=== PATIENT | male | born 1955 | race Caucasian/White ===

== ENCOUNTER 2016-09-10 22:13 | Emergency (ER) | payer SELFPAY ==
[2016-09-10] MEDS ORDERED: CATAPRES PO ONE (23:48)
[2016-09-11 06:08] VITALS: BP 153/113
[2016-09-11 06:38] LABS: Hematocrit 42.3 % (35.5-45.6); Hemoglobin 14.1 gm/dl (11.8-15.2); Mean Corpuscular HGB Conc 33 % (32-34); Mean Corpuscular Hemoglobin 28 pg (28-32); Mean Corpuscular Volume 85 fl (84-94); Platelet Count 154 K/mm3 (140-440); Red Blood Count 4.99 M/mm3 (3.65-5.03); Red Cell Distribution Width 14.4 % (13.2-15.2); White Blood Count 7.2 K/mm3 (4.5-11.0)
[2016-09-11 06:52] LABS: INR 0.93 (0.87-1.13); Partial Thromboplastin Time 28.8 Sec. (24.2-36.6)
[2016-09-11 06:55] LABS: Anion Gap 18 mmol/L; Blood Urea Nitrogen 18 mg/dL (9-20); Calcium 8.5 mg/dL (8.4-10.2); Carbon Dioxide 28 mmol/L (22-30); Chloride 98.1 mmol/L (98-107); Glucose 204 mg/dL (75-100); Potassium 3.6 mmol/L (3.6-5.0); Sodium 140 mmol/L (137-145)
--- NOTE | 2016-09-13 15:40 | ED Elopement Review ---
ED Pt Elopement review - Results review Lab results: Laboratory Tests 09/11/16 09/11/16 09/11/16 06:23 06:23 06:23 WBC 7.2 RBC 4.99 Hgb 14.1 Hct 42.3 MCV 85 MCH 28 MCHC 33 RDW 14.4 Plt Count 154 PT 12.4 INR 0.93 APTT 28.8 Sodium 140 Potassium 3.6 Chloride 98.1 Carbon Dioxide 28 Anion Gap 18 BUN 18 Creatinine 0.9 Estimated GFR > 60 BUN/Creatinine Ratio 20.00 Glucose 204 H Calcium 8.5 - Call Back decision Pt Call Back Decision: No action required
== END 2016-09-11 19:52 | disposition left against medical advice (07) ==
LOC: ED 22:13
DX: R04.0 Epistaxis (principal); Z53.21 Procedure and treatment not carried out due to patient leaving prior to being seen by health care provider
CPT/HCPCS: 36415; 80048; 85027; 85610; 85730

== ENCOUNTER 2018-01-11 21:31 | Emergency (ER) | payer SELFPAY ==
[2018-01-11 21:57] LABS: Basophils # (Auto) 0.1 K/mm3 (0.0-0.1); Basophils % (Auto) 0.7 % (0.0-1.8); Eosinophils # (Auto) 0.2 K/mm3 (0.0-0.4); Eosinophils % (Auto) 1.7 % (0.0-4.3); Hematocrit 45.7 % (35.5-45.6); Lymphocytes # (Auto) 3.5 K/mm3 (1.2-5.4); Lymphocytes % (Auto) 32.9 % (13.4-35.0); Mean Corpuscular HGB Conc 33 % (32-34); Mean Corpuscular Hemoglobin 27 pg (28-32); Mean Corpuscular Volume 82 fl (84-94); Monocytes # (Auto) 0.8 K/mm3 (0.0-0.8); Monocytes % (Auto) 7.9 % (0.0-7.3); Platelet Count 213 K/mm3 (140-440); Red Blood Count 5.55 M/mm3 (3.65-5.03); Red Cell Distribution Width 15.9 % (13.2-15.2)
[2018-01-11 22:10] LABS: BUN/Creatinine Ratio 21; Blood Urea Nitrogen 19 mg/dL (9-20); Calcium 9.4 mg/dL (8.4-10.2); Hemolysis Index 6
[2018-01-11 22:11] LABS: INR 0.94 (0.87-1.13)
[2018-01-11 22:12] LABS: Partial Thromboplastin Time 30.3 Sec. (24.2-36.6); Thrombin Time 16.4 Sec. (15.1-19.6)
--- NOTE | 2018-01-11 22:15 | Emergency Department Report ---
HPI - General Chief Complaint: Neuro Symptoms/Deficit Time Seen by Provider: 01/11/18 22:03 - HPI HPI: 62-year-old male presents to the emergency department with a complaint of some left-sided weakness, numbness and left-sided facial droop with some difficulty speaking that he says started about 8 PM last night. It is unknown why the patient was unable to get to the emergency department until this evening. He has a history of hypertension and does present with very elevated blood pressure. He also has a history of borderline diabetes. He has not taken anything for his symptoms prior to presentation. He denies any tobacco or illicit drug use or abuse. ED Past Medical Hx - Past Medical History Hx Hypertension: Yes - Social History Smoking Status: Former Smoker Substance Use Type: Alcohol - Medications Home Medications: Home Medications Medication Instructions Recorded Confirmed Last Taken Type Acetaminophen/Codeine [Tylenol #3] 1 - 2 tab PO Q4HR PRN #24 tablet 06/05/13 Unknown Rx Dextran 70/Hypromellose 1 each OD TID #15 ml 11/10/16 Unknown Rx [Artificial Tears] Valacyclovir HCl [Valtrex] 1,000 mg PO TID #21 tablet 11/10/16 Unknown Rx predniSONE [Deltasone] 80 mg PO QDAY #28 tab 11/10/16 Unknown Rx ED Review of Systems ROS: Stated complaint: POSSIBLE STROKE Other details as noted in HPI Comment: All other systems reviewed and negative Constitutional: weakness. denies: fever Eyes: denies: eye pain, eye discharge, vision change ENT: denies: ear pain, throat pain Respiratory: denies: cough, shortness of breath, wheezing Cardiovascular: denies: chest pain, palpitations Gastrointestinal: denies: abdominal pain, nausea, diarrhea Genitourinary: denies: urgency, dysuria Musculoskeletal: denies: back pain, joint swelling, arthralgia Skin: denies: rash, lesions Neurological: weakness, numbness. denies: headache Physical Exam - Physical Exam Vital Signs: Vital Signs 01/11/18 21:37 Temperature 98.8 F Pulse Rate 104 H Respiratory 20 Rate Blood Pressure 175/157 O2 Sat by Pulse 97 Oximetry Physical Exam: GENERAL: The patient is well-developed well-nourished. HENT: Normocephalic. Atraumatic. Patient has moist mucous membranes. Oropharynx is clear. There is left-sided nasolabial fold paresis. EYES: Extraocular motions are intact. Pupils equal reactive to light bilaterally. NECK: Supple. Trachea is midline. CHEST/LUNGS: Clear to auscultation. There is no respiratory distress noted. HEART/CARDIOVASCULAR: Regular. There is no tachycardia. There is no murmur. ABDOMEN: Abdomen is soft, nontender. Patient has normal bowel sounds. There is no abdominal distention. SKIN: Skin is warm and dry. NEURO: The patient is awake, alert, and oriented. The patient is cooperative. There is a left upper extremity drift but his arm does not hit the bed. Subjective decreased sensation to the left side of the face and arm. There is some slurred speech but what he says appears to make sense and he appeared oriented. MUSCULOSKELETAL: There is no tenderness or deformity. There is no limitation range of motion. There is no evidence of acute injury. ED Course Vital Signs 01/11/18 21:37 Temperature 98.8 F Pulse Rate 104 H Respiratory 20 Rate Blood Pressure 175/157 O2 Sat by Pulse 97 Oximetry - Reevaluation(s) Reevaluation #1: 01/11/18 22:11 NIH Stroke Scale/Score (NIHSS) from [employer] [facility] on 01/11/2018 All calculations should be rechecked by clinician prior to use RESULT SUMMARY: 5 points NIH Stroke Scale INPUTS: 1A: Level of consciousness > 0 = Alert; keenly responsive 1B: Ask month and age > 0 = Both questions right 1C: 'Blink eyes' & 'squeeze hands' > 0 = Performs both tasks 2: Horizontal extraocular movements > 0 = Normal 3: Visual wong > 0 = No visual loss 4: Facial palsy > 2 = Partial paralysis (lower face) 5A: Left arm motor drift > 1 = Drift, but doesn't hit bed 5B: Right arm motor drift > 0 = No drift for 10 seconds 6A: Left leg motor drift > 0 = No drift for 5 seconds 6B: Right leg motor drift > 0 = No drift for 5 seconds 7: Limb Ataxia > 0 = No ataxia 8: Sensation > 1 = Mild-moderate loss: less sharp/more dull 9: Language/aphasia > 0 = Normal; no aphasia 10: Dysarthria > 1 = Mild-moderate dysarthria: slurring but can be understood 11: Extinction/inattention > 0 = No abnormality - Consultations Consultation #1: Patient has been accepted for transfer to [facility] on [address] by Dr. Moran after speaking with the stroke attending and neuro critical care. 01/11/18 23:29 ED Medical Decision Making - Lab Data Result diagrams: 01/11/18 21:54 01/11/18 21:54 - EKG Data -: EKG Interpreted by Me EKG shows normal: sinus rhythm, axis (left axis deviation), intervals ( prolonged QTc), QRS complexes (incomplete RBBB, LAFB, LVH), ST-T waves Rate: normal - EKG Data When compared to previous EKG there are: no significant change Interpretation: unchanged when compared t (11/10/16) - Radiology Data Radiology results: report reviewed PROCEDURE: CT HEAD/BRAIN WO CON TECHNIQUE: Computerized tomography of the head was performed without contrast material. HISTORY: left side weakness, slurred speech since yesterday COMPARISON: No prior studies are available for comparison. FINDINGS: Skull and scalp: Normal. Paranasal sinuses: Normal. Ventricles and subarachnoid spaces: Normal. Cerebrum: There is a 15 millimeter hematoma in the right thalamus. There is no mass effect or midline shift. There is no evidence of recent ischemic injury. There is mild periventricular deep white matter ischemic gliosis. Cerebellum and brainstem: No evidence of hemorrhage, acute infarction or mass. Vasculature: Normal. Comments: None. IMPRESSION: 15 millimeter acute hematoma in the right thalamus. There is no significant mass effect. Dr. Skinner was notified by telephone at 9:07 p.m. central Transcribed By: CO Dictated By: SARA VERONICA MD Electronically Authenticated By: SARA VERONICA MD Signed Date/Time: 01/11/182 - Medical Decision Making Patient presents with some left-sided weakness, numbness, left-sided facial droop and some slurred speech. CT scan shows a 1.5 cm left thalamic bleed. He has some hypertension and has been placed on a Cardene drip. Labs have been mostly unremarkable except for some hyperglycemia without signs of DKA. He has been accepted for transfer to [facility]. He is currently waiting for transport to arrive. - Differential Diagnosis hemorrhagic CVA, TIA, DKA, hypertensive crisis Critical Care Time: No Critical care attestation.: If time is entered above; I have spent that time in minutes in the direct care of this critically ill patient, excluding procedure time. ED Disposition Clinical Impression: Hemorrhagic cerebrovascular accident (CVA), Hypertensive urgency, Hyperglycemia Disposition: DC/TX-70 ANOTHER TYPE HLTHCARE Is pt being admited?: No Condition: Fair Referrals: PRIMARY CARE, [Primary Care Provider] - 3-5 Days Time of Disposition: 00:04
[2018-01-11] MEDS ORDERED: CARDENE 50 MG in NACL 0.9% 250ML 230 ML IV SCH (23:00)
[2018-01-12 00:08] VITALS: BP 151/109
== END 2018-01-12 00:15 | disposition other institution (70) ==
LOC: ED 21:31
DX: I63.9 Cerebral infarction, unspecified (principal); I10 Essential (primary) hypertension; R73.9 Hyperglycemia, unspecified; Z87.891 Personal history of nicotine dependence
CPT/HCPCS: 36415; 70450; 80048; 82962; 84484; 85025; 85610; 85670; 85730; 93005; 93010; 96365; 99284; J7050

== ENCOUNTER 2020-05-02 02:01 | Inpatient (IN) | payer SELFPAY ==
[2020-05-02] MEDS ORDERED: ALBUTEROL 2.5 MG/3 ML NEBU IH ONE (02:14)
[2020-05-02] MEDS ORDERED: IPRATROPIUM 0.02% NEBU 2.5 ML IH ONE (02:14)
--- NOTE | 2020-05-02 02:19 | Emergency Department Report ---
ED Shortness of Breath HPI - General Stated Complaint: ANA Time Seen by Provider: 05/02/20 02:13 Source: patient, EMS Mode of arrival: Stretcher Limitations: Language Barrier - History of Present Illness Initial Comments: 64-year-old male with no known past medical history presents to the hospital with respiratory distress. Patient is a smoker but denies previous cardiac or lung disease. EMS reports that patient was in respiratory distress, tachypneic, and had bilateral wheezing. Patient was treated with albuterol, magnesium, and Solu-Medrol in route with some improvement. After arrival to the ED patient redeveloped respiratory distress. Satting 100% on nonrebreather. Patient denies any pain cough (however cough noted during interview) or chest pain. + Possible fever. - Related Data Previous Rx's Medication Instructions Recorded Last Taken Type Acetaminophen/Codeine [Tylenol #3] 1 - 2 tab PO Q4HR PRN #24 tablet 06/05/13 Unknown Rx Dextran 70/Hypromellose 1 each OD TID #15 ml 11/10/16 Unknown Rx [Artificial Tears] Valacyclovir HCl [Valtrex] 1,000 mg PO TID #21 tablet 11/10/16 Unknown Rx predniSONE [Deltasone] 80 mg PO QDAY #28 tab 11/10/16 Unknown Rx Allergies Allergy/AdvReac Type Severity Reaction Status Date / Time No Known Allergies Allergy Unverified 06/04/13 22:44 ED Review of Systems ROS: Stated complaint: ANA Other details as noted in HPI Comment: All other systems reviewed and negative ED Past Medical Hx - Past Medical History Hx Hypertension: Yes - Social History Smoking Status: Former Smoker Substance Use Type: Alcohol - Medications Home Medications: Home Medications Medication Instructions Recorded Confirmed Last Taken Type Acetaminophen/Codeine [Tylenol #3] 1 - 2 tab PO Q4HR PRN #24 tablet 06/05/13 Unknown Rx Dextran 70/Hypromellose 1 each OD TID #15 ml 11/10/16 Unknown Rx [Artificial Tears] Valacyclovir HCl [Valtrex] 1,000 mg PO TID #21 tablet 11/10/16 Unknown Rx predniSONE [Deltasone] 80 mg PO QDAY #28 tab 11/10/16 Unknown Rx ED Physical Exam - Other Other exam information: General: No acute distress Head: Atraumatic Eyes: normal appearance ENT: Moist mucous membranes Neck: Normal appearance, no midline tenderness Chest: Tachypnea, bilateral excessive muscle use, mild wheezing CV: Tachycardic regular rhythm Abdomen: Soft, normal bowel sounds, nontender, nondistended, no rebound or guard ing Back: Normal inspection Extremity: Normal inspection, full range of motion, no calf tenderness or leg edema Neuro: Alert O x 3, no facial asymmetry, speech clear, no gross motor sensory deficit Psych: Appropriate behavior Skin: No rash ED Course Vital Signs 05/02/20 05/02/20 05/02/20 02:15 02:18 02:20 Temperature 97.9 F Pulse Rate 118 H 118 H 117 H Respiratory 44 H 38 H 33 H Rate Blood Pressure 181/121 181/121 Blood Pressure 181/121 [Right] O2 Sat by Pulse 100 100 100 Oximetry 05/02/20 05/02/20 05/02/20 02:30 02:31 02:45 Temperature Pulse Rate 110 H 108 H Respiratory 37 H 31 H Rate Blood Pressure 169/108 169/108 Blood Pressure [Right] O2 Sat by Pulse 100 100 100 Oximetry 05/02/20 05/02/20 05/02/20 03:00 03:15 03:30 Temperature Pulse Rate 106 H 104 H 102 H Respiratory 28 H 21 20 Rate Blood Pressure 164/110 164/110 158/100 Blood Pressure [Right] O2 Sat by Pulse 100 100 100 Oximetry 05/02/20 03:45 Temperature Pulse Rate 102 H Respiratory 20 Rate Blood Pressure 158/100 Blood Pressure [Right] O2 Sat by Pulse 100 Oximetry ED Medical Decision Making - Lab Data Result diagrams: 05/02/20 02:39 05/02/20 02:39 - EKG Data -: EKG Interpreted by Il EKG shows normal: sinus rhythm, intervals (qtc 505), ST-T waves (no stemi, lvh) Rate: tachycardia (109) - Radiology Data Radiology results: report reviewed CHEST 1 VIEW, 05/02/2020 2:23 AM CLINICAL INFORMATION/INDICATION: Chest pain. Shortness of breath. COMPARISON: None FINDINGS: SUPPORT DEVICES: None. HEART: The cardiac silhouette is mildly enlarged. LUNGS/PLEURA: Diffuse bilateral predominantly airspace disease is seen throughout both lung wong. No large pleural effusion is identified. ADDITIONAL FINDINGS: No additional acute findings. IMPRESSION: 1. Diffuse bilateral predominantly airspace disease concerning for multifocal pneumonia. - Medical Decision Making 64-year-old male smoker with no known past medical history presents to the hospital with respiratory distress despite treatment with Solu-Medrol, magnesium, and albuterol in route. O2 saturation 100% on nonrebreather but tachypneic upon ED arrival. Patient placed on BiPAP and treated with albuterol and Atrovent. ABG performed while on BiPAP with 70% FiO2 and does not show any acid-base disturbance with adequate oxygenation. Chest x-ray positive for bilateral infiltrates therefore COVID order set ordered and patient placed in respiratory isolation. Patient treated for community-acquired pneumonia with azithromycin and Rocephin and was provided Decadron 6 g IV. ID consult ordered. Patient's respiratory symptoms improving with ED treatment and BIPAP support but patient remains hypertensive with no known past medical history of hypertension. Case discussed with hospitalist Dr Weinstein for admission to the [facility]. Critical Care Time: Yes Critical care time in (mins) excluding proc time.: 35 Critical care attestation.: If time is entered above; I have spent that time in minutes in the direct care of this critically ill patient, excluding procedure time. ED Disposition Clinical Impression: Bilateral pneumonia, Suspected COVID-19 virus infection, Acute respiratory distress, Smoker, HTN (hypertension) Disposition: OP ADMIT IP TO THIS HOSP Is pt being admited?: Yes Condition: Stable Time of Disposition: 03:45
[2020-05-02 02:52] LABS: Basophils # (Auto) 0.1 K/mm3 (0.0-0.1); Basophils % (Auto) 0.8 % (0.0-1.8); Eosinophils # (Auto) 0.3 K/mm3 (0.0-0.4); Eosinophils % (Auto) 2.6 % (0.0-4.3); Hematocrit 34.6 % (35.5-45.6); Hemoglobin 12.3 gm/dl (11.8-15.2); Lymphocytes # (Auto) 1.8 K/mm3 (1.2-5.4); Mean Corpuscular HGB Conc 36 % (32-34); Mean Corpuscular Volume 85 fl (84-94); Monocytes # (Auto) 1.1 K/mm3 (0.0-0.8); Monocytes % (Auto) 9.9 % (0.0-7.3); Platelet Count 248 K/mm3 (140-440); Red Blood Count 4.08 M/mm3 (3.65-5.03); Red Cell Distribution Width 14.9 % (13.2-15.2)
--- NOTE | 2020-05-02 03:00 | XRay Report ---
CHEST 1 VIEW, 05/02/2020 2:23 AM CLINICAL INFORMATION/INDICATION: Chest pain. Shortness of breath. COMPARISON: None FINDINGS: SUPPORT DEVICES: None. HEART: The cardiac silhouette is mildly enlarged. LUNGS/PLEURA: Diffuse bilateral predominantly airspace disease is seen throughout both lung wong. N o large pleural effusion is identified. ADDITIONAL FINDINGS: No additional acute findings. IMPRESSION: 1. Diffuse bilateral predominantly airspace disease concerning for multifocal pneumonia. Signer Name: Hansa Elena MD Signed: 05/02/2020 2:55 AM Workstation Name: [id number]
[2020-05-02 03:02] LABS: INR 1.1 (0.87-1.13)
[2020-05-02 03:05] LABS: ABG Base Excess -1.6 mmol/L (-2.0-3.0); ABG HCO3 23.7 mmol/L (20.0-26.0); ABG Methemoglobin 0.5 % (0.0-1.5); ABG Oxygen Saturation 99.2 % (95.0-99.0); ABG PCO2 42.2 mm Hg; ABG PH 7.367 pH Units (7.350-7.450); ABG PO2 198.2 mm Hg (80.0-90.0)
[2020-05-02 03:12] LABS: Alanine Aminotransferase 18 units/L (7-56); Albumin 3.6 g/dL (3.9-5); BUN/Creatinine Ratio 23; Blood Urea Nitrogen 21 mg/dL (9-20); Calcium 8.2 mg/dL (8.4-10.2); Hemolysis Index 3
[2020-05-02] MEDS ORDERED: dexAMETHasone 4 MG/ML VIAL IV ONE (03:22)
[2020-05-02] MEDS ORDERED: ACETAMINOPHEN 325 MG TAB PO PRN (04:36)
[2020-05-02] MEDS ORDERED: ONDANSETRON 4 MG/2 ML INJ IV PRN (04:39)
[2020-05-02 05:00] LABS: C-Reactive Protein 9.2 mg/dL (0.00-1.30)
--- NOTE | 2020-05-02 05:52 | History and Physical Report ---
History of Present Illness Date of examination: 05/02/20 Date of admission: 05/02/20 04:25 Chief complaint: Shortness of breath History of present illness: History of presenting illness, patient is a 64-year-old male who started having shortness of breath within the last 24 to 48 hours associated with fever but no chest pain or cough. There was also no history of nausea and vomiting and no history of body aches or chills, however patient complained of wheezing and EMS was called and they treated patient with breathing treatment and magnesium and brought patient to the emergency room. Past History Past Surgical History: No surgical history Social history: no significant social history Medications and Allergies Allergies Allergy/AdvReac Type Severity Reaction Status Date / Time No Known Allergies Allergy Unverified 06/04/13 22:44 Home Medications Medication Instructions Recorded Confirmed Last Taken Type Acetaminophen/Codeine [Tylenol #3] 1 - 2 tab PO Q4HR PRN #24 tablet 06/05/13 Unknown Rx Dextran 70/Hypromellose 1 each OD TID #15 ml 11/10/16 Unknown Rx [Artificial Tears] Valacyclovir HCl [Valtrex] 1,000 mg PO TID #21 tablet 11/10/16 Unknown Rx predniSONE [Deltasone] 80 mg PO QDAY #28 tab 11/10/16 Unknown Rx Active Meds: Active Medications Acetaminophen (Tylenol) 650 mg PO Q4H PRN PRN Reason: Fever >101 Dexamethasone (Decadron) 6 mg IV DAILY [facility] Heparin Sodium (Porcine) (Heparin) 5,000 unit SUB-Q Q12HR JAMIN Ceftriaxone Sodium (Rocephin/Ns 2 Gm/100 Ml) 2 gm in 100 mls @ 200 mls/hr IV Q24HR JAMIN; Protocol Azithromycin 500 mg/ Sodium (Chloride) 250 mls @ 250 mls/hr IV Q24HR JAMIN; Protocol Ondansetron HCl (Zofran) 4 mg IV Q8H PRN PRN Reason: Nausea And Vomiting Review of Systems Constitutional: fever, weakness, no chills, no sweats, no anorexia, no fatigue, no malaise Eyes: bilateral: other (NO BILATERAL EYE SYMPTOM) Ears, nose, mouth and throat: bleeding gums, no ear pain, no ear discharge, no tinnitis, no nose pain, no nasal congestion, no nasal discharge, no hoarseness, no sore throat Cardiovascular: shortness of breath, no chest pain, no orthopnea, no palpitations, no rapid/irregular heart beat, no syncope, no high blood pressure Respiratory: shortness of breath, dyspnea on exertion, wheezing, no cough, no excessive sputum, no hemoptysis Gastrointestinal: no abdominal pain, no nausea, no vomiting, no diarrhea Genitourinary Male: no dysuria, no hematuria Rectal: no pain Musculoskeletal: no neck stiffness, no neck pain, no low back pain, no shooting leg pain, no leg numbness/tingling, no redness of joints, no morning stiffness, no muscle cramps, no myalgias, no frequent falls Integumentary: no deferred, no rash, no pruritis, no redness, no sores, no wounds, no jaundice, no boils, no growths, no depigmentation, no change in hair/nails Neurological: no paralysis, no weakness, no parathesias, no numbness, no tingling, no seizures, no syncope, no vertigo, no headaches, no migraines, no convulsions, no change in speech, no change in mentation, no confusion Psychiatric: no anxiety, no insomnia, no suicidal ideation, no disorientation Endocrine: no cold intolerance, no heat intolerance, no polyphagia, no excessive thirst, no polydipsia, no polyuria, no nocturia, no excessive sweating Hematologic/Lymphatic: no easy bruising, no easy bleeding, no lymphadenopathy, no lymphedema Allergic/Immunologic: no urticaria Exam - Constitutional Vitals: Temp Pulse Resp BP Pulse Ox 97.9 F 96 H 18 154/101 100 05/02/20 02:18 05/02/20 04:45 05/02/20 04:45 05/02/20 04:45 05/02/20 04:45 General appearance: Present: mild distress - EENT Eyes: Present: PERRL, EOM intact ENT: hearing intact, clear oral mucosa, dentition normal - Neck Neck: Present: supple, normal ROM - Respiratory Respiratory effort: normal - Cardiovascular Rhythm: regular Heart Sounds: Present: S1 & S2. Absent: gallop, systolic murmur, diastolic murmur - Extremities Extremities: no ischemia, No edema Peripheral Pulses: within normal limits - Abdominal General gastrointestinal: Present: soft, non-tender, non-distended. Absent: tender, distended, hepatomegaly, splenomegaly Male genitourinary: Present: deferred - Integumentary Integumentary: Present: clear, warm. Absent: jaundice - Musculoskeletal Musculoskeletal: strength equal bilaterally - Psychiatric Psychiatric: appropriate mood/affect - Neurologic Neurologic: CNII-XII intact HEART Score - HEART Score Age: 45-65 Risk factors: 1-2 risk factors Troponin: Troponin T < 0.010 ng/mL (0.00-0.029) 05/02/20 02:39 Troponin: < normal limit - Critical Actions Critical Actions: 0-3 pts:0.9-1.7%risk of adverse cardiac event.Candidate for discharge Results - Labs CBC & Chem 7: 05/02/20 02:39 05/02/20 03:58 Labs: Laboratory Last Values WBC 11.4 K/mm3 (4.5-11.0) H 05/02/20 02:39 RBC 4.08 M/mm3 (3.65-5.03) 05/02/20 02:39 Hgb 12.3 gm/dl (11.8-15.2) 05/02/20 02:39 Hct 34.6 % (35.5-45.6) L 05/02/20 02:39 MCV 85 fl (84-94) 05/02/20 02:39 MCH 30 pg (28-32) 05/02/20 02:39 MCHC 36 % (32-34) H 05/02/20 02:39 RDW 14.9 % (13.2-15.2) 05/02/20 02:39 Plt Count 248 K/mm3 (140-440) 05/02/20 02:39 Lymph % (Auto) 16.0 % (13.4-35.0) 05/02/20 02:39 Clark % (Auto) 9.9 % (0.0-7.3) H 05/02/20 02:39 Eos % (Auto) 2.6 % (0.0-4.3) 05/02/20 02:39 Baso % (Auto) 0.8 % (0.0-1.8) 05/02/20 02:39 Lymph # 1.8 K/mm3 (1.2-5.4) 05/02/20 02:39 Clark # 1.1 K/mm3 (0.0-0.8) H 05/02/20 02:39 Eos # 0.3 K/mm3 (0.0-0.4) 05/02/20 02:39 Baso # 0.1 K/mm3 (0.0-0.1) 05/02/20 02:39 Seg Neutrophils % 70.7 % (40.0-70.0) H 05/02/20 02:39 Seg Neutrophils # 8.0 K/mm3 (1.8-7.7) H 05/02/20 02:39 PT 14.4 Sec. (12.2-14.9) 05/02/20 02:39 INR 1.10 (0.87-1.13) 05/02/20 02:39 D-Dimer 837.32 ng/mlDDU (0-234) H 05/02/20 03:58 ABG pH 7.367 pH Units (7.350-7.450) 05/02/20 02:58 ABG pCO2 42.2 mm Hg 05/02/20 02:58 ABG pO2 198.2 mm Hg (80.0-90.0) H 05/02/20 02:58 ABG HCO3 23.7 mmol/L (20.0-26.0) 05/02/20 02:58 ABG O2 Saturation 99.2 % (95.0-99.0) H 05/02/20 02:58 ABG O2 Content 17.6 (0.0-44) 05/02/20 02:58 ABG Base Excess -1.6 mmol/L (-2.0-3.0) 05/02/20 02:58 ABG Hemoglobin 12.6 gm/dl (14.0-18.0) L 05/02/20 02:58 ABG Carboxyhemoglobin 1.3 % (0.0-5.0) 05/02/20 02:58 ABG Methemoglobin 0.5 % (0.0-1.5) 05/02/20 02:58 Oxyhemoglobin 97.4 % (95.0-99.0) 05/02/20 02:58 FiO2 70 % 05/02/20 02:58 Sodium 138 mmol/L (137-145) 05/02/20 02:39 Potassium 3.6 mmol/L (3.6-5.0) 05/02/20 02:39 Chloride 100.0 mmol/L (98-107) 05/02/20 02:39 Carbon Dioxide 24 mmol/L (22-30) 05/02/20 02:39 Anion Gap 18 mmol/L 05/02/20 02:39 BUN 21 mg/dL (9-20) H 05/02/20 02:39 Creatinine 0.9 mg/dL (0.8-1.3) 05/02/20 02:39 Estimated GFR > 60 ml/min 05/02/20 02:39 BUN/Creatinine Ratio 23 % 05/02/20 02:39 Glucose 147 mg/dL (75-100) H 05/02/20 03:58 Calcium 8.2 mg/dL (8.4-10.2) L 05/02/20 02:39 Ferritin 150.1 ng/mL (30.0-300.0) 05/02/20 03:58 Total Bilirubin 0.50 mg/dL (0.1-1.2) 05/02/20 02:39 AST 33 units/L (5-40) 05/02/20 02:39 ALT 18 units/L (7-56) 05/02/20 02:39 Alkaline Phosphatase 120 units/L (35-129) 05/02/20 02:39 Lactate Dehydrogenase 272 units/L (91-180) H 05/02/20 03:58 Troponin T < 0.010 ng/mL (0.00-0.029) 05/02/20 02:39 C-Reactive Protein 9.20 mg/dL (0.00-1.30) H 05/02/20 03:58 NT-Pro-B Natriuret Pep 4356 pg/mL (0-900) H 05/02/20 02:39 Total Protein 7.3 g/dL (6.3-8.2) 05/02/20 02:39 Albumin 3.6 g/dL (3.9-5) L 05/02/20 02:39 Albumin/Globulin Ratio 1.0 % 05/02/20 02:39 Smith/IV: IV Catheter Type [Right INT / Saline Lock Antecubital] Assessment and Plan - Patient Problems (1) Bilateral pneumonia Current Visit: Yes Status: Acute Plan to address problem: 1. I.V ZITHROMAX ANTIBIOTIC 2. I.V ROCEPHIN ANTIOBIOTIC 3. PRN TYLENOL FOR FEVER 4. PRN ROBITUSSIN (2) Suspected COVID-19 virus infection Current Visit: Yes Status: Acute Plan to address problem: 1. DROPLET AND CONTACT ISOLATION 2. INFECTIOUS DISEASE CONSULT 3. I.V DEXAMETHASONE
[2020-05-02] MEDS ORDERED: AZITHROMYCIN 500 MG in SODIUM CHLORIDE 0.9% 250ML 250 ML IV SCH (10:00)
[2020-05-02] MEDS ORDERED: HEPARIN 5,000 UNIT/1 ML VIAL ONE (10:18)
[2020-05-02] MEDS ORDERED: dexAMETHasone 4 MG/ML VIAL ONE (10:18)
[2020-05-02] MEDS ORDERED: cefTRIAXone/NS 2 GM/100 ML 2 GM/100 ML BAG IV ONE (10:20)
[2020-05-02] MEDS: HEPARIN 5,000 UNIT/1 ML VIAL SUB-Q SCH ×2 (10:52→23:36)
[2020-05-02] MEDS: dexAMETHasone 4 MG/ML VIAL IV SCH (10:52)
[2020-05-02] MEDS: cefTRIAXone/NS 2 GM/100 ML 2 GM/100 ML BAG IV SCH (10:52)
--- NOTE | 2020-05-02 12:13 | Event Note ---
Date: 05/02/20
--- NOTE | 2020-05-02 12:19 | Progress Note ---
Assessment and Plan Assessment and plan: --Bilateral pneumonia Current Visit: Yes Status: Acute Plan to address problem: Empiric antibiotics Rocephin and Zithromax Blood cultures, supportive care --Acute hypoxic respiratory failure; Requiring BiPAP. Oxygen titrate O2 sats to more than 90% Nebulizers, IV antibiotics, supportive care --PUI -suspected COVID-19 virus infection Current Visit: Yes Status: Acute Plan to address problem: Isolation contact and droplet Isolation precautions, and PPE protocol. Follow farris PCR test report Follow inflammatory markers ID consulted --elevated D-dimers CTA chest;No evidence of PE Suspected bilateral upper lobe pneumonia Moderate pleural effusion right greater than left Uncomplicated descending thoracic aortic aneurysm 5.2 x 4.9 cm patient feels better. --Ongoing tobacco use: ongoing tobacco use smoking cessation counseling. nicotine patch as needed --DVT prophylaxis; Lovenox Closely monitor the patient and adjust management as needed Follow ID recommendations Advance care 32 minutes History Interval history: I seen and examined the patient I have seen and examined the patient at bedside Patient's chart and medications reviewed Admitted with worsening shortness of breath and acute respiratory failure requiring BiPAP High suspicion for COVID Patient is in mild distress Vital signs reviewed Hospitalist Physical - Constitutional Vitals: Temp Pulse Resp BP Pulse Ox 98.4 F 88 16 116/80 100 05/02/20 07:40 05/02/20 11:40 05/02/20 11:40 05/02/20 11:40 05/02/20 11:40 General appearance: Present: mild distress, well-nourished - EENT Eyes: Present: PERRL, EOM intact - Neck Neck: Present: supple, normal ROM - Respiratory Respiratory effort: normal Respiratory: bilateral: diminished, rhonchi, negative: rales, wheezing - Cardiovascular Rhythm: regular Heart Sounds: Present: S1 & S2 - Extremities Extremities: no ischemia, No edema - Abdominal General gastrointestinal: soft, non-tender, non-distended, normal bowel sounds - Integumentary Integumentary: Present: clear, warm - Psychiatric Psychiatric: appropriate mood/affect, agitated - Neurologic Neurologic: moves all extremities HEART Score - HEART Score Age: 45-65 Risk factors: 1-2 risk factors Troponin: Troponin T < 0.010 ng/mL (0.00-0.029) 05/02/20 02:39 Troponin: < normal limit - Critical Actions Critical Actions: 0-3 pts:0.9-1.7%risk of adverse cardiac event.Candidate for discharge Results - Labs CBC & Chem 7: 05/02/20 02:39 05/02/20 03:58 Labs: Laboratory Last Values WBC 11.4 K/mm3 (4.5-11.0) H 05/02/20 02:39 RBC 4.08 M/mm3 (3.65-5.03) 05/02/20 02:39 Hgb 12.3 gm/dl (11.8-15.2) 05/02/20 02:39 Hct 34.6 % (35.5-45.6) L 05/02/20 02:39 MCV 85 fl (84-94) 05/02/20 02:39 MCH 30 pg (28-32) 05/02/20 02:39 MCHC 36 % (32-34) H 05/02/20 02:39 RDW 14.9 % (13.2-15.2) 05/02/20 02:39 Plt Count 248 K/mm3 (140-440) 05/02/20 02:39 Lymph % (Auto) 16.0 % (13.4-35.0) 05/02/20 02:39 [place] % (Auto) 9.9 % (0.0-7.3) H 05/02/20 02:39 Eos % (Auto) 2.6 % (0.0-4.3) 05/02/20 02:39 Baso % (Auto) 0.8 % (0.0-1.8) 05/02/20 02:39 Lymph # 1.8 K/mm3 (1.2-5.4) 05/02/20 02:39 [place] # 1.1 K/mm3 (0.0-0.8) H 05/02/20 02:39 Eos # 0.3 K/mm3 (0.0-0.4) 05/02/20 02:39 Baso # 0.1 K/mm3 (0.0-0.1) 05/02/20 02:39 Seg Neutrophils % 70.7 % (40.0-70.0) H 05/02/20 02:39 Seg Neutrophils # 8.0 K/mm3 (1.8-7.7) H 05/02/20 02:39 PT 14.4 Sec. (12.2-14.9) 05/02/20 02:39 INR 1.10 (0.87-1.13) 05/02/20 02:39 D-Dimer 837.32 ng/mlDDU (0-234) H 05/02/20 03:58 ABG pH 7.367 pH Units (7.350-7.450) 05/02/20 02:58 ABG pCO2 42.2 mm Hg 05/02/20 02:58 ABG pO2 198.2 mm Hg (80.0-90.0) H 05/02/20 02:58 ABG HCO3 23.7 mmol/L (20.0-26.0) 05/02/20 02:58 ABG O2 Saturation 99.2 % (95.0-99.0) H 05/02/20 02:58 ABG O2 Content 17.6 (0.0-44) 05/02/20 02:58 ABG Base Excess -1.6 mmol/L (-2.0-3.0) 05/02/20 02:58 ABG Hemoglobin 12.6 gm/dl (14.0-18.0) L 05/02/20 02:58 ABG Carboxyhemoglobin 1.3 % (0.0-5.0) 05/02/20 02:58 ABG Methemoglobin 0.5 % (0.0-1.5) 05/02/20 02:58 Oxyhemoglobin 97.4 % (95.0-99.0) 05/02/20 02:58 FiO2 70 % 05/02/20 02:58 Sodium 138 mmol/L (137-145) 05/02/20 02:39 Potassium 3.6 mmol/L (3.6-5.0) 05/02/20 02:39 Chloride 100.0 mmol/L (98-107) 05/02/20 02:39 Carbon Dioxide 24 mmol/L (22-30) 05/02/20 02:39 Anion Gap 18 mmol/L 05/02/20 02:39 BUN 21 mg/dL (9-20) H 05/02/20 02:39 Creatinine 0.9 mg/dL (0.8-1.3) 05/02/20 02:39 Estimated GFR > 60 ml/min 08/25/20 02:39 BUN/Creatinine Ratio 23 % 05/02/20 02:39 Glucose 147 mg/dL (75-100) H 05/02/20 03:58 Calcium 8.2 mg/dL (8.4-10.2) L 05/02/20 02:39 Ferritin 150.1 ng/mL (30.0-300.0) 05/02/20 03:58 Total Bilirubin 0.50 mg/dL (0.1-1.2) 05/02/20 02:39 AST 33 units/L (5-40) 05/02/20 02:39 ALT 18 units/L (7-56) 05/02/20 02:39 Alkaline Phosphatase 120 units/L (35-129) 05/02/20 02:39 Lactate Dehydrogenase 272 units/L (91-180) H 05/02/20 03:58 Troponin T < 0.010 ng/mL (0.00-0.029) 05/02/20 02:39 C-Reactive Protein 9.20 mg/dL (0.00-1.30) H 05/02/20 03:58 NT-Pro-B Natriuret Pep 4356 pg/mL (0-900) H 05/02/20 02:39 Total Protein 7.3 g/dL (6.3-8.2) 05/02/20 02:39 Albumin 3.6 g/dL (3.9-5) L 05/02/20 02:39 Albumin/Globulin Ratio 1.0 % 05/02/20 02:39 Procalcitonin 0.06 ng/mL (<0.15) 05/02/20 03:58 Microbiology: Microbiology 05/02/20 04:13 Peripheral/Venous Blood Culture - Preliminary Culture in Progress 05/02/20 03:58 Peripheral/Venous Blood Culture - Preliminary Culture in Progress Smith/IV: IV Catheter Type [Right INT / Saline Lock Antecubital] IV Catheter Type [Left INT / Saline Lock Antecubital] Active Medications - Current Medications Current Medications: Generic Name Dose Route Start Last Admin Trade Name Freq PRN Reason Stop Dose Admin Acetaminophen 650 mg 05/02/20 04:36 Tylenol PO Q4H PRN Fever >101 Dexamethasone 6 mg 05/02/20 10:00 05/02/20 10:52 Decadron IV 6 mg DAILY JAMIN Administration Heparin Sodium (Porcine) 5,000 unit 05/02/20 10:00 05/02/20 10:52 Heparin SUB-Q 5,000 unit Q12HR JAMIN Administration Ceftriaxone Sodium 2 gm in 100 mls @ 200 mls/hr 05/02/20 10:00 05/02/20 10:52 Rocephin/Ns 2 Gm/100 Ml IV 200 mls/hr Q24HR JAMIN Administration Protocol Azithromycin 500 mg/ Sodium 250 mls @ 250 mls/hr 05/02/20 10:00 05/02/20 10:52 Chloride IV 250 mls/hr Q24HR JAMIN Administration Protocol Ondansetron HCl 4 mg 05/02/20 04:39 Zofran IV Q8H PRN Nausea And Vomiting
--- NOTE | 2020-05-02 12:45 | Consultation ---
History of Present Illness - Reason for Consult Consult date: 05/02/20 COVID suspected Requesting physician: JOSE BAUM - History of Present Illness The patient is a 64-year-old male with no significant past medical history admitted to the hospital with cough and shortness of breath for 2-day duration. He also had some questionable fever. Patient noted to be hypoxic in the emergency room initially requiring a nonrebreather mask and then BiPAP. No f ever on admission. Infectious diseases was consulted to evaluate for COVID-19. He is currently on empiric antibiotics and steroids. Review of Systems: reviewed in the chart, unable to obtain directly due to PPE preservation and minimize risk of transmission Past History Past Surgical History: No surgical history Social history: no significant social history Medications and Allergies Allergies Allergy/AdvReac Type Severity Reaction Status Date / Time No Known Allergies Allergy Unverified 06/04/13 22:44 Home Medications Medication Instructions Recorded Confirmed Last Taken Type Acetaminophen/Codeine [Tylenol #3] 1 - 2 tab PO Q4HR PRN #24 tablet 06/05/13 Unknown Rx Dextran 70/Hypromellose 1 each OD TID #15 ml 11/10/16 Unknown Rx [Artificial Tears] Valacyclovir HCl [Valtrex] 1,000 mg PO TID #21 tablet 11/10/16 Unknown Rx predniSONE [Deltasone] 80 mg PO QDAY #28 tab 11/10/16 Unknown Rx Active Meds: Active Medications Acetaminophen (Tylenol) 650 mg PO Q4H PRN PRN Reason: Fever >101 Dexamethasone (Decadron) 6 mg IV DAILY [facility] Last Admin: 05/02/20 10:52 Dose: 6 mg Documented by: Heparin Sodium (Porcine) (Heparin) 5,000 unit SUB-Q Q12HR JAMIN Last Admin: 05/02/20 10:52 Dose: 5,000 unit Documented by: Ceftriaxone Sodium (Rocephin/Ns 2 Gm/100 Ml) 2 gm in 100 mls @ 200 mls/hr IV Q24HR JAMIN; Protocol Last Admin: 05/02/20 10:52 Dose: 200 mls/hr Documented by: Azithromycin 500 mg/ Sodium (Chloride) 250 mls @ 250 mls/hr IV Q24HR JAMIN; Protocol Last Admin: 05/02/20 10:52 Dose: 250 mls/hr Documented by: Ondansetron HCl (Zofran) 4 mg IV Q8H PRN PRN Reason: Nausea And Vomiting Physical Examination - Physical Exam Narrative exam: Physical Exam (reviewed in chart due to PPE conservation and minimize risk of transmission) Constitutional: limited due to PPE conservation strategy Head, Ears, Nose: limited due to PPE conservation strategy Eyes: limited due to PPE conservation strategy Neck: limited due to PPE conservation strategy Oral: limited due to PPE conservation strategy Cardiovascular: limited due to PPE conservation strategy Respiratory: limited due to PPE conservation strategy GI: limited due to PPE conservation strategy Musculoskeletal: limited due to PPE conservation strategy Skin: limited due to PPE conservation strategy Hem/Lymphatic: limited due to PPE conservation strategy Psych: limited due to PPE conservation strategy Neurological: limited due to PPE conservation strategy - Constitutional Vitals: Vital Signs Temp Pulse Resp BP Pulse Ox 98.4 F 88 16 116/80 100 05/02/20 07:40 05/02/20 11:40 05/02/20 11:40 05/02/20 11:40 05/02/20 11:40 Temperature -Last 24 Hours Temperature 98.4 F Temperature 97.9 F Results - Labs CBC & Chem 7: 05/02/20 02:39 05/02/20 03:58 Labs: Abnormal lab results 05/02/20 05/02/20 05/02/20 Range/Units 02:39 02:39 02:58 WBC 11.4 H (4.5-11.0) K/mm3 Hct 34.6 L (35.5-45.6) % MCHC 36 H (32-34) % [place] % (Auto) 9.9 H (0.0-7.3) % [place] # 1.1 H (0.0-0.8) K/mm3 Seg Neutrophils % 70.7 H (40.0-70.0) % Seg Neutrophils # 8.0 H (1.8-7.7) K/mm3 D-Dimer (0-234) ng/mlDDU ABG pO2 198.2 H (80.0-90.0) mm Hg ABG O2 Saturation 99.2 H (95.0-99.0) % ABG Hemoglobin 12.6 L (14.0-18.0) gm/dl BUN 21 H (9-20) mg/dL Glucose 149 H (75-100) mg/dL Calcium 8.2 L (8.4-10.2) mg/dL Lactate Dehydrogenase (91-180) units/L C-Reactive Protein (0.00-1.30) mg/dL NT-Pro-B Natriuret Pep 4356 H (0-900) pg/mL Albumin 3.6 L (3.9-5) g/dL 05/02/20 05/02/20 Range/Units 03:58 03:58 WBC (4.5-11.0) K/mm3 Hct (35.5-45.6) % MCHC (32-34) % [place] % (Auto) (0.0-7.3) % [place] # (0.0-0.8) K/mm3 Seg Neutrophils % (40.0-70.0) % Seg Neutrophils # (1.8-7.7) K/mm3 D-Dimer 837.32 H (0-234) ng/mlDDU ABG pO2 (80.0-90.0) mm Hg ABG O2 Saturation (95.0-99.0) % ABG Hemoglobin (14.0-18.0) gm/dl BUN (9-20) mg/dL Glucose 147 H (75-100) mg/dL Calcium (8.4-10.2) mg/dL Lactate Dehydrogenase 272 H (91-180) units/L C-Reactive Protein 9.20 H (0.00-1.30) mg/dL NT-Pro-B Natriuret Pep (0-900) pg/mL Albumin (3.9-5) g/dL - Imaging and Cardiology Chest x-ray: report reviewed, image reviewed (b/l airspace disease) Assessment and Plan Cultures: Coronavirus PCR: Pending Blood culture: In process A/P: 64/M with #Bilateral pneumonia: pneumonia v/s CHF. COVID-19 PCR pending. D-dimer 837, ferritin 150, procalcitonin 0.06, BNP 4356, CRP 9, LDH 272 #Acute hypoxic respiratory failure: On BiPAP. Recs: Follow-up COVID-19 PCR Continue empiric antibiotics for now Continue IV/PO Dexamethasone 6 mg daily x 10 days If COVID-19 PCR is positive, consider prophylactic anticoagulation based on d- dimer; trend ferritin, LDH, d-dimer, CRP every 2-3 days for risk stratification and to assess disease progression Lyle Salmon MD, FACP [facility] ([facility] C: [phone] O: [phone] F: [phone]
--- NOTE | 2020-05-02 14:02 | Cat Scan Report ---
CTA CHEST WITH IV CONTRAST INDICATION: Elevated D-dimers/shortness of breath/evaluate for PE. TECHNIQUE: Axial CT images were obtained through the chest after injection of 100 cc Omnipaque 300 IV contrast. 3 plane MIP reconstructions were produced. All CT scans at this location are performed using CT dose reduction for ALARA by means of automated exposure control. COMPARISON: One view of the chest from earlier today. FINDINGS: PULMONARY ARTERIES: Well-opacified without visualization of PTE. AORTA AND ARTERIES: The ascending thoracic aorta is dilated and measures 5.2 x 4.9 cm with mild gener alized atherosclerosis. No additional significant abnormality. HEART: Mildly enlarged with dense generalized coronary atherosclerosis. No significant pericardial ef fusion. MEDIASTINUM: Shotty mediastinal nodes are present. No additional significant abnormality. LUNGS: There are bilateral upper lobe consolidations. Dependent atelectasis is noted bilaterally with moderate pleural effusions, right greater than left. No pneumothorax or other significant abnormalit y. ADDITIONAL FINDINGS: None. UPPER ABDOMEN: No acute findings. BONES: No acute abnormality. There are degenerative changes of the shoulders along with extensive cer vicothoracic spondylosis. IMPRESSION: 1. No CT evidence for pulmonary embolism. 2. Suspected bilateral upper lobe pneumonia. 3. Moderate pleural effusions, right greater than left. 4. Uncomplicated descending thoracic aortic aneurysm measuring 5.2 x 4.9 cm. 5. Additional findings as above. Signer Name: Simone Elaine MD Signed: 05/02/2020 1:58 PM Workstation Name: [id number]
[2020-05-03] MEDS: dexAMETHasone 4 MG/ML VIAL IV SCH (09:11)
[2020-05-03] MEDS: AZITHROMYCIN 250 MG TAB PO SCH (09:11)
[2020-05-03] MEDS: HEPARIN 5,000 UNIT/1 ML VIAL SUB-Q SCH (09:11)
[2020-05-03] MEDS: cefTRIAXone/NS 2 GM/100 ML 2 GM/100 ML BAG IV SCH (09:12)
--- NOTE | 2020-05-03 11:01 | Progress Note ---
Assessment and Plan Cultures: Coronavirus PCR: negative Blood culture: no growth A/P: 64/M with #Bilateral pneumonia: pneumonia v/s CHF. COVID-19 PCR negative. D-dimer 837, ferritin 150, procalcitonin 0.06, BNP 4356, CRP 9, LDH 272 #Acute hypoxic respiratory failure: BiPAP weaned off Recs: COVID PCR is negative, Dexamethasone discontinued. Acute bacterial pneumonia also seems unlikely with a normal procal, will d/c Ceftriaxone. finish up 4 more days of Azithromycin Lyle Salmon MD, FACP [facility] ([facility] C: [phone] O: [phone] F: [phone] Subjective Date of service: 05/03/20 Interval history: No fever. Stable in IMCU. Denies any new complaints. On nasal cannula. Breathing is better. Objective - Exam Narrative Exam: Physical Exam: Constitutional: Alert, cooperative. No acute distress Head, Ears, Nose: Normocephalic, atraumatic. External ears, nose normal Eyes: Conjunctivae/corneas clear. No icterus. No ptosis. Neck: Supple, no meningeal signs Cardiovascular: S1, S2 normal. Respiratory: Good air entry, clear to auscultation bilaterally GI: Soft, non-tender; bowel sounds normal. No peritoneal signs Musculoskeletal: No pedal edema, no cyanosis. Skin: No rash or abscess Hem/Lymphatic: No palpable cervical or supraclavicular nodes. No lymphangitis Psych: Mood ok. Affect normal Neurological: Awake, alert, oriented. No gross abnormality - Constitutional Vitals: Vital Signs Temp Pulse Resp BP Pulse Ox 97.8 F 101 H 21 140/90 92 05/03/20 06:00 05/03/20 08:01 05/03/20 08:01 05/03/20 08:01 05/03/20 08:01 Temperature -Last 24 Hours Temperature 97.8 F Temperature 97.6 F Temperature 97.5 F - Labs CBC & Chem 7: 05/02/20 02:39 05/02/20 03:58
--- NOTE | 2020-05-03 16:12 | Vascular Lab Report ---
DUPLEX DOPPLER LOWER EXTREMITY VEINS, BILATERAL INDICATION / CLINICAL INFORMATION: Elevated D-dimers, evaluate DVT. TECHNIQUE: Duplex doppler imaging was performed through the veins of both lower extremities using venous neelima armando and other maneuvers. COMPARISON: None available. FINDINGS: RIGHT COMMON FEMORAL VEIN: Negative. RIGHT FEMORAL VEIN: Negative. RIGHT POPLITEAL VEIN: Negative. RIGHT CALF VEINS: Negative. LEFT COMMON FEMORAL VEIN: Negative. LEFT FEMORAL VEIN: Negative. LEFT POPLITEAL VEIN: Negative. LEFT CALF VEINS: Negative. ADDITIONAL FINDINGS: A left Kang's cyst measures 2.3 x 2.2 x 1.7 cm. IMPRESSION: 1. No sonographic evidence for DVT in either lower extremity. Signer Name: Simone Elaine MD Signed: 05/03/2020 4:07 PM Workstation Name: [id number]
--- NOTE | 2020-05-03 19:00 | Progress Note ---
Assessment and Plan Assessment and plan: --COVID-19 negative --Bilateral pneumonia Current Visit: Yes Status: Acute Plan to address problem: Empiric antibiotics Rocephin and Zithromax Blood cultures, supportive care --Acute hypoxic respiratory failure; Requiring BiPAP. Oxygen titrate O2 sats to more than 90% Nebulizers, IV antibiotics, supportive care --PUI -suspected COVID-19 /COVID test negative Current Visit: Yes Status: Acute Plan to address problem: Continue current management --elevated D-dimers CTA chest;No evidence of PE Suspected bilateral upper lobe pneumonia Moderate pleural effusion right greater than left Uncomplicated descending thoracic aortic aneurysm 5.2 x 4.9 cm patient feels better. --Ongoing tobacco use: ongoing tobacco use smoking cessation counseling. nicotine patch as needed --DVT prophylaxis; Lovenox Closely monitor the patient and adjust management as needed Follow ID recommendations Patient is stable to be transferred out of [facility] to medical floor History Interval history: I have seen and examined the patient at the bedside Patient's chart and medications reviewed Feels better no new complaints COVID-19 test is negative Vital signs noted Hospitalist Physical - Constitutional Vitals: Temp Pulse Resp BP Pulse Ox 98.6 F 92 H 16 122/90 94 05/03/20 12:00 05/03/20 18:01 05/03/20 18:01 05/03/20 18:01 05/03/20 18:01 General appearance: Present: mild distress, well-nourished - EENT Eyes: Present: PERRL, EOM intact - Neck Neck: Present: supple, normal ROM - Respiratory Respiratory effort: normal Respiratory: bilateral: diminished, rhonchi, negative: rales, wheezing - Cardiovascular Rhythm: regular Heart Sounds: Present: S1 & S2 - Extremities Extremities: no ischemia, No edema - Abdominal General gastrointestinal: soft, non-tender, non-distended, normal bowel sounds - Integumentary Integumentary: Present: clear, warm - Psychiatric Psychiatric: appropriate mood/affect, cooperative - Neurologic Neurologic: moves all extremities HEART Score - HEART Score Age: 45-65 Risk factors: 1-2 risk factors Troponin: Troponin T < 0.010 ng/mL (0.00-0.029) 05/02/20 02:39 Troponin: < normal limit - Critical Actions Critical Actions: 0-3 pts:0.9-1.7%risk of adverse cardiac event.Candidate for discharge Results - Labs CBC & Chem 7: 05/02/20 02:39 05/02/20 03:58 Labs: Laboratory Last Values WBC 11.4 K/mm3 (4.5-11.0) H 05/02/20 02:39 RBC 4.08 M/mm3 (3.65-5.03) 05/02/20 02:39 Hgb 12.3 gm/dl (11.8-15.2) 05/02/20 02:39 Hct 34.6 % (35.5-45.6) L 05/02/20 02:39 MCV 85 fl (84-94) 05/02/20 02:39 MCH 30 pg (28-32) 05/02/20 02:39 MCHC 36 % (32-34) H 05/02/20 02:39 RDW 14.9 % (13.2-15.2) 05/02/20 02:39 Plt Count 248 K/mm3 (140-440) 05/02/20 02:39 Lymph % (Auto) 16.0 % (13.4-35.0) 05/02/20 02:39 [place] % (Auto) 9.9 % (0.0-7.3) H 05/02/20 02:39 Eos % (Auto) 2.6 % (0.0-4.3) 05/02/20 02:39 Baso % (Auto) 0.8 % (0.0-1.8) 05/02/20 02:39 Lymph # 1.8 K/mm3 (1.2-5.4) 05/02/20 02:39 [place] # 1.1 K/mm3 (0.0-0.8) H 05/02/20 02:39 Eos # 0.3 K/mm3 (0.0-0.4) 05/02/20 02:39 Baso # 0.1 K/mm3 (0.0-0.1) 05/02/20 02:39 Seg Neutrophils % 70.7 % (40.0-70.0) H 05/02/20 02:39 Seg Neutrophils # 8.0 K/mm3 (1.8-7.7) H 05/02/20 02:39 PT 14.4 Sec. (12.2-14.9) 05/02/20 02:39 INR 1.10 (0.87-1.13) 05/02/20 02:39 D-Dimer 837.32 ng/mlDDU (0-234) H 05/02/20 03:58 ABG pH 7.367 pH Units (7.350-7.450) 05/02/20 02:58 ABG pCO2 42.2 mm Hg 05/02/20 02:58 ABG pO2 198.2 mm Hg (80.0-90.0) H 05/02/20 02:58 ABG HCO3 23.7 mmol/L (20.0-26.0) 05/02/20 02:58 ABG O2 Saturation 99.2 % (95.0-99.0) H 05/02/20 02:58 ABG O2 Content 17.6 (0.0-44) 05/02/20 02:58 ABG Base Excess -1.6 mmol/L (-2.0-3.0) 05/02/20 02:58 ABG Hemoglobin 12.6 gm/dl (14.0-18.0) L 05/02/20 02:58 ABG Carboxyhemoglobin 1.3 % (0.0-5.0) 05/02/20 02:58 ABG Methemoglobin 0.5 % (0.0-1.5) 05/02/20 02:58 Oxyhemoglobin 97.4 % (95.0-99.0) 05/02/20 02:58 FiO2 70 % 05/02/20 02:58 Sodium 138 mmol/L (137-145) 05/02/20 02:39 Potassium 3.6 mmol/L (3.6-5.0) 05/02/20 02:39 Chloride 100.0 mmol/L (98-107) 05/02/20 02:39 Carbon Dioxide 24 mmol/L (22-30) 05/02/20 02:39 Anion Gap 18 mmol/L 05/02/20 02:39 BUN 21 mg/dL (9-20) H 05/02/20 02:39 Creatinine 0.9 mg/dL (0.8-1.3) 05/02/20 02:39 Estimated GFR > 60 ml/min 05/02/20 02:39 BUN/Creatinine Ratio 23 % 05/02/20 02:39 Glucose 147 mg/dL (75-100) H 05/02/20 03:58 Calcium 8.2 mg/dL (8.4-10.2) L 05/02/20 02:39 Ferritin 150.1 ng/mL (30.0-300.0) 05/02/20 03:58 Total Bilirubin 0.50 mg/dL (0.1-1.2) 05/02/20 02:39 AST 33 units/L (5-40) 05/02/20 02:39 ALT 18 units/L (7-56) 05/02/20 02:39 Alkaline Phosphatase 120 units/L (35-129) 05/02/20 02:39 Lactate Dehydrogenase 272 units/L (91-180) H 05/02/20 03:58 Troponin T < 0.010 ng/mL (0.00-0.029) 05/02/20 02:39 C-Reactive Protein 9.20 mg/dL (0.00-1.30) H 05/02/20 03:58 NT-Pro-B Natriuret Pep 4356 pg/mL (0-900) H 05/02/20 02:39 Total Protein 7.3 g/dL (6.3-8.2) 05/02/20 02:39 Albumin 3.6 g/dL (3.9-5) L 05/02/20 02:39 Albumin/Globulin Ratio 1.0 % 05/02/20 02:39 Procalcitonin 0.06 ng/mL (<0.15) 05/02/20 03:58 Coronavirus (PCR) Negative (Negative) 05/02/20 08:58 Microbiology: Microbiology 05/02/20 04:13 Peripheral/Venous Blood Culture - Preliminary NO GROWTH AFTER 24 HOURS 05/02/20 03:58 Peripheral/Venous Blood Culture - Preliminary NO GROWTH AFTER 24 HOURS Smith/IV: Voiding Method Urinal IV Catheter Type [Right INT / Saline Lock Forearm] IV Catheter Type [Right INT / Saline Lock Antecubital] IV Catheter Type [Left INT / Saline Lock Antecubital] Active Medications - Current Medications Current Medications: Generic Name Dose Route Start Last Admin Trade Name Freq PRN Reason Stop Dose Admin Acetaminophen 650 mg 05/02/20 04:36 Tylenol PO Q4H PRN Fever >101 Azithromycin 500 mg 08/26/20 10:00 05/03/20 09:11 Zithromax PO 05/06/20 12:00 500 mg QDAY JAMIN Administration Heparin Sodium (Porcine) 5,000 unit 05/02/20 10:00 05/03/20 09:11 Heparin SUB-Q 5,000 unit Q12HR JAMIN Administration Ondansetron HCl 4 mg 05/02/20 04:39 Zofran IV Q8H PRN Nausea And Vomiting
[2020-05-04] MEDS: HEPARIN 5,000 UNIT/1 ML VIAL SUB-Q SCH ×3 (00:04→22:17)
[2020-05-04] MEDS: AZITHROMYCIN 250 MG TAB PO SCH (10:21)
--- NOTE | 2020-05-04 13:07 | Progress Note ---
Assessment and Plan Cultures: Coronavirus PCR: negative Blood culture: no growth A/P: 64/M with #Bilateral pneumonia: pneumonia v/s CHF. COVID-19 PCR negative. D-dimer 837, ferritin 150, procalcitonin 0.06, BNP 4356, CRP 9, LDH 272. VTE eval negative. #Acute hypoxic respiratory failure: BiPAP weaned off Recs: complete the remaining 3 days of Azithromycin eval for CHF per primary team ID will sign off. Lyle Salmon MD, FACP [facility] ([facility]) C: [phone] O: [phone] F: [phone] Subjective Date of service: 05/04/20 Interval history: No fever. Moved to the floor. On nasal cannula. Breathing is better. Objective - Exam Narrative Exam: Physical Exam: Constitutional: Alert, cooperative. No acute distress Head, Ears, Nose: Normocephalic, atraumatic. External ears, nose normal Eyes: Conjunctivae/corneas clear. No icterus. No ptosis. Neck: Supple, no meningeal signs Cardiovascular: S1, S2 normal. Respiratory: Good air entry, clear to auscultation bilaterally GI: Soft, non-tender; bowel sounds normal. No peritoneal signs Musculoskeletal: No pedal edema, no cyanosis. Skin: No rash or abscess Hem/Lymphatic: No palpable cervical or supraclavicular nodes. No lymphangitis Psych: Mood ok. Affect normal Neurological: Awake, alert, oriented. No gross abnormality - Constitutional Vitals: Vital Signs Temp Pulse Resp BP Pulse Ox 97.5 F L 88 16 151/106 98 05/04/20 04:21 05/04/20 04:21 05/04/20 04:21 05/04/20 04:21 05/04/20 04:21 Temperature -Last 24 Hours Temperature 97.5 F Temperature 98.9 F Temperature 97.6 F - Labs CBC & Chem 7: 05/02/20 02:39 05/02/20 03:58
--- NOTE | 2020-05-04 14:42 | Progress Note ---
Assessment and Plan Assessment and plan: --COVID-19 negative --PUI -suspected COVID-19 /COVID test negative Current Visit: Yes Status: Acute Plan to address problem: Continue current management --Bilateral pneumonia Current Visit: Yes Status: Acute Plan to address problem: Empiric antibiotics Rocephin and Zithromax Blood cultures, supportive care --Elevated BNP: check echo for EF, LV function To evaluate for CHF Fluid restriction, low-dose Lasix --Acute hypoxic respiratory failure; Requiring BiPAP. Oxygen titrate O2 sats to more than 90% Nebulizers, IV antibiotics, supportive care --elevated D-dimers CTA chest;No evidence of PE Suspected bilateral upper lobe pneumonia Moderate pleural effusion right greater than left Uncomplicated descending thoracic aortic aneurysm 5.2 x 4.9 cm patient feels better. --Ongoing tobacco use: ongoing tobacco use smoking cessation counseling. nicotine patch as needed --DVT prophylaxis; Lovenox Closely monitor the patient and adjust management as needed Follow ID recommendations Hospitalist Physical - Constitutional Vitals: Temp Pulse Resp BP Pulse Ox 97.5 F L 88 16 151/106 98 05/04/20 04:21 05/04/20 04:21 05/04/20 04:21 05/04/20 04:21 05/04/20 04:21 General appearance: Present: mild distress, well-nourished HEART Score - HEART Score Age: 45-65 Risk factors: 1-2 risk factors Troponin: Troponin T < 0.010 ng/mL (0.00-0.029) 05/02/20 02:39 Troponin: < normal limit - Critical Actions Critical Actions: 0-3 pts:0.9-1.7%risk of adverse cardiac event.Candidate for di sebastien Results - Labs CBC & Chem 7: 05/02/20 02:39 05/02/20 03:58 Labs: Laboratory Last Values WBC 11.4 K/mm3 (4.5-11.0) H 05/02/20 02:39 RBC 4.08 M/mm3 (3.65-5.03) 05/02/20 02:39 Hgb 12.3 gm/dl (11.8-15.2) 05/02/20 02:39 Hct 34.6 % (35.5-45.6) L 05/02/20 02:39 MCV 85 fl (84-94) 05/02/20 02:39 MCH 30 pg (28-32) 05/02/20 02:39 MCHC 36 % (32-34) H 05/02/20 02:39 RDW 14.9 % (13.2-15.2) 05/02/20 02:39 Plt Count 248 K/mm3 (140-440) 05/02/20 02:39 Lymph % (Auto) 16.0 % (13.4-35.0) 05/02/20 02:39 Atkinson % (Auto) 9.9 % (0.0-7.3) H 05/02/20 02:39 Eos % (Auto) 2.6 % (0.0-4.3) 05/02/20 02:39 Baso % (Auto) 0.8 % (0.0-1.8) 05/02/20 02:39 Lymph # 1.8 K/mm3 (1.2-5.4) 05/02/20 02:39 Atkinson # 1.1 K/mm3 (0.0-0.8) H 05/02/20 02:39 Eos # 0.3 K/mm3 (0.0-0.4) 05/02/20 02:39 Baso # 0.1 K/mm3 (0.0-0.1) 05/02/20 02:39 Seg Neutrophils % 70.7 % (40.0-70.0) H 05/02/20 02:39 Seg Neutrophils # 8.0 K/mm3 (1.8-7.7) H 05/02/20 02:39 PT 14.4 Sec. (12.2-14.9) 05/02/20 02:39 INR 1.10 (0.87-1.13) 05/02/20 02:39 D-Dimer 837.32 ng/mlDDU (0-234) H 05/02/20 03:58 ABG pH 7.367 pH Units (7.350-7.450) 05/02/20 02:58 ABG pCO2 42.2 mm Hg 05/02/20 02:58 ABG pO2 198.2 mm Hg (80.0-90.0) H 05/02/20 02:58 ABG HCO3 23.7 mmol/L (20.0-26.0) 05/02/20 02:58 ABG O2 Saturation 99.2 % (95.0-99.0) H 05/02/20 02:58 ABG O2 Content 17.6 (0.0-44) 05/02/20 02:58 ABG Base Excess -1.6 mmol/L (-2.0-3.0) 05/02/20 02:58 ABG Hemoglobin 12.6 gm/dl (14.0-18.0) L 05/02/20 02:58 ABG Carboxyhemoglobin 1.3 % (0.0-5.0) 05/02/20 02:58 ABG Methemoglobin 0.5 % (0.0-1.5) 05/02/20 02:58 Oxyhemoglobin 97.4 % (95.0-99.0) 05/02/20 02:58 FiO2 70 % 05/02/20 02:58 Sodium 138 mmol/L (137-145) 05/02/20 02:39 Potassium 3.6 mmol/L (3.6-5.0) 05/02/20 02:39 Chloride 100.0 mmol/L (98-107) 05/02/20 02:39 Carbon Dioxide 24 mmol/L (22-30) 05/02/20 02:39 Anion Gap 18 mmol/L 05/02/20 02:39 BUN 21 mg/dL (9-20) H 05/02/20 02:39 Creatinine 0.9 mg/dL (0.8-1.3) 05/02/20 02:39 Estimated GFR > 60 ml/min 05/02/20 02:39 BUN/Creatinine Ratio 23 % 05/02/20 02:39 Glucose 147 mg/dL (75-100) H 05/02/20 03:58 Calcium 8.2 mg/dL (8.4-10.2) L 05/02/20 02:39 Ferritin 150.1 ng/mL (30.0-300.0) 05/02/20 03:58 Total Bilirubin 0.50 mg/dL (0.1-1.2) 05/02/20 02:39 AST 33 units/L (5-40) 05/02/20 02:39 ALT 18 units/L (7-56) 05/02/20 02:39 Alkaline Phosphatase 120 units/L (35-129) 05/02/20 02:39 Lactate Dehydrogenase 272 units/L (91-180) H 05/02/20 03:58 Troponin T < 0.010 ng/mL (0.00-0.029) 05/02/20 02:39 C-Reactive Protein 9.20 mg/dL (0.00-1.30) H 05/02/20 03:58 NT-Pro-B Natriuret Pep 4356 pg/mL (0-900) H 05/02/20 02:39 Total Protein 7.3 g/dL (6.3-8.2) 05/02/20 02:39 Albumin 3.6 g/dL (3.9-5) L 05/02/20 02:39 Albumin/Globulin Ratio 1.0 % 05/02/20 02:39 Procalcitonin 0.06 ng/mL (<0.15) 05/02/20 03:58 Coronavirus (PCR) Negative (Negative) 05/02/20 08:58 Microbiology: Microbiology 05/02/20 04:13 Peripheral/Venous Blood Culture - Preliminary NO GROWTH AFTER 48 HOURS 05/02/20 03:58 Peripheral/Venous Blood Culture - Preliminary NO GROWTH AFTER 48 HOURS Smith/IV: Voiding Method Toilet IV Catheter Type [Right INT / Saline Lock Forearm] IV Catheter Type [Right INT / Saline Lock Antecubital] IV Catheter Type [Left INT / Saline Lock Antecubital] Active Medications - Current Medications Current Medications: Generic Name Dose Route Start Last Admin Trade Name Freq PRN Reason Stop Dose Admin Acetaminophen 650 mg 05/02/20 04:36 Tylenol PO Q4H PRN Fever >101 Azithromycin 500 mg 05/03/20 10:00 05/04/20 10:21 Zithromax PO 05/06/20 12:00 500 mg QDAY JAMIN Administration Furosemide 40 mg 05/04/20 15:27 Lasix IV 05/04/20 15:28 ONCE ONE Furosemide 40 mg 05/05/20 10:00 Lasix PO QDAY JAMIN Heparin Sodium (Porcine) 5,000 unit 05/02/20 10:00 05/04/20 10:22 Heparin SUB-Q 5,000 unit Q12HR JAMIN Administration Ondansetron HCl 4 mg 05/02/20 04:39 Zofran IV Q8H PRN Nausea And Vomiting
[2020-05-04] MEDS ORDERED: FUROSEMIDE 40 MG/4 ML INJ IV ONE (15:27)
[2020-05-05] MEDS: HEPARIN 5,000 UNIT/1 ML VIAL SUB-Q SCH (09:48)
[2020-05-05] MEDS: AZITHROMYCIN 250 MG TAB PO SCH (09:48)
[2020-05-05] MEDS ORDERED: FUROSEMIDE 40 MG TAB PO SCH (10:00)
--- NOTE | 2020-05-05 15:12 | Discharge Summary ---
Providers - Providers Date of Admission: 05/02/20 04:25 Date of discharge: 05/05/20 Attending physician: JOSE BAUM 05/02/20 04:13 Consult to Physician [CONS] Urgent Comment: Consulting Provider: NATI MERLOS Physician Instructions: Reason For Exam: b/l pneumonia,hypoxia, r/o covid [facility] Condition: Stable Disposition: DC-01 TO HOME OR SELFCARE Time spent for discharge: 32 min Core Measure Documentation - Palliative Care Palliative Care/ Comfort Measures: Not Applicable - Core Measures Any of the following diagnoses?: none Exam - Constitutional Vitals: Temp Pulse Resp BP Pulse Ox 97.9 F 84 20 141/97 95 05/05/20 11:30 05/05/20 11:30 05/05/20 11:30 05/05/20 11:30 05/05/20 11:30 General appearance: Present: no acute distress, well-nourished - EENT Eyes: Present: PERRL, EOM intact - Neck Neck: Present: supple, normal ROM - Respiratory Respiratory effort: normal Respiratory: bilateral: diminished, negative: rales, rhonchi, wheezing - Cardiovascular Rhythm: regular Heart Sounds: Present: S1 & S2 - Extremities Extremities: no ischemia, No edema - Abdominal General gastrointestinal: Present: soft, non-tender, non-distended, normal bowel sounds - Integumentary Integumentary: Present: clear, warm - Musculoskeletal Musculoskeletal: strength equal bilaterally, generalized weakness - Psychiatric Psychiatric: appropriate mood/affect - Neurologic Neurologic: moves all extremities Plan Activity: advance as tolerated, fall precautions Diet: low salt Additional Instructions: If you have worsening symptoms contact MD or go to emergency room. Patient is resting room air, ambulatory room air O2 sats are more than 94%. No indication for home oxygen. COVID test negative [facility] WOJ[facility] [Primary Care Provider] - 3-5 Days TIMOTHY CASILLAS MD [Staff Physician] - 7 Days (05/29/2020 @ 10:30AM, [place] office) Prescriptions: Furosemide [Lasix] 20 mg PO QDAY #30 tablet Azithromycin [Zithromax TAB] 500 mg PO QDAY #3 tablet
[2020-05-05 18:20] VITALS: BP 151/99
== END 2020-05-05 17:50 | disposition home or self-care (01) | DRG 193 ==
LOC: ED 02:01 → IMCU 03:45 → OBSVTOIN 04:25 → IMCU 17:30 → 3A 05-03 22:01
PROVIDERS: ADMIT Internal Medicine; ATTEND Internal Medicine
PROC: 4A033R1 Measurement of Arterial Saturation, Peripheral, Percutaneous Approach (ICD-10-PCS; principal; 2020-05-02)
PROC: 5A09357 Assistance with Respiratory Ventilation, Less than 24 Consecutive Hours, Continuous Positive Airway Pressure (ICD-10-PCS; 2020-05-02)
DX: J18.9 Pneumonia, unspecified organism (principal); J96.01 Acute respiratory failure with hypoxia; F17.200 Nicotine dependence, unspecified, uncomplicated; I10 Essential (primary) hypertension; Z03.818 Encounter for observation for suspected exposure to other biological agents ruled out; Z79.899 Other long term (current) drug therapy
CPT/HCPCS: 36415; 36600; 71045; 71275; 80053; 82728; 82803; 82947; 83615; 83880; 84145; 84484; 85025; 85379; 85610; 86140; 87040; 93005; 93306; 93970; 94644; 94760; 96374; G0378; J0456; J0696; J1100; J1644; J1940; J7050; Q9967; U0003-CS

== ENCOUNTER 2020-08-18 19:00 | Inpatient (IN) | payer OTHER, SELFPAY ==
[2020-08-18] MEDS ORDERED: ALBUTEROL 2.5 MG/3 ML NEBU IH ONE (19:08)
[2020-08-18] MEDS ORDERED: IPRATROPIUM 0.02% NEBU 2.5 ML IH ONE (19:08)
[2020-08-18] MEDS ORDERED: methylPREDNISolone Sod Succinate 125 MG/2 ML INJ IV ONE (19:08)
[2020-08-18] MEDS ORDERED: MAGNESIUM SULFATE 2 GM/50 ML BAG IV ONE (19:08)
[2020-08-18 19:38] LABS: ABG Base Excess 1.5 mmol/L (-2.0-3.0); ABG HCO3 25.7 mmol/L (20.0-26.0); ABG Methemoglobin 0.5 % (0.0-1.5); ABG Oxygen Saturation 98.7 % (95.0-99.0); ABG PCO2 39.2 mm Hg; ABG PH 7.434 pH Units (7.350-7.450); ABG PO2 136.8 mm Hg (80.0-90.0)
[2020-08-18 19:50] LABS: Basophils # (Auto) 0.1 K/mm3 (0.0-0.1); Basophils % (Auto) 0.8 % (0.0-1.8); Eosinophils # (Auto) 0.2 K/mm3 (0.0-0.4); Eosinophils % (Auto) 1.7 % (0.0-4.3); Hematocrit 34.2 % (35.5-45.6); Hemoglobin 11.2 gm/dl (11.8-15.2); Lymphocytes # (Auto) 1.4 K/mm3 (1.2-5.4); Lymphocytes % (Auto) 15.9 % (13.4-35.0); Mean Corpuscular HGB Conc 33 % (32-34); Mean Corpuscular Volume 85 fl (84-94); Monocytes # (Auto) 0.8 K/mm3 (0.0-0.8); Monocytes % (Auto) 8.2 % (0.0-7.3); Platelet Count 321 K/mm3 (140-440); Red Blood Count 4.02 M/mm3 (3.65-5.03); Red Cell Distribution Width 17.4 % (13.2-15.2)
[2020-08-18 19:57] LABS: Alanine Aminotransferase 31 units/L (7-56); Albumin 3.3 g/dL (3.9-5); Blood Urea Nitrogen 26 mg/dL (9-20); Hemolysis Index 0; INR 1.1 (0.87-1.13)
[2020-08-18 19:58] LABS: Partial Thromboplastin Time 36.6 Sec. (24.2-36.6)
--- NOTE | 2020-08-18 19:58 | XRay Report ---
CHEST 1 VIEW 08/18/2020 7:23 PM INDICATION / CLINICAL INFORMATION: SOB. COMPARISON: 05/30/20 FINDINGS: SUPPORT DEVICES: None. HEART / MEDIASTINUM: Heart is upper normal size and stable. LUNGS / PLEURA: Bilateral pulmonary opacities and small bilateral pleural effusions appear similar to prior study. No pneumothorax. ADDITIONAL FINDINGS: No significant additional findings. IMPRESSION: 1. No change in bilateral pulmonary opacities and small effusions. Signer Name: Maxime Peña MD Signed: 08/18/2020 7:54 PM Workstation Name: [email or web address]
[2020-08-18 20:00] LABS: BUN/Creatinine Ratio 37
[2020-08-18] MEDS ORDERED: FUROSEMIDE 20 MG/2 ML INJ IV ONE (20:18)
--- NOTE | 2020-08-18 20:25 | Emergency Department Report ---
ED Shortness of Breath HPI - General Chief Complaint: Dyspnea/Respdistress Stated Complaint: ANA Time Seen by Provider: 08/18/20 19:03 Source: EMS, old records reviewed Mode of arrival: Ambulatory Limitations: No Limitations - History of Present Illness Initial Comments: 64-year-old male with a past medical history of COPD without home oxygen use, hypertension, smoker, and recent admissions in April and May for bilateral pneumonia with associated hypoxia presents to the hospital complaints of shortness of breath. As per EMS patient had initial room air O2 saturation of 88%. They did not auscultate wheezing. Albuterol was provided without improvement. They state patient has been noncompliant with all his medications with exception of Lasix. Patient also noted to have lower extremity edema. Patient denies cough, fever, but does complain of chest pain. CPAP was initiated in route to the hospital with improvement in respiratory status. Patient also received Solu-Medrol 125, Lasix 20 mg, and nitroglycerin, and aspirin 324 mg. As per previous medical record review I admitted patient both in April and May with a similar presentation. CT angiogram chest in April was negative for pulmonary embolism and cxr in April and May consistent with bilateral pneumonia and bilateral pleural effusions. Patient has echocardiogram performed in April 2020 showing EF of 40 to 45%. Patient also tested negative for Covid during both of those admissions - Related Data Previous Rx's Medication Instructions Recorded Last Taken Type Acetaminophen/Codeine [Tylenol 1 - 2 tab PO Q4HR PRN #24 tablet 06/05/13 Unknown Rx /Codeine # 3 tab] Dextran 70/Hypromellose 1 each OD TID #15 ml 11/10/16 Unknown Rx [Artificial Tears] Valacyclovir HCl [Valtrex] 1,000 mg PO TID #21 tablet 11/10/16 Unknown Rx Budesonide [Pulmicort Respules] 0.5 mg IH Q12HRT #30 nebu 05/31/20 Unknown Rx Furosemide [Lasix TAB] 20 mg PO QDAY #30 tablet 05/31/20 Unknown Rx Ipratropium/Albuterol Sulfate 1 ampul IH TIDRT #60 ampul.neb 05/31/20 Unknown Rx [DUONEB *Not for PRN Use*] Nebulizer and Compressor [Kerrick 1 each MC BID #1 each 05/31/20 Unknown Rx Choice Nebulizer] predniSONE 30 mg PO QDAY #15 tablet 05/31/20 Unknown Rx Allergies Allergy/AdvReac Type Severity Reaction Status Date / Time No Known Allergies Allergy Unverified 06/04/13 22:44 ED Review of Systems ROS: Stated complaint: ANA Other details as noted in HPI Comment: All other systems reviewed and negative ED Past Medical Hx - Past Medical History Previous Medical History?: Yes Hx Hypertension: Yes Hx Congestive Heart Failure: No Hx Diabetes: No Hx Asthma: No Hx COPD: No - Surgical History Additional Surgical History: unknown - Social History Smoking Status: Never Smoker - Medications Home Medications: Home Medications Medication Instructions Recorded Confirmed Last Taken Type Acetaminophen/Codeine [Tylenol 1 - 2 tab PO Q4HR PRN #24 tablet 06/05/13 05/30/20 Unknown Rx /Codeine # 3 tab] Dextran 70/Hypromellose 1 each OD TID #15 ml 11/10/16 05/30/20 Unknown Rx [Artificial Tears] Valacyclovir HCl [Valtrex] 1,000 mg PO TID #21 tablet 11/10/16 05/30/20 Unknown Rx Budesonide [Pulmicort Respules] 0.5 mg IH Q12HRT #30 nebu 05/31/20 Unknown Rx Furosemide [Lasix TAB] 20 mg PO QDAY #30 tablet 05/31/20 Unknown Rx Ipratropium/Albuterol Sulfate 1 ampul IH TIDRT #60 ampul.neb 05/31/20 Unknown Rx [DUONEB *Not for PRN Use*] Nebulizer and Compressor [Kerrick 1 each MC BID #1 each 05/31/20 Unknown Rx Choice Nebulizer] predniSONE 30 mg PO QDAY #15 tablet 05/31/20 Unknown Rx ED Physical Exam - General Limitations: No Limitations - Other Other exam information: General: Positive respiratory distress on CPAP Head: Atraumatic Eyes: normal appearance ENT: Moist mucous membranes Neck: Normal appearance, no midline tenderness Chest: Clear to auscultation bilaterally CV: Regular rate and rhythm Abdomen: Soft, normal bowel sounds, nontender, nondistended, no rebound or guarding Back: Normal inspection Extremity: Normal inspection, full range of motion Neuro: Alert O x 3, no facial asymmetry, speech clear, no gross motor sensory deficit Psych: Appropriate behavior Skin: No rash ED Course Vital Signs 08/18/20 08/18/2008/18/20 19:12 19:23 19:30 Temperature 98.7 F Pulse Rate 99 H 106 H 99 H Pulse Rate [ Bilateral Throughout] Respiratory 18 31 H 20 Rate Respiratory Rate [Bilateral Throughout] Blood Pressure 97/61 151/108 Blood Pressure 97/61 [Right] O2 Sat by Pulse 100 100 99 Oximetry 08/18/20 08/18/20 20:00 20:26 Temperature Pulse Rate 97 H Pulse Rate [ 97 H Bilateral Throughout] Respiratory 17 Rate Respiratory 24 Rate [Bilateral Throughout] Blood Pressure 142/105 Blood Pressure [Right] O2 Sat by Pulse 98 Oximetry - Reevaluation(s) Reevaluation #1: 08/18/20 20:31 Patient was hypertensive in route in nurse initially documented a blood pressure 97/61 which I believe is erroneous. Subsequent repeat blood pressures are consistent with hypertension. ED Medical Decision Making - Lab Data Result diagrams: 08/18/20 19:16 08/18/20 20:38 - EKG Data -: EKG Interpreted by Nd EKG shows normal: sinus rhythm, ST-T waves (No STEMI) Rate: tachycardia (106) - EKG Data When compared to previous EKG there are: no significant change - Radiology Data Radiology results: report reviewed CHEST 1 VIEW 08/18/2020 7:23 PM INDICATION / CLINICAL INFORMATION: SOB. COMPARISON: 05/30/20 FINDINGS: SUPPORT DEVICES: None. HEART / MEDIASTINUM: Heart is upper normal size and stable. LUNGS / PLEURA: Bilateral pulmonary opacities and small bilateral pleural effusions appear similar to prior study. No pneumothorax. ADDITIONAL FINDINGS: No significant additional findings. IMPRESSION: 1. No change in bilateral pulmonary opacities and small effusions. CTA CHEST WITH CONTRAST INDICATION / CLINICAL INFORMATION: B/L INFILTRATE, EFFUSION. Shortness of breath. TECHNIQUE: Axial CT images were obtained through the chest after injection of 100 MLO Omnipaque 350 IV contrast. 3 plane MIP and/or 3D reconstructions were produced. All CT scans at this location are performed using CT dose reduction for ALARA by means of automated exposure control. COMPARISON: CT dated 05/02/20 FINDINGS: PULMONARY ARTERIES: No pulmonary emboli. THORACIC AORTA: Mild ectatic measuring 4.2 cm in greatest dimension in the mid ascending thoracic aorta. No acute abnormality. HEART: Heart is moderately enlarged. CORONARY ARTERY CALCIFICATION: Mild. MEDIASTINUM / SPENCER: No significant abnormality. PLEURA: Moderate bilateral pleural effusions. No pneumothorax. LUNGS: Interstitial and airspace pulmonary edema. ADDITIONAL FINDINGS: None. UPPER ABDOMEN: No acute findings. SKELETAL STRUCTURES: No significant osseous abnormality. IMPRESSION: 1. No CT evidence for pulmonary embolism. 2. Cardiomegaly with pulmonary edema and moderate bilateral pleural effusions. - Medical Decision Making 64-year-old male presents to the hospital with acute respiratory distress. Initial chest x-ray positive for infiltrates plus effusions. CT angiogram chest negative for pulmonary embolism but confirms pulmonary edema with pleural effusions. Initially patient received protocol for pneumonia and receiving treatment for COPD however, once CT angiogram resulted suggesting CHF exacerbation it is more evident that patient is likely experiencing CHF. BNP a lso increasing compared to previous visits. Patient provided additional Lasix 20 mg IV in the ED with continued BiPAP support with improvement of respiratory distress. Patient also did receive treatment for COPD exacerbation including Solu-Medrol, magnesium, albuterol, and Atrovent and has a ABG on BiPAP without acid-base disturbance. Covid test we ordered however, antibiotics not ordered at this time since work-up does not reveal pneumonia. Patient has been noncompliant with his medications. He will be admitted to the hospitalist service/telemetry for further treatment Critical care attestation.: If time is entered above; I have spent that time in minutes in the direct care of this critically ill patient, excluding procedure time. ED Disposition Clinical Impression: Acute respiratory distress, Hypoxia, Smoker, CHF exacerbation Disposition: OP ADMIT IP TO THIS HOSP Is pt being admited?: Yes Condition: Stable Time of Disposition: 21:26 (Dr Delgado/hosp)
[2020-08-18 20:46] LABS: Bacteria,Urine 1+ /HPF (Negative); Bilirubin,Urine NEG (Negative); Blood,Urine NEG (Negative); Color,Urine Straw (Yellow); Mucus,Urine FEW /HPF; Protein,Urine <15 mg/dL mg/dL (Negative); Urobilinogen,Urine < 2.0 mg/dL (<2.0); WBC,Urine < 1.0 /HPF (0.0-6.0)
--- NOTE | 2020-08-18 21:14 | Cat Scan Report ---
CTA CHEST WITH CONTRAST INDICATION / CLINICAL INFORMATION: B/L INFILTRATE, EFFUSION. Shortness of breath. TECHNIQUE: Axial CT images were obtained through the chest after injection of 100 MLO Omnipaque 350 I V contrast. 3 plane MIP and/or 3D reconstructions were produced. All CT scans at this location are pe rformed using CT dose reduction for ALARA by means of automated exposure control. COMPARISON: CT dated 05/02/20 FINDINGS: PULMONARY ARTERIES: No pulmonary emboli. THORACIC AORTA: Mild ectatic measuring 4.2 cm in greatest dimension in the mid ascending thoracic aor ta. No acute abnormality. HEART: Heart is moderately enlarged. CORONARY ARTERY CALCIFICATION: Mild. MEDIASTINUM / SPENCER: No significant abnormality. PLEURA: Moderate bilateral pleural effusions. No pneumothorax. LUNGS: Interstitial and airspace pulmonary edema. ADDITIONAL FINDINGS: None. UPPER ABDOMEN: No acute findings. SKELETAL STRUCTURES: No significant osseous abnormality. IMPRESSION: 1. No CT evidence for pulmonary embolism. 2. Cardiomegaly with pulmonary edema and moderate bilateral pleural effusions. Signer Name: Maxime Peña MD Signed: 08/18/2020 9:09 PM Workstation Name: [id number]
[2020-08-18 21:16] LABS: C-Reactive Protein 3.2 mg/dL (0.00-1.30)
[2020-08-18] MEDS ORDERED: MAGNESIUM HYDROXIDE (MOM) ORAL LIQD UDC PO PRN (22:05)
[2020-08-18] MEDS ORDERED: ALBUTEROL 2.5 MG/3 ML NEBU IH PRN (22:05)
[2020-08-18] MEDS ORDERED: MORPHINE 2 MG/1 ML INJ IV PRN (22:05)
[2020-08-18] MEDS ORDERED: ONDANSETRON 4 MG/2 ML INJ IV PRN (22:05)
--- NOTE | 2020-08-18 22:20 | History and Physical Report ---
History of Present Illness Date of examination: 08/18/20 Date of admission: 08/18/2020 Chief complaint: Shortness of breath History of present illness: 64-year-old male with known history of hypertension, COPD on home oxygen presenting to the emergency room today complaining of shortness of breath. Patient was brought in by EMS. In route to the hospital oxygen saturation was said to be about 88%. He had some nebulizing treatments with no significant improvement. Patient was seen here sometime in April or May 2020 with bilateral pneumonia and hypoxia. Patient denies any fever or chills, no cough or chest pain, no headache or dizziness, no nausea vomiting, no diarrhea and no abdominal pain. Patient denies any headache or dizziness. He has not been quite compliant with his medications lately. He was initiated on CPAP in route to the hospital with some improvement in his respiratory status. He also had Solu-Medrol, Lasix, and nitroglycerin and aspirin. Work-up in the emergency room today CTA of the chest reveals pulmonary edema and some pleural effusion. Patient has been placed on BiPAP upon arrival in the emergency room and also had some IV diuretics with Lasix. Review of his record indicates that he had an echocardiogram in April 2020 with ejection fraction of 40 to 45%. He is being admitted with CHF exacerbation. Past History Past Medical History: COPD, heart failure, hypertension Past Surgical History: No surgical history Social history: smoking (Current daily smoker) Family history: no significant family history Medications and Allergies Allergies Allergy/AdvReac Type Severity Reaction Status Date / Time No Known Allergies Allergy Unverified 06/04/13 22:44 Home Medications Medication Instructions Recorded Confirmed Last Taken Type Acetaminophen/Codeine [Tylenol 1 - 2 tab PO Q4HR PRN #24 tablet 06/05/13 Unknown Rx /Codeine # 3 tab] Dextran 70/Hypromellose 1 each OD TID #15 ml 11/10/16 05/30/20 Unknown Rx [Artificial Tears] Valacyclovir HCl [Valtrex] 1,000 mg PO TID #21 tablet 11/10/16 05/30/20 Unknown Rx Budesonide [Pulmicort Respules] 0.5 mg IH Q12HRT #30 nebu 05/31/20 Unknown Rx Furosemide [Lasix TAB] 20 mg PO QDAY #30 tablet 05/31/20 Unknown Rx Ipratropium/Albuterol Sulfate 1 ampul IH TIDRT #60 ampul.neb 05/31/20 Unknown Rx [DUONEB *Not for PRN Use*] Nebulizer and Compressor [[place] 1 each MC BID #1 each 05/31/20 Unknown Rx Choice Nebulizer] predniSONE 30 mg PO QDAY #15 tablet 05/31/20 Unknown Rx Active Meds: Active Medications Acetaminophen (Acetaminophen 325 Mg Tab) 650 mg PO Q4H PRN PRN Reason: Pain MILD(1-3)/Fever >100.5/PAEZ Albuterol (Albuterol 2.5 Mg/3 Ml Nebu) 2.5 mg IH Q4HRT PRN PRN Reason: Shortness Of Breath Furosemide (Furosemide 40 Mg/4 Ml Inj) 40 mg IV BID@0600,1800 JAMIN Heparin Sodium (Porcine) (Heparin 5,000 Unit/1 Ml Vial) 5,000 unit SUB-Q Q8HR JAMIN Magnesium Hydroxide (Magnesium Hydroxide (Mom) Oral Liqd Udc) 30 ml PO Q4H PRN PRN Reason: Constipation Morphine Sulfate (Morphine 2 Mg/1 Ml Inj) 2 mg IV Q4H PRN PRN Reason: Pain, Moderate (4-6) Ondansetron HCl (Ondansetron 4 Mg/2 Ml Inj) 4 mg IV Q8H PRN PRN Reason: Nausea And Vomiting Sodium Chloride (Sodium Chloride 0.9% 10 Ml Flush Syringe) 10 ml IV BID JAMIN Sodium Chloride (Sodium Chloride 0.9% 10 Ml Flush Syringe) 10 ml IV PRN PRN PRN Reason: LINE FLUSH Review of Systems Constitutional: no fever, no chills Ears, nose, mouth and throat: no nasal congestion, no sore throat Cardiovascular: no chest pain, no palpitations Respiratory: shortness of breath, no cough Gastrointestinal: no abdominal pain, no nausea, no vomiting, no diarrhea Genitourinary Male: no dysuria, no hematuria, no flank pain, no nocturia Musculoskeletal: no neck pain, no low back pain Integumentary: no rash, no pruritis Neurological: no headaches, no confusion Psychiatric: no anxiety, no depression Exam - Constitutional Vitals: Temp Pulse Resp BP Pulse Ox 98.7 F 97 H 24 142/105 98 08/18/20 19:12 08/18/20 20:26 08/18/20 20:26 08/18/20 20:00 08/18/20 20:00 General appearance: Present: mild distress, well-nourished, other (Moist oral mucosa) - EENT Eyes: Present: PERRL, EOM intact. Absent: scleral icterus ENT: hearing intact, clear oral mucosa, dentition normal - Neck Neck: Present: supple, normal ROM - Respiratory Respiratory effort: normal Respiratory: bilateral: rales - Cardiovascular Rhythm: regular Heart Sounds: Present: S1 & S2. Absent: gallop, systolic murmur, diastolic murmur, rub - Extremities Extremities: no ischemia, pulses intact, pulses symmetrical, Full ROM Extremity abnormal: edema (2+ bilateral lower extremity edema) Peripheral Pulses: within normal limits - Abdominal General gastrointestinal: Present: soft, non-tender, non-distended, normal bowel sounds. Absent: mass - Integumentary Integumentary: Present: clear, warm, dry. Absent: rash - Musculoskeletal Musculoskeletal: strength equal bilaterally - Psychiatric Psychiatric: appropriate mood/affect, intact judgment & insight, memory intact, cooperative - Neurologic Neurologic: CNII-XII intact, no focal deficits, moves all extremities HEART Score - HEART Score Troponin: Troponin T < 0.010 ng/mL (0.00-0.029) 08/18/20 Unknown Results - Labs CBC & Chem 7: 08/18/20 19:16 08/18/20 20:38 Labs: Abnormal lab results 08/18/20 08/18/20 08/18/20 Range/Units 19:16 19:16 19:25 Hgb 11.2 L (11.8-15.2) gm/dl Hct 34.2 L (35.5-45.6) % RDW 17.4 H (13.2-15.2) % [place] % (Auto) 8.2 H (0.0-7.3) % Seg Neutrophils % 73.4 H (40.0-70.0) % D-Dimer (0-234) ng/mlDDU ABG pO2 136.8 H (80.0-90.0) mm Hg ABG Hemoglobin 12.9 L (14.0-18.0) gm/dl BUN 26 H (9-20) mg/dL Creatinine 0.7 L (0.8-1.3) mg/dL Glucose 125 H (75-100) mg/dL Lactate Dehydrogenase (91-180) units/L C-Reactive Protein (0.00-1.30) mg/dL NT-Pro-B Natriuret Pep 84455 H (0-900) pg/mL Albumin 3.3 L (3.9-5) g/dL 08/18/20 08/18/20 Range/Units 20:38 20:38 Hgb (11.8-15.2) gm/dl Hct (35.5-45.6) % RDW (13.2-15.2) % [place] % (Auto) (0.0-7.3) % Seg Neutrophils % (40.0-70.0) % D-Dimer 788.95 H (0-234) ng/mlDDU ABG pO2 (80.0-90.0) mm Hg ABG Hemoglobin (14.0-18.0) gm/dl BUN (9-20) mg/dL Creatinine (0.8-1.3) mg/dL Glucose 113 H (75-100) mg/dL Lactate Dehydrogenase 318 H (91-180) units/L C-Reactive Protein 3.20 H (0.00-1.30) mg/dL NT-Pro-B Natriuret Pep (0-900) pg/mL Albumin (3.9-5) g/dL Assessment and Plan - Patient Problems (1) CHF exacerbation Status: Acute Plan to address problem: Patient admitted to telemetry. Will place on diuretics and monitor inputs and outputs. We will also monitor daily weights. Compliance with medications and diet has been encouraged. We appreciate cardiology evaluation prior to discharge. Echocardiogram done in April 2020 shows an ejection fraction of 40 to 45%. (2) HTN (hypertension) Status: Acute Plan to address problem: We will resume routine home medications once reconciled. Will monitor vital signs closely. (3) Hypoxia Status: Acute Plan to address problem: Possibly secondary to the CHF exacerbation and underlying history of COPD. We will keep O2 saturation greater or equal to 94%. Patient currently placed on BiPAP. We will also provide patient with nebulizing treatments as needed. (4) DVT prophylaxis Status: Acute Plan to address problem: Patient placed on subcutaneous heparin. (5) Full code status Status: Acute
[2020-08-19 05:50] LABS: Hematocrit 37.4 % (35.5-45.6); Hemoglobin 12.2 gm/dl (11.8-15.2); Mean Corpuscular HGB Conc 33 % (32-34); Mean Corpuscular Volume 85 fl (84-94); Platelet Count 326 K/mm3 (140-440); Red Blood Count 4.41 M/mm3 (3.65-5.03); Red Cell Distribution Width 17.6 % (13.2-15.2)
[2020-08-19 06:04] LABS: INR 1.1 (0.87-1.13)
[2020-08-19 06:10] LABS: Blood Urea Nitrogen 26 mg/dL (9-20); Calcium 8.7 mg/dL (8.4-10.2); Hemolysis Index 20
[2020-08-19] MEDS: HEPARIN 5,000 UNIT/1 ML VIAL SUB-Q SCH ×3 (06:16→21:06)
[2020-08-19] MEDS: FUROSEMIDE 40 MG/4 ML INJ IV SCH ×2 (06:16→17:33)
[2020-08-19 06:18] LABS: BUN/Creatinine Ratio 37
[2020-08-19 07:26] LABS: Anisocytosis 1+; Platelet Estimate Consistent w Auto; Total Cells Counted 100
[2020-08-19] MEDS: LISINOPRIL 10 MG TAB PO SCH (13:27)
[2020-08-19] MEDS: BUDESONIDE 0.5 MG/2 ML NEBU IH SCH ×2 (13:54→20:15)
--- NOTE | 2020-08-19 15:18 | Progress Note ---
Assessment and Plan -- CHF exacerbation Patient admitted to telemetry. Will place on diuretics and monitor inputs and outputs. We will also monitor daily weights. Compliance with medications and diet has been encouraged. We appreciate cardiology evaluation prior to discharge. Echocardiogram done in April 2020 shows an ejection fraction of 40 to 45%. -- HTN (hypertension) We will resume routine home medications once reconciled. Will monitor vital signs closely. -- Acute Hypoxic respiratory failure Possibly secondary to the CHF exacerbation and underlying history of COPD. We will keep O2 saturation greater or equal to 94%. Patient currently placed on BiPAP. We will also provide patient with nebulizing treatments as needed. -- DVT prophylaxis Patient placed on subcutaneous heparin. -- Full code status Status: Acute 08/19/20: cont CHF protocol, start on dexamethasone. pending COVID test result. Subjective Date of service: 08/19/20 Interval history: Patient seen and examined denies chest pain lower extremity swelling slightly improved has significant SOB even on resting, 2d echo ordered Objective - Exam Narrative Exam: General appearance: Present: no acute distress, well-nourished - EENT Eyes: PERRL, EOM intact ENT: hearing intact, clear oral mucosa Ears: bilateral: normal - Neck Neck: supple, normal ROM - Respiratory Respiratory effort: normal Respiratory: bilateral: diminished BS - Cardiovascular Rhythm: regular Heart Sounds: Present: S1 & S2. Absent: gallop, rub Extremities: pulses intact, No edema, normal color, Full ROM - Gastrointestinal General gastrointestinal: Present: soft, non-tender, non-distended, normal bowel sounds - Integumentary Integumentary: clear, warm, dry - Musculoskeletal Musculoskeletal: 1, strength equal bilaterally - Neurologic Neurologic: moves all extremities - Psychiatric Psychiatric: memory intact, appropriate mood/affect, intact judgment & insight - Constitutional Vitals: Vital Signs - 12hr 08/19/20 08/19/20 08/19/20 03:59 10:00 11:34 Temperature 97.9 F 97.8 F Pulse Rate 95 H Pulse Rate [ Bilateral Throughout] Respiratory 20 20 20 Rate Respiratory Rate [Bilateral Throughout] Blood Pressure 144/97 133/96 O2 Sat by Pulse 98 Oximetry 08/19/20 13:55 Temperature Pulse Rate Pulse Rate [ 95 H Bilateral Throughout] Respiratory Rate Respiratory 19 Rate [Bilateral Throughout] Blood Pressure O2 Sat by Pulse Oximetry - Labs CBC & Chem 7: 08/19/20 04:26 08/22/20 04:36 Labs: Abnormal lab results 08/18/20 08/18/20 08/18/20 Range/Units 19:16 19:16 19:25 Hgb 11.2 L (11.8-15.2) gm/dl Hct 34.2 L (35.5-45.6) % RDW 17.4 H (13.2-15.2) % [place] % (Auto) 8.2 H (0.0-7.3) % Seg Neutrophils % 73.4 H (40.0-70.0) % Seg Neuts % (Manual) (40.0-70.0) % Lymphocytes % (Manual) (13.4-35.0) % Lymphocytes # (Manual) (1.2-5.4) K/mm3 D-Dimer (0-234) ng/mlDDU ABG pO2 136.8 H (80.0-90.0) mm Hg ABG Hemoglobin 12.9 L (14.0-18.0) gm/dl BUN 26 H (9-20) mg/dL Creatinine 0.7 L (0.8-1.3) mg/dL Glucose 125 H (75-100) mg/dL Lactate Dehydrogenase (91-180) units/L C-Reactive Protein (0.00-1.30) mg/dL NT-Pro-B Natriuret Pep 20976 H (0-900) pg/mL Albumin 3.3 L (3.9-5) g/dL 08/18/20 08/18/20 08/19/20 Range/Units 20:38 20:38 04:26 Hgb (11.8-15.2) gm/dl Hct (35.5-45.6) % RDW 17.6 H (13.2-15.2) % [place] % (Auto) (0.0-7.3) % Seg Neutrophils % (40.0-70.0) % Seg Neuts % (Manual) 96.0 H (40.0-70.0) % Lymphocytes % (Manual) 4.0 L (13.4-35.0) % Lymphocytes # (Manual) 0.2 L (1.2-5.4) K/mm3 D-Dimer 788.95 H (0-234) ng/mlDDU ABG pO2 (80.0-90.0) mm Hg ABG Hemoglobin (14.0-18.0) gm/dl BUN (9-20) mg/dL Creatinine (0.8-1.3) mg/dL Glucose 113 H (75-100) mg/dL Lactate Dehydrogenase 318 H (91-180) units/L C-Reactive Protein 3.20 H (0.00-1.30) mg/dL NT-Pro-B Natriuret Pep (0-900) pg/mL Albumin (3.9-5) g/dL 08/19/20 Range/Units 04:26 Hgb (11.8-15.2) gm/dl Hct (35.5-45.6) % RDW (13.2-15.2) % [place] % (Auto) (0.0-7.3) % Seg Neutrophils % (40.0-70.0) % Seg Neuts % (Manual) (40.0-70.0) % Lymphocytes % (Manual) (13.4-35.0) % Lymphocytes # (Manual) (1.2-5.4) K/mm3 D-Dimer (0-234) ng/mlDDU ABG pO2 (80.0-90.0) mm Hg ABG Hemoglobin (14.0-18.0) gm/dl BUN 26 H (9-20) mg/dL Creatinine 0.7 L (0.8-1.3) mg/dL Glucose 213 H (75-100) mg/dL Lactate Dehydrogenase (91-180) units/L C-Reactive Protein (0.00-1.30) mg/dL NT-Pro-B Natriuret Pep (0-900) pg/mL Albumin (3.9-5) g/dL HEART Score - HEART Score Troponin: Troponin T < 0.010 ng/mL (0.00-0.029) 08/19/20 04:26
[2020-08-19] MEDS: AZITHROMYCIN 250 MG TAB PO SCH (17:33)
[2020-08-19] MEDS: IPRATROPIUM/ALBUTEROL SULFATE 3 ML AMPUL.NEB IH SCH (20:15)
[2020-08-19] MEDS: guaiFENesin ER 600 MG TAB PO SCH (21:05)
[2020-08-20] MEDS: FUROSEMIDE 40 MG/4 ML INJ IV SCH ×2 (05:32→20:02)
[2020-08-20] MEDS: HEPARIN 5,000 UNIT/1 ML VIAL SUB-Q SCH ×3 (05:37→21:25)
[2020-08-20] MEDS: ACETAMINOPHEN 325 MG TAB PO PRN (05:40)
[2020-08-20] MEDS: IPRATROPIUM/ALBUTEROL SULFATE 3 ML AMPUL.NEB IH SCH ×4 (06:53→19:29)
[2020-08-20] MEDS: BUDESONIDE 0.5 MG/2 ML NEBU IH SCH ×2 (08:11→19:29)
--- NOTE | 2020-08-20 08:19 | Consultation ---
REASON FOR CONSULTATION: Advice and opinion regarding shortness of breath. HISTORY OF PRESENT ILLNESS: The patient is a pleasant 64-year-old gentleman with history of hypertension, COPD, on home O2, complaining of worsening shortness of breath. He was seen at [facility] in April, found to have bilateral pneumonia. He has no fevers, chills, nausea or vomiting. More short of breath, abnormal, continues to smoke, longstanding history of smoking as well as COPD, seen on telemetry, feeling somewhat better today, but still short of breath. PAST MEDICAL HISTORY: COPD, hypertension. SOCIAL HISTORY: Smoking history as aforementioned. FAMILY HISTORY: No family history of premature heart disease. ALLERGIES: No known drug, food, or environmental allergies. MEDICATIONS: Inpatient and outpatient medications reviewed. REVIEW OF SYSTEMS: As per HPI. PHYSICAL EXAMINATION: VITAL SIGNS: Blood pressure is 130/90. He is afebrile. Tele reveals sinus rhythm in the 90s, O2 sat is 98% on 2 liters. GENERAL: This is a middle-aged gentleman, in no apparent distress, oriented x 3. HEENT: Sclerae are anicteric. PERRLA. NECK: Supple, no masses, no JVD. CHEST: Decreased breath sounds bilateral bases with wheezing. Poor to moderate air movement. CARDIOVASCULAR: Regular S1, S2. ABDOMEN: Soft, nontender, nondistended. Normoactive bowel sounds in 4 quadrants. No mass or bruits. EXTREMITIES: 2+ pitting edema bilaterally. SKIN: Warm and intact. No rashes. LABORATORY DATA: ECG reveals sinus tachycardia, left atrial enlargement, mild QT prolongation. CT chest is negative for pulmonary embolus, bilateral pleural effusions are noted. LABORATORY DATA: Creatinine 0.7, potassium 4.4. Troponin negative x 3. BNP is 15,000. Echocardiogram from April revealed EF of 40%-45%, [id number] MR, bicuspid aortic valve, mild aortic regurgitation, large pleural effusion. ASSESSMENT: In summary, the patient is a pleasant 64-year-old gentleman with acute hypoxemic respiratory failure, which is likely multifactorial, chronic obstructive pulmonary disease exacerbation as well as acute systolic/valvular heart failure. Continue IV Lasix. We will start low dose BHANU inhibition. Eventually, we will need to start beta juan pablo as well if he tolerates BHANU inhibition from blood pressure standpoint. Needs to quit smoking. Obviously, we will continue to follow. Thank you for this consultation. JOB# [id number] SBM/NTS
[2020-08-20] MEDS: LISINOPRIL 10 MG TAB PO SCH (09:21)
[2020-08-20] MEDS: guaiFENesin ER 600 MG TAB PO SCH ×2 (09:21→21:25)
[2020-08-20] MEDS: AZITHROMYCIN 250 MG TAB PO SCH (09:21)
--- NOTE | 2020-08-20 11:04 | Progress Note ---
Assessment and Plan mildly improved cont iv lasix add low dose bb consider pulm eval - Patient Problems (1) CHF exacerbation Current Visit: Yes Status: Acute (2) HTN (hypertension) Current Visit: No Status: Acute (3) Smoker Current Visit: No Status: Acute Subjective Date of service: 08/20/20 Interval history: still sob Objective Vital Signs Temp Pulse Pulse Resp Resp BP Pulse Ox 08/20/20 08:11 92 H 18 08/20/20 03:23 97.8 F 85 18 118/85 100 08/19/20 23:37 97.6 F 94 H 16 120/88 94 08/19/20 22:00 97 08/19/20 20:16 95 H 18 08/19/20 16:11 98.4 F 94 H 20 125/88 97 08/19/20 13:55 95 H 19 08/19/20 11:34 97.8 F 95 H 20 133/96 98
--- NOTE | 2020-08-20 14:58 | Progress Note ---
Assessment and Plan -- CHF exacerbation Patient admitted to telemetry. Will place on diuretics and monitor inputs and outputs. We will also monitor daily weights. Compliance with medications and diet has been encouraged. We appreciate cardiology evaluation prior to discharge. Echocardiogram done in April 2020 shows an ejection fraction of 40 to 45%. -- HTN (hypertension) We will resume routine home medications once reconciled. Will monitor vital signs closely. -- Acute Hypoxic respiratory failure Possibly secondary to the CHF exacerbation and underlying history of COPD. We will keep O2 saturation greater or equal to 94%. Patient currently placed on BiPAP. We will also provide patient with nebulizing treatments as needed. -- DVT prophylaxis Patient placed on subcutaneous heparin. -- Full code status Status: Acute 08/19: cont CHF protocol, start on dexamethasone. pending COVID test result. 08/20: stop dexamethasone, negative for COVID. cont diuresis, follow 2d echo result Subjective Date of service: 08/20/20 Interval history: Patient seen and examined denies chest pain lower extremity swelling improved SOB improved, pending 2d echo result Objective - Exam Narrative Exam: General appearance: Present: no acute distress, well-nourished - EENT Eyes: PERRL, EOM intact ENT: hearing intact, clear oral mucosa Ears: bilateral: normal - Neck Neck: supple, normal ROM - Respiratory Respiratory effort: normal Respiratory: bilateral: diminished BS - Cardiovascular Rhythm: regular Heart Sounds: Present: S1 & S2. Absent: gallop, rub Extremities: pulses intact, No edema, normal color, Full ROM - Gastrointestinal General gastrointestinal: Present: soft, non-tender, non-distended, normal bowel sounds - Integumentary Integumentary: clear, warm, dry - Musculoskeletal Musculoskeletal: 1, strength equal bilaterally - Neurologic Neurologic: moves all extremities - Psychiatric Psychiatric: memory intact, appropriate mood/affect, intact judgment & insight - Constitutional Vitals: Vital Signs - 12hr 08/20/20 08/20/20 08/20/20 03:23 08:11 14:38 Temperature 97.8 F Pulse Rate 85 Pulse Rate [ 92 H 95 H Bilateral Throughout] Respiratory 18 Rate Respiratory 18 20 Rate [Bilateral Throughout] Blood Pressure 118/85 O2 Sat by Pulse 100 Oximetry - Labs CBC & Chem 7: 08/19/20 04:26 08/22/20 04:36 HEART Score - HEART Score Troponin: Troponin T < 0.010 ng/mL (0.00-0.029) 08/19/20 04:26
[2020-08-20] MEDS: carvediloL 3.125 MG TAB PO SCH (21:25)
[2020-08-21] MEDS: IPRATROPIUM/ALBUTEROL SULFATE 3 ML AMPUL.NEB IH SCH ×4 (03:16→20:38)
[2020-08-21] MEDS: HEPARIN 5,000 UNIT/1 ML VIAL SUB-Q SCH ×3 (05:22→21:46)
[2020-08-21] MEDS: FUROSEMIDE 40 MG/4 ML INJ IV SCH ×2 (05:22→18:10)
[2020-08-21 06:04] LABS: Blood Urea Nitrogen 24 mg/dL (9-20); Hemolysis Index 3
[2020-08-21 06:21] LABS: BUN/Creatinine Ratio 34
[2020-08-21] MEDS: BUDESONIDE 0.5 MG/2 ML NEBU IH SCH ×2 (10:11→20:38)
[2020-08-21] MEDS: carvediloL 3.125 MG TAB PO SCH (10:20)
[2020-08-21] MEDS: LISINOPRIL 10 MG TAB PO SCH (10:20)
[2020-08-21] MEDS: AZITHROMYCIN 250 MG TAB PO SCH (10:20)
[2020-08-21] MEDS: guaiFENesin ER 600 MG TAB PO SCH ×2 (10:20→21:45)
--- NOTE | 2020-08-21 10:22 | Progress Note ---
Assessment and Plan mildly improved cont iv lasix and low dose bb. COVID-19 testing is negative. F/u tte. Recommend pulmonary consultation per primary in setting of COPD with acute exacerbation. The patient has been seen in conjunction with Dr. Pedro Allen who agrees with the assessment and plan of care. - Patient Problems (1) Acute HFrEF (heart failure with reduced ejection fraction) Current Visit: Yes Status: Acute (2) COPD with acute exacerbation Current Visit: Yes Status: Acute (3) Moderate to severe mitral regurgitation Current Visit: Yes Status: Chronic (4) HTN (hypertension) Current Visit: Yes Status: Chronic (5) Tobacco use Current Visit: Yes Status: Chronic Subjective Date of service: 08/21/20 Principal diagnosis: COPD exac; HF Interval history: pt sitting up at bedside, SOB a little better. tele reviewed - in SR with jason Moran. Objective Last Vital Signs Temp 98.2 F 08/21/20 07:53 Pulse 92 H 08/21/20 07:53 Resp 18 08/21/20 07:53 BP 132/91 08/21/20 07:53 Pulse Ox 96 08/21/20 10:12 - Physical Examination General: No Apparent Distress HEENT: Positive: PERRL, Normocephaly, Mucus Membranes Moist Neck: Positive: neck supple, trachea midline Cardiac: Positive: Reg Rate and Rhythm, S1/S2 Lungs: Positive: Decreased Breath Sounds Neuro: Positive: Grossly Intact Abdomen: Negative: Tender Skin: Negative: Rash Musculoskeletal: No Pain Extremities: Absent: edema - Labs and Meds Comprehensive Metabolic Panel 08/21/20 Range/Units 04:40 Sodium 142 (137-145) mmol/L Potassium 3.9 (3.6-5.0) mmol/L Chloride 102.0 (98-107) mmol/L Carbon Dioxide 31 H (22-30) mmol/L BUN 24 H (9-20) mg/dL Creatinine 0.7 L (0.8-1.3) mg/dL Glucose 96 (75-100) mg/dL Calcium 8.0 L (8.4-10.2) mg/dL - Imaging and Cardiology EKG: report reviewed, image reviewed Echo: report reviewed (tte 04/2020: EF 45-50%, mild AR, mod to severe MR, trace TR ) - Telemetry EKG Rhythm: Sinus Rhythm
--- NOTE | 2020-08-21 11:01 | Event Note ---
Date: 08/21/20 tte reviewed - EF 30-35%. Plan for lexiscan MPI stress test to evaluate for ICMP in AM pending respiratory status is stable. NPO after MN. Rosalio GOTTLIEB NP / DR. Pedro AKERS
[2020-08-21] MEDS: predniSONE 50 MG TAB PO SCH (14:34)
[2020-08-21] MEDS: METOPROLOL TARTRATE 25 MG TAB PO SCH ×2 (14:34→21:45)
--- NOTE | 2020-08-21 15:53 | Progress Note ---
Assessment and Plan -- Acute on chronic systolic CHF exacerbation Patient admitted to telemetry. cont on diuretics and monitor inputs and outputs. We will also monitor daily weights. cardiology consulted. Echocardiogram done in April 2020 shows an ejection fraction of 40 to 45%. Echo this admission showed Ef ~30% planned for stress test tomorrow -- HTN (hypertension) cont home meds. Will monitor vital signs closely. -- Acute Hypoxic respiratory failure Possibly secondary to the CHF exacerbation and underlying history of COPD. We will keep O2 saturation greater or equal to 94%. s/p BiPAP. We will also provide patient with nebulizing treatments as needed. ruled out COVID with negative test --COPD exacerbation supplemental O2, scheduled neb, steroid -- DVT prophylaxis Patient placed on subcutaneous heparin. -- Full code status 08/19: cont CHF protocol, start on dexamethasone. pending COVID test result. 08/20: stop dexamethasone, negative for COVID. cont diuresis, follow 2d echo result 08/21: EF 30-35%, planned for stress test tomorrow Subjective Date of service: 08/21/20 Principal diagnosis: COPD exac; HF Interval history: Patient seen and examined denies chest pain lower extremity swelling improved denies SOB planned for stress test tomorrow Objective - Constitutional Vitals: Vital Signs - 12hr 08/21/20 08/21/20 08/21/20 04:22 07:53 10:12 Temperature 97.6 F 98.2 F Pulse Rate 89 92 H Pulse Rate [ Bilateral Throughout] Respiratory 16 18 Rate Respiratory Rate [Bilateral Throughout] Blood Pressure 122/94 132/91 O2 Sat by Pulse 99 96 96 Oximetry 08/21/20 08/21/20 08/21/20 10:35 12:42 13:40 Temperature 97.8 F Pulse Rate 88 Pulse Rate [ 87 86 Bilateral Throughout] Respiratory 18 Rate Respiratory 20 20 Rate [Bilateral Throughout] Blood Pressure 120/84 O2 Sat by Pulse 95 Oximetry General appearance: Present: no acute distress, well-nourished - EENT Eyes: PERRL, EOM intact ENT: hearing intact, clear oral mucosa Ears: bilateral: normal - Neck Neck: supple, normal ROM - Respiratory Respiratory effort: normal Respiratory: bilateral: CTA - Cardiovascular Rhythm: regular Heart Sounds: Present: S1 & S2. Absent: gallop, rub Extremities: pulses intact, No edema, normal color, Full ROM - Gastrointestinal General gastrointestinal: Present: soft, non-tender, non-distended, normal bowel sounds - Integumentary Integumentary: clear, warm, dry - Musculoskeletal Musculoskeletal: 1, strength equal bilaterally - Neurologic Neurologic: moves all extremities - Psychiatric Psychiatric: memory intact, appropriate mood/affect, intact judgment & insight - Labs CBC & Chem 7: 08/19/20 04:26 08/21/20 04:40 Labs: Abnormal lab results 08/21/20 Range/Units 04:40 Carbon Dioxide 31 H (22-30) mmol/L BUN 24 H (9-20) mg/dL Creatinine 0.7 L (0.8-1.3) mg/dL Calcium 8.0 L (8.4-10.2) mg/dL HEART Score - HEART Score Troponin: Troponin T < 0.010 ng/mL (0.00-0.029) 08/19/20 04:26
[2020-08-22] MEDS: IPRATROPIUM/ALBUTEROL SULFATE 3 ML AMPUL.NEB IH SCH ×4 (04:07→18:14)
[2020-08-22 05:33] LABS: Blood Urea Nitrogen 21 mg/dL (9-20); Calcium 8.6 mg/dL (8.4-10.2); Hemolysis Index 3
[2020-08-22 05:36] LABS: BUN/Creatinine Ratio 30
[2020-08-22] MEDS: FUROSEMIDE 40 MG/4 ML INJ IV SCH (05:43)
[2020-08-22] MEDS: HEPARIN 5,000 UNIT/1 ML VIAL SUB-Q SCH ×2 (05:45→14:46)
[2020-08-22] MEDS: BUDESONIDE 0.5 MG/2 ML NEBU IH SCH ×2 (06:15→08:43)
[2020-08-22] MEDS ORDERED: REGADENOSON 0.4 MG/5 ML INJ IV ONE (06:52)
[2020-08-22] MEDS: ACETAMINOPHEN 325 MG TAB PO PRN (09:35)
--- NOTE | 2020-08-22 09:42 | Progress Note ---
Assessment and Plan tte reviewed - EF 30-35%, LV mod dilated, mild LVH, impaired relaxation, mild to mod MR, mod pleural effusion. S/p lexiscan MPI stress test today which was negative for ischemia, EF 40%. Currently stable cardiac status. Pt may discharge from cardiology standpoint. At discharge, recommend PO lasix 40mg daily, cont toprol and lisinopril. Recommend pt follow up in our office with Dr. Pedro Allen within 1-2 weeks of discharge ([phone]). The patient has been seen in conjunction with Dr. Pedro Allen who agrees with the assessment and plan of care. - Patient Problems (1) Acute HFrEF (heart failure with reduced ejection fraction) Current Visit: Yes Status: Acute (2) Cardiomyopathy Current Visit: Yes Status: Chronic (3) COPD with acute exacerbation Current Visit: Yes Status: Acute (4) Mitral regurgitation Current Visit: Yes Status: Chronic Plan to address problem: mild to moderate (5) HTN (hypertension) Current Visit: Yes Status: Chronic (6) Tobacco use Current Visit: Yes Status: Chronic Subjective Date of service: 08/22/20 Principal diagnosis: COPD exac; HF Interval history: pt for stress test today. tele reviewed - in SR. Objective Last Vital Signs Temp 97.3 F L 08/22/20 04:34 Pulse 82 08/22/20 06:17 Resp 20 08/22/20 06:17 BP 131/95 08/22/20 04:34 Pulse Ox 100 08/22/20 06:17 - Physical Examination General: No Apparent Distress HEENT: Positive: PERRL, Normocephaly, Mucus Membranes Moist Neck: Positive: neck supple, trachea midline Cardiac: Positive: Reg Rate and Rhythm, S1/S2 Lungs: Positive: Decreased Breath Sounds Neuro: Positive: Grossly Intact Abdomen: Negative: Tender Skin: Negative: Rash Musculoskeletal: No Pain Extremities: Absent: edema - Labs and Meds Comprehensive Metabolic Panel 08/22/20 Range/Units 04:36 Sodium 141 (137-145) mmol/L Potassium 4.5 (3.6-5.0) mmol/L Chloride 99.5 (98-107) mmol/L Carbon Dioxide 34 H (22-30) mmol/L BUN 21 H (9-20) mg/dL Creatinine 0.7 L (0.8-1.3) mg/dL Glucose 106 H (75-100) mg/dL Calcium 8.6 (8.4-10.2) mg/dL - Imaging and Cardiology EKG: report reviewed, image reviewed Echo: report reviewed (tte 04/2020: EF 45-50%, mild AR, mod to severe MR, trace TR ) - Telemetry EKG Rhythm: Sinus Rhythm
[2020-08-22 10:22] VITALS: BP 126/82
[2020-08-22] MEDS: AZITHROMYCIN 250 MG TAB PO SCH (11:09)
[2020-08-22] MEDS: guaiFENesin ER 600 MG TAB PO SCH (11:09)
[2020-08-22] MEDS: LISINOPRIL 10 MG TAB PO SCH (11:10)
[2020-08-22] MEDS: predniSONE 50 MG TAB PO SCH (11:10)
[2020-08-22] MEDS: METOPROLOL TARTRATE 25 MG TAB PO SCH (11:11)
--- NOTE | 2020-08-22 12:19 | Discharge Summary ---
Providers - Providers Date of Admission: 08/18/20 21:26 Date of discharge: 08/22/20 Attending physician: YENIFER COLORADO 08/18/20 22:05 Consult to Physician [CONS] Routine Comment: Consulting Provider: ROSALIND WILLIAMSON Physician Instructions: Reason For Exam: CHF Exacerbation 08/18/20 22:07 Consult to Dietitian/Nutrition [CONS] Routine Physician Instructions: Reason For Exam: Reason for Consult: Diet education Primary care physician: MERCHANDISING EXECUTION ASSOCIATE Hospitalization Condition: Stable Pertinent studies: CXR Chest CTA 2d echo Hospital course: 64-year-old male with known history of hypertension, COPD on home oxygen presenting to the emergency room complaining of shortness of breath. In route to the hospital oxygen saturation was said to be about 88% by EMS. He was initiated on CPAP in route to the hospital with some improvement in his respiratory status. He also had Solu-Medrol, Lasix, and nitroglycerin and aspirin. Work-up in the emergency room with CTA of the chest reveals pulmonary edema and some pleural effusion. Patient was placed on BiPAP upon arrival in the emergency room and also had some IV diuretics with Lasix. Review of his record indicates that he had an echocardiogram in April 2020 with ejection fraction of 40 to 45%. He was admitted with CHF exacerbation. He was also ruled out for Covid with a negative test. Patient was admitted to telemetry floor with scheduled iv diuretics. Monitored with serial CE, EKG. Cardiology consulted, 2d echo obtained which showed EF of 30 to 35%. Provided cardiac diet, daily weights, monitored in's and O's. S/p lexiscan MPI stress test today which was negative for ischemia, EF 40%. Patients symptom improved with medical management. At discharge, recommend PO lasix 40mg daily, cont toprol and lisinopril. Recommend pt follow up with Dr. Pedro Akers within 1-2 weeks of discharge ([phone]). Discharge diagnosis: Acute on chronic systolic CHF exacerbation, EF 30 to 35% Hypertension Acute hypoxic respiratory failure -Possibly secondary to the CHF exacerbation and underlying history of COPD. Acute COPD exacerbation Mitral regurgitation, mild to moderate Tobacco abuse, counseled for cessation Disposition: [id number] HOME UNDER HOME [facility] Time spent for discharge: 34 minutes Core Measure Documentation - Palliative Care Palliative Care/ Comfort Measures: Not Applicable - Core Measures Any of the following diagnoses?: heart failure - Heart Failure Discharge Requirements BHANU/ARB for LVSD if EF <40%: Yes Beta juan pablo at discharge: Yes Exam - Physical Exam Narrative exam: General appearance: Present: no acute distress, well-nourished - EENT Eyes: PERRL, EOM intact ENT: hearing intact, clear oral mucosa Ears: bilateral: normal - Neck Neck: supple, normal ROM - Respiratory Respiratory effort: normal Respiratory: bilateral: diminished BS - Cardiovascular Rhythm: regular Heart Sounds: Present: S1 & S2. Absent: gallop, rub Extremities: pulses intact, No edema, normal color, Full ROM - Gastrointestinal General gastrointestinal: Present: soft, non-tender, non-distended, normal bowel sounds - Integumentary Integumentary: clear, warm, dry - Musculoskeletal Musculoskeletal: 1, strength equal bilaterally - Neurologic Neurologic: moves all extremities - Psychiatric Psychiatric: memory intact, appropriate mood/affect, intact judgment & insight - Constitutional Vitals: Temp Pulse Resp BP Pulse Ox 97.3 F L 82 20 126/82 100 08/22/20 04:34 08/22/20 06:17 08/22/20 06:17 08/22/20 09:54 08/22/20 06:17 Plan Activity: advance as tolerated Weight Bearing Status: Non-Weight Bearing Diet: low fat, low salt Special Instructions: restrict fluid intake to (1.2L daily), record daily weights, smoking cessation Follow up with: PRIMARY CARE, [Primary Care Provider] - 7 Days SAW AKERS MD [Staff Physician] - 7 Days Prescriptions: Aspirin EC [Halfprin EC] 81 mg PO QDAY #60 tablet. Furosemide [Lasix TAB] 40 mg PO QDAY #60 tablet Metoprolol Xl [Metoprolol SUCCINATE ER TAB] 25 mg PO QDAY #60 tablet guaiFENesin ER [Mucinex ER] 600 mg PO BID #30 tablet predniSONE 30 mg PO QDAY #5 tablet Budesonide [Pulmicort Respules] 0.5 mg IH Q12HRT #60 nebu lisinopriL [Zestril TAB] 10 mg PO QDAY #60 tablet Azithromycin [Zithromax TAB] 500 mg PO QDAY #2 tablet Ipratropium/Albuterol Sulfate [DUONEB *Not for PRN Use*] 1 ampul IH TIDRT #60 ampul.neb
--- NOTE | 2020-08-22 12:57 | Treadmill Report ---
NUCLEAR PERFUSION SCAN ROOM: [facility]. REFERRING PHYSICIAN: Hospitalist service. PROTOCOL: The patient was brought to the stress lab in postabsorptive state, given 10 mCi of technetium 99m at rest. The patient underwent rest imaging. The patient underwent Lexiscan stress test per standard protocol. At peak stress, the patient was given 26 mCi legal technician 99m. Shortly thereafter, the patient underwent stress imaging. Raw imaging reveals mild GI artifact, no significant motion artifact. SPECT imaging examined carefully in horizontal long axis, vertical long axis, short axis views. There is normal homogenous uptake of radioisotope in all four segments. No evidence of a significant fixed or reversible perfusion defects suggestive of prior infarction or ischemia. The LV chamber size is borderline dilated with [id number] global left ventricular hypokinesis. Calculated ejection fraction of 40%. No TID. CONCLUSIONS: 1. Normal myocardial perfusion scan without evidence of active ischemia or prior infarction. 2. [id number] global left ventricular hypokinesis with a calculated ejection fraction of 40%. No TID. JOB# [id number] SBM/NTS
[2020-08-23] MEDS ORDERED: METOPROLOL SUCCINATE XL 25 MG TAB PO SCH (10:00)
== END 2020-08-22 18:25 | disposition home or self-care (01) | DRG 291 ==
LOC: ED 19:00 → 3A 21:26 → OBSVTOIN 21:26 → 3A 23:47 → 4A 08-20 00:16
PROVIDERS: ADMIT Internal Medicine Geriatric Medicine; ATTEND Internal Medicine
PROC: 5A09357 Assistance with Respiratory Ventilation, Less than 24 Consecutive Hours, Continuous Positive Airway Pressure (ICD-10-PCS; principal; 2020-08-18)
PROC: 4A033R1 Measurement of Arterial Saturation, Peripheral, Percutaneous Approach (ICD-10-PCS; 2020-08-18)
DX: I11.0 Hypertensive heart disease with heart failure (principal); J96.01 Acute respiratory failure with hypoxia; J44.1 Chronic obstructive pulmonary disease with (acute) exacerbation; I50.23 Acute on chronic systolic (congestive) heart failure; F17.200 Nicotine dependence, unspecified, uncomplicated; Z20.828 Contact with and (suspected) exposure to other viral communicable diseases; I34.0 Nonrheumatic mitral (valve) insufficiency; I42.9 Cardiomyopathy, unspecified
CPT/HCPCS: 36415; 71045; 71275; 78452; 80048; 80053; 81001; 82140; 82728; 82803; 82947; 83615; 83880; 84145; 84484; 85007; 85025; 85379; 85610; 85730; 86140; 87040; 93005; 93017; 93306; 94640; 94644; 94760; 96374; 96375; G0378; A9502; J1644; J1940; J2785; J3475; J7512; Q9967; U0003

== ENCOUNTER 2021-01-12 09:38 | Inpatient (IN) | payer MEDICAID, OTHER ==
--- NOTE | 2021-01-12 10:45 | Event Note ---
ED Screening Note Date of service: 01/12/21 Time: 10:43 ED Screening Note: 65 year old male with a pmh of CHF who presents to the ED today complaining of right-sided chest pain upper abdomen pain with shortness of breath times a week. tachypnic. tachycardia This initial assessment/diagnostic orders/clinical plan/treatment(s) is/are subject to change based on patients health status, clinical progression and re- assessment by fellow clinical providers in the ED. Further treatment and workup at subsequent clinical providers discretion. Patient/guardian urged not to elope from the ED as their condition may be serious if not clinically assessed and managed. Initial orders include: labs, cxr
[2021-01-12 11:09] LABS: Basophils # (Auto) 0.1 K/mm3 (0.0-0.1); Basophils % (Auto) 0.8 % (0.0-1.8); Eosinophils # (Auto) 0.1 K/mm3 (0.0-0.4); Eosinophils % (Auto) 1.4 % (0.0-4.3); Hemoglobin 11.9 gm/dl (11.8-15.2); Lymphocytes # (Auto) 1.3 K/mm3 (1.2-5.4); Lymphocytes % (Auto) 16.7 % (13.4-35.0); Mean Corpuscular HGB Conc 31 % (32-34); Mean Corpuscular Volume 79 fl (84-94); Monocytes # (Auto) 0.7 K/mm3 (0.0-0.8); Monocytes % (Auto) 9.6 % (0.0-7.3); Platelet Count 272 K/mm3 (140-440); Red Blood Count 4.81 M/mm3 (3.65-5.03); Red Cell Distribution Width 16.4 % (13.2-15.2)
--- NOTE | 2021-01-12 11:19 | XRay Report ---
CHEST 2 VIEWS INDICATION / CLINICAL INFORMATION: Chest Pain. COMPARISON: 08/18/2020 FINDINGS: SUPPORT DEVICES: None. HEART / MEDIASTINUM: Cardiomegaly LUNGS / PLEURA: Bibasilar pleural-parenchymal disease No pneumothorax. ADDITIONAL FINDINGS: No significant additional findings. IMPRESSION: Cardiomegaly is present with bibasilar pleural-parenchymal disease Signer Name: Dion Ruiz MD FACCristin Signed: 01/12/2021 11:14 AM Workstation Name: [email or web address]
--- NOTE | 2021-01-12 11:25 | Emergency Department Report ---
ED Chest Pain HPI - General Chief Complaint: Chest Pain Stated Complaint: CHEST PAIN Time Seen by Provider: 01/12/21 11:12 Source: patient, EMS Mode of arrival: Wheelchair Limitations: No Limitations - History of Present Illness Initial Comments: This is a 65-year-old male presents to the emergency department with a complaint of shortness of breath, lower extremity swelling and chest pressure. He says that he has been out of his medications for the past 2 weeks. The shortness of breath and chest pressure has been going on for 2 weeks with a 1 week history of the lower extremity swelling. No recent travel or sick contacts at home. He denies having a primary care physician or banking management consulting manager. He has not taken anything for his symptoms prior to presentation today. He denies any tobacco or illicit drug use. The shortness of breath worsens with exertion and with laying flat. No known alleviating factors. Patient was seen here in [facility] of last year for similar symptoms. He had a stress test that was negative for any ischemic changes. His echocardiogram at that time showed an EF of 30 to 35%. He does have a history of CHF, hypertension Severity scale (0 -10): 8 - Related Data Previous Rx's Medication Instructions Recorded Last Taken Type Dextran 70/Hypromellose 1 each OD TID #15 ml 11/10/16 Unknown Rx [Artificial Tears] Nebulizer and Compressor [Lucama 1 each MC BID #1 each 05/31/20 Unknown Rx Choice Nebulizer] Aspirin EC [Halfprin EC] 81 mg PO QDAY #60 tablet. 08/22/20 Unknown Rx Azithromycin [Zithromax TAB] 500 mg PO QDAY #2 tablet 08/22/20 Unknown Rx Budesonide [Pulmicort Respules] 0.5 mg IH Q12HRT #60 nebu 08/22/20 Unknown Rx Furosemide [Lasix TAB] 40 mg PO QDAY #60 tablet 08/22/20 Unknown Rx Ipratropium/Albuterol Sulfate 1 ampul IH TIDRT #60 ampul.neb 08/22/20 Unknown Rx [DUONEB *Not for PRN Use*] Metoprolol Xl [Metoprolol 25 mg PO QDAY #60 tablet 08/22/20 Unknown Rx SUCCINATE ER TAB] guaiFENesin ER [Mucinex ER] 600 mg PO BID #30 tablet 08/22/20 Unknown Rx lisinopriL [Zestril TAB] 10 mg PO QDAY #60 tablet 08/22/20 Unknown Rx predniSONE 30 mg PO QDAY #5 tablet 08/22/20 Unknown Rx Allergies Allergy/AdvReac Type Severity Reaction Status Date / Time No Known Allergies Allergy Unverified 06/04/13 22:44 Heart Score - HEART Score History: Slightly suspicious EKG: Normal Age: 45-65 Risk factors: > 3 risk factors or hx of atherosclerotic disease Troponin: < normal limit HEART Score: 3 - EKG Read Time Time EKG Completed: :58 EKG Read Time: 10:00 - Critical Actions Critical Actions: 0-3 pts:0.9-1.7%risk of adverse cardiac event.Candidate for discharge ED Review of Systems ROS: Stated complaint: CHEST PAIN Other details as noted in HPI Comment: All other systems reviewed and negative Constitutional: denies: chills, fever Eyes: denies: eye pain, vision change ENT: denies: ear pain, throat pain Respiratory: orthopnea, shortness of breath, SOB with exertion Cardiovascular: chest pain, edema Gastrointestinal: denies: abdominal pain, nausea, vomiting Genitourinary: denies: dysuria, discharge Musculoskeletal: denies: back pain, arthralgia Skin: denies: rash, lesions Neurological: denies: headache, weakness ED Past Medical Hx - Past Medical History Previous Medical History?: Yes Hx Hypertension: Yes Hx Congestive Heart Failure: Yes Hx Diabetes: No Hx Asthma: No Hx COPD: No Hx Tuberculosis: No Hx HIV: No - Surgical History Additional Surgical History: unknown - Social History Smoking Status: Never Smoker - Medications Home Medications: Home Medications Medication Instructions Recorded Confirmed Last Taken Type Dextran 70/Hypromellose 1 each OD TID #15 ml 11/10/16 05/30/20 Unknown Rx [Artificial Tears] Nebulizer and Compressor [Lucama 1 each MC BID #1 each 05/31/20 Unknown Rx Choice Nebulizer] Aspirin EC [Halfprin EC] 81 mg PO QDAY #60 tablet. 08/22/20 Unknown Rx Azithromycin [Zithromax TAB] 500 mg PO QDAY #2 tablet 08/22/20 Unknown Rx Budesonide [Pulmicort Respules] 0.5 mg IH Q12HRT #60 nebu 08/22/20 Unknown Rx Furosemide [Lasix TAB] 40 mg PO QDAY #60 tablet 08/22/20 Unknown Rx Ipratropium/Albuterol Sulfate 1 ampul IH TIDRT #60 ampul.neb 08/22/20 Unknown Rx [DUONEB *Not for PRN Use*] Metoprolol Xl [Metoprolol 25 mg PO QDAY #60 tablet 08/22/20 Unknown Rx SUCCINATE ER TAB] guaiFENesin ER [Mucinex ER] 600 mg PO BID #30 tablet 08/22/20 Unknown Rx lisinopriL [Zestril TAB] 10 mg PO QDAY #60 tablet 08/22/20 Unknown Rx predniSONE 30 mg PO QDAY #5 tablet 08/22/20 Unknown Rx ED Physical Exam - General Limitations: No Limitations - Other Other exam information: GENERAL: The patient is well-developed well-nourished. HENT: Normocephalic. Atraumatic. Patient has moist mucous membranes. EYES: Extraocular motions are intact. NECK: Supple. Trachea is midline. CHEST/LUNGS: Coarse breath sounds throughout the chest. There is tachypnea and conversational dyspnea. Accessory muscle use. HEART/CARDIOVASCULAR: Regular. There is mild tachycardia. There is no murmur. ABDOMEN: Abdomen is soft, nontender. Patient has normal bowel sounds. SKIN: Skin is warm and dry. 1-2+ pitting edema to the bilateral lower extremities. NEURO: The patient is awake, alert, and oriented. The patient is cooperative. The patient has no focal neurologic deficits. Normal speech. MUSCULOSKELETAL: There is no tenderness or deformity. There is no limitation range of motion ED Course Vital Signs 01/12/21 01/12/21 01/12/21 09:48 11:18 11:30 Temperature 97.7 F Pulse Rate 96 H 94 H Pulse Rate [ Anterior Throughout] Respiratory 30 H 18 Rate Respiratory Rate [Anterior Throughout] Blood Pressure 161/118 Blood Pressure 189/105 [Right] O2 Sat by Pulse 96 100 100 Oximetry 01/12/21 01/12/21 01/12/21 11:42 11:45 11:47 Temperature Pulse Rate 86 85 Pulse Rate [ 86 Anterior Throughout] Respiratory 18 17 Rate Respiratory 19 Rate [Anterior Throughout] Blood Pressure 154/103 154/103 Blood Pressure [Right] O2 Sat by Pulse 100 100 Oximetry 01/12/21 01/12/21 01/12/21 11:50 12:00 12:30 Temperature Pulse Rate 85 88 88 Pulse Rate [ Anterior Throughout] Respiratory 17 17 Rate Respiratory Rate [Anterior Throughout] Blood Pressure 154/103 154/132 157/101 Blood Pressure [Right] O2 Sat by Pulse 99 100 Oximetry 01/12/21 01/12/21 01/12/21 12:52 13:26 13:30 Temperature Pulse Rate 93 H 86 Pulse Rate [ Anterior Throughout] Respiratory 13 17 Rate Respiratory Rate [Anterior Throughout] Blood Pressure 157/101 153/108 Blood Pressure [Right] O2 Sat by Pulse 100 100 Oximetry 01/12/21 01/12/21 01/12/21 13:37 13:46 15:00 Temperature Pulse Rate 85 84 Pulse Rate [ Anterior Throughout] Respiratory 19 17 Rate Respiratory Rate [Anterior Throughout] Blood Pressure 157/101 Blood Pressure [Right] O2 Sat by Pulse 100 100 98 Oximetry LEX score - Lex Score Age > 65: (0) No Aspirin use within the Past 7 Days: (0) No 3 or more CAD Risk Factors: (1) Yes 2 or more Angina events in past 24 hrs: (1) Yes Known CAD with more than 50% Stenosis: (0) No Elevated Cardiac Markers: (0) No ST Deviation Greater than 0.5mm: (0) No LEX Score: 2 ED Medical Decision Making - Lab Data Result diagrams: 01/12/21 10:44 01/12/21 10:44 Lab Results 01/12/21 01/12/21 01/12/21 Range/Units 10:44 10:44 10:44 WBC 7.8 (4.5-11.0) K/mm3 RBC 4.81 (3.65-5.03) M/mm3 Hgb 11.9 (11.8-15.2) gm/dl Hct 38.0 (35.5-45.6) % MCV 79 L (84-94) fl MCH 25 L (28-32) pg MCHC 31 L (32-34) % RDW 16.4 H (13.2-15.2) % Plt Count 272 (140-440) K/mm3 Lymph % (Auto) 16.7 (13.4-35.0) % Ramsey % (Auto) 9.6 H (0.0-7.3) % Eos % (Auto) 1.4 (0.0-4.3) % Baso % (Auto) 0.8 (0.0-1.8) % Lymph # (Auto) 1.3 (1.2-5.4) K/mm3 Ramsey # (Auto) 0.7 (0.0-0.8) K/mm3 Eos # (Auto) 0.1 (0.0-0.4) K/mm3 Baso # (Auto) 0.1 (0.0-0.1) K/mm3 Seg Neutrophils % 71.5 H (40.0-70.0) % Seg Neutrophils # 5.6 (1.8-7.7) K/mm3 PT (12.2-14.9) Sec. INR (0.87-1.13) APTT (24.2-36.6) Sec. D-Dimer (0-234) ng/mlDDU Sodium 139 (137-145) mmol/L Potassium 5.2 H (3.6-5.0) mmol/L Chloride 101.8 (98-107) mmol/L Carbon Dioxide 29 (22-30) mmol/L Anion Gap 13 mmol/L BUN 18 (9-20) mg/dL Creatinine 0.8 (0.8-1.3) mg/dL Estimated GFR > 60 ml/min BUN/Creatinine Ratio 23 % Glucose 95 (75-100) mg/dL Calcium 8.5 (8.4-10.2) mg/dL Total Bilirubin 0.70 (0.1-1.2) mg/dL AST 45 H (5-40) units/L ALT 39 (7-56) units/L Alkaline Phosphatase 108 (35-129) units/L Troponin T < 0.010 (0.00-0.029) ng/mL NT-Pro-B Natriuret Pep 59127 H (0-900) pg/mL Total Protein 7.0 (6.3-8.2) g/dL Albumin 3.3 L (3.9-5) g/dL Albumin/Globulin Ratio 0.9 % 01/12/21 Range/Units 11:35 WBC (4.5-11.0) K/mm3 RBC (3.65-5.03) M/mm3 Hgb (11.8-15.2) gm/dl Hct (35.5-45.6) % MCV (84-94) fl MCH (28-32) pg MCHC (32-34) % RDW (13.2-15.2) % Plt Count (140-440) K/mm3 Lymph % (Auto) (13.4-35.0) % Ramsey % (Auto) (0.0-7.3) % Eos % (Auto) (0.0-4.3) % Baso % (Auto) (0.0-1.8) % Lymph # (Auto) (1.2-5.4) K/mm3 Ramsey # (Auto) (0.0-0.8) K/mm3 Eos # (Auto) (0.0-0.4) K/mm3 Baso # (Auto) (0.0-0.1) K/mm3 Seg Neutrophils % (40.0-70.0) % Seg Neutrophils # (1.8-7.7) K/mm3 PT 14.9 (12.2-14.9) Sec. INR 1.19 H (0.87-1.13) APTT 34.0 (24.2-36.6) Sec. D-Dimer 1648.38 H (0-234) ng/mlDDU Sodium (137-145) mmol/L Potassium (3.6-5.0) mmol/L Chloride (98-107) mmol/L Carbon Dioxide (22-30) mmol/L Anion Gap mmol/L BUN (9-20) mg/dL Creatinine (0.8-1.3) mg/dL Estimated GFR ml/min BUN/Creatinine Ratio % Glucose (75-100) mg/dL Calcium (8.4-10.2) mg/dL Total Bilirubin (0.1-1.2) mg/dL AST (5-40) units/L ALT (7-56) units/L Alkaline Phosphatase (35-129) units/L Troponin T (0.00-0.029) ng/mL NT-Pro-B Natriuret Pep (0-900) pg/mL Total Protein (6.3-8.2) g/dL Albumin (3.9-5) g/dL Albumin/Globulin Ratio % - EKG Data -: EKG Interpreted by [place] EKG shows normal: sinus rhythm, axis, intervals (Prolonged QTC), QRS complexes, ST-T waves Rate: normal - EKG Data When compared to previous EKG there are: no significant change Interpretation: unchanged when compared t (08/18/20) - Radiology Data Radiology results: report reviewed, image reviewed interpreted by me: Chest x-ray shows cardiomegaly, pulmonary vascular congestion and bilateral pleural effusions. CTA CHEST WITH CONTRAST INDICATION / CLINICAL INFORMATION: Shortness of breath. Chest pain. TECHNIQUE: Axial CT images were obtained through the chest after injection of Omnipaque 350, 100 cc IV contrast. 3 plane MIP and/or 3D reconstructions were produced. All CT scans at this location are performed using CT dose reduction for ALARA by means of automated exposure control. COMPARISON: CTA chest 08/18/2020 FINDINGS: PULMONARY ARTERIES: No pulmonary embolus. Vessels at the lung base is not evaluated likely due to low cardiac output. T HORACIC AORTA: Descending thoracic aorta dilated measuring 4.4 cm area HEART: Enlarged CORONARY ARTERY CALCIFICATION: Moderate. MEDIASTINUM / SPENCER: No significant abnormality. PLEURA: Large bilateral effusions. No pneumothorax. LUNGS: Mild dependent atelectasis and probable mild edema. ADDITIONAL FINDINGS: Reflux into the IVC compatible with increased central venous pressure. UPPER ABDOMEN: No acute findings. SKELETAL STRUCTURES: No significant osseous abnormality. IMPRESSION: 1. No CT evidence for pulmonary embolism. The lung bases are not evaluated. 2. Cardiomegaly with pleural effusions, atelectasis and edema. 3. Increased central venous pressure. - Medical Decision Making This patient presents to the emergency department with a complaint of shortness of breath, lower extremity swelling and some chest discomfort. The patient appears to be in some respiratory distress initially. He has coarse breath sounds, tachypnea and accessory muscle use. He was placed on BiPAP with some improvement. Chest x-ray appears consistent with CHF with bilateral pleural effusions, pulmonary vascular congestion and cardiomegaly. The patient's labs show a very elevated proBNP of greater than 10,000, and an elevated D-dimer level. The patient had a CT angiography of the chest that did not show any evidence of pulmonary embolism but once again shows signs of CHF. EKG did not have any morphology consistent with ST elevation myocardial infarction. Patient was given IV Lasix for diuresis, a dose of hydralazine for his hypertension, and was given both albuterol and Atrovent fed into the BiPAP. The patient will be admitted to the hospital for further evaluation and treatment and was accepted for admission by the hospitalist, Dr. Salazar. Critical Care Time: Yes Critical care time in (mins) excluding proc time.: 35 Critical care attestation.: If time is entered above; I have spent that time in minutes in the direct care of this critically ill patient, excluding procedure time. Critical care time was spent on this patient in doing his initial evaluation, multiple reevaluation, ordering and interpretation of labs and imaging, IV Lasix for diuresis, IV antihypertensive medication, BiPAP management, multiple discussions with the patient. Critical Care Time: 35 minutes ED Disposition Clinical Impression: Acute on chronic HFrEF (heart failure with reduced ejection fraction), Acute respiratory distress Hypertension Qualifiers: Hypertension type: essential hypertension Qualified Code(s): I10 - Essential (primary) hypertension Disposition: OP ADMIT IP TO THIS HOSP Is pt being admited?: Yes Condition: Serious Time of Disposition: 13:29
[2021-01-12] MEDS ORDERED: ALBUTEROL 2.5 MG/3 ML NEBU IH ONE ×2 (11:29→11:31)
[2021-01-12] MEDS ORDERED: IPRATROPIUM 0.02% NEBU 2.5 ML IH ONE ×2 (11:29→11:31)
[2021-01-12] MEDS ORDERED: hydrALAZINE 20 MG/1 ML INJ IV ONE (11:35)
[2021-01-12 11:36] LABS: Alanine Aminotransferase 39 units/L (7-56); Albumin 3.3 g/dL (3.9-5); BUN/Creatinine Ratio 23; Blood Urea Nitrogen 18 mg/dL (9-20); Calcium 8.5 mg/dL (8.4-10.2); Hemolysis Index 3
[2021-01-12] MEDS ORDERED: FUROSEMIDE 40 MG/4 ML INJ IV ONE (11:43)
[2021-01-12 11:55] LABS: INR 1.19 (0.87-1.13)
--- NOTE | 2021-01-12 13:24 | Cat Scan Report ---
CTA CHEST WITH CONTRAST INDICATION / CLINICAL INFORMATION: Shortness of breath. Chest pain. TECHNIQUE: Axial CT images were obtained through the chest after injection of Omnipaque 350, 100 cc I V contrast. 3 plane MIP and/or 3D reconstructions were produced. All CT scans at this location are pe rformed using CT dose reduction for ALARA by means of automated exposure control. COMPARISON: CTA chest 08/18/2020 FINDINGS: PULMONARY ARTERIES: No pulmonary embolus. Vessels at the lung base is not evaluated likely due to low cardiac output. THORACIC AORTA: Descending thoracic aorta dilated measuring 4.4 cm area HEART: Enlarged CORONARY ARTERY CALCIFICATION: Moderate. MEDIASTINUM / SPENCER: No significant abnormality. PLEURA: Large bilateral effusions. No pneumothorax. LUNGS: Mild dependent atelectasis and probable mild edema. ADDITIONAL FINDINGS: Reflux into the IVC compatible with increased central venous pressure. UPPER ABDOMEN: No acute findings. SKELETAL STRUCTURES: No significant osseous abnormality. IMPRESSION: 1. No CT evidence for pulmonary embolism. The lung bases are not evaluated. 2. Cardiomegaly with pleural effusions, atelectasis and edema. 3. Increased central venous pressure. Signer Name: Aditya Call MD Signed: 01/12/2021 1:20 PM Workstation Name: [id number]
[2021-01-12] MEDS: HYDROmorphone 1 MG/1 ML INJ IV PRN (21:50)
--- NOTE | 2021-01-12 23:59 | History and Physical Report ---
History of Present Illness Date of examination: 01/12/21 Date of admission: 01/12/21 13:29 Chief complaint: Increasing shortness of breath for 3 days History of present illness: 65-year-old male with history of congestive heart failure COPD hypertension comes in for increasing shortness of breath and lower extremity swelling and chest pressure for 2 weeks. More so for the last 3 days. Orthopnea present. No fever or chills. 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 Not taking any medications for the last 2 to 4 weeks. Shortness of breath worsens with minimal exertion and lying flat. No paroxysmal nocturnal dyspnea. Patient was seen in August 2020 and had a stress test and echocardiogram. Stress test was negative for any ischemic changes his echocardiogram showed ejection fra ction of 30 to 35%. No recent exposure to coronavirus. No fever or chills. Heart Score - HEART Score History: Slightly suspicious EKG: Normal Age: 45-65 Risk factors: > 3 risk factors or hx of atherosclerotic disease Troponin: < normal limit HEART Score: 3 - EKG Read Time Time EKG Completed: :58 EKG Read Time: 10:00 - Critical Actions Critical Actions: 0-3 pts:0.9-1.7%risk of adverse cardiac event.Candidate for discharge - Past Medical History --Yes --Hypertension: Yes --Congestive Heart Failure: Yes - Surgical History Additional Surgical History: unknown - Social History Smoking Status: Never Smoker Family history HTN Review of Systems ROS: Stated complaint: CHEST PAIN Other details as noted in HPI Comment: All other systems reviewed and negative Constitutional: denies: chills, fever Eyes: denies: eye pain, vision change ENT: denies: ear pain, throat pain Respiratory: orthopnea, shortness of breath, SOB with exertion Cardiovascular: chest pain, edema Gastrointestinal: denies: abdominal pain, nausea, vomiting Genitourinary: denies: dysuria, discharge Musculoskeletal: denies: back pain, arthralgia Skin: denies: rash, lesions Neurological: denies: headache, weakness Medications and Allergies Allergies Allergy/AdvReac Type Severity Reaction Status Date / Time No Known Allergies Allergy Unverified 06/04/13 22:44 Home Medications Medication Instructions Recorded Confirmed Last Taken Type Dextran 70/Hypromellose 1 each OD TID #15 ml 11/10/16 05/30/20 Unknown Rx [Artificial Tears] Nebulizer and Compressor [[place] 1 each MC BID #1 each 05/31/20 Unknown Rx Choice Nebulizer] Aspirin EC [Halfprin EC] 81 mg PO QDAY #60 tablet. 08/22/20 Unknown Rx Azithromycin [Zithromax TAB] 500 mg PO QDAY #2 tablet 08/22/20 Unknown Rx Budesonide [Pulmicort Respules] 0.5 mg IH Q12HRT #60 nebu 08/22/20 Unknown Rx Furosemide [Lasix TAB] 40 mg PO QDAY #60 tablet 08/22/20 Unknown Rx Ipratropium/Albuterol Sulfate 1 ampul IH TIDRT #60 ampul.neb 08/22/20 Unknown Rx [DUONEB *Not for PRN Use*] Metoprolol Xl [Metoprolol 25 mg PO QDAY #60 tablet 08/22/20 Unknown Rx SUCCINATE ER TAB] guaiFENesin ER [Mucinex ER] 600 mg PO BID #30 tablet 08/22/20 Unknown Rx lisinopriL [Zestril TAB] 10 mg PO QDAY #60 tablet 08/22/20 Unknown Rx predniSONE 30 mg PO QDAY #5 tablet 08/22/20 Unknown Rx Active Meds: Active Medications Hydromorphone HCl (Hydromorphone 1 Mg/1 Ml Inj) 0.5 mg IV Q3H PRN PRN Reason: Pain , Severe (7-10) Last Admin: 01/12/21 21:50 Dose: 0.5 mg Documented by: Exam - Constitutional Vitals: Temp Pulse Resp BP Pulse Ox 97.7 F 87 16 143/100 99 01/12/21 09:48 01/12/21 20:40 01/12/21 20:40 01/12/21 20:40 01/12/21 20:40 General appearance: Present: mild distress, well-nourished - EENT Eyes: Present: PERRL ENT: hearing intact, clear oral mucosa - Neck Neck: Present: supple, normal ROM - Respiratory Respiratory effort: normal Respiratory: bilateral: rales, rhonchi, wheezing - Cardiovascular Heart rate: 78 Rhythm: regular Heart Sounds: Present: S1 & S2. Absent: rub, click - Extremities Extremities: no ischemia, pulses symmetrical, No edema Peripheral Pulses: within normal limits - Abdominal General gastrointestinal: Present: soft, non-tender, non-distended, normal bowel sounds Male genitourinary: Present: normal - Rectal Rectal Exam: deferred - Integumentary Integumentary: Present: clear, warm, dry - Musculoskeletal Musculoskeletal: gait normal, strength equal bilaterally - Psychiatric Psychiatric: appropriate mood/affect, intact judgment & insight - Neurologic Neurologic: CNII-XII intact, moves all extremities HEART Score - HEART Score EKG: Normal Age: 45-65 Risk factors: > 3 risk factors or hx of atherosclerotic disease Troponin: Troponin T < 0.010 ng/mL (0.00-0.029) 01/12/21 16:58 Troponin: < normal limit - Critical Actions Critical Actions: 0-3 pts:0.9-1.7%risk of adverse cardiac event.Candidate for discharge Results - Labs CBC & Chem 7: 01/12/21 10:44 01/12/21 10:44 Labs: Laboratory Last Values WBC 7.8 K/mm3 (4.5-11.0) 01/12/21 10:44 RBC 4.81 M/mm3 (3.65-5.03) 01/12/21 10:44 Hgb 11.9 gm/dl (11.8-15.2) 01/12/21 10:44 Hct 38.0 % (35.5-45.6) 01/12/21 10:44 MCV 79 fl (84-94) L 01/12/21 10:44 MCH 25 pg (28-32) L 01/12/21 10:44 MCHC 31 % (32-34) L 01/12/21 10:44 RDW 16.4 % (13.2-15.2) H 01/12/21 10:44 Plt Count 272 K/mm3 (140-440) 01/12/21 10:44 Lymph % (Auto) 16.7 % (13.4-35.0) 01/12/21 10:44 [place] % (Auto) 9.6 % (0.0-7.3) H 01/12/21 10:44 Eos % (Auto) 1.4 % (0.0-4.3) 01/12/21 10:44 Baso % (Auto) 0.8 % (0.0-1.8) 01/12/21 10:44 Lymph # (Auto) 1.3 K/mm3 (1.2-5.4) 01/12/21 10:44 [place] # (Auto) 0.7 K/mm3 (0.0-0.8) 01/12/21 10:44 Eos # (Auto) 0.1 K/mm3 (0.0-0.4) 01/12/21 10:44 Baso # (Auto) 0.1 K/mm3 (0.0-0.1) 01/12/21 10:44 Seg Neutrophils % 71.5 % (40.0-70.0) H 01/12/21 10:44 Seg Neutrophils # 5.6 K/mm3 (1.8-7.7) 01/12/21 10:44 PT 14.9 Sec. (12.2-14.9) 01/12/21 11:35 INR 1.19 (0.87-1.13) H 01/12/21 11:35 APTT 34.0 Sec. (24.2-36.6) 01/12/21 11:35 D-Dimer 1648.38 ng/mlDDU (0-234) H 01/12/21 11:35 Sodium 139 mmol/L (137-145) 01/12/21 10:44 Potassium 5.2 mmol/L (3.6-5.0) H 01/12/21 10:44 Chloride 101.8 mmol/L (98-107) 01/12/21 10:44 Carbon Dioxide 29 mmol/L (22-30) 01/12/21 10:44 Anion Gap 13 mmol/L 01/12/21 10:44 BUN 18 mg/dL (9-20) 01/12/21 10:44 Creatinine 0.8 mg/dL (0.8-1.3) 01/12/21 10:44 Estimated GFR > 60 ml/min 01/12/21 10:44 BUN/Creatinine Ratio 23 % 01/12/21 10:44 Glucose 95 mg/dL (75-100) 01/12/21 10:44 Calcium 8.5 mg/dL (8.4-10.2) 01/12/21 10:44 Total Bilirubin 0.70 mg/dL (0.1-1.2) 01/12/21 10:44 AST 45 units/L (5-40) H 01/12/21 10:44 ALT 39 units/L (7-56) 01/12/21 10:44 Alkaline Phosphatase 108 units/L (35-129) 01/12/21 10:44 Troponin T < 0.010 ng/mL (0.00-0.029) 01/12/21 16:58 NT-Pro-B Natriuret Pep 67496 pg/mL (0-900) H 01/12/21 10:44 Total Protein 7.0 g/dL (6.3-8.2) 01/12/21 10:44 Albumin 3.3 g/dL (3.9-5) L 01/12/21 10:44 Albumin/Globulin Ratio 0.9 % 01/12/21 10:44 - Imaging and Cardiology EKG: report reviewed (Sinus rhythm no acute ST-T wave changes) Imaging and Cardiology: Chest x-ray Cardiomegaly Bibasilar pleural-parenchymal disease CTA chest No CT evidence for pulmonary embolism the The lung bases are not evaluated Cardiomegaly with pleural effusions atelectasis and edema Increased central venous pressure Assessment and Plan Advance Directives: Yes (Full code) VTE prophylaxis?: Chemical Plan of care discussed with patient/family: Yes - Patient Problems (1) Acute on chronic HFrEF (heart failure with reduced ejection fraction) Current Visit: Yes Status: Acute Plan to address problem: IV Lasix and potassium Patient had a recent echo but echo was ordered Can be canceled by cardiology Cardiology consult requested BNP is very high in the 10,000s (2) COPD with acute exacerbation Current Visit: No Status: Acute Plan to address problem: Patient is also wheezing Patient started on IV Solu-Medrol, duo nebs and IV Levaquin (3) Hyperkalemia Current Visit: Yes Status: Acute Plan to address problem: Mild Given calcium gluconate (4) Hypertension Current Visit: Yes Status: Chronic Qualifiers: Hypertension type: essential hypertension Qualified Code(s): I10 - Essential (primary) hypertension Plan to address problem: Continue antihypertensives and adjust medications (5) DVT prophylaxis Current Visit: Yes Status: Acute Plan to address problem: Patient on heparin and GI prophylaxis
[2021-01-13] MEDS ORDERED: ONDANSETRON 4 MG/2 ML INJ IV PRN (00:01)
[2021-01-13] MEDS ORDERED: oxyCODONE /ACETAMINOPHEN 5-325MG TAB PO PRN (00:01)
[2021-01-13] MEDS ORDERED: ACETAMINOPHEN 325 MG TAB PO PRN (00:01)
[2021-01-13] MEDS ORDERED: METOCLOPRAMIDE 10 MG/2 ML INJ IV PRN (00:01)
[2021-01-13] MEDS ORDERED: POTASSIUM CHLORIDE ER 20 MEQ TAB PO ONE (00:05)
[2021-01-13] MEDS ORDERED: IPRATROPIUM/ALBUTEROL SULFATE 3 ML AMPUL.NEB IH PRN (00:09)
[2021-01-13] MEDS ORDERED: ALBUTEROL 2.5 MG/3 ML NEBU IH PRN (00:16)
[2021-01-13] MEDS: guaiFENesin ER 600 MG TAB PO SCH ×3 (00:31→21:28)
[2021-01-13] MEDS: methylPREDNISolone Sod Succinate 125 MG/2 ML INJ IV SCH ×3 (00:31→17:46)
[2021-01-13] MEDS: BUDESONIDE 0.5 MG/2 ML NEBU IH SCH ×3 (02:01→20:59)
[2021-01-13] MEDS: HYDROmorphone 1 MG/1 ML INJ IV PRN (05:19)
[2021-01-13] MEDS: FUROSEMIDE 40 MG/4 ML INJ IV SCH ×2 (05:19→17:46)
[2021-01-13] MEDS ORDERED: IPRATROPIUM/ALBUTEROL SULFATE 3 ML AMPUL.NEB IH SCH (08:00)
[2021-01-13] MEDS ORDERED: HYPROMELLOSE OD SCH (08:00)
[2021-01-13] MEDS ORDERED: DEXTRAN OD SCH (08:00)
[2021-01-13] MEDS: IPRATROPIUM/ALBUTEROL SULFATE 3 ML AMPUL.NEB IH SCH ×4 (08:50→20:59)
[2021-01-13] MEDS ORDERED: POTASSIUM CHLORIDE ER 20 MEQ TAB PO SCH (10:00)
[2021-01-13] MEDS: METOPROLOL SUCCINATE XL 25 MG TAB PO SCH (11:12)
[2021-01-13] MEDS: LISINOPRIL 10 MG TAB PO SCH (11:13)
[2021-01-13] MEDS: FAMOTIDINE 20 MG TAB PO SCH ×2 (11:13→21:28)
[2021-01-13] MEDS: ASPIRIN EC 81 MG TAB PO SCH (11:13)
[2021-01-13] MEDS: HYPROMELLOSE 0.5% OPHTH SOLN 15 ML OD SCH ×3 (11:21→21:28)
--- NOTE | 2021-01-13 17:00 | Consultation ---
History of Present Illness Consult date: 01/13/21 Requesting physician: JOHN ESTEBAN Consult reason: congestive heart failure History of present illness: Pt is a 65-year-old male with a hx of NICMP and chronic HFrEF (EF 30-35%) who presented with complaints of progressively worsening SOB/FISH x 3-4 weeks prior to arrival. Pt reports orthopnea as well. No cough or recent fever/chills. He also reports BLE edema x 4 days prior to arrival. Pt denies any additional cardiac complaints. Pt states he has been out of his cardiac medications for the past month. Of note, pt has been seen by our group during previous hospitalizations but is not currently being followed as an outpatient due to non-compliance with appointments secondary to financial constraints as well. BNP > 10k at admission. CXR reveals cardiomegaly and pulmonary edema. TTE 08/20/2020 - mild concentric LVH, EF 30-35%, LV mildly dilated, impaired LV relaxation, LA severely dilated, mild AR, mild-mod MR. Lexiscan stress MPI 08/21/2020 - negative for ischemia, EF 40%. Past History Past Medical History: COPD, heart failure, hypertension, stroke, other (asthma) Social history: smoking (former smoker), alcohol abuse (hx of etoh use) Medications and Allergies Allergies Allergy/AdvReac Type Severity Reaction Status Date / Time No Known Allergies Allergy Unverified 06/04/13 22:44 Home Medications Medication Instructions Recorded Confirmed Last Taken Type Dextran 70/Hypromellose 1 each OD TID #15 ml 11/10/16 05/30/20 Unknown Rx [Artificial Tears] Nebulizer and Compressor [[place] 1 each MC BID #1 each 05/31/20 Unknown Rx Choice Nebulizer] Aspirin EC [Halfprin EC] 81 mg PO QDAY #60 tablet. 08/22/20 Unknown Rx Azithromycin [Zithromax TAB] 500 mg PO QDAY #2 tablet 08/22/20 Unknown Rx Budesonide [Pulmicort Respules] 0.5 mg IH Q12HRT #60 nebu 08/22/20 Unknown Rx Furosemide [Lasix TAB] 40 mg PO QDAY #60 tablet 08/22/20 Unknown Rx Ipratropium/Albuterol Sulfate 1 ampul IH TIDRT #60 ampul.neb 08/22/20 Unknown Rx [DUONEB *Not for PRN Use*] Metoprolol Xl [Metoprolol 25 mg PO QDAY #60 tablet 08/22/20 Unknown Rx SUCCINATE ER TAB] guaiFENesin ER [Mucinex ER] 600 mg PO BID #30 tablet 08/22/20 Unknown Rx lisinopriL [Zestril TAB] 10 mg PO QDAY #60 tablet 08/22/20 Unknown Rx predniSONE 30 mg PO QDAY #5 tablet 08/22/20 Unknown Rx Active Meds: Active Medications Acetaminophen (Acetaminophen 325 Mg Tab) 650 mg PO Q4H PRN PRN Reason: Pain MILD(1-3)/Fever >100.5/PAEZ Albuterol (Albuterol 2.5 Mg/3 Ml Nebu) 2.5 mg IH Q3HRT PRN PRN Reason: Wheezing Albuterol/Ipratropium (Ipratropium/Albuterol Sulfate 3 Ml Ampul.Neb) 1 ampul IH QIDRT [facility] Last Admin: 01/13/21 15:10 Dose: 1 ampul Documented by: Artificial Tears (Hypromellose 0.5% Ophth Soln 15 Ml) 1 drops OD TID [facility] Last Admin: 01/13/21 16:08 Dose: 1 drops Documented by: Aspirin (Aspirin Ec 81 Mg Tab) 81 mg PO QDAY [facility] Last Admin: 01/13/21 11:13 Dose: 81 mg Documented by: Budesonide (Budesonide 0.5 Mg/2 Ml Nebu) 0.5 mg IH Q12HRT [facility] Last Admin: 01/13/21 08:50 Dose: 0.5 mg Documented by: Famotidine (Famotidine 20 Mg Tab) 20 mg PO BID [facility] Last Admin: 01/13/21 11:13 Dose: 20 mg Documented by: Furosemide (Furosemide 40 Mg/4 Ml Inj) 40 mg IV 0600,1800 [facility] Last Admin: 01/13/21 05:19 Dose: 40 mg Documented by: Guaifenesin (Guaifenesin Er 600 Mg Tab) 600 mg PO BID [facility] Last Admin: 01/13/21 11:13 Dose: 600 mg Documented by: Hydromorphone HCl (Hydromorphone 1 Mg/1 Ml Inj) 0.5 mg IV Q3H PRN PRN Reason: Pain , Severe (7-10) Last Admin: 01/13/21 05:19 Dose: 0.5 mg Documented by: Levofloxacin/Dextrose (Levaquin 750mg/150ml) 750 mg in 150 mls @ 100 mls/hr IV Q24HR [facility]; Protocol Last Admin: 01/13/21 11:11 Dose: 100 mls/hr Documented by: Lisinopril (Lisinopril 10 Mg Tab) 10 mg PO QDAY [facility] Last Admin: 01/13/21 11:13 Dose: 10 mg Documented by: Methylprednisolone Sodium Succinate (Methylprednisolone Sod Succinate 125 Mg/2 Ml Inj) 60 mg IV Q8H [facility] Last Admin: 01/13/21 11:17 Dose: 60 mg Documented by: Metoclopramide HCl (Metoclopramide 10 Mg/2 Ml Inj) 10 mg IV Q6H PRN PRN Reason: Nausea And Vomiting Metoprolol Succinate (Metoprolol Succinate Xl 25 Mg Tab) 25 mg PO QDAY [facility] Last Admin: 01/13/21 11:12 Dose: 25 mg Documented by: Ondansetron HCl (Ondansetron 4 Mg/2 Ml Inj) 4 mg IV Q8H PRN PRN Reason: Nausea And Vomiting Oxycodone/Acetaminophen (Oxycodone /Acetaminophen 5-325mg Tab) 1 tab PO Q6H PRN PRN Reason: Pain, Moderate (4-6) Sodium Chloride (Sodium Chloride 0.9% 10 Ml Flush Syringe) 10 ml IV BID [facility] Last Admin: 01/13/21 11:14 Dose: 10 ml Documented by: Sodium Chloride (Sodium Chloride 0.9% 10 Ml Flush Syringe) 10 ml IV PRN PRN PRN Reason: LINE FLUSH Review of Systems Constitutional: no fever, no chills Ears, nose, mouth and throat: no nasal congestion, no sore throat Cardiovascular: orthopnea, edema, shortness of breath, dyspnea on exertion, no chest pain, no palpitations, no rapid/irregular heart beat, no syncope, no lightheadedness Respiratory: shortness of breath, dyspnea on exertion, wheezing, no cough Gastrointestinal: abdominal pain (epigastric pain), nausea, no diarrhea, no constipation, no melena Genitourinary Male: no hematuria Musculoskeletal: myalgias, no neck stiffness, no neck pain Integumentary: no rash, no wounds Neurological: no head injury, no paralysis, no weakness, no parathesias, no numbness, no tingling, no seizures, no syncope, no headaches Endocrine: no cold intolerance, no heat intolerance Hematologic/Lymphatic: no easy bruising, no easy bleeding Allergic/Immunologic: no urticaria, no anaphylaxis Physical Examination Last Vital Signs Temp 97.7 F 01/13/21 08:26 Pulse 88 01/13/21 15:06 Resp 20 01/13/21 15:06 BP 146/89 01/13/21 11:12 Pulse Ox 98 01/13/21 13:18 General appearance: no acute distress HEENT: Positive: EOMI, Normocephaly, Mucus Membranes Moist Neck: Positive: neck supple, trachea midline, JVD/HJR (mild JVD) Cardiac: Positive: Reg Rate and Rhythm, S1/S2, Systolic Murmur (2/6) Lungs: Positive: Decreased Breath Sounds (bilaterally), Wheezes Neuro: Positive: Grossly Intact. Negative: Other (speech defecit in the setting of prior CVAs) Abdomen: Positive: Soft, Active Bowel Sounds. Negative: Tender Skin: Negative: Rash Musculoskeletal: Normal Range of Motion Extremities: Present: +2 Edema (BLE) Results 01/12/21 10:44 01/12/21 10:44 - Imaging and Cardiology Echo: pending, report reviewed (08/2020 - mild concentric LVH, EF 30-35%, LV mildly dilated, impaired LV relaxation, LA severely dilated, mild AR, mild-mod MR) EKG: report reviewed, image reviewed - EKG Interpretation EKG: no acute changes EKG interpretations - Telemetry EKG Rhythm: Sinus Rhythm - EKG Sinus rhythms and dysrhythmias: sinus rhythm Repolarization changes or abnormalities: Q-T interval prolongation Assessment and Plan Echo pending. Continue IV diuresis with close monitoring of volume status and renal indices/el ectrolytes. Will consider addition of Aldactone when hyperkalemia has resolved. Continue other present goal-directed medical therapy for HF. Recommend Case Mgmt consult to assist with medications and ensuring compliance with outpatient follow-ups. Pt seen in conjunction with Dr. Hunter, who agrees with the assessment and plan of care. - Patient Problems (1) Acute on chronic HFrEF (heart failure with reduced ejection fraction) Current Visit: Yes Status: Acute (2) Non-ischemic cardiomyopathy Current Visit: Yes Status: Chronic (3) Mitral regurgitation Current Visit: Yes Status: Chronic (4) COPD (chronic obstructive pulmonary disease) Current Visit: Yes Status: Chronic Qualifiers: COPD type: COPD with acute exacerbation Qualified Code(s): J44.1 - Chronic obstructive pulmonary disease with (acute) exacerbation (5) Elevated d-dimer Current Visit: Yes Status: Acute Plan to address problem: CTA chest neg for PE (6) Hyperkalemia Current Visit: Yes Status: Acute (7) HTN (hypertension) Current Visit: Yes Status: Chronic Qualifiers: Hypertension type: essential hypertension Qualified Code(s): I10 - Essential (primary) hypertension (8) Epigastric pain Current Visit: Yes Status: Acute (9) Tobacco abuse Current Visit: Yes Status: Resolved (10) H/O: CVA (cerebrovascular accident) Current Visit: Yes Status: Chronic Plan to address problem: x 4 per pt report (11) Medical non-compliance Current Visit: Yes Status: Chronic
--- NOTE | 2021-01-13 22:42 | Progress Note ---
Assessment and Plan - Patient Problems (1) Acute on chronic HFrEF (heart failure with reduced ejection fraction) Current Visit: Yes Status: Acute Plan to address problem: IV Lasix and potassium Patient had a recent echo but echo was ordered Can be canceled by cardiology Cardiology consult requested BNP is very high in the 10,000s (2) COPD with acute exacerbation Current Visit: No Status: Acute Plan to address problem: Patient is also wheezing Patient started on IV Solu-Medrol, duo nebs and IV Levaquin (3) Hyperkalemia Current Visit: Yes Status: Acute Plan to address problem: Mild Given calcium gluconate (4) Hypertension Current Visit: Yes Status: Chronic Qualifiers: Hypertension type: essential hypertension Qualified Code(s): I10 - Essential (primary) hypertension Plan to address problem: Continue antihypertensives and adjust medications (5) DVT prophylaxis Current Visit: Yes Status: Acute Plan to address problem: Patient on heparin and GI prophylaxis Subjective Date of service: 01/13/21 Principal diagnosis: CHF exacerbation and COPD exacerbation Interval history: 65-year-old male with history of congestive heart failure COPD hypertension comes in for increasing shortness of breath and lower extremity swelling and chest pressure for 2 weeks. More so for the last 3 days. Orthopnea present. No fever or chills. 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 Not taking any medications for the last 2 to 4 weeks. Shortness of breath worsens with minimal exertion and lying flat. No paroxysmal nocturnal dyspnea. Patient was seen in August 2020 and had a stress test and echocardiogram. Stress test was negative for any ischemic changes his echocardiogram showed ejection fraction of 30 to 35%. No recent exposure to coronavirus. No fever or chills. Day #2 Shortness of breath better Still wheezing a lot Objective - Constitutional Vitals: Vital Signs - 12hr 01/13/21 01/13/21 01/13/21 11:12 12:40 13:18 Temperature Pulse Rate 92 H Pulse Rate [ 88 Anterior Throughout] Respiratory Rate Respiratory 20 Rate [Anterior Throughout] Blood Pressure 146/89 O2 Sat by Pulse 98 Oximetry 01/13/21 01/13/21 01/13/21 14:00 15:06 16:31 Temperature 98.3 F Pulse Rate 80 Pulse Rate [ 88 Anterior Throughout] Respiratory 22 20 Rate Respiratory 20 Rate [Anterior Throughout] Blood Pressure 131/84 O2 Sat by Pulse 95 Oximetry 01/13/21 01/13/21 19:27 20:06 Temperature 98.0 F Pulse Rate 73 71 Pulse Rate [ Anterior Throughout] Respiratory 20 Rate Respiratory Rate [Anterior Throughout] Blood Pressure 131/87 O2 Sat by Pulse 100 Oximetry General appearance: Present: mild distress, well-nourished - EENT Eyes: PERRL, EOM intact ENT: hearing intact, clear oral mucosa Ears: bilateral: normal - Neck Neck: supple, normal ROM - Respiratory Respiratory effort: normal Respiratory: bilateral: CTA - Breasts Breasts: normal - Cardiovascular Heart rate: 78 Rhythm: regular Heart Sounds: Present: S1 & S2. Absent: gallop, rub Extremities: pulses intact, No edema, normal color, Full ROM - Gastrointestinal General gastrointestinal: Present: soft, non-tender, non-distended, normal bowel sounds - Genitourinary Male genitourinary: normal - Integumentary Integumentary: clear, warm, dry - Musculoskeletal Musculoskeletal: 1, strength equal bilaterally - Neurologic Neurologic: moves all extremities - Psychiatric Psychiatric: memory intact, appropriate mood/affect, intact judgment & insight - Labs CBC & Chem 7: 01/16/21 05:22 01/17/21 05:12 HEART Score - HEART Score EKG: Normal Age: 45-65 Risk factors: > 3 risk factors or hx of atherosclerotic disease Troponin: Troponin T < 0.010 ng/mL (0.00-0.029) 01/12/21 16:58 Troponin: < normal limit - Critical Actions Critical Actions: 0-3 pts:0.9-1.7%risk of adverse cardiac event.Candidate for discharge
[2021-01-14] MEDS: methylPREDNISolone Sod Succinate 125 MG/2 ML INJ IV SCH ×3 (00:45→17:07)
[2021-01-14] MEDS: FUROSEMIDE 40 MG/4 ML INJ IV SCH ×2 (05:48→17:07)
[2021-01-14 06:44] LABS: Hematocrit 36.4 % (35.5-45.6); Hemoglobin 11.7 gm/dl (11.8-15.2); Mean Corpuscular HGB Conc 32 % (32-34); Mean Corpuscular Volume 79 fl (84-94); Platelet Count 242 K/mm3 (140-440); Red Blood Count 4.59 M/mm3 (3.65-5.03); Red Cell Distribution Width 16.1 % (13.2-15.2)
[2021-01-14 07:34] LABS: Alanine Aminotransferase 26 units/L (7-56); Albumin 3.1 g/dL (3.9-5); BUN/Creatinine Ratio 29; Blood Urea Nitrogen 23 mg/dL (9-20); Hemolysis Index 0
[2021-01-14] MEDS: IPRATROPIUM/ALBUTEROL SULFATE 3 ML AMPUL.NEB IH SCH ×4 (07:51→21:13)
[2021-01-14] MEDS: BUDESONIDE 0.5 MG/2 ML NEBU IH SCH ×2 (07:51→21:14)
[2021-01-14 08:43] LABS: Hypochromasia 1+; Total Cells Counted 100
[2021-01-14 08:44] LABS: Burr Cells Few; Ovalocytes Rare; Platelet Estimate Consistent w Auto; Schistocytes Rare
[2021-01-14] MEDS: FAMOTIDINE 20 MG TAB PO SCH ×2 (09:58→22:31)
[2021-01-14] MEDS: ASPIRIN EC 81 MG TAB PO SCH (09:58)
[2021-01-14] MEDS: guaiFENesin ER 600 MG TAB PO SCH ×2 (09:58→22:31)
[2021-01-14] MEDS: METOPROLOL SUCCINATE XL 25 MG TAB PO SCH (09:59)
[2021-01-14] MEDS: levoFLOXacin 750 MG TAB PO SCH (09:59)
[2021-01-14] MEDS: LISINOPRIL 10 MG TAB PO SCH (09:59)
[2021-01-14] MEDS: HYPROMELLOSE 0.5% OPHTH SOLN 15 ML OD SCH ×3 (09:59→22:31)
--- NOTE | 2021-01-14 13:11 | Progress Note ---
Assessment and Plan TTE findings noted (as below). Continue IV diuresis with close monitoring of volume status and renal indices/electrolytes. F/u BMP in AM. If no further hyperkalemia, may consider addition of Aldactone. Continue other present goal-directed medical therapy for HF. Plan for outpatient assessment of valvulopathy and potential candidacy for MVR given severe mitral regurgitation. Recommend Case Mgmt consult to assist with medications and ensuring compliance with outpatient follow-ups. Pt seen in conjunction with Dr. Hunter, who agrees with the assessment and plan of care. - Patient Problems (1) Acute on chronic HFrEF (heart failure with reduced ejection fraction) Current Visit: Yes Status: Acute (2) Non-ischemic cardiomyopathy Current Visit: Yes Status: Chronic Plan to address problem: EF 35-40% on echo this admission (3) Pleural effusion, right Current Visit: Yes Status: Acute (4) Mitral regurgitation Current Visit: Yes Status: Chronic Plan to address problem: SEVERE MR (5) COPD (chronic obstructive pulmonary disease) Current Visit: Yes Status: Chronic Qualifiers: COPD type: COPD with acute exacerbation Qualified Code(s): J44.1 - Chronic obstructive pulmonary disease with (acute) exacerbation (6) Elevated d-dimer Current Visit: Yes Status: Acute Plan to address problem: CTA chest neg for PE (7) HTN (hypertension) Current Visit: Yes Status: Chronic Qualifiers: Hypertension type: essential hypertension Qualified Code(s): I10 - Essential (primary) hypertension (8) Epigastric pain Current Visit: Yes Status: Acute (9) Tobacco abuse Current Visit: Yes Status: Resolved (10) H/O: CVA (cerebrovascular accident) Current Visit: Yes Status: Chronic Plan to address problem: x 4 per pt report (11) Medical non-compliance Current Visit: Yes Status: Chronic Subjective Date of service: 01/14/21 Principal diagnosis: COPD, A/C HFrEF Interval history: Reports that his AM meds were thrown away? Otherwise resting comfortably in bed. Still SOB and c/o epigastric pain. No new complaints. -3400 mL UOP/24 hrs. Tele reviewed - SR 90s w/PVCs (short intermittent pattern of bigeminy noted @ 1014 this AM). Objective Last Vital Signs Temp 97.4 F L 01/14/21 08:56 Pulse 80 05/09/21 11:28 Resp 20 01/14/21 11:28 BP 143/93 01/14/21 08:56 Pulse Ox 98 01/14/21 08:56 - Physical Examination General: No Apparent Distress HEENT: Positive: EOMI, Normocephaly, Mucus Membranes Moist Neck: Positive: neck supple, trachea midline, JVD/HJR (mild JVD) Cardiac: Positive: Reg Rate and Rhythm, S1/S2, Systolic Murmur (2/6) Lungs: Positive: Decreased Breath Sounds (bilaterally), Wheezes (expiratory wheezing) Neuro: Positive: Grossly Intact. Negative: Other (speech defecit in the setting of prior CVAs) Abdomen: Positive: Distended. Negative: Tender Skin: Negative: Rash Musculoskeletal: Normal Range of Motion Extremities: Present: upper extr. pulses, lower extr. pulses, +2 Edema (BLE) - Labs and Meds Cardiac Enzymes 01/14/21 Range/Units 05:38 AST 23 (5-40) units/L CBC 01/14/21 Range/Units 05:38 WBC 9.0 (4.5-11.0) K/mm3 RBC 4.59 (3.65-5.03) M/mm3 Hgb 11.7 L (11.8-15.2) gm/dl Hct 36.4 (35.5-45.6) % Plt Count 242 (140-440) K/mm3 Comprehensive Metabolic Panel 01/14/21 Range/Units 05:38 Sodium 139 (137-145) mmol/L Potassium 3.7 D (3.6-5.0) mmol/L Chloride 99.2 (98-107) mmol/L Carbon Dioxide 32 H (22-30) mmol/L BUN 23 H (9-20) mg/dL Creatinine 0.8 (0.8-1.3) mg/dL Glucose 193 H (75-100) mg/dL Calcium 8.0 L (8.4-10.2) mg/dL AST 23 (5-40) units/L ALT 26 (7-56) units/L Alkaline Phosphatase 102 (35-129) units/L Total Protein 6.3 (6.3-8.2) g/dL Albumin 3.1 L (3.9-5) g/dL - Imaging and Cardiology EKG: report reviewed, image reviewed Pharmacologic stress test: report reviewed (08/2020 - negative for ischemia, EF 40%) Echo: report reviewed (01/13/2021 - EF 35-40%, mild-mod concentric LVH, grade 2 diastolic dysfxn, LA severely dilated, RA mildly dilated, severe MR, mod R pleural effusion), other (08/2020 - mild concentric LVH, EF 30-35%, LV mildly dilated, impaired LV relaxation, LA severely dilated, mild AR, mild-mod MR) - Telemetry EKG Rhythm: Sinus Rhythm - EKG Sinus rhythms and dysrhythmias: sinus rhythm Repolarization changes or abnormalities: Q-T interval prolongation
--- NOTE | 2021-01-14 21:54 | Progress Note ---
Assessment and Plan - Patient Problems (1) Acute on chronic HFrEF (heart failure with reduced ejection fraction) Current Visit: Yes Status: Acute Plan to address problem: IV Lasix and potassium Patient had a recent echo but echo was ordered Ejection fraction 35% Bioprosthetic valve present No need for heparin. (2) COPD with acute exacerbation Current Visit: No Status: Acute Plan to address problem: Patient is also wheezing Patient started on IV Solu-Medrol, duo nebs and IV Levaquin (3) Hyperkalemia Current Visit: Yes Status: Acute Plan to address problem: Mild Given calcium gluconate (4) Hypertension Current Visit: Yes Status: Chronic Qualifiers: Hypertension type: essential hypertension Qualified Code(s): I10 - Essential (primary) hypertension Plan to address problem: Continue antihypertensives and adjust medications (5) DVT prophylaxis Current Visit: Yes Status: Acute Plan to address problem: Patient on heparin and GI prophylaxis Subjective Date of service: 01/14/21 Principal diagnosis: COPD, A/C HFrEF Interval history: 65-year-old male with history of congestive heart failure COPD hypert ension comes in for increasing shortness of breath and lower extremity swelling and chest pressure for 2 weeks. More so for the last 3 days. Orthopnea present. No fever or chills. 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 Not taking any medications for the last 2 to 4 weeks. Shortness of breath worsens with minimal exertion and lying flat. No paroxysmal nocturnal dyspnea. Patient was seen in August 2020 and had a stress test and echocardiogram. Stress test was negative for any ischemic changes his echocardiogram showed ejection fraction of 30 to 35%. No recent exposure to coronavirus. No fever or chills. Day #2 Shortness of breath better Still wheezing a lot Day #3 01/14/2021 Echocardiogram reviewed LV ejection fraction 35 to 40% Patient has bioprosthetic valve Objective - Constitutional Vitals: Vital Signs - 12hr 01/14/21 01/14/21 01/14/21 11:28 14:03 15:31 Temperature Pulse Rate 80 Pulse Rate [ 80 88 Anterior Throughout] Respiratory Rate Respiratory 20 20 Rate [Anterior Throughout] Blood Pressure O2 Sat by Pulse Oximetry 01/14/21 01/14/21 01/14/21 16:36 19:25 19:35 Temperature 97.5 F L 98.4 F Pulse Rate 83 75 78 Pulse Rate [ Anterior Throughout] Respiratory 18 18 Rate Respiratory Rate [Anterior Throughout] Blood Pressure 143/93 135/89 O2 Sat by Pulse 97 97 Oximetry 01/14/21 01/14/21 01/14/21 21:15 21:17 21:22 Temperature Pulse Rate Pulse Rate [ 85 Anterior Throughout] Respiratory Rate Respiratory 18 Rate [Anterior Throughout] Blood Pressure O2 Sat by Pulse 97 97 Oximetry General appearance: Present: mild distress, well-nourished - EENT Eyes: PERRL, EOM intact ENT: hearing intact, clear oral mucosa Ears: bilateral: normal - Neck Neck: supple, normal ROM - Respiratory Respiratory effort: normal Respiratory: bilateral: CTA - Breasts Breasts: normal - Cardiovascular Heart rate: 98 Rhythm: regular Heart Sounds: Present: S1 & S2. Absent: gallop, rub Extremities: pulses intact, No edema, normal color, Full ROM - Gastrointestinal General gastrointestinal: Present: soft, non-tender, non-distended, normal bowel sounds - Genitourinary Male genitourinary: normal - Integumentary Integumentary: clear, warm, dry - Musculoskeletal Musculoskeletal: 1, strength equal bilaterally - Neurologic Neurologic: moves all extremities - Psychiatric Psychiatric: memory intact, appropriate mood/affect, intact judgment & insight - Labs CBC & Chem 7: 01/16/21 05:22 01/17/21 05:12 Labs: Abnormal lab results 01/14/21 01/14/21 Range/Units 05:38 05:38 Hgb 11.7 L (11.8-15.2) gm/dl MCV 79 L (84-94) fl MCH 25 L (28-32) pg RDW 16.1 H (13.2-15.2) % Seg Neuts % (Manual) 95.0 H (40.0-70.0) % Lymphocytes % (Manual) 5.0 L (13.4-35.0) % Seg Neutrophils # Man 8.6 H (1.8-7.7) K/mm3 Lymphocytes # (Manual) 0.5 L (1.2-5.4) K/mm3 Carbon Dioxide 32 H (22-30) mmol/L BUN 23 H (9-20) mg/dL Glucose 193 H (75-100) mg/dL Calcium 8.0 L (8.4-10.2) mg/dL Albumin 3.1 L (3.9-5) g/dL HEART Score - HEART Score EKG: Normal Age: 45-65 Risk factors: > 3 risk factors or hx of atherosclerotic disease Troponin: Troponin T < 0.010 ng/mL (0.00-0.029) 01/12/21 16:58 Troponin: < normal limit - Critical Actions Critical Actions: 0-3 pts:0.9-1.7%risk of adverse cardiac event.Candidate for discharge
[2021-01-15] MEDS: methylPREDNISolone Sod Succinate 125 MG/2 ML INJ IV SCH ×3 (00:09→19:09)
[2021-01-15] MEDS: FUROSEMIDE 40 MG/4 ML INJ IV SCH ×2 (06:03→19:09)
[2021-01-15 06:58] LABS: BUN/Creatinine Ratio 24; Blood Urea Nitrogen 19 mg/dL (9-20); Calcium 8.3 mg/dL (8.4-10.2); Hemolysis Index 8
[2021-01-15] MEDS: levoFLOXacin 750 MG TAB PO SCH (10:56)
[2021-01-15] MEDS: FAMOTIDINE 20 MG TAB PO SCH ×2 (10:56→21:18)
[2021-01-15] MEDS: LISINOPRIL 10 MG TAB PO SCH (10:56)
[2021-01-15] MEDS: guaiFENesin ER 600 MG TAB PO SCH ×2 (10:56→21:12)
[2021-01-15] MEDS: HYPROMELLOSE 0.5% OPHTH SOLN 15 ML OD SCH ×3 (10:57→21:11)
[2021-01-15] MEDS: METOPROLOL SUCCINATE XL 25 MG TAB PO SCH (10:57)
[2021-01-15] MEDS: ASPIRIN EC 81 MG TAB PO SCH (10:57)
[2021-01-15] MEDS: BUDESONIDE 0.5 MG/2 ML NEBU IH SCH ×2 (11:09→20:20)
--- NOTE | 2021-01-15 11:09 | Electrocardiograph Report ---
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
[2021-01-15] MEDS: IPRATROPIUM/ALBUTEROL SULFATE 3 ML AMPUL.NEB IH SCH ×3 (11:10→20:19)
--- NOTE | 2021-01-15 17:37 | Progress Note ---
Assessment and Plan Acute on chronic heart failure with reduced ejection fraction * Heart failure reduced ejection fraction in setting of nonischemic cardiom yopathy * Echocardiogram reviewed (01/13/2021): LVEF is 35 to 40%. LV SF is mild to moderately decreased. Mild to moderate concentric LVH. Grade 2 diastolic dysfunction. RV SF is normal. Right atrium is mildly dilated. Left atrium is severely dilated. No evidence for ASD. BioProsthetic aortic valve is present and poorly visualized, prosthetic aortic valve opening is decreased. Severe mitral regurg. Mild tricuspid regurg. Mild pulmonic regurg. * Continue diuresis: Lasix 40 mg IV twice daily. Repeat BMP in a.m. * COPD * Management per primary team. * Prosthetic aortic valve in situ * Heparin gtt per primary team * Hypertension * Continue current antihypertensive regimen: Lisinopril 10 mg daily, metoprolol XL 25 mg daily * Tobacco use * Cessation encouraged * DVT prophylaxis * Heparin gtt per primary team Will follow This patient was seen in conjunction with Dr Britni Allen who agrees with this assessment and plan of care - Patient Problems (1) Acute on chronic HFrEF (heart failure with reduced ejection fraction) Current Visit: Yes Status: Acute (2) Non-ischemic cardiomyopathy Current Visit: Yes Status: Chronic Plan to address problem: EF 35-40% on echo this admission (3) Pleural effusion, right Current Visit: Yes Status: Acute (4) Mitral regurgitation Current Visit: Yes Status: Chronic Plan to address problem: SEVERE MR (5) COPD (chronic obstructive pulmonary disease) Current Visit: Yes Status: Chronic Qualifiers: COPD type: COPD with acute exacerbation Qualified Code(s): J44.1 - Chronic obstructive pulmonary disease with (acute) exacerbation (6) Elevated d-dimer Current Visit: Yes Status: Acute Plan to address problem: CTA chest neg for PE (7) HTN (hypertension) Current Visit: Yes Status: Chronic Qualifiers: Hypertension type: essential hypertension Qualified Code(s): I10 - Essential (primary) hypertension (8) Epigastric pain Current Visit: Yes Status: Acute (9) Tobacco abuse Current Visit: Yes Status: Resolved (10) H/O: CVA (cerebrovascular accident) Current Visit: Yes Status: Chronic Plan to address problem: x 4 per pt report (11) Medical non-compliance Current Visit: Yes Status: Chronic Subjective Date of service: 01/15/21 Principal diagnosis: COPD, A/C HFrEF Objective Vital Signs Temp Pulse Pulse Resp Resp BP Pulse Ox 01/15/21 14:00 74 96 01/15/21 11:06 98.0 F 74 20 137/91 96 01/15/21 08:25 98.0 F 72 18 144/96 100 01/15/21 04:17 99.6 F 77 18 130/85 98 01/15/21 00:08 97.8 F 77 18 136/88 97 01/14/21 21:22 97 01/14/21 21:17 97 01/14/21 21:15 85 18 01/14/21 19:35 98.4 F 78 18 135/89 97 01/14/21 19:25 75 - Physical Examination General: No Apparent Distress HEENT: Positive: EOMI, Normocephaly, Mucus Membranes Moist Neck: Positive: neck supple, trachea midline, JVD/HJR (mild JVD) Neuro: Positive: Grossly Intact. Negative: Other (speech defecit in the setting of prior CVAs) Abdomen: Positive: Distended. Negative: Tender Skin: Negative: Rash Musculoskeletal: Normal Range of Motion Extremities: Present: upper extr. pulses, lower extr. pulses, +2 Edema (BLE) - Labs and Meds Comprehensive Metabolic Panel 01/15/21 Range/Units 05:20 Sodium 141 (137-145) mmol/L Potassium 3.9 (3.6-5.0) mmol/L Chloride 98.4 (98-107) mmol/L Carbon Dioxide 33 H (22-30) mmol/L BUN 19 (9-20) mg/dL Creatinine 0.8 (0.8-1.3) mg/dL Glucose 125 H (75-100) mg/dL Calcium 8.3 L (8.4-10.2) mg/dL - Imaging and Cardiology EKG: report reviewed, image reviewed Echo: report reviewed (01/13/2021 - EF 35-40%, mild-mod concentric LVH, grade 2 diastolic dysfxn, LA severely dilated, RA mildly dilated, severe MR, mod R pleural effusion), other (08/2020 - mild concentric LVH, EF 30-35%, LV mildly dilated, impaired LV relaxation, LA severely dilated, mild AR, mild-mod MR) Cardiac cath: report reviewed - EKG Sinus rhythms and dysrhythmias: sinus rhythm Repolarization changes or abnormalities: Q-T interval prolongation
[2021-01-15] MEDS: HYDROmorphone 1 MG/1 ML INJ IV PRN (19:10)
--- NOTE | 2021-01-15 21:14 | Progress Note ---
Assessment and Plan - Patient Problems (1) Acute on chronic HFrEF (heart failure with reduced ejection fraction) Current Visit: Yes Status: Acute Plan to address problem: IV Lasix and potassium Patient had a recent echo but echo was ordered Can be canceled by cardiology Cardiology consult requested BNP is very high in the 10,000s (2) H/O heart valve replacement with bioprosthetic valve Current Visit: Yes Status: Chronic Plan to address problem: No need for heparin because is a bioprosthetic valve (3) COPD with acute exacerbation Current Visit: No Status: Acute Plan to address problem: Patient is also wheezing Patient started on IV Solu-Medrol, duo nebs and IV Levaquin (4) Hyperkalemia Current Visit: Yes Status: Acute Plan to address problem: Mild Given calcium gluconate (5) Hypertension Current Visit: Yes Status: Chronic Qualifiers: Hypertension type: essential hypertension Qualified Code(s): I10 - Essential (primary) hypertension Plan to address problem: Continue antihypertensives and adjust medications (6) DVT prophylaxis Current Visit: Yes Status: Acute Plan to address problem: Patient on heparin and GI prophylaxis (7) Discharge planning issues Current Visit: Yes Status: Acute Plan to address problem: Possible discharge tomorrow Subjective Date of service: 01/15/21 Principal diagnosis: COPD, A/C HFrEF Interval history: 65-year-old male with history of congestive heart failure COPD hypertangela roberts comes in for increasing shortness of breath and lower extremity swelling and chest pressure for 2 weeks. More so for the last 3 days. Orthopnea present. No fever or chills. 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 Not taking any medications for the last 2 to 4 weeks. Shortness of breath worsens with minimal exertion and lying flat. No paroxysmal nocturnal dyspnea. Patient was seen in August 2020 and had a stress test and echocardiogram. Stress test was negative for any ischemic changes his echocardiogram showed ejection fraction of 30 to 35%. No recent exposure to coronavirus. No fever or chills. Day #2 Shortness of breath better Still wheezing a lot Day #3 Echocardiogram reviewed LV ejection fraction 35 to 40% Patient has bioprosthetic valve Day #4 01/15/2021 Patient short of breath Orthopnea is better Physical therapy Possible discharge tomorrow No need for heparin because of bioprosthetic valve Objective - Constitutional Vitals: Vital Signs - 12hr 01/15/21 01/15/21 01/15/21 10:15 10:55 11:06 Temperature 98.0 F Pulse Rate 74 Pulse Rate [ 92 H Anterior Throughout] Respiratory 20 Rate Respiratory 22 Rate [Anterior Throughout] Blood Pressure 137/91 O2 Sat by Pulse 97 96 Oximetry 01/15/21 01/15/21 01/15/21 14:00 15:10 15:19 Temperature 98.0 F Pulse Rate 74 73 Pulse Rate [ 96 H Anterior Throughout] Respiratory 20 Rate Respiratory 18 Rate [Anterior Throughout] Blood Pressure 140/90 O2 Sat by Pulse 96 97 Oximetry 01/15/21 01/15/21 01/15/21 19:10 19:24 20:22 Temperature 97.4 F L Pulse Rate 75 Pulse Rate [ 86 Anterior Throughout] Respiratory 22 16 Rate Respiratory 18 Rate [Anterior Throughout] Blood Pressure 140/72 O2 Sat by Pulse 97 Oximetry 01/15/21 20:23 Temperature Pulse Rate Pulse Rate [ Anterior Throughout] Respiratory Rate Respiratory Rate [Anterior Throughout] Blood Pressure O2 Sat by Pulse 100 Oximetry General appearance: Present: no acute distress, well-nourished - EENT Eyes: PERRL, EOM intact ENT: hearing intact, clear oral mucosa Ears: bilateral: normal - Neck Neck: supple, normal ROM - Respiratory Respiratory effort: normal Respiratory: bilateral: CTA - Breasts Breasts: normal - Cardiovascular Heart rate: 78 Rhythm: regular Heart Sounds: Present: S1 & S2. Absent: gallop, rub Extremities: pulses intact, No edema, normal color, Full ROM - Gastrointestinal General gastrointestinal: Present: soft, non-tender, non-distended, normal bowel sounds - Genitourinary Male genitourinary: normal - Integumentary Integumentary: clear, warm, dry - Musculoskeletal Musculoskeletal: 1, strength equal bilaterally - Neurologic Neurologic: moves all extremities - Psychiatric Psychiatric: memory intact, appropriate mood/affect, intact judgment & insight - Labs CBC & Chem 7: 01/14/21 05:38 01/15/21 05:20 Labs: Abnormal lab results 01/15/21 Range/Units 05:20 Carbon Dioxide 33 H (22-30) mmol/L Glucose 125 H (75-100) mg/dL Calcium 8.3 L (8.4-10.2) mg/dL Echocardiogram Ejection fraction is 35 to 40% No aortic valve stenosis Bioprosthetic aortic valve is present bioprosthetic valve 78 HEART Score - HEART Score EKG: Normal Age: 45-65 Risk factors: > 3 risk factors or hx of atherosclerotic disease Troponin: Troponin T < 0.010 ng/mL (0.00-0.029) 01/12/21 16:58 Troponin: < normal limit - Critical Actions Critical Actions: 0-3 pts:0.9-1.7%risk of adverse cardiac event.Candidate for discharge
[2021-01-16] MEDS: methylPREDNISolone Sod Succinate 125 MG/2 ML INJ IV SCH ×3 (03:02→19:38)
[2021-01-16 06:11] LABS: Hematocrit 36.7 % (35.5-45.6); Hemoglobin 11.7 gm/dl (11.8-15.2); Mean Corpuscular HGB Conc 32 % (32-34); Mean Corpuscular Volume 78 fl (84-94); Platelet Count 251 K/mm3 (140-440); Red Cell Distribution Width 16.2 % (13.2-15.2)
[2021-01-16] MEDS: FUROSEMIDE 40 MG/4 ML INJ IV SCH ×2 (06:26→19:38)
[2021-01-16 06:32] LABS: Alanine Aminotransferase 20 units/L (7-56); Albumin 3.1 g/dL (3.9-5); BUN/Creatinine Ratio 31; Blood Urea Nitrogen 25 mg/dL (9-20); Calcium 7.9 mg/dL (8.4-10.2); Hemolysis Index 3
[2021-01-16 07:04] LABS: Anisocytosis 1+; Band Neutrophils # (Manual) 0.1 K/mm3; Hypochromasia 1+; Poikilocytosis 1+; Total Cells Counted 100
[2021-01-16 07:05] LABS: Burr Cells Few; Ovalocytes 1+; Platelet Estimate Consistent w Auto; Schistocytes Rare
[2021-01-16] MEDS: IPRATROPIUM/ALBUTEROL SULFATE 3 ML AMPUL.NEB IH SCH ×3 (07:26→21:29)
[2021-01-16] MEDS: BUDESONIDE 0.5 MG/2 ML NEBU IH SCH ×2 (07:26→21:29)
[2021-01-16] MEDS: guaiFENesin ER 600 MG TAB PO SCH ×2 (09:33→21:48)
[2021-01-16] MEDS: levoFLOXacin 750 MG TAB PO SCH (09:33)
[2021-01-16] MEDS: LISINOPRIL 10 MG TAB PO SCH (09:33)
[2021-01-16] MEDS: METOPROLOL SUCCINATE XL 25 MG TAB PO SCH (09:33)
[2021-01-16] MEDS: ASPIRIN EC 81 MG TAB PO SCH (09:33)
[2021-01-16] MEDS: FAMOTIDINE 20 MG TAB PO SCH ×2 (09:33→21:49)
[2021-01-16] MEDS: HEPARIN 5,000 UNIT/1 ML VIAL SUB-Q SCH ×2 (09:34→21:49)
[2021-01-16] MEDS: HYPROMELLOSE 0.5% OPHTH SOLN 15 ML OD SCH ×3 (09:35→21:49)
--- NOTE | 2021-01-16 12:37 | Progress Note ---
Assessment and Plan Acute on chronic heart failure with reduced ejection fraction * Heart failure reduced ejection fraction in setting of nonischemic cardiom yopathy * Echocardiogram reviewed (01/13/2021): LVEF is 35 to 40%. LV SF is mild to moderately decreased. Mild to moderate concentric LVH. Grade 2 diastolic dysfunction. RV SF is normal. Right atrium is mildly dilated. Left atrium is severely dilated. No evidence for ASD. BioProsthetic aortic valve is present and poorly visualized, prosthetic aortic valve opening is decreased. Severe mitral regurg. Mild tricuspid regurg. Mild pulmonic regurg. * Continue diuresis: Lasix 40 mg IV twice daily. Repeat BMP in a.m. * Continue current cardiac regimen: Metoprolol XL 25 mg daily, atorvastatin 20 mg nightly, ASA 81 mg daily, lisinopril 10 mg daily. * Core measures addressed. Referral to OP Cardiac rehab for hospitalization in setting of cardiomyopathy. * COPD * Management per primary team. * BioProsthetic aortic valve in situ * No AC indicated. * Hypertension * Continue current antihypertensive regimen: Lisinopril 10 mg daily, metoprolol XL 25 mg daily * Tobacco use * Cessation encouraged * DVT prophylaxis * Heparin SQ Patient is currently in stable cardiac status. Echocardiogram complete Will follow Patient should follow-up with Dr Britni Allen in our [place] office on 02/01/2021 at 1:45 PM. #[phone] This patient was seen in conjunction with Dr Britni Allen who agrees with this assessment and plan of care - Patient Problems (1) Acute on chronic HFrEF (heart failure with reduced ejection fraction) Current Visit: Yes Status: Acute (2) Non-ischemic cardiomyopathy Current Visit: Yes Status: Chronic Plan to address problem: EF 35-40% on echo this admission (3) Pleural effusion, right Current Visit: Yes Status: Acute (4) Mitral regurgitation Current Visit: Yes Status: Chronic Plan to address problem: SEVERE MR (5) COPD (chronic obstructive pulmonary disease) Current Visit: Yes Status: Chronic Qualifiers: COPD type: COPD with acute exacerbation Qualified Code(s): J44.1 - Chronic obstructive pulmonary disease with (acute) exacerbation (6) Elevated d-dimer Current Visit: Yes Status: Acute Plan to address problem: CTA chest neg for PE (7) HTN (hypertension) Current Visit: Yes Status: Chronic Qualifiers: Hypertension type: essential hypertension Qualified Code(s): I10 - Essential (primary) hypertension (8) Epigastric pain Current Visit: Yes Status: Acute (9) Tobacco abuse Current Visit: Yes Status: Resolved (10) H/O: CVA (cerebrovascular accident) Current Visit: Yes Status: Chronic Plan to address problem: x 4 per pt report (11) Medical non-compliance Current Visit: Yes Status: Chronic Subjective Date of service: 01/16/21 Principal diagnosis: COPD, A/C HFrEF Interval history: Patient resting comfortably in bed. No shortness of breath or chest pain overnight. Patient is still having some abdominal pain. Telemetry reviewed: Sinus rhythm 70. No events Objective Last Vital Signs Temp 98.2 F 01/16/21 08:36 Pulse 79 01/16/21 08:36 Resp 18 01/16/21 08:36 BP 148/97 01/16/21 08:36 Pulse Ox 97 01/16/21 08:36 - Physical Examination General: No Apparent Distress HEENT: Positive: EOMI, Normocephaly, Mucus Membranes Moist Neck: Positive: neck supple, trachea midline, JVD/HJR (mild JVD) Cardiac: Positive: Reg Rate and Rhythm, S1/S2 Lungs: Positive: Normal Exam, Normal Breath Sounds Neuro: Positive: Grossly Intact. Negative: Other (speech defecit in the setting of prior CVAs) Abdomen: Positive: Distended. Negative: Tender Skin: Negative: Rash Musculoskeletal: Normal Range of Motion Extremities: Present: upper extr. pulses, lower extr. pulses, +2 Edema (BLE) - Labs and Meds Cardiac Enzymes 01/16/21 Range/Units 05:22 AST 16 (5-40) units/L CBC 01/16/21 Range/Units 05:22 WBC 11.5 H (4.5-11.0) K/mm3 RBC 4.70 (3.65-5.03) M/mm3 Hgb 11.7 L (11.8-15.2) gm/dl Hct 36.7 (35.5-45.6) % Plt Count 251 (140-440) K/mm3 Comprehensive Metabolic Panel 01/16/21 Range/Units 05:22 Sodium 137 (137-145) mmol/L Potassium 3.6 (3.6-5.0) mmol/L Chloride 96.0 L (98-107) mmol/L Carbon Dioxide 34 H (22-30) mmol/L BUN 25 H (9-20) mg/dL Creatinine 0.8 (0.8-1.3) mg/dL Glucose 171 H (75-100) mg/dL Calcium 7.9 L (8.4-10.2) mg/dL AST 16 (5-40) units/L ALT 20 (7-56) units/L Alkaline Phosphatase 105 (35-129) units/L Total Protein 6.1 L (6.3-8.2) g/dL Albumin 3.1 L (3.9-5) g/dL - Imaging and Cardiology EKG: report reviewed, image reviewed Nuclear stress test: report reviewed (Stress test 08/27/2020 - negative) Echo: report reviewed (01/13/2021 - EF 35-40%, mild-mod concentric LVH, grade 2 diastolic dysfxn, LA severely dilated, RA mildly dilated, severe MR, mod R pleural effusion), other (08/2020 - mild concentric LVH, EF 30-35%, LV mildly dilated, impaired LV relaxation, LA severely dilated, mild AR, mild-mod MR) - Telemetry EKG Rhythm: Sinus Rhythm - EKG Sinus rhythms and dysrhythmias: sinus rhythm Repolarization changes or abnormalities: Q-T interval prolongation
[2021-01-17] MEDS: methylPREDNISolone Sod Succinate 125 MG/2 ML INJ IV SCH ×3 (01:02→17:30)
--- NOTE | 2021-01-17 01:57 | Progress Note ---
Assessment and Plan - Patient Problems (1) Acute on chronic HFrEF (heart failure with reduced ejection fraction) Current Visit: Yes Status: Acute Plan to address problem: Patient doing better Continue IV Lasix (2) H/O heart valve replacement with bioprosthetic valve Current Visit: Yes Status: Chronic Plan to address problem: No need for heparin because is a bioprosthetic valve (3) COPD with acute exacerbation Current Visit: No Status: Acute Plan to address problem: Patient is also wheezing Patient started on IV Solu-Medrol, duo nebs and IV Levaquin (4) Hyperkalemia Current Visit: Yes Status: Acute Plan to address problem: Mild Given calcium gluconate (5) Hypertension Current Visit: Yes Status: Chronic Qualifiers: Hypertension type: essential hypertension Qualified Code(s): I10 - Essential (primary) hypertension Plan to address problem: Continue antihypertensives and adjust medications (6) DVT prophylaxis Current Visit: Yes Status: Acute Plan to address problem: Patient on heparin and GI prophylaxis (7) Discharge planning issues Current Visit: Yes Status: Acute Plan to address problem: Possible discharge tomorrow Subjective Date of service: 01/16/21 Principal diagnosis: COPD, A/C HFrEF Interval history: 65-year-old male with history of congestive heart failure COPD hypertension comes in for increasing shortness of breath and lower extremity swelling and chest pressure for 2 weeks. More so for the last 3 days. Orthopnea present. No fever or chills. Patient is noncompliant with his medications and does not have a primary care physician or resource paraprofessional. Not taking any medications for the last 2 to 4 weeks. Shortness of breath worsens with minimal exertion and lying flat. No paroxysmal nocturnal dyspnea. Patient was seen in August 2020 and had a stress test and echocardiogram. Stress test was negative for any ischemic changes his echocardiogram showed ejection fraction of 30 to 35%. No recent exposure to coronavirus. No fever or chills. Day #2 Shortness of breath better Still wheezing a lot Day #3 Echocardiogram reviewed LV ejection fraction 35 to 40% Patient has bioprosthetic valve Day #4 01/15/2021 Patient short of breath Orthopnea is better Physical therapy Possible discharge tomorrow No need for heparin because of bioprosthetic valve Date #5 07/28/2021 Patient doing slightly better still wheezing Objective - Constitutional Vitals: Vital Signs - 12hr 01/16/21 01/16/21 01/16/21 14:00 17:07 19:41 Temperature 98.7 F 98.7 F Pulse Rate 72 68 69 Pulse Rate [ Anterior Throughout] Respiratory 18 20 Rate Respiratory Rate [Anterior Throughout] Blood Pressure 139/88 141/91 O2 Sat by Pulse 95 96 Oximetry 01/16/21 01/16/21 01/17/21 21:32 23:29 00:14 Temperature 97.8 F Pulse Rate 67 Pulse Rate [ 63 Anterior Throughout] Respiratory 18 Rate Respiratory 20 Rate [Anterior Throughout] Blood Pressure 134/86 O2 Sat by Pulse 96 Oximetry General appearance: Present: no acute distress, well-nourished - EENT Eyes: PERRL, EOM intact ENT: hearing intact, clear oral mucosa Ears: bilateral: normal - Neck Neck: supple, normal ROM - Respiratory Respiratory effort: normal Respiratory: bilateral: CTA - Breasts Breasts: normal - Cardiovascular Rhythm: regular Heart Sounds: Present: S1 & S2. Absent: gallop, rub Extremities: pulses intact, No edema, normal color, Full ROM - Gastrointestinal General gastrointestinal: Present: soft, non-tender, non-distended, normal bowel sounds - Genitourinary Male genitourinary: normal - Integumentary Integumentary: clear, warm, dry - Musculoskeletal Musculoskeletal: 1, strength equal bilaterally - Neurologic Neurologic: moves all extremities - Psychiatric Psychiatric: memory intact, appropriate mood/affect, intact judgment & insight - Labs CBC & Chem 7: 01/16/21 05:22 01/17/21 05:12 Labs: Abnormal lab results 01/16/21 01/16/21 Range/Units 05:22 05:22 WBC 11.5 H (4.5-11.0) K/mm3 Hgb 11.7 L (11.8-15.2) gm/dl MCV 78 L (84-94) fl MCH 25 L (28-32) pg RDW 16.2 H (13.2-15.2) % Seg Neuts % (Manual) 88.0 H (40.0-70.0) % Lymphocytes % (Manual) 6.0 L (13.4-35.0) % Seg Neutrophils # Man 10.1 H (1.8-7.7) K/mm3 Lymphocytes # (Manual) 0.7 L (1.2-5.4) K/mm3 Chloride 96.0 L (98-107) mmol/L Carbon Dioxide 34 H (22-30) mmol/L BUN 25 H (9-20) mg/dL Glucose 171 H (75-100) mg/dL Calcium 7.9 L (8.4-10.2) mg/dL Total Protein 6.1 L (6.3-8.2) g/dL Albumin 3.1 L (3.9-5) g/dL HEART Score - HEART Score EKG: Normal Age: 45-65 Risk factors: > 3 risk factors or hx of atherosclerotic disease Troponin: Troponin T < 0.010 ng/mL (0.00-0.029) 01/12/21 16:58 Troponin: < normal limit - Critical Actions Critical Actions: 0-3 pts:0.9-1.7%risk of adverse cardiac event.Candidate for discharge
[2021-01-17] MEDS: FUROSEMIDE 40 MG/4 ML INJ IV SCH ×2 (05:36→17:32)
[2021-01-17 05:54] LABS: BUN/Creatinine Ratio 27; Blood Urea Nitrogen 24 mg/dL (9-20); Hemolysis Index 2
[2021-01-17] MEDS ORDERED: POTASSIUM CHLORIDE ER 20 MEQ TAB PO NR (08:23)
[2021-01-17] MEDS: HYPROMELLOSE 0.5% OPHTH SOLN 15 ML OD SCH ×2 (09:05→13:21)
--- NOTE | 2021-01-17 09:13 | Progress Note ---
Assessment and Plan Acute on chronic heart failure with reduced ejection fraction Telemetry reviewed: Sinus rhythm 94. Episode of 3 beat VT noted overnight * Heart failure reduced ejection fraction in setting of nonischemic cardiomyopathy * Echocardiogram reviewed (01/13/2021): LVEF is 35 to 40%. LV SF is mild to moderately decreased. Mild to moderate concentric LVH. Grade 2 diastolic dysfunction. RV SF is normal. Right atrium is mildly dilated. Left atrium is severely dilated. No evidence for ASD. BioProsthetic aortic valve is present and poorly visualized, prosthetic aortic valve opening is decreased. Severe mitral regurg. Mild tricuspid regurg. Mild pulmonic regurg. * Volume optimization: Reduce Lasix to 40 mg IV daily. Plan to convert to p.o. medications tomorrow pending clinical course * Continue current cardiac regimen: Metoprolol XL 25 mg daily, atorvastatin 20 mg nightly, ASA 81 mg daily, lisinopril 10 mg daily. * Core measures addressed. Referral to OP Cardiac rehab for hospitalization in setting of cardiomyopathy. * Maintain strict I/O's * COPD * Management per primary team. * BioProsthetic aortic valve in situ * No AC indicated. * Hypertension * Continue current antihypertensive regimen: Lisinopril 10 mg daily, metoprolol XL 25 mg daily * Tobacco use * Cessation encouraged * DVT prophylaxis * Heparin SQ Patient is currently in stable cardiac status. Core measures addressed. Continue volume optimization: Wean IV diuretics and convert to p.o. medications. Will follow. Patient should follow-up with Dr Britni Allen in our [place] office on 02/01/2021 at 1:45 PM. #[phone] This patient was seen in conjunction with Dr Britni Allen who agrees with this assessment and plan of care - Patient Problems (1) Acute on chronic HFrEF (heart failure with reduced ejection fraction) Current Visit: Yes Status: Acute (2) Non-ischemic cardiomyopathy Current Visit: Yes Status: Chronic Plan to address problem: EF 35-40% on echo this admission (3) Pleural effusion, right Current Visit: Yes Status: Acute (4) Mitral regurgitation Current Visit: Yes Status: Chronic Plan to address problem: SEVERE MR (5) COPD (chronic obstructive pulmonary disease) Current Visit: Yes Status: Chronic Qualifiers: COPD type: COPD with acute exacerbation Qualified Code(s): J44.1 - Chronic obstructive pulmonary disease with (acute) exacerbation (6) Elevated d-dimer Current Visit: Yes Status: Acute Plan to address problem: CTA chest neg for PE (7) HTN (hypertension) Current Visit: Yes Status: Chronic Qualifiers: Hypertension type: essential hypertension Qualified Code(s): I10 - Essential (primary) hypertension (8) Epigastric pain Current Visit: Yes Status: Acute (9) Tobacco abuse Current Visit: Yes Status: Resolved (10) H/O: CVA (cerebrovascular accident) Current Visit: Yes Status: Chronic Plan to address problem: x 4 per pt report (11) Medical non-compliance Current Visit: Yes Status: Chronic Subjective Date of service: 01/17/21 Principal diagnosis: COPD, A/C HFrEF Interval history: Patient resting comfortably in bed. No shortness of breath or chest pain overnight. Patient is still having some abdominal pain. Telemetry reviewed: Sinus rhythm 94. Episode of 3 beat VT noted overnight Objective Last Vital Signs Temp 98.0 F 01/17/21 04:04 Pulse 79 01/17/21 04:04 Resp 18 01/17/21 04:04 BP 144/95 01/17/21 04:04 Pulse Ox 96 01/17/21 04:04 - Physical Examination General: No Apparent Distress HEENT: Positive: EOMI, Normocephaly, Mucus Membranes Moist Neck: Positive: neck supple, trachea midline, JVD/HJR (mild JVD) Cardiac: Positive: Reg Rate and Rhythm, S1/S2 Lungs: Positive: clear to auscultation, Normal Breath Sounds Neuro: Positive: Grossly Intact. Negative: Other (speech defecit in the setting of prior CVAs) Abdomen: Positive: Distended. Negative: Tender Skin: Negative: Rash Musculoskeletal: Normal Range of Motion Extremities: Present: upper extr. pulses, lower extr. pulses, edema (Significantly improved) - Labs and Meds Comprehensive Metabolic Panel 01/17/21 Range/Units 05:12 Sodium 138 (137-145) mmol/L Potassium 3.2 L (3.6-5.0) mmol/L Chloride 94.0 L (98-107) mmol/L Carbon Dioxide 37 H (22-30) mmol/L BUN 24 H (9-20) mg/dL Creatinine 0.9 (0.8-1.3) mg/dL Glucose 217 H (75-100) mg/dL Calcium 8.0 L (8.4-10.2) mg/dL - Imaging and Cardiology EKG: report reviewed, image reviewed Echo: report reviewed (01/13/2021 - EF 35-40%, mild-mod concentric LVH, grade 2 diastolic dysfxn, LA severely dilated, RA mildly dilated, severe MR, mod R pleural effusion), other (08/2020 - mild concentric LVH, EF 30-35%, LV mildly dilated, impaired LV relaxation, LA severely dilated, mild AR, mild-mod MR) Cardiac cath: report reviewed - Telemetry EKG Rhythm: Sinus Rhythm - EKG Sinus rhythms and dysrhythmias: sinus rhythm Repolarization changes or abnormalities: Q-T interval prolongation
[2021-01-17] MEDS: FAMOTIDINE 20 MG TAB PO SCH (09:23)
[2021-01-17] MEDS: guaiFENesin ER 600 MG TAB PO SCH (09:23)
[2021-01-17] MEDS: LISINOPRIL 10 MG TAB PO SCH (09:23)
[2021-01-17] MEDS: METOPROLOL SUCCINATE XL 25 MG TAB PO SCH (09:23)
[2021-01-17] MEDS: levoFLOXacin 750 MG TAB PO SCH (09:23)
[2021-01-17] MEDS: ASPIRIN EC 81 MG TAB PO SCH (09:23)
[2021-01-17] MEDS: HEPARIN 5,000 UNIT/1 ML VIAL SUB-Q SCH (09:24)
[2021-01-17] MEDS: BUDESONIDE 0.5 MG/2 ML NEBU IH SCH (10:39)
[2021-01-17] MEDS: IPRATROPIUM/ALBUTEROL SULFATE 3 ML AMPUL.NEB IH SCH ×2 (10:39→15:50)
[2021-01-17 17:33] VITALS: BP 132/90
--- NOTE | 2021-01-17 18:00 | Discharge Summary ---
Providers - Providers Date of Admission: 01/12/21 13:29 Date of discharge: 01/17/21 Attending physician: JOHN ESTEBAN 01/13/21 00:01 Consult to Physician [CONS] Routine Comment: Consulting Provider: TIMOTHY CASILLAS Physician Instructions: Reason For Exam: CHF exacerbation 01/16/21 12:38 Consult to Cardiac Rehabilitation [CONS] Routine Reason For Exam: cardiomyopathy Additional Notes/Special Instructions: Referral request for outpatient cardiac rehab follow-up for cardiomyopathy 30 to 35% Primary care physician: COMMUNITY AFFAIRS DIRECTOR Hospitalization Condition: Serious Hospital course: Subjective Date of service: 01/16/21 Principal diagnosis: COPD, A/C HFrEF Interval history: 65-year-old male with history of congestive heart failure COPD hypertension comes in for increasing shortness of breath and lower extremity swelling and chest pressure for 2 weeks. More so for the last 3 days. Orthopnea present. No fever or chills. Patient is noncompliant with his medications and does not have a primary care physician or data collection interviewer. Not taking any medications for the last 2 to 4 weeks. Shortness of breath worsens with minimal exertion and lying flat. No paroxysmal nocturnal dyspnea. Patient was seen in August 2020 and had a stress test and echocardiogram. Stress test was negative for any ischemic changes his echocardiogram showed ejection fraction of 30 to 35%. No recent exposure to coronavirus. No fever or chills. Day #2 Shortness of breath better Still wheezing a lot Day #3 Echocardiogram reviewed LV ejection fraction 35 to 40% Patient has bioprosthetic valve Day #4 01/15/2021 Patient short of breath Orthopnea is better Physical therapy Possible discharge tomorrow No need for heparin because of bioprosthetic valve Date #5 01/17/2020 Patient doing slightly better still wheezing Day #6 Patient more comfortable Patient feels debilitated We will arrange for home health physical therapy Assessment and Plan - Patient Problems (1) Acute on chronic HFrEF (heart failure with reduced ejection fraction) Current Visit: Yes Status: Acute Plan to address problem: Patient to be discharged on oral Lasix (2) H/O heart valve replacement with bioprosthetic valve Current Visit: Yes Status: Chronic Plan to address problem: No need for heparin because is a bioprosthetic valve (3) COPD with acute exacerbation Current Visit: No Status: Acute Plan to address problem: Patient will go home on tapering dose of prednisone and duo nebs (4) Hyperkalemia Current Visit: Yes Status: Acute Plan to address problem: Resolved (5) Hypertension Current Visit: Yes Status: Chronic Qualifiers: Hypertension type: essential hypertension Qualified Code(s): I10 - Essential (primary) hypertension Plan to address problem: Continue antihypertensives and adjust medications (6) DVT prophylaxis Current Visit: Yes Status: Acute Plan to address problem: Patient on heparin and GI prophylaxis (7) Discharge planning issues Current Visit: Yes Status: Acute Plan to address problem: Possible discharge tomorrow Disposition: DC-01 TO HOME OR SELFCARE Final Discharge Diagnosis (Prints w/discharge instructions): Acute respiratory failure with hypoxia. CHF exacerbation. COPD exacerbation. Hypertension. Bioprosthetic valve Time spent for discharge: 35 minutes - Discharge Diagnoses (1) Acute on chronic HFrEF (heart failure with reduced ejection fraction) Status: Acute (2) H/O heart valve replacement with bioprosthetic valve Status: Chronic (3) COPD with acute exacerbation Status: Acute (4) Hyperkalemia Status: Acute (5) Hypertension Status: Chronic Qualifiers: Hypertension type: essential hypertension Qualified Code(s): I10 - Essential (primary) hypertension (6) DVT prophylaxis Status: Acute (7) Discharge planning issues Status: Acute Core Measure Documentation - Palliative Care Palliative Care/ Comfort Measures: Not Applicable - Core Measures Any of the following diagnoses?: none Exam - Constitutional Vitals: Temp Pulse Resp BP Pulse Ox 97.9 F 69 18 132/90 98 01/17/21 16:23 01/17/21 16:23 01/17/21 16:23 01/17/21 16:23 01/17/21 16:23 General appearance: Present: no acute distress, well-nourished - EENT Eyes: Present: PERRL ENT: hearing intact, clear oral mucosa - Neck Neck: Present: supple, normal ROM - Respiratory Respiratory effort: normal Respiratory: bilateral: CTA - Cardiovascular Heart rate: 78 Heart Sounds: Present: S1 & S2. Absent: rub, click - Extremities Extremities: pulses symmetrical, No edema Peripheral Pulses: within normal limits - Abdominal General gastrointestinal: Present: soft, non-tender, non-distended, normal bowel sounds Male genitourinary: Present: normal - Integumentary Integumentary: Present: clear, warm, dry - Musculoskeletal Musculoskeletal: gait normal, strength equal bilaterally - Psychiatric Psychiatric: appropriate mood/affect, intact judgment & insight - Neurologic Neurologic: CNII-XII intact, moves all extremities Plan Activity: no restrictions Diet: low salt Follow up with: PRIMARY CARE, [Primary Care Provider] - 7 Days ALEJANDRO SILVA MD [Staff Physician] - 7 Days
== END 2021-01-17 18:35 | disposition home or self-care (01) | DRG 291 ==
LOC: ED 09:38 → 4A 13:29
PROVIDERS: ADMIT Internal Medicine; ATTEND Internal Medicine
PROC: 4A033R1 Measurement of Arterial Saturation, Peripheral, Percutaneous Approach (ICD-10-PCS; principal; 2021-01-12)
PROC: 5A09357 Assistance with Respiratory Ventilation, Less than 24 Consecutive Hours, Continuous Positive Airway Pressure (ICD-10-PCS; 2021-01-12)
DX: I11.0 Hypertensive heart disease with heart failure (principal); J96.01 Acute respiratory failure with hypoxia; J44.1 Chronic obstructive pulmonary disease with (acute) exacerbation; I50.23 Acute on chronic systolic (congestive) heart failure; I42.8 Other cardiomyopathies; E87.5 Hyperkalemia; F17.200 Nicotine dependence, unspecified, uncomplicated; Z86.73 Personal history of transient ischemic attack (TIA), and cerebral infarction without residual deficits; Z79.82 Long term (current) use of aspirin; Z79.899 Other long term (current) drug therapy; Z91.14 Patient's other noncompliance with medication regimen; Z95.2 Presence of prosthetic heart valve; Z82.49 Family history of ischemic heart disease and other diseases of the circulatory system
CPT/HCPCS: 36415; 71046; 71275; 80048; 80053; 83036; 83880; 84484; 85007; 85025; 85379; 85610; 85730; 87641; 93005; 93306; 94640; 94644; G0378; A9270-GY; J0360; J1170; J1644; J1940; J1956; J2930; Q9967

== ENCOUNTER 2021-09-21 09:06 | Inpatient (IN) | payer SELFPAY ==
--- NOTE | 2021-09-21 09:26 | Emergency Department Report ---
ED Shortness of Breath HPI - General Chief Complaint: Dyspnea/Respdistress Stated Complaint: ANA Time Seen by Provider: 09/21/21 09:17 Source: patient, EMS Mode of arrival: Stretcher Limitations: Language Barrier - History of Present Illness Initial Comments: Chief complaint: Shortness of breath, abdominal pain HPI: 66-year-old male with history of systolic heart failure ejection fraction 35 to 40%, tobacco dependence, COPD, mitral regurgitation, hypertension, hemorrhagic CVA left thalamic bleed 2017, who presents with shortness of breath and epigastric abdominal pain. He has run out of his budesonide/ salmeterol inhaler. He has pain in his abdominal when he breathes. Feels like a dull strain. He does not take medication for hypertension or heart failure. Frisian-speaking colleague used to obtain history during this encounter. According to patient chart review, patient hadmyocardial perfusion scan August 21, 2014. At that time no evidence of active ischemia or prior infarction. Mild to moderate global left ventricular hypokinesis with ejection fraction 40%. January 12, 2021: CT angiogram no evidence of pulmonary embolism, CT angiogram of the chest obtained December 17 no evidence of pulmonary embolism at that time did have cardiomegaly pulmonary edema bilateral pleural effusions MD Complaint: shortness of breath -: Gradual Severity: severe Improves With: oxygen Known History Of: COPD, congestive heart failure Associated Symptoms: other (Abdominal pain) - Related Data Previous Rx's Medication Instructions Recorded Last Taken Type Dextran 70/Hypromellose 1 each OD TID #15 ml 11/10/16 Unknown Rx [Artificial Tears] Azithromycin [Zithromax TAB] 500 mg PO QDAY #2 tablet 08/22/20 Unknown Rx Budesonide [Pulmicort Respules] 0.5 mg IH Q12HRT #60 nebu 08/22/20 Unknown Rx guaiFENesin ER [Mucinex ER] 600 mg PO BID #30 tablet 08/22/20 Unknown Rx predniSONE 30 mg PO QDAY #5 tablet 08/22/20 Unknown Rx Aspirin EC [Halfprin EC] 81 mg PO QDAY #100 tablet 01/17/21 Unknown Rx AtorvaSTATin [Lipitor] 20 mg PO QHS #30 tablet 01/17/21 Unknown Rx Famotidine [Pepcid] 20 mg PO BID #60 tablet 01/17/21 Unknown Rx Furosemide [Lasix TAB] 40 mg PO BID #60 tablet 01/17/21 Unknown Rx Ipratropium/Albuterol Sulfate 1 ampul IH TIDRT #50 ampul.neb 01/17/21 Unknown Rx [DUONEB *Not for PRN Use*] Metoprolol Xl [Metoprolol 25 mg PO QDAY #30 tablet 01/17/21 Unknown Rx SUCCINATE ER TAB] Nebulizer and Compressor [Clayton 1 each MC BID #1 each 01/17/21 Unknown Rx Choice Nebulizer] Potassium Chloride [K-Dur] 20 meq PO BID #60 tablet 01/17/21 Unknown Rx Prednisone [predniSONE 10 mg 10 mg PO .TAPER #1 tab.ds.pk 01/17/21 Unknown Rx (6-Day Pack, 21 Tabs)] lisinopriL [Zestril TAB] 10 mg PO QDAY 60 Days #60 tablet 01/17/21 Unknown Rx Allergies Allergy/AdvReac Type Severity Reaction Status Date / Time No Known Allergies Allergy Unverified 09/21/21 09:12 ED Review of Systems ROS: Stated complaint: ANA Other details as noted in HPI Comment: All other systems reviewed and negative Constitutional: denies: chills, fever, malaise Respiratory: cough, shortness of breath Cardiovascular: denies: chest pain Gastrointestinal: abdominal pain Musculoskeletal: denies: back pain Neurological: denies: headache ED Past Medical Hx - Past Medical History Previous Medical History?: Yes Hx Hypertension: Yes Hx CVA: Yes (Hemorrhagic CVA, left thalamic bleed 2017) Hx Congestive Heart Failure: Yes (EF 30-35%) Hx Diabetes: No Hx Asthma: No Hx COPD: Yes Hx Tuberculosis: No Hx HIV: No - Surgical History Additional Surgical History: unknown - Social History Smoking Status: Current Every Day Smoker Substance Use Type: None - Medications Home Medications: Home Medications Medication Instructions Recorded Confirmed Last Taken Type Dextran 70/Hypromellose 1 each OD TID #15 ml 11/10/16 05/30/20 Unknown Rx [Artificial Tears] Azithromycin [Zithromax TAB] 500 mg PO QDAY #2 tablet 08/22/20 Unknown Rx Budesonide [Pulmicort Respules] 0.5 mg IH Q12HRT #60 nebu 08/22/20 Unknown Rx guaiFENesin ER [Mucinex ER] 600 mg PO BID #30 tablet 08/22/20 Unknown Rx predniSONE 30 mg PO QDAY #5 tablet 08/22/20 Unknown Rx Aspirin EC [Halfprin EC] 81 mg PO QDAY #100 tablet 01/17/21 Unknown Rx AtorvaSTATin [Lipitor] 20 mg PO QHS #30 tablet 01/17/21 Unknown Rx Famotidine [Pepcid] 20 mg PO BID #60 tablet 01/17/21 Unknown Rx Furosemide [Lasix TAB] 40 mg PO BID #60 tablet 01/17/21 Unknown Rx Ipratropium/Albuterol Sulfate 1 ampul IH TIDRT #50 ampul.neb 01/17/21 Unknown Rx [DUONEB *Not for PRN Use*] Metoprolol Xl [Metoprolol 25 mg PO QDAY #30 tablet 01/17/21 Unknown Rx SUCCINATE ER TAB] Nebulizer and Compressor [Clayton 1 each MC BID #1 each 01/17/21 Unknown Rx Choice Nebulizer] Potassium Chloride [K-Dur] 20 meq PO BID #60 tablet 01/17/21 Unknown Rx Prednisone [predniSONE 10 mg 10 mg PO .TAPER #1 tab.ds.pk 01/17/21 Unknown Rx (6-Day Pack, 21 Tabs)] lisinopriL [Zestril TAB] 10 mg PO QDAY 60 Days #60 tablet 01/17/21 Unknown Rx ED Physical Exam - General Limitations: No Limitations General appearance: alert, in distress, other (Mild work of breathing, has difficulty completing sentences) - Head Head exam: Present: atraumatic, normocephalic - Eye Eye exam: Present: normal appearance - ENT ENT exam: Present: mucous membranes moist - Neck Neck exam: Present: normal inspection, full ROM - Respiratory Respiratory exam: Present: respiratory distress, wheezes, rales, decreased breath sounds, prolonged expiratory. Absent: rhonchi - Cardiovascular Cardiovascular Exam: Present: regular rate, normal rhythm, normal heart sounds. Absent: systolic murmur, diastolic murmur, rubs, gallop - GI/Abdominal GI/Abdominal exam: Present: soft, normal bowel sounds. Absent: distended, tenderness, guarding, rebound - Rectal Rectal exam: Present: deferred - Extremities Exam Extremities exam: Present: normal inspection - Neurological Exam Neurological exam: Present: alert, oriented X3 - Psychiatric Psychiatric exam: Present: normal affect, normal mood - Skin Skin exam: Present: warm, dry, intact, normal color. Absent: rash ED Course Vital Signs 09/21/21 09/21/21 09/21/21 09:07 10:00 10:20 Temperature 98.0 F Pulse Rate 98 H 88 98 H Respiratory 20 20 Rate Blood Pressure 168/110 168/100 Blood Pressure 182/129 [Left] O2 Sat by Pulse 97 98 Oximetry ED Medical Decision Making - Lab Data Result diagrams: 09/21/21 10:14 09/21/21 10:14 - EKG Data -: EKG Interpreted by Me EKG shows normal: sinus rhythm Rate: normal - EKG Data Interpretation: nonspecific ST-T wave mignon, LVH 09/21/21 11:59 EKG obtained 1150 EKG interpreted by me Rate 70 bpm normal axis prolonged QTC no ST elevation positive LVH nonspecific T wave pattern there is LVH with repolarization abnormality - Radiology Data Radiology results: report reviewed Patient Name: AMY DOWNS Gender: Male Date of : 1955 Referring Provider: MARIAN DUKES Organization: [facility] Accession Number: [id number] Requested Date: September 21, 2021 09:18 Report Status: Final Requested Procedure: 1 Procedure Description: XR chest 1V ap Modality: XR Findings Reporting MD: Simone Elaine Dictation Time: September 21, 2021 09:01 Plodding Operator: Not available Line Installation Supervisor Date: CHEST 1 VIEW 09/21/2021 9:35 AM INDICATION / CLINICAL INFORMATION: Dyspnea. COMPARISON: 2 views of the chest from 01/12/2021. FINDINGS: SUPPORT DEVICES: None. HEART / MEDIASTINUM: Stable. LUNGS / PLEURA: Generalized bilateral pulmonary opacities are noted with bibasilar predominance. No large pleural effusion. No pneumothorax. ADDITIONAL FINDINGS: No significant additional findings. IMPRESSION: Significant bilateral pulmonary opacities could represent pneumonia or edema/atelectasis. Continued radiographic follow-up to resolution is recommended. Signer Name: Simone Elaine MD Signed: 09/21/2021 9:01 AM Workstation Name: [id number] - Medical Decision Making 1. Acute congestive heart failure: Diuresis initiated with IV furosemide emergency department. Patient also received beta-blockade and blood pressure control with IV labetalol. P.o. lisinopril also given emergency department. 2. Multifocal pneumonia must rule out COVID 19. Treatment deferred to my hospitalist colleague. 3. Abdominal pain due to strain with work of breathing. No evidence of acute intra-abdominal or obstructive process. No tenderness no vomiting no fever no leukocytosis Patient admitted in fair condition. Critical care attestation.: If time is entered above; I have spent that time in minutes in the direct care of this critically ill patient, excluding procedure time. ED Disposition Clinical Impression: Acute on chronic HFrEF (heart failure with reduced ejection fraction), Multifocal pneumonia, Suspected COVID-19 virus infection Disposition: ADMITTED INPATIENT Is pt being admited?: Yes Does the pt Need Aspirin: No Condition: Fair Instructions: Bacterial Pneumonia (ED)
[2021-09-21] MEDS ORDERED: FUROSEMIDE 40 MG/4 ML INJ IV ONE (09:27)
[2021-09-21] MEDS ORDERED: LISINOPRIL 10 MG TAB PO ONE (09:27)
--- NOTE | 2021-09-21 10:05 | XRay Report ---
CHEST 1 VIEW 09/21/2021 9:35 AM INDICATION / CLINICAL INFORMATION: Dyspnea. COMPARISON: 2 views of the chest from 01/12/2021. FINDINGS: SUPPORT DEVICES: None. HEART / MEDIASTINUM: Stable. LUNGS / PLEURA: Generalized bilateral pulmonary opacities are noted with bibasilar predominance. No l arge pleural effusion. No pneumothorax. ADDITIONAL FINDINGS: No significant additional findings. IMPRESSION: Significant bilateral pulmonary opacities could represent pneumonia or edema/atelectasis. Continued r adiographic follow-up to resolution is recommended. Signer Name: Simone Elaine MD Signed: 09/21/2021 10:01 AM Workstation Name: [id number]
[2021-09-21 10:43] LABS: Basophils # (Auto) 0.1 K/mm3 (0.0-0.1); Basophils % (Auto) 0.9 % (0.0-1.8); Eosinophils % (Auto) 0.4 % (0.0-4.3); Hematocrit 32.9 % (35.5-45.6); Lymphocytes % (Auto) 10.3 % (13.4-35.0); Mean Corpuscular HGB Conc 31 % (32-34); Mean Corpuscular Volume 75 fl (84-94); Monocytes # (Auto) 0.7 K/mm3 (0.0-0.8); Monocytes % (Auto) 6.9 % (0.0-7.3); Platelet Count 261 K/mm3 (140-440); Red Cell Distribution Width 16.9 % (13.2-15.2)
[2021-09-21 11:01] LABS: Alanine Aminotransferase 17 units/L (7-56); Albumin 3.6 g/dL (3.9-5); Blood Urea Nitrogen 19 mg/dL (9-20); Calcium 8.7 mg/dL (8.4-10.2); Hemolysis Index 5
[2021-09-21 11:05] LABS: BUN/Creatinine Ratio 27
--- NOTE | 2021-09-21 11:07 | History and Physical Report ---
History of Present Illness Chief complaint: I cannot breathe History of present illness: 66 YO Male with COPD, Systolic CHF (EF 35%), HTN, Nicotine Dependence, MR, CVA in 2018 presents to ED for evaluation. Patient reports "I cannot breathe". Patient states that he has experienced shortness of breath over the past 4 days with worsening symptoms over the same timeframe. 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 Patient acknowledges noncompliance with medications outpatient. Patient also acknowledges noncompliance with low-sodium diet. Patient acknowledges orthopnea, paroxysmal nocturnal dyspnea, and lower extremity edema. EMS was notified upon arrival the patient was found to be in distress and subsequent transported to [facility] for further care and evaluation of the aforementioned symptoms. The patient was seen and evaluated in the emergency department. All lab and imaging studies reviewed. The patient was found to have a blood pressure of 182/129. Patient found to have a pulse oximetry of 87% on room air which is consistent with acute hypoxemic respiratory failure. Chest x-ray reveals bilateral pneumonia. Patient also found to have clinical symptoms consistent with CHF decompensation complicated by malignant hypertension. Patient admitted to medical floor and initiated on CHF protocol, pneumonia protocol as well as coronavirus protocol. Patient denies fever, chills, chest pain, palpitations, skin rash, recent ill contacts. Prior admission on 01/12/2021 reviewed. All medication listed at time of admission has been reconciled. Advanced care planning conducted in ED. Past History Past Medical History: heart failure, hypertension, other (See HPI) Past Surgical History: No surgical history, Other (Reviewed) Social history: , lives with family, smoking Family history: hypertension Medications and Allergies Allergies Allergy/AdvReac Type Severity Reaction Status Date / Time No Known Allergies Allergy Unverified 09/21/21 09:12 Home Medications Medication Instructions Recorded Confirmed Last Taken Type Dextran 70/Hypromellose 1 each OD TID #15 ml 11/10/16 05/30/20 Unknown Rx [Artificial Tears] Azithromycin [Zithromax TAB] 500 mg PO QDAY #2 tablet 08/22/20 Unknown Rx Budesonide [Pulmicort Respules] 0.5 mg IH Q12HRT #60 nebu 08/22/20 Unknown Rx guaiFENesin ER [Mucinex ER] 600 mg PO BID #30 tablet 08/22/20 Unknown Rx predniSONE 30 mg PO QDAY #5 tablet 08/22/20 Unknown Rx Aspirin EC [Halfprin EC] 81 mg PO QDAY #100 tablet 01/17/21 Unknown Rx AtorvaSTATin [Lipitor] 20 mg PO QHS #30 tablet 01/17/21 Unknown Rx Famotidine [Pepcid] 20 mg PO BID #60 tablet 01/17/21 Unknown Rx Furosemide [Lasix TAB] 40 mg PO BID #60 tablet 01/17/21 Unknown Rx Ipratropium/Albuterol Sulfate 1 ampul IH TIDRT #50 ampul.neb 01/17/21 Unknown Rx [DUONEB *Not for PRN Use*] Metoprolol Xl [Metoprolol 25 mg PO QDAY #30 tablet 01/17/21 Unknown Rx SUCCINATE ER TAB] Nebulizer and Compressor [[place] 1 each MC BID #1 each 01/17/21 Unknown Rx Choice Nebulizer] Potassium Chloride [K-Dur] 20 meq PO BID #60 tablet 01/17/21 Unknown Rx Prednisone [predniSONE 10 mg 10 mg PO .TAPER #1 tab.ds.pk 01/17/21 Unknown Rx (6-Day Pack, 21 Tabs)] lisinopriL [Zestril TAB] 10 mg PO QDAY 60 Days #60 tablet 01/17/21 Unknown Rx Review of Systems Constitutional: weight gain, fatigue, weakness, malaise, no weight loss, no fever, no chills Ears, nose, mouth and throat: other (Diminished sense of smell, diminished sense of taste), no ear pain, no tinnitis, no decreased hearing, no nasal congestion, no nasal discharge Cardiovascular: orthopnea, shortness of breath, dyspnea on exertion, paroxysmal nocturnal dyspnea, high blood pressure, leg edema, decreased exercise tolerance, no chest pain Respiratory: cough, no cough with sputum, no excessive sputum, no hemoptysis Gastrointestinal: no abdominal pain, no nausea, no diarrhea, no constipation Genitourinary Male: no hematuria, no flank pain, no discharge, no urinary hesitancy Rectal: no pain, no incontinence Musculoskeletal: no neck stiffness, no neck pain, no arm numbness/tingling, no shooting leg pain Integumentary: no rash, no pruritis, no wounds, no jaundice Neurological: no weakness, no numbness, no seizures, no syncope Psychiatric: no memory loss, no change in sleep habits, no insomnia, no change in appetite Endocrine: no heat intolerance, no polyphagia, no polydipsia, no polyuria Hematologic/Lymphatic: no easy bruising Allergic/Immunologic: no urticaria, no allergic rhinitis, no wheezing Exam - Constitutional Vitals: Temp Pulse Resp BP Pulse Ox 98.0 F 98 H 20 168/100 97 09/21/21 09:07 09/21/21 10:20 09/21/21 09:07 09/21/21 10:20 09/21/21 09:07 General appearance: Present: mild distress - EENT Eyes: Present: PERRL ENT: hearing intact, clear oral mucosa - Neck Neck: Present: supple, normal ROM - Respiratory Respiratory effort: labored, accessory muscle use Respiratory: bilateral: diminished, rales - Cardiovascular Heart Sounds: Present: S1 & S2. Absent: rub, click - Extremities Extremity abnormal: edema Peripheral Pulses: within normal limits - Abdominal General gastrointestinal: Present: soft, non-tender, non-distended, normal bowel sounds Male genitourinary: Present: normal - Integumentary Integumentary: Present: clear, warm, dry - Musculoskeletal Musculoskeletal: generalized weakness - Psychiatric Psychiatric: appropriate mood/affect, intact judgment & insight - Neurologic Neurologic: CNII-XII intact, moves all extremities HEART Score - HEART Score Troponin: Troponin T < 0.010 ng/mL (0.00-0.029) 09/21/21 10:14 Results - Labs CBC & Chem 7: 09/21/21 10:14 09/21/21 10:14 Labs: Abnormal lab results 09/21/21 09/21/21 09/21/21 Range/Units 10:14 10:14 10:14 Seg Neutrophils % 81.5 H (40.0-70.0) % Seg Neutrophils # 8.1 H (1.8-7.7) K/mm3 Glucose 104 H (75-100) mg/dL Alkaline Phosphatase 134 H (35-129) units/L NT-Pro-B Natriuret Pep 8323 H (0-900) pg/mL Albumin 3.6 L (3.9-5) g/dL Assessment and Plan - Patient Problems (1) Acute hypoxemic respiratory failure Current Visit: Yes Status: Acute Plan to address problem: Supplemental oxygen, pulse oximetry, nebulizer therapy, chest x-ray, pulmonary toilet. (2) Suspected 2019 novel coronavirus infection Current Visit: Yes Status: Acute Plan to address problem: Coronavirus protocol: Vitamin C therapy, vitamin D therapy, zinc therapy, IV antibiotic therapy, supplemental oxygen, pulse oximetry., Prophylactic anticoagulation. (3) Pneumonia Current Visit: Yes Status: Acute Plan to address problem: Pneumonia protocol: Chest x-ray, CBC, CMP, supplemental oxygen, pulse oximetry, nebulizer therapy, IV antibiotic therapy, blood culture. (4) CHF (congestive heart failure) Current Visit: Yes Status: Acute Qualifiers: Heart failure type: systolic Heart failure chronicity: acute on chronic Qualified Code(s): I50.23 - Acute on chronic systolic (congestive) heart failure Plan to address problem: Strict I/O, monitor urine output every shift, daily weight, afterload reduction, blood pressure control, thyroid panel, magnesium level. Cardiology team consulted. (5) Nicotine dependence Current Visit: Yes Status: Acute Qualifiers: Nicotine product type: cigarettes Substance use status: in withdrawal Qualified Code(s): F17.213 - Nicotine dependence, cigarettes, with withdrawal Plan to address problem: Smoking cessation counseling, supportive care, behavior change counseling, +15 minutes. (6) Malignant hypertension Current Visit: Yes Status: Acute Plan to address problem: Monitor blood pressure every shift, continue medical management. Diuresis, supportive care. (7) DVT prophylaxis Current Visit: Yes Status: Acute Plan to address problem: SCD to bilateral lower extremities while in bed, prophylactic anticoagulation (8) Advance care planning Current Visit: Yes Status: Acute Plan to address problem: Disease education conducted, care plan discussed, diagnosis discussed, prognosis discussed, patient is full code. Patient acknowledges understanding and agreement with care plan, +30 minutes.
[2021-09-21] MEDS ORDERED: oxyCODONE /ACETAMINOPHEN 5-325MG TAB PO PRN (12:28)
[2021-09-21] MEDS ORDERED: ACETAMINOPHEN 325 MG TAB PO PRN (12:28)
[2021-09-21] MEDS ORDERED: ONDANSETRON 4 MG/2 ML INJ IV PRN (12:28)
[2021-09-21] MEDS ORDERED: ALBUTEROL 2.5 MG/3 ML NEBU IH PRN (12:28)
[2021-09-21] MEDS ORDERED: HYDROmorphone 1 MG/1 ML INJ IV PRN (12:28)
[2021-09-21] MEDS ORDERED: cefTRIAXone/NS 2 GM/100 ML 2 GM/100 ML BAG IV SCH (13:00)
[2021-09-21] MEDS ORDERED: SODIUM CHLORIDE 0.9% 1000 ML 1,000 ML ONE (13:27)
[2021-09-21] MEDS ORDERED: AZITHROMYCIN/NS 500 MG/250 ML 500 MG/250 ML BAG IV SCH (13:30)
--- NOTE | 2021-09-21 14:51 | Consultation ---
History of Present Illness Consult date: 09/21/21 Requesting physician: PAULY WELLS Consult reason: congestive heart failure History of present illness: Patient is a 66-year-old male with a past medical history of HFrEF (the EF 35 to 40%), nonischemic cardiomyopathy, hypertension, mitral regurgitation, COPD, history of hemorrhagic CVA in 2018, and nicotine dependence who presents today with a complaint of shortness of breath and epigastric abdominal pain. History is taken from documentation and patient due to language barrier. Patient reports difficulty in breathing, a cough, abdominal pain that is worsened with coughing, and weakness that has been progressively worsening since August. Patient reports that he has run out of his inhaler and not been taking it. Patient reports that he has not been compliant with his cardiac medications or heart failure diet. Patient denies any chest pain palpitations or nausea and vomiting. Of note patient's had a blood pressure of 162/111 and chest x-ray was positive for bilateral pneumonia/edema. Patient was previously seen by our practice in an admission in 01/2021 but has not followed up with our office as an outpatient. Cardiology is consulted for heart failure Past History Past Medical History: heart failure, hypertension, other (See HPI) Past Surgical History: No surgical history, Other (Reviewed) Social history: , lives with family, smoking Family history: hypertension Medications and Allergies Allergies Allergy/AdvReac Type Severity Reaction Status Date / Time No Known Allergies Allergy Unverified 09/21/21 09:12 Home Medications Medication Instructions Recorded Confirmed Last Taken Type Dextran 70/Hypromellose 1 each OD TID #15 ml 11/10/16 05/30/20 Unknown Rx [Artificial Tears] Azithromycin [Zithromax TAB] 500 mg PO QDAY #2 tablet 08/22/20 Unknown Rx Budesonide [Pulmicort Respules] 0.5 mg IH Q12HRT #60 nebu 08/22/20 Unknown Rx guaiFENesin ER [Mucinex ER] 600 mg PO BID #30 tablet 08/22/20 Unknown Rx predniSONE 30 mg PO QDAY #5 tablet 08/22/20 Unknown Rx Aspirin EC [Halfprin EC] 81 mg PO QDAY #100 tablet 01/17/21 Unknown Rx AtorvaSTATin [Lipitor] 20 mg PO QHS #30 tablet 01/17/21 Unknown Rx Famotidine [Pepcid] 20 mg PO BID #60 tablet 01/17/21 Unknown Rx Furosemide [Lasix TAB] 40 mg PO BID #60 tablet 01/17/21 Unknown Rx Ipratropium/Albuterol Sulfate 1 ampul IH TIDRT #50 ampul.neb 01/17/21 Unknown Rx [DUONEB *Not for PRN Use*] Metoprolol Xl [Metoprolol 25 mg PO QDAY #30 tablet 01/17/21 Unknown Rx SUCCINATE ER TAB] Nebulizer and Compressor [[place] 1 each MC BID #1 each 01/17/21 Unknown Rx Choice Nebulizer] Potassium Chloride [K-Dur] 20 meq PO BID #60 tablet 01/17/21 Unknown Rx Prednisone [predniSONE 10 mg 10 mg PO .TAPER #1 tab.ds.pk 01/17/21 Unknown Rx (6-Day Pack, 21 Tabs)] lisinopriL [Zestril TAB] 10 mg PO QDAY 60 Days #60 tablet 01/17/21 Unknown Rx Active Meds: Active Medications Acetaminophen (Acetaminophen 325 Mg Tab) 650 mg PO Q4H PRN PRN Reason: Pain MILD(1-3)/Fever >100.5/PAEZ Albuterol (Albuterol 2.5 Mg/3 Ml Nebu) 2.5 mg IH Q4HRT PRN PRN Reason: Shortness Of Breath Aspirin (Aspirin Ec 81 Mg Tab) 81 mg PO QDAY JAMIN Atorvastatin Calcium (Atorvastatin 20 Mg Tab) 20 mg PO QHS JAMIN Famotidine (Famotidine 20 Mg Tab) 20 mg PO BID [facility] Furosemide (Furosemide 20 Mg/2 Ml Inj) 40 mg IV BID@0600,1800 [facility] Guaifenesin (Guaifenesin Er 600 Mg Tab) 600 mg PO BID JAMIN Hydromorphone HCl (Hydromorphone 1 Mg/1 Ml Inj) 0.5 mg IV Q23H PRN PRN Reason: Pain , Severe (7-10) Ceftriaxone Sodium (Rocephin/Ns 2 Gm/100 Ml) 2 gm in 100 mls @ 200 mls/hr IV Q24H [facility]; Protocol Last Admin: 09/21/21 13:53 Dose: 200 mls/hr Azithromycin (Zithromax/Ns) 500 mg in 250 mls @ 250 mls/hr IV Q24H [facility]; Protocol Last Admin: 09/21/21 13:53 Dose: 250 mls/hr Lisinopril (Lisinopril 10 Mg Tab) 10 mg PO QDAY [facility] Metoprolol Succinate (Metoprolol Succinate Xl 25 Mg Tab) 25 mg PO QDAY [facility] Ondansetron HCl (Ondansetron 4 Mg/2 Ml Inj) 4 mg IV Q8H PRN PRN Reason: Nausea And Vomiting Oxycodone/Acetaminophen (Oxycodone /Acetaminophen 5-325mg Tab) 1 tab PO Q16H PRN PRN Reason: Pain, Moderate (4-6) Potassium Chloride (Potassium Chloride Er 20 Meq Tab) 20 meq PO BID JAMIN Sodium Chloride (Sodium Chloride 0.9% 10 Ml Flush Syringe) 10 ml IV BID JAMIN Sodium Chloride (Sodium Chloride 0.9% 10 Ml Flush Syringe) 10 ml IV PRN PRN PRN Reason: LINE FLUSH Review of Systems Constitutional: no weight loss, no weight gain, no fever, no chills Ears, nose, mouth and throat: no sinus pressure, no sinus pain Cardiovascular: shortness of breath, dyspnea on exertion, no chest pain Respiratory: cough, shortness of breath, dyspnea on exertion, wheezing Gastrointestinal: abdominal pain, no nausea, no vomiting Musculoskeletal: no neck stiffness, no neck pain, no shooting arm pain Integumentary: no rash, no pruritis, no redness Neurological: no head injury, no transient paralysis Psychiatric: no anxiety, no memory loss Endocrine: no cold intolerance, no heat intolerance Hematologic/Lymphatic: no easy bruising, no easy bleeding Physical Examination Vital Signs Temp Pulse Resp BP Pulse Ox 98.0 F 98 H 20 182/129 97 09/21/21 09:07 09/21/21 09:07 09/21/21 09:07 09/21/21 09:07 09/21/21 09:07 General appearance: no acute distress HEENT: Positive: PERRL, Normocephaly Neck: Positive: trachea midline Cardiac: Positive: Reg Rate and Rhythm Lungs: Positive: Decreased Breath Sounds Neuro: Positive: Grossly Intact Abdomen: Positive: Soft, Tender Skin: Negative: Rash, Suspicious Lesions, Ulceration Extremities: Present: upper extr. pulses. Absent: edema Results 09/21/21 10:14 09/21/21 10:14 Cardiac Enzymes 09/21/21 Range/Units 10:14 AST 21 (5-40) units/L CBC 09/21/21 Range/Units 10:14 WBC 9.9 (4.5-11.0) K/mm3 RBC 4.40 (3.65-5.03) M/mm3 Hgb 10.0 L (11.8-15.2) gm/dl Hct 32.9 L (35.5-45.6) % Plt Count 261 (140-440) K/mm3 Lymph # (Auto) 1.0 L (1.2-5.4) K/mm3 [place] # (Auto) 0.7 (0.0-0.8) K/mm3 Eos # (Auto) 0.0 (0.0-0.4) K/mm3 Baso # (Auto) 0.1 (0.0-0.1) K/mm3 Comprehensive Metabolic Panel 09/21/21 Range/Units 10:14 Sodium 141 (137-145) mmol/L Potassium 3.6 (3.6-5.0) mmol/L Chloride 102.7 (98-107) mmol/L Carbon Dioxide 25 (22-30) mmol/L BUN 19 (9-20) mg/dL Creatinine 0.7 L (0.8-1.3) mg/dL Glucose 104 H (75-100) mg/dL Calcium 8.7 (8.4-10.2) mg/dL AST 21 (5-40) units/L ALT 17 (7-56) units/L Alkaline Phosphatase 134 H (35-129) units/L Total Protein 7.3 (6.3-8.2) g/dL Albumin 3.6 L (3.9-5) g/dL - Imaging and Cardiology Echo: report reviewed EKG interpretations - Telemetry EKG Rhythm: Sinus Rhythm - EKG Sinus rhythms and dysrhythmias: sinus rhythm Chamber hypertrophy or enlargement: left ventricular hypertro Assessment and Plan Patient is a 66-year-old male with a past medical history of HFrEF (the EF 35 to 40%), nonischemic cardiomyopathy, hypertension, mitral regurgitation, COPD, history of hemorrhagic CVA in 2018, and nicotine dependence who presents today with a complaint of shortness of breath and epigastric abdominal pain Acute on chronic HFrEF Bilateral PNA PUI-COVID PCR pending Hypertensive urgency Elevated D-dimer COPD BioProsthetic aortic valve in situ Hypertension Medical noncompliance Nicotene dependence Echocardiogram (01/13/2021): LVEF is 35 to 40%. LV SF is mild to moderately decreased. Mild to moderate concentric LVH. Grade 2 diastolic dysfunction. RV SF is normal. Right atrium is mildly dilated. Left atrium is severely dilated. No evidence for ASD. BioProsthetic aortic valve is present and poorly visualized, prosthetic aortic valve opening is decreased. Severe mitral regurg. Mild tricuspid regurg. Mild pulmonic regurg. TTE 08/20/2020 - mild concentric LVH, EF 30-35%, LV mildly dilated, impaired LV relaxation, LA severely dilated, mild AR, mild-mod MR. Lexiscan stress MPI 08/21/2020 - negative for ischemia, EF 40%. Plan: EKG shows sinus 69 with LVH. No acute ischemic changes. Troponins negative x1. Repeat cardiac enzymes pending. Patient denies any chest pain Agree with lisinopril 10 mg p.o. daily, metoprolol XL 25 mg p.o. daily, aspirin, atorvastatin 20 mg p.o. nightly Chest x-ray shows bilateral pneumonia versus edema. BNP noted to be elevated and patient has diminished breath sounds. Will increase to Lasix 40 mg IV twice daily. BMP in the a.m. strict I's and O's Recommend confirmatory testing to rule out PE due to elevated D-dimer Echo pending Patient seen in conjunction with Dr. Posey who agrees with this plan of care - Patient Problems (1) Acute on chronic HFrEF (heart failure with reduced ejection fraction) Current Visit: Yes Status: Acute (2) Suspected 2019 novel coronavirus infection Current Visit: Yes Status: Acute (3) Abdominal pain Current Visit: No Status: Acute (4) Bilateral pneumonia Current Visit: No Status: Acute (5) COPD with acute exacerbation Current Visit: No Status: Acute (6) Epigastric pain Current Visit: No Status: Acute (7) Smoker Current Visit: No Status: Acute (8) H/O heart valve replacement with bioprosthetic valve Current Visit: No Status: Chronic (9) H/O: CVA (cerebrovascular accident) Current Visit: No Status: Chronic (10) Hypertension Current Visit: No Status: Chronic Qualifiers: Hypertension type: essential hypertension (11) Medical non-compliance Current Visit: No Status: Chronic (12) Mitral regurgitation Current Visit: No Status: Chronic (13) Non-ischemic cardiomyopathy Current Visit: No Status: Chronic
[2021-09-21 15:00] LABS: C-Reactive Protein 0.7 mg/dL (0.00-1.30)
[2021-09-21] MEDS ORDERED: FUROSEMIDE 20 MG/2 ML INJ IV SCH (18:00)
[2021-09-21] MEDS: FUROSEMIDE 20 MG/2 ML INJ IV SCH (19:02)
[2021-09-21] MEDS: POTASSIUM CHLORIDE ER 20 MEQ TAB PO SCH (21:41)
[2021-09-21] MEDS: FAMOTIDINE 20 MG TAB PO SCH (21:42)
[2021-09-21] MEDS: guaiFENesin ER 600 MG TAB PO SCH (21:42)
[2021-09-22 05:08] LABS: Basophils # (Auto) 0.1 K/mm3 (0.0-0.1); Basophils % (Auto) 0.9 % (0.0-1.8); Eosinophils # (Auto) 0.2 K/mm3 (0.0-0.4); Eosinophils % (Auto) 1.8 % (0.0-4.3); Lymphocytes # (Auto) 2.3 K/mm3 (1.2-5.4); Lymphocytes % (Auto) 21.8 % (13.4-35.0); Mean Corpuscular HGB Conc 30 % (32-34); Mean Corpuscular Volume 76 fl (84-94); Monocytes # (Auto) 1.2 K/mm3 (0.0-0.8); Monocytes % (Auto) 11.5 % (0.0-7.3); Platelet Count 245 K/mm3 (140-440); Red Blood Count 4.35 M/mm3 (3.65-5.03); Red Cell Distribution Width 17.1 % (13.2-15.2)
[2021-09-22 05:11] LABS: Hematocrit 32.9 % (35.5-45.6); Hemoglobin 9.8 gm/dl (11.8-15.2)
[2021-09-22 05:33] LABS: Alanine Aminotransferase 18 units/L (7-56); Albumin 3.4 g/dL (3.9-5); BUN/Creatinine Ratio 24; Blood Urea Nitrogen 24 mg/dL (9-20); Calcium 8.5 mg/dL (8.4-10.2); Hemolysis Index 1
[2021-09-22] MEDS: FUROSEMIDE 20 MG/2 ML INJ IV SCH ×2 (06:35→19:50)
--- NOTE | 2021-09-22 10:20 | Progress Note ---
Assessment and Plan Continue current management. - Patient Problems (1) Acute on chronic HFrEF (heart failure with reduced ejection fraction) Current Visit: Yes Status: Acute (2) Pneumonia Current Visit: Yes Status: Acute (3) Suspected COVID-19 virus infection Current Visit: Yes Status: Acute (4) Cardiomyopathy Current Visit: Yes Status: Chronic Qualifiers: Cardiomyopathy type: other Qualified Code(s): I42.8 - Other cardiomyopathies (5) COPD with acute exacerbation Current Visit: Yes Status: Acute (6) History of aortic valve replacement with bioprosthetic valve Current Visit: Yes Status: Chronic (7) Abdominal pain Current Visit: No Status: Acute (8) HTN (hypertension) Current Visit: Yes Status: Chronic Qualifiers: Hypertension type: essential hypertension Qualified Code(s): I10 - Essential (primary) hypertension (9) H/O: CVA (cerebrovascular accident) Current Visit: No Status: Chronic Subjective Date of service: 09/22/21 Principal diagnosis: Acute on chronic HFrEF, Bilateral PNA Interval history: No new complaint. Objective Vital Signs Last Vital Signs Temp 97.9 F 09/21/21 22:03 Pulse 85 09/22/21 01:40 Resp 14 09/22/21 01:40 BP 127/92 09/22/21 01:40 Pulse Ox 97 09/22/21 01:40 - Physical Examination General: No Apparent Distress HEENT: Positive: EOMI, Normocephaly, Mucus Membranes Moist Neck: Positive: neck supple, trachea midline Cardiac: Positive: Reg Rate and Rhythm, S1/S2 Lungs: Positive: clear to auscultation Neuro: Positive: Grossly Intact Abdomen: Positive: Soft, Active Bowel Sounds, Tender Skin: Negative: Rash Musculoskeletal: Normal Range of Motion Extremities: Present: upper extr. pulses. Absent: edema - Labs and Meds Cardiac Enzymes 09/21/21 09/21/21 09/22/21 Range/Units 10:14 13:21 04:29 AST 21 22 (5-40) units/L Lactate Dehydrogenase 290 H (91-180) units/L CBC 09/21/21 09/22/21 Range/Units 10:14 04:29 WBC 9.9 10.6 (4.5-11.0) K/mm3 RBC 4.40 4.35 (3.65-5.03) M/mm3 Hgb 10.0 L 9.8 L (11.8-15.2) gm/dl Hct 32.9 L 32.9 L (35.5-45.6) % Plt Count 261 245 (140-440) K/mm3 Lymph # (Auto) 1.0 L 2.3 (1.2-5.4) K/mm3 [place] # (Auto) 0.7 1.2 H (0.0-0.8) K/mm3 Eos # (Auto) 0.0 0.2 (0.0-0.4) K/mm3 Baso # (Auto) 0.1 0.1 (0.0-0.1) K/mm3 Comprehensive Metabolic Panel 09/21/21 09/22/21 Range/Units 10:14 04:29 Sodium 141 143 (137-145) mmol/L Potassium 3.6 4.1 (3.6-5.0) mmol/L Chloride 102.7 104.2 (98-107) mmol/L Carbon Dioxide 25 26 (22-30) mmol/L BUN 19 24 H (9-20) mg/dL Creatinine 0.7 L 1.0 (0.8-1.3) mg/dL Glucose 104 H 97 (75-100) mg/dL Calcium 8.7 8.5 (8.4-10.2) mg/dL AST 21 22 (5-40) units/L ALT 17 18 (7-56) units/L Alkaline Phosphatase 134 H 135 H (35-129) units/L Total Protein 7.3 7.2 (6.3-8.2) g/dL Albumin 3.6 L 3.4 L (3.9-5) g/dL - Telemetry EKG Rhythm: Sinus Rhythm - EKG Sinus rhythms and dysrhythmias: sinus rhythm
[2021-09-22] MEDS: guaiFENesin ER 600 MG TAB PO SCH ×2 (11:45→22:14)
[2021-09-22] MEDS: AZITHROMYCIN 250 MG TAB PO SCH (11:45)
[2021-09-22] MEDS: FAMOTIDINE 20 MG TAB PO SCH ×2 (11:45→22:14)
[2021-09-22] MEDS: LISINOPRIL 10 MG TAB PO SCH (11:45)
[2021-09-22] MEDS: POTASSIUM CHLORIDE ER 20 MEQ TAB PO SCH ×2 (11:46→22:14)
[2021-09-22] MEDS: ASPIRIN EC 81 MG TAB PO SCH (11:46)
[2021-09-22] MEDS: METOPROLOL SUCCINATE XL 25 MG TAB PO SCH (11:48)
--- NOTE | 2021-09-22 19:43 | Progress Note ---
Assessment and Plan - Patient Problems (1) Acute hypoxemic respiratory failure Current Visit: Yes Status: Acute Plan to address problem: Supplemental oxygen, pulse oximetry, nebulizer therapy, chest x-ray, pulmonary toilet. CTA chest, (2) Suspected 2019 novel coronavirus infection Current Visit: Yes Status: Acute Plan to address problem: Coronavirus PCR negative. (3) Pneumonia Current Visit: Yes Status: Acute Plan to address problem: Pneumonia protocol: Chest x-ray, CBC, CMP, supplemental oxygen, pulse oximetry, nebulizer therapy, IV antibiotic therapy, blood culture. (4) CHF (congestive heart failure) Current Visit: Yes Status: Acute Qualifiers: Heart failure type: systolic Heart failure chronicity: acute on chronic Qualified Code(s): I50.23 - Acute on chronic systolic (congestive) heart failure Plan to address problem: Strict I/O, monitor urine output every shift, daily weight, afterload reduction, blood pressure control, thyroid panel, magnesium level. Cardiology team consulted. (5) Nicotine dependence Current Visit: Yes Status: Acute Qualifiers: Nicotine product type: cigarettes Substance use status: in withdrawal Qualified Code(s): F17.213 - Nicotine dependence, cigarettes, with withdrawal Plan to address problem: Smoking cessation counseling, supportive care, behavior change counseling, +15 minutes. (6) Malignant hypertension Current Visit: Yes Status: Acute Plan to address problem: Monitor blood pressure every shift, continue medical management. Diuresis, supportive care. (7) DVT prophylaxis Current Visit: Yes Status: Acute Plan to address problem: SCD to bilateral lower extremities while in bed, prophylactic anticoagulation (8) Advance care planning Current Visit: Yes Status: Acute Plan to address problem: Disease education conducted, care plan discussed, diagnosis discussed, prognosis discussed, patient is full code. Patient acknowledges understanding and agreeme nt with care plan, +30 minutes. History Interval history: 66 YO Male HD #2 with CHF, Pneumonia, PUI, Acute Respiratory Failure, Malignant Hypertension. Patient convalesced well overnight with mild improvement of symptoms. No reported nursing events. Patient denies pain. Patient coronavirus PCR negative. CTA chest ordered to evaluate for pulmonary embolism. Hospitalist Physical - Constitutional Vitals: Temp Pulse Resp BP Pulse Ox 97.9 F 74 19 130/94 99 09/21/21 22:03 09/22/21 11:00 09/22/21 16:20 09/22/21 11:00 09/22/21 16:20 General appearance: Present: no acute distress - EENT Eyes: Present: PERRL ENT: hearing intact - Neck Neck: Present: supple - Respiratory Respiratory effort: normal Respiratory: bilateral: CTA - Cardiovascular Rhythm: regular Heart Sounds: Present: S1 & S2 - Extremities Extremities: no ischemia Peripheral Pulses: within normal limits - Abdominal General gastrointestinal: soft, non-tender, non-distended - Integumentary Integumentary: Present: clear, dry - Psychiatric Psychiatric: cooperative - Neurologic Neurologic: CNII-XII intact HEART Score - HEART Score Troponin: Troponin T < 0.010 ng/mL (0.00-0.029) 09/21/21 16:48 Results - Labs CBC & Chem 7: 09/22/21 04:29 09/22/21 04:29 Labs: Laboratory Last Values WBC 10.6 K/mm3 (4.5-11.0) 09/22/21 04:29 RBC 4.35 M/mm3 (3.65-5.03) 09/22/21 04:29 Hgb 9.8 gm/dl (11.8-15.2) L 09/22/21 04:29 Hct 32.9 % (35.5-45.6) L 09/22/21 04:29 MCV 76 fl (84-94) L 09/22/21 04:29 MCH 23 pg (28-32) L 09/22/21 04:29 MCHC 30 % (32-34) L 09/22/21 04:29 RDW 17.1 % (13.2-15.2) H 09/22/21 04:29 Plt Count 245 K/mm3 (140-440) 09/22/21 04:29 Lymph % (Auto) 21.8 % (13.4-35.0) 09/22/21 04:29 [place] % (Auto) 11.5 % (0.0-7.3) H 09/22/21 04:29 Eos % (Auto) 1.8 % (0.0-4.3) 09/22/21 04:29 Baso % (Auto) 0.9 % (0.0-1.8) 09/22/21 04:29 Lymph # (Auto) 2.3 K/mm3 (1.2-5.4) 09/22/21 04:29 [place] # (Auto) 1.2 K/mm3 (0.0-0.8) H 09/22/21 04:29 Eos # (Auto) 0.2 K/mm3 (0.0-0.4) 09/22/21 04:29 Baso # (Auto) 0.1 K/mm3 (0.0-0.1) 09/22/21 04:29 Seg Neutrophils % 64.0 % (40.0-70.0) 09/22/21 04:29 Seg Neutrophils # 6.8 K/mm3 (1.8-7.7) 09/22/21 04:29 D-Dimer 1088.67 ng/mlDDU (0-234) H 09/21/21 13:21 Sodium 143 mmol/L (137-145) 09/22/21 04:29 Potassium 4.1 mmol/L (3.6-5.0) 09/22/21 04:29 Chloride 104.2 mmol/L (98-107) 09/22/21 04:29 Carbon Dioxide 26 mmol/L (22-30) 09/22/21 04:29 Anion Gap 17 mmol/L 09/22/21 04:29 BUN 24 mg/dL (9-20) H 09/22/21 04:29 Creatinine 1.0 mg/dL (0.8-1.3) 09/22/21 04:29 Estimated GFR > 60 ml/min 09/22/21 04:29 BUN/Creatinine Ratio 24 % 09/22/21 04:29 Glucose 97 mg/dL (75-100) 09/22/21 04:29 Calcium 8.5 mg/dL (8.4-10.2) 09/22/21 04:29 Total Bilirubin 0.40 mg/dL (0.1-1.2) 09/22/21 04:29 AST 22 units/L (5-40) 09/22/21 04:29 ALT 18 units/L (7-56) 09/22/21 04:29 Alkaline Phosphatase 135 units/L (35-129) H 09/22/21 04:29 Lactate Dehydrogenase 290 units/L (91-180) H 09/21/21 13:21 Troponin T < 0.010 ng/mL (0.00-0.029) 09/21/21 16:48 C-Reactive Protein 0.70 mg/dL (0.00-1.30) 09/21/21 13:21 NT-Pro-B Natriuret Pep 8323 pg/mL (0-900) H 09/21/21 10:14 Total Protein 7.2 g/dL (6.3-8.2) 09/22/21 04:29 Albumin 3.4 g/dL (3.9-5) L 09/22/21 04:29 Albumin/Globulin Ratio 0.9 % 09/22/21 04:29 Lipase 28 units/L (13-60) 09/21/21 10:14 Procalcitonin < 0.05 ng/mL (<0.15) 09/21/21 13:21 Coronavirus (PCR) Negative (Negative) 09/22/21 Unknown Active Medications - Current Medications Current Medications: Generic Name Dose Route Start Last Admin Trade Name Freq PRN Reason Stop Dose Admin Acetaminophen 650 mg 09/21/21 12:28 Acetaminophen 325 Mg Tab PO Q4H PRN Pain MILD(1-3)/Fever >100.5/PAEZ Albuterol 2.5 mg 09/21/21 12:28 Albuterol 2.5 Mg/3 Ml Nebu IH Q4HRT PRN Shortness Of Breath Aspirin 81 mg 09/22/21 10:00 09/22/21 11:46 Aspirin Ec 81 Mg Tab PO 81 mg QDAY JAMIN Administration Atorvastatin Calcium 20 mg 09/21/21 22:00 09/21/21 21:41 Atorvastatin 20 Mg Tab PO 20 mg QHS JAMIN Administration Azithromycin 500 mg 09/22/21 11:00 09/22/21 11:45 Azithromycin 250 Mg Tab PO 09/25/21 10:01 500 mg QDAY JAMIN Administration Protocol Famotidine 20 mg 09/21/21 22:00 09/22/21 11:45 Famotidine 20 Mg Tab PO 20 mg BID JAMIN Administration Furosemide 40 mg 09/21/21 18:00 09/22/21 06:35 Furosemide 20 Mg/2 Ml Inj IV 40 mg BID@0600,1800 JAMIN Administration Guaifenesin 600 mg 09/21/21 22:00 09/22/21 11:45 Guaifenesin Er 600 Mg Tab PO 600 mg BID JAMIN Administration Hydromorphone HCl 0.5 mg 09/21/21 12:28 09/21/21 21:42 Hydromorphone 1 Mg/1 Ml Inj IV 0.5 mg Q23H PRN Administration Pain , Severe (7-10) Ceftriaxone Sodium 2 gm in 100 mls @ 200 mls/hr 09/21/21 13:00 09/21/21 13:53 Rocephin/Ns 2 Gm/100 Ml IV 200 mls/hr Q24H JAMIN Administration Protocol Lisinopril 10 mg 09/22/21 10:00 09/22/21 11:45 Lisinopril 10 Mg Tab PO 10 mg QDAY JAMIN Administration Metoprolol Succinate 25 mg 09/22/21 10:00 09/22/21 11:48 Metoprolol Succinate Xl 25 Mg Tab PO 25 mg QDAY JAMIN Administration Ondansetron HCl 4 mg 09/21/21 12:28 Ondansetron 4 Mg/2 Ml Inj IV Q8H PRN Nausea And Vomiting Oxycodone/Acetaminophen 1 tab 09/21/21 12:28 Oxycodone /Acetaminophen 5-325mg Tab PO Q16H PRN Pain, Moderate (4-6) Potassium Chloride 20 meq 09/21/21 22:00 09/22/21 11:46 Potassium Chloride Er 20 Meq Tab PO 20 meq BID JAMIN Administration Sodium Chloride 10 ml 09/21/21 22:00 09/22/21 11:45 Sodium Chloride 0.9% 10 Ml Flush Syringe IV 10 ml BID JAMIN Administration Sodium Chloride 10 ml 09/21/21 12:28 Sodium Chloride 0.9% 10 Ml Flush Syringe IV PRN PRN LINE FLUSH
[2021-09-23] MEDS: FUROSEMIDE 20 MG/2 ML INJ IV SCH ×2 (06:50→17:26)
[2021-09-23 08:48] LABS: BUN/Creatinine Ratio 28; Blood Urea Nitrogen 28 mg/dL (9-20); Calcium 8.6 mg/dL (8.4-10.2); Hemolysis Index 4
--- NOTE | 2021-09-23 09:04 | Cat Scan Report ---
CT angio chest INDICATION / CLINICAL INFORMATION: elevated D-Dimer, shortness of breath OMNIP 350 100ML. TECHNIQUE: Axial CT images were obtained through the chest after injection of 100 cc of Omnipaque 350 IV contrast. 3 plane MIP and/or 3D reconstructions were produced. All CT scans at this location are performed using CT dose reduction for ALARA by means of automated exposure control. COMPARISON: CTA of the chest from 01/12/2021. Radiograph from 09/21/2021. FINDINGS: PULMONARY ARTERIES: Evaluation is limited due to respiratory motion artifact. There are small filling defects within the subsegmental pulmonary artery branches of the right lower lobe (series 3 image 24 2). There is diminished opacification of the left lower lobe subsegmental pulmonary arteries, which i s felt artifactual. No central or segmental pulmonary embolus. THORACIC AORTA: Calcified atherosclerotic plaque is noted throughout the nonaneurysmal thoracic aorta and major braches, to include the coronary arteries. HEART: Heart is enlarged. No pericardial effusion. LYMPHADENOPATHY: No significant thoracic lymphadenopathy. LUNGS/PLEURA: Moderate right and small left pleural effusions. Left greater than right lower lobe air space consolidations may reflect atelectasis or pneumonia. There is also patchy airspace consolidatio n of the right upper lobe and lingula. Scattered interlobular septal thickening. No pneumothorax. OTHER FINDINGS: None. UPPER ABDOMEN: No acute findings. SKELETAL SYSTEM: No acute osseous findings. IMPRESSION: 1. Evaluation for pulmonary embolus is limited due to respiratory motion artifact. There are small fi lling defects within the subsegmental pulmonary artery branches in the right lower lobe, suspicious f or pulmonary emboli. Diminished opacification of the left lower lobe subsegmental pulmonary artery br anches is thought to be artifactual. 2. CHF with moderate right and small left pleural effusions and pulmonary edema. Bibasilar airspace c onsolidation with patchy airspace disease within the right upper lobe and lingula, which may reflect focal pulmonary edema, though superimposed pneumonia is not excluded. 3. Other incidental findings as above. Findings were discussed with NACHO Rojo by phone on 09/23/2021 at 7:59 AM Signer Name: Leonardo Camarillo MD Signed: 09/23/2021 9:00 AM Workstation Name: [id number]
[2021-09-23] MEDS: METOPROLOL SUCCINATE XL 25 MG TAB PO SCH (10:23)
[2021-09-23] MEDS: guaiFENesin ER 600 MG TAB PO SCH ×2 (10:23→22:28)
[2021-09-23] MEDS: ASPIRIN EC 81 MG TAB PO SCH (10:23)
[2021-09-23] MEDS: AZITHROMYCIN 250 MG TAB PO SCH (10:23)
[2021-09-23] MEDS: FAMOTIDINE 20 MG TAB PO SCH ×2 (10:23→22:28)
[2021-09-23] MEDS: LISINOPRIL 10 MG TAB PO SCH (10:23)
[2021-09-23] MEDS: POTASSIUM CHLORIDE ER 20 MEQ TAB PO SCH ×2 (10:23→22:28)
--- NOTE | 2021-09-23 12:47 | Progress Note ---
Assessment and Plan With multiple subsegmental defects on CTA suspicious for pulmonary embolism, will initiate anticoagulation. He has mild microcytic anemia. Obtain stool for occult blood. - Patient Problems (1) Acute on chronic HFrEF (heart failure with reduced ejection fraction) Current Visit: Yes Status: Acute (2) Pneumonia Current Visit: Yes Status: Acute (3) Multiple subsegmental pulmonary emboli without acute cor pulmonale Current Visit: Yes Status: Acute (4) Cardiomyopathy Current Visit: Yes Status: Chronic Qualifiers: Cardiomyopathy type: other Qualified Code(s): I42.8 - Other cardiomyopathies (5) COPD with acute exacerbation Current Visit: Yes Status: Acute (6) History of aortic valve replacement with bioprosthetic valve Current Visit: Yes Status: Chronic (7) Abdominal pain Current Visit: No Status: Acute (8) Aortic stenosis Current Visit: Yes Status: Acute (9) Mitral regurgitation Current Visit: Yes Status: Acute (10) HTN (hypertension) Current Visit: Yes Status: Chronic Qualifiers: Hypertension type: essential hypertension Qualified Code(s): I10 - Essential (primary) hypertension (11) H/O: CVA (cerebrovascular accident) Current Visit: No Status: Chronic Subjective Date of service: 09/23/21 Principal diagnosis: Acute on chronic HFrEF, Bilateral PNA Interval history: No complaint. Objective Vital Signs Temp Pulse Resp BP Pulse Ox 09/23/21 12:28 20 97 09/23/21 11:52 97 09/23/21 10:31 98.2 F 76 20 116/82 100 09/23/21 04:21 62 70 H 116/90 100 09/23/21 04:00 20 97 09/22/21 23:33 20 09/22/21 20:48 129/90 97 09/22/21 20:30 97.7 F 80 18 136/97 100 09/22/21 20:11 97.9 F 84 20 138/97 100 09/22/21 16:20 19 99 09/22/21 14:55 117/79 09/22/21 13:31 86 22 129/90 100 09/22/21 13:21 82 19 129/90 93 09/22/21 13:11 76 18 129/90 100 09/22/21 13:01 80 15 129/90 82 L 09/22/21 12:51 91 H 24 139/93 93 - Physical Examination General: No Apparent Distress HEENT: Positive: EOMI, Normocephaly, Mucus Membranes Moist Neck: Positive: neck supple, trachea midline Cardiac: Positive: Reg Rate and Rhythm, S1/S2 Lungs: Positive: clear to auscultation Neuro: Positive: Grossly Intact Abdomen: Positive: Soft, Active Bowel Sounds, Tender Skin: Negative: Rash Musculoskeletal: Normal Range of Motion Extremities: Absent: edema - Labs and Meds Comprehensive Metabolic Panel 09/23/21 Range/Units 08:02 Sodium 143 (137-145) mmol/L Potassium 4.0 (3.6-5.0) mmol/L Chloride 103.6 (98-107) mmol/L Carbon Dioxide 27 (22-30) mmol/L BUN 28 H (9-20) mg/dL Creatinine 1.0 (0.8-1.3) mg/dL Glucose 94 (75-100) mg/dL Calcium 8.6 (8.4-10.2) mg/dL - Telemetry EKG Rhythm: Sinus Rhythm - EKG Sinus rhythms and dysrhythmias: sinus rhythm Chamber hypertrophy or enlargement: left ventricular hypertro
--- NOTE | 2021-09-23 14:10 | Progress Note ---
Assessment and Plan - Patient Problems (1) Acute hypoxemic respiratory failure Current Visit: Yes Status: Acute Plan to address problem: Supplemental oxygen, pulse oximetry, nebulizer therapy, chest x-ray, . CTA chest reviewed, symptoms currently resolved (2) Suspected 2019 novel coronavirus infection Current Visit: Yes Status: Acute Plan to address problem: Coronavirus PCR negative. (3) Pneumonia Current Visit: Yes Status: Acute Plan to address problem: Pneumonia protocol: Chest x-ray, CBC, CMP, supplemental oxygen, pulse oximetry, nebulizer therapy, IV antibiotic therapy, blood culture. (4) CHF (congestive heart failure) Current Visit: Yes Status: Acute Qualifiers: Heart failure type: systolic Heart failure chronicity: acute on chronic Qualified Code(s): I50.23 - Acute on chronic systolic (congestive) heart failure Plan to address problem: Strict I/O, monitor urine output every shift, daily weight, afterload reduction, blood pressure control, echocardiogram reviewed. Cardiology team consulted. (5) Nicotine dependence Current Visit: Yes Status: Acute Qualifiers: Nicotine product type: cigarettes Substance use status: in withdrawal Qualified Code(s): F17.213 - Nicotine dependence, cigarettes, with withdrawal Plan to address problem: Smoking cessation counseling, supportive care, behavior change counseling, +15 minutes. (6) Malignant hypertension Current Visit: Yes Status: Acute Plan to address problem: Monitor blood pressure every shift, continue medical management. Diuresis, supportive care. (7) Pulmonary emboli Current Visit: Yes Status: Acute Qualifiers: Chronicity: acute Plan to address problem: Patient initiated on oral therapeutic anticoagulation. Supportive care, discharge planning in a.m. (8) DVT prophylaxis Current Visit: Yes Status: Acute Plan to address problem: SCD to bilateral lower extremities while in bed, prophylactic anticoagulation (9) Advance care planning Current Visit: Yes Status: Acute Plan to address problem: Disease education conducted, care plan discussed, diagnosis discussed, prognosis discussed, patient is full code. Patient acknowledges understanding and agreement with care plan, +30 minutes. History Interval history: 66 YO Male HD #3 with CHF, Pneumonia, Acute Respiratory Failure, Malignant Hypertension. Patient convalesced well overnight with mild improvement of s ymptoms. No reported nursing events. Patient denies pain. Patient coronavirus PCR negative. CTA chest suggestive of subsegmental pulmonary emboli.. Hospitalist Physical - Constitutional Vitals: Temp Pulse Resp BP Pulse Ox 98.0 F 72 20 137/86 97 09/23/21 12:15 09/23/21 12:15 09/23/21 12:28 09/23/21 12:15 09/23/21 12:28 General appearance: Present: no acute distress - EENT Eyes: Present: PERRL, EOM intact - Neck Neck: Present: supple - Respiratory Respiratory effort: normal Respiratory: bilateral: diminished - Cardiovascular Rhythm: regular Heart Sounds: Present: S1 & S2 - Extremities Extremities: no ischemia Peripheral Pulses: within normal limits - Abdominal General gastrointestinal: soft, non-tender, non-distended - Integumentary Integumentary: Present: clear, dry - Psychiatric Psychiatric: cooperative - Neurologic Neurologic: CNII-XII intact HEART Score - HEART Score Troponin: Troponin T < 0.010 ng/mL (0.00-0.029) 09/21/21 16:48 Results - Labs CBC & Chem 7: 09/22/21 04:29 09/23/21 08:02 Labs: Laboratory Last Values WBC 10.6 K/mm3 (4.5-11.0) 09/22/21 04:29 RBC 4.35 M/mm3 (3.65-5.03) 09/22/21 04:29 Hgb 9.8 gm/dl (11.8-15.2) L 09/22/21 04:29 Hct 32.9 % (35.5-45.6) L 09/22/21 04:29 MCV 76 fl (84-94) L 09/22/21 04:29 MCH 23 pg (28-32) L 09/22/21 04:29 MCHC 30 % (32-34) L 09/22/21 04:29 RDW 17.1 % (13.2-15.2) H 09/22/21 04:29 Plt Count 245 K/mm3 (140-440) 09/22/21 04:29 Lymph % (Auto) 21.8 % (13.4-35.0) 09/22/21 04:29 [place] % (Auto) 11.5 % (0.0-7.3) H 09/22/21 04:29 Eos % (Auto) 1.8 % (0.0-4.3) 09/22/21 04:29 Baso % (Auto) 0.9 % (0.0-1.8) 09/22/21 04:29 Lymph # (Auto) 2.3 K/mm3 (1.2-5.4) 09/22/21 04:29 [place] # (Auto) 1.2 K/mm3 (0.0-0.8) H 09/22/21 04:29 Eos # (Auto) 0.2 K/mm3 (0.0-0.4) 09/22/21 04:29 Baso # (Auto) 0.1 K/mm3 (0.0-0.1) 09/22/21 04:29 Seg Neutrophils % 64.0 % (40.0-70.0) 09/22/21 04:29 Seg Neutrophils # 6.8 K/mm3 (1.8-7.7) 09/22/21 04:29 D-Dimer 1088.67 ng/mlDDU (0-234) H 09/21/21 13:21 Sodium 143 mmol/L (137-145) 09/23/21 08:02 Potassium 4.0 mmol/L (3.6-5.0) 09/23/21 08:02 Chloride 103.6 mmol/L (98-107) 09/23/21 08:02 Carbon Dioxide 27 mmol/L (22-30) 09/23/21 08:02 Anion Gap 16 mmol/L 09/23/21 08:02 BUN 28 mg/dL (9-20) H 09/23/21 08:02 Creatinine 1.0 mg/dL (0.8-1.3) 09/23/21 08:02 Estimated GFR > 60 ml/min 09/23/21 08:02 BUN/Creatinine Ratio 28 % 09/23/21 08:02 Glucose 94 mg/dL (75-100) 09/23/21 08:02 POC Glucose 125 mg/dL (70-105) H 09/23/21 10:42 Calcium 8.6 mg/dL (8.4-10.2) 09/23/21 08:02 Total Bilirubin 0.40 mg/dL (0.1-1.2) 09/22/21 04:29 AST 22 units/L (5-40) 09/22/21 04:29 ALT 18 units/L (7-56) 09/22/21 04:29 Alkaline Phosphatase 135 units/L (35-129) H 09/22/21 04:29 Lactate Dehydrogenase 290 units/L (91-180) H 09/21/21 13:21 Troponin T < 0.010 ng/mL (0.00-0.029) 09/21/21 16:48 C-Reactive Protein 0.70 mg/dL (0.00-1.30) 09/21/21 13:21 NT-Pro-B Natriuret Pep 8323 pg/mL (0-900) H 09/21/21 10:14 Total Protein 7.2 g/dL (6.3-8.2) 09/22/21 04:29 Albumin 3.4 g/dL (3.9-5) L 09/22/21 04:29 Albumin/Globulin Ratio 0.9 % 09/22/21 04:29 Lipase 28 units/L (13-60) 09/21/21 10:14 Procalcitonin < 0.05 ng/mL (<0.15) 09/21/21 13:21 Coronavirus (PCR) Negative (Negative) 09/22/21 Unknown Smith/IV: Voiding Method Urinal Active Medications - Current Medications Current Medications: Generic Name Dose Route Start Last Admin Trade Name Freq PRN Reason Stop Dose Admin Acetaminophen 650 mg 09/21/21 12:28 Acetaminophen 325 Mg Tab PO Q4H PRN Pain MILD(1-3)/Fever >100.5/PAEZ Albuterol 2.5 mg 09/21/21 12:28 Albuterol 2.5 Mg/3 Ml Nebu IH Q4HRT PRN Shortness Of Breath Apixaban 10 mg 09/23/21 22:00 Apixaban 5 Mg Tab PO 09/30/21 10:01 Q12HR JAMIN Protocol Aspirin 81 mg 09/22/21 10:00 09/23/21 10:23 Aspirin Ec 81 Mg Tab PO 81 mg QDAY JAMIN Administration Atorvastatin Calcium 20 mg 09/21/21 22:00 09/22/21 22:14 Atorvastatin 20 Mg Tab PO 20 mg QHS JAMIN Administration Famotidine 20 mg 09/21/21 22:00 09/23/21 10:23 Famotidine 20 Mg Tab PO 20 mg BID JAMIN Administration Furosemide 40 mg 09/21/21 18:00 09/22/21 19:50 Furosemide 20 Mg/2 Ml Inj IV 40 mg BID@0600,1800 JAMIN Administration Guaifenesin 600 mg 09/21/21 22:00 09/23/21 10:23 Guaifenesin Er 600 Mg Tab PO 600 mg BID JAMIN Administration Hydromorphone HCl 0.5 mg 09/21/21 12:28 09/21/21 21:42 Hydromorphone 1 Mg/1 Ml Inj IV 0.5 mg Q23H PRN Administration Pain , Severe (7-10) Lisinopril 10 mg 09/22/21 10:00 09/23/21 10:23 Lisinopril 10 Mg Tab PO 10 mg QDAY JAMIN Administration Metoprolol Succinate 25 mg 09/22/21 10:00 09/23/21 10:23 Metoprolol Succinate Xl 25 Mg Tab PO 25 mg QDAY JAMIN Administration Ondansetron HCl 4 mg 09/21/21 12:28 Ondansetron 4 Mg/2 Ml Inj IV Q8H PRN Nausea And Vomiting Oxycodone/Acetaminophen 1 tab 09/21/21 12:28 09/22/21 23:33 Oxycodone /Acetaminophen 5-325mg Tab PO 1 tab Q16H PRN Administration Pain, Moderate (4-6) Potassium Chloride 20 meq 09/21/21 22:00 09/23/21 10:23 Potassium Chloride Er 20 Meq Tab PO 20 meq BID JAMIN Administration Sodium Chloride 10 ml 09/21/21 22:00 09/23/21 10:24 Sodium Chloride 0.9% 10 Ml Flush Syringe IV 10 ml BID JAMIN Administration Sodium Chloride 10 ml 09/21/21 12:28 Sodium Chloride 0.9% 10 Ml Flush Syringe IV PRN PRN LINE FLUSH
[2021-09-23] MEDS ORDERED: ENOXAPARIN 100 MG/1 ML INJ SUB-Q SCH (22:00)
[2021-09-23] MEDS: APIXABAN 5 MG TAB PO SCH (22:28)
[2021-09-23 23:27] LABS: Hematocrit 31.7 % (35.5-45.6); Hemoglobin 9.7 gm/dl (11.8-15.2); Mean Corpuscular HGB Conc 31 % (32-34); Mean Corpuscular Volume 75 fl (84-94); Platelet Count 255 K/mm3 (140-440); Red Blood Count 4.25 M/mm3 (3.65-5.03); Red Cell Distribution Width 16.3 % (13.2-15.2)
[2021-09-23 23:39] LABS: INR 1.04 (0.87-1.13)
[2021-09-23 23:40] LABS: Partial Thromboplastin Time 34.5 Sec. (24.2-36.6)
[2021-09-24] MEDS: FUROSEMIDE 20 MG/2 ML INJ IV SCH ×2 (05:55→18:29)
--- NOTE | 2021-09-24 09:23 | Discharge Summary ---
Providers - Providers Date of Admission: 09/21/21 12:29 Attending physician: PAULY WELLS 09/21/21 12:27 Consult to Physician [CONS] Routine Comment: Consulting Provider: LINSEY CHURCHILL Physician Instructions: Reason For Exam: chf 09/22/21 19:42 Speech Therapy Evaluation and Treat [CONS] Routine Reason For Exam: dypsnea Primary care physician: TRUCK DESPATCHER Hospitalization Condition: Fair - Discharge Diagnoses (1) Acute hypoxemic respiratory failure Status: Acute (2) Suspected 2019 novel coronavirus infection Status: Acute (3) Pneumonia Status: Acute (4) CHF (congestive heart failure) Status: Acute Qualifiers: Heart failure type: systolic Heart failure chronicity: acute on chronic Qualified Code(s): I50.23 - Acute on chronic systolic (congestive) heart failure (5) Nicotine dependence Status: Acute Qualifiers: Nicotine product type: cigarettes Substance use status: in withdrawal Qualified Code(s): F17.213 - Nicotine dependence, cigarettes, with withdrawal (6) Malignant hypertension Status: Acute (7) Pulmonary emboli Status: Acute Qualifiers: Chronicity: acute (8) DVT prophylaxis Status: Acute (9) Advance care planning Status: Acute Exam - Constitutional Vitals: Temp Pulse Resp BP Pulse Ox 97.4 F L 63 16 124/86 100 09/24/21 03:09 09/24/21 03:09 09/24/21 03:09 09/24/21 03:09 09/24/21 03:09 Plan Follow up with: PONCHO MARY MD [Primary Care Provider] - 3-5 Days
[2021-09-24] MEDS: APIXABAN 5 MG TAB PO SCH ×2 (09:54→23:55)
[2021-09-24] MEDS: METOPROLOL SUCCINATE XL 25 MG TAB PO SCH (09:54)
[2021-09-24] MEDS: FAMOTIDINE 20 MG TAB PO SCH ×2 (09:55→23:54)
[2021-09-24] MEDS: POTASSIUM CHLORIDE ER 20 MEQ TAB PO SCH ×2 (09:55→23:54)
[2021-09-24] MEDS: LISINOPRIL 10 MG TAB PO SCH (09:55)
[2021-09-24] MEDS: ASPIRIN EC 81 MG TAB PO SCH (09:55)
[2021-09-24] MEDS: guaiFENesin ER 600 MG TAB PO SCH ×2 (09:55→23:54)
--- NOTE | 2021-09-24 11:14 | Progress Note ---
Assessment and Plan Stable cardiac status. - Patient Problems (1) Acute on chronic HFrEF (heart failure with reduced ejection fraction) Current Visit: Yes Status: Acute (2) Pneumonia Current Visit: Yes Status: Acute (3) Multiple subsegmental pulmonary emboli without acute cor pulmonale Current Visit: Yes Status: Acute (4) Cardiomyopathy Current Visit: Yes Status: Chronic Qualifiers: Cardiomyopathy type: other Qualified Code(s): I42.8 - Other cardiomyopathies (5) COPD with acute exacerbation Current Visit: Yes Status: Acute (6) History of aortic valve replacement with bioprosthetic valve Current Visit: Yes Status: Chronic (7) Abdominal pain Current Visit: No Status: Acute (8) Aortic stenosis Current Visit: Yes Status: Acute (9) Mitral regurgitation Current Visit: Yes Status: Acute (10) HTN (hypertension) Current Visit: Yes Status: Chronic Qualifiers: Hypertension type: essential hypertension Qualified Code(s): I10 - Essential (primary) hypertension (11) H/O: CVA (cerebrovascular accident) Current Visit: No Status: Chronic Subjective Date of service: 09/24/21 Principal diagnosis: Acute on chronic HFrEF, Bilateral PNA Interval history: Complaints of epigastric pain. Objective Vital Signs Temp Pulse Resp BP Pulse Ox 09/24/21 03:09 97.4 F L 63 16 124/86 100 09/23/21 22:33 100 09/23/21 22:00 20 98 09/23/21 12:28 20 97 09/23/21 12:15 98.0 F 72 20 137/86 100 09/23/21 11:52 97 - Physical Examination General: No Apparent Distress HEENT: Positive: EOMI, Normocephaly, Mucus Membranes Moist Neck: Positive: neck supple, trachea midline Cardiac: Positive: Reg Rate and Rhythm, S1/S2 Neuro: Positive: Grossly Intact Abdomen: Positive: Soft, Active Bowel Sounds, Tender Skin: Negative: Rash Musculoskeletal: Normal Range of Motion Extremities: Absent: edema - Labs and Meds Coagulation 09/23/21 Range/Units 22:41 PT 14.7 (12.2-14.9) Sec. INR 1.04 (0.87-1.13) APTT 34.5 (24.2-36.6) Sec. CBC 09/23/21 Range/Units 22:41 WBC 7.5 (4.5-11.0) K/mm3 RBC 4.25 (3.65-5.03) M/mm3 Hgb 9.7 L (11.8-15.2) gm/dl Hct 31.7 L (35.5-45.6) % Plt Count 255 (140-440) K/mm3 Comprehensive Metabolic Panel 09/23/21 Range/Units 22:41 Creatinine 1.0 (0.8-1.3) mg/dL - Imaging and Cardiology Echo: report reviewed - EKG Sinus rhythms and dysrhythmias: sinus rhythm Chamber hypertrophy or enlargement: left ventricular hypertro
[2021-09-25] MEDS: FUROSEMIDE 20 MG/2 ML INJ IV SCH (05:53)
--- NOTE | 2021-09-25 09:15 | Electrocardiograph Report ---
[facility] Test Date: 2021-09-21 Test Time: 11:50:28 Pat Name: AMY DOWNS Department: Room: A391 Gender: M Client Success Specialist: [phone] [id number] Requested By: MARIAN DUKES Order Number: [id number] Reading MD: Sammy Allen Measurements Intervals [place] Rate: 69 P: 56 AK: 189 QRS: 55 QRSD: 105 T: 70 QT: 470 QTc: 504 Interpretive Statements Sinus rhythm Probable left atrial enlargement LVH with secondary repolarization abnormality Anterior Q waves, possibly due to LVH Prolonged QT interval Compared to ECG 01/12/2021 09:58:46 Left ventricular hypertrophy now present Early repolarization now present Q waves now present Electronically Signed On 09-25-2021 9:14:35 EST by Sammy Allen
[2021-09-25 10:23] LABS: Mean Corpuscular HGB Conc 30 % (32-34); Mean Corpuscular Volume 74 fl (84-94); Platelet Count 291 K/mm3 (140-440); Red Blood Count 4.71 M/mm3 (3.65-5.03); Red Cell Distribution Width 16.6 % (13.2-15.2)
[2021-09-25 10:24] LABS: Hematocrit 34.9 % (35.5-45.6); Hemoglobin 10.6 gm/dl (11.8-15.2)
[2021-09-25] MEDS: APIXABAN 5 MG TAB PO SCH ×2 (10:30→21:50)
[2021-09-25] MEDS: ASPIRIN EC 81 MG TAB PO SCH (10:30)
[2021-09-25] MEDS: guaiFENesin ER 600 MG TAB PO SCH ×2 (10:30→21:50)
[2021-09-25] MEDS: POTASSIUM CHLORIDE ER 20 MEQ TAB PO SCH ×2 (10:30→21:50)
[2021-09-25] MEDS: FAMOTIDINE 20 MG TAB PO SCH ×2 (10:30→21:50)
[2021-09-25] MEDS: METOPROLOL SUCCINATE XL 25 MG TAB PO SCH (10:31)
[2021-09-25] MEDS: LISINOPRIL 10 MG TAB PO SCH (10:31)
[2021-09-25 10:39] LABS: BUN/Creatinine Ratio 26; Blood Urea Nitrogen 26 mg/dL (9-20); Calcium 8.6 mg/dL (8.4-10.2); Hemolysis Index 4
--- NOTE | 2021-09-25 13:00 | Progress Note ---
Assessment and Plan Patient is a 66-year-old male with a past medical history of HFrEF (the EF 35 to 40%), nonischemic cardiomyopathy, hypertension, mitral regurgitation, COPD, history of hemorrhagic CVA in 2018, and nicotine dependence who presents today with a complaint of shortness of breath and epigastric abdominal pain Acute on chronic HFrEF Multiple PE Bilateral PNA PUI-COVID PCR negative Hypertensive urgency COPD BioProsthetic aortic valve in situ Hypertension Medical noncompliance Nicotene dependence Echo 09/21/2021-EF 30 to 35%. Grade 3 restrictive diastolic dysfunction. Left atrium severely dilated. Right atrium mildly dilated. Moderate to severe mitral regurgitation mild tricuspid regurgitation. Probably moderate aortic stenosis, mild aortic regurgitation. Right ventricular systolic function is mildly reduced. Moderate left pleural effusion Echocardiogram (01/13/2021): LVEF is 35 to 40%. LV SF is mild to moderately decreased. Mild to moderate concentric LVH. Grade 2 diastolic dysfunction. RV SF is normal. Right atrium is mildly dilated. Left atrium is severely dilated. No evidence for ASD. BioProsthetic aortic valve is present and poorly visualized, prosthetic aortic valve opening is decreased. Severe mitral regurg. Mild tricuspid regurg. Mild pulmonic regurg. TTE 08/20/2020 - mild concentric LVH, EF 30-35%, LV mildly dilated, impaired LV relaxation, LA severely dilated, mild AR, mild-mod MR. Lexiscan stress MPI 08/21/2020 - negative for ischemia, EF 40%. Plan: Continue lisinopril 10 mg p.o. daily, metoprolol XL 25 mg p.o. daily, aspirin, atorvastatin 20 mg p.o. nightly Stopped IV Lasix. Converted to Lasix 40 mg p.o. daily Continue anticoagulation for PE with Eliquis Cardiac status stable Patient seen in conjunction with Dr. Allen who agrees with this plan of care - Patient Problems (1) Acute on chronic HFrEF (heart failure with reduced ejection fraction) Current Visit: Yes Status: Acute (2) Suspected 2019 novel coronavirus infection Current Visit: Yes Status: Acute (3) Abdominal pain Current Visit: No Status: Acute (4) Bilateral pneumonia Current Visit: No Status: Acute (5) COPD with acute exacerbation Current Visit: Yes Status: Acute (6) Epigastric pain Current Visit: No Status: Acute (7) Smoker Current Visit: No Status: Acute (8) H/O heart valve replacement with bioprosthetic valve Current Visit: No Status: Chronic (9) H/O: CVA (cerebrovascular accident) Current Visit: No Status: Chronic (10) Hypertension Current Visit: No Status: Chronic Qualifiers: Hypertension type: essential hypertension (11) Medical non-compliance Current Visit: No Status: Chronic (12) Mitral regurgitation Current Visit: No Status: Chronic (13) Non-ischemic cardiomyopathy Current Visit: No Status: Chronic Subjective Date of service: 09/25/21 Principal diagnosis: Acute on chronic HFrEF, Bilateral PNA Interval history: Patient resting in bed in no acute distress Sinus 67 on monitor Objective Vital Signs Pulse BP Pulse Ox 09/25/21 10:59 100 09/25/21 10:31 72 120/71 09/25/21 10:00 100 09/24/21 23:40 100 - Physical Examination General: No Apparent Distress HEENT: Positive: EOMI, Normocephaly, Mucus Membranes Moist Neck: Positive: neck supple, trachea midline Cardiac: Positive: Reg Rate and Rhythm Lungs: Positive: Normal Breath Sounds Neuro: Positive: Grossly Intact Abdomen: Positive: Soft, Active Bowel Sounds, Tender Skin: Negative: Rash Musculoskeletal: Normal Range of Motion Extremities: Present: upper extr. pulses. Absent: edema - Labs and Meds CBC 09/25/21 Range/Units 09:59 WBC 5.3 (4.5-11.0) K/mm3 RBC 4.71 (3.65-5.03) M/mm3 Hgb 10.6 L (11.8-15.2) gm/dl Hct 34.9 L (35.5-45.6) % Plt Count 291 (140-440) K/mm3 Comprehensive Metabolic Panel 09/25/21 Range/Units 09:59 Sodium 138 (137-145) mmol/L Potassium 3.6 (3.6-5.0) mmol/L Chloride 96.0 L (98-107) mmol/L Carbon Dioxide 32 H (22-30) mmol/L BUN 26 H (9-20) mg/dL Creatinine 1.0 (0.8-1.3) mg/dL Glucose 154 H (75-100) mg/dL Calcium 8.6 (8.4-10.2) mg/dL - Imaging and Cardiology Echo: report reviewed - Telemetry EKG Rhythm: Sinus Rhythm - EKG Sinus rhythms and dysrhythmias: sinus rhythm Chamber hypertrophy or enlargement: left ventricular hypertro
[2021-09-26] MEDS: METOPROLOL SUCCINATE XL 25 MG TAB PO SCH (10:46)
[2021-09-26] MEDS: guaiFENesin ER 600 MG TAB PO SCH ×2 (10:46→23:31)
[2021-09-26] MEDS: POTASSIUM CHLORIDE ER 20 MEQ TAB PO SCH ×2 (10:47→23:32)
[2021-09-26] MEDS: FUROSEMIDE 40 MG TAB PO SCH (10:47)
[2021-09-26] MEDS: ASPIRIN EC 81 MG TAB PO SCH (10:47)
[2021-09-26] MEDS: FAMOTIDINE 20 MG TAB PO SCH ×2 (10:47→23:30)
[2021-09-26] MEDS: LISINOPRIL 10 MG TAB PO SCH (10:47)
[2021-09-26] MEDS: APIXABAN 5 MG TAB PO SCH ×2 (10:47→23:30)
--- NOTE | 2021-09-26 12:48 | Progress Note ---
Assessment and Plan - Patient Problems (1) Acute hypoxemic respiratory failure Current Visit: Yes Status: Acute Plan to address problem: Supplemental oxygen, pulse oximetry, nebulizer therapy, chest x-ray, . CTA chest reviewed, symptoms currently resolved (2) Suspected 2019 novel coronavirus infection Current Visit: Yes Status: Acute Plan to address problem: Coronavirus PCR negative. (3) Pneumonia Current Visit: Yes Status: Acute Plan to address problem: Pneumonia protocol: Chest x-ray, CBC, CMP, supplemental oxygen, pulse oximetry, nebulizer therapy, IV antibiotic therapy, blood culture. (4) CHF (congestive heart failure) Current Visit: Yes Status: Acute Qualifiers: Heart failure type: systolic Heart failure chronicity: acute on chronic Qualified Code(s): I50.23 - Acute on chronic systolic (congestive) heart failure Plan to address problem: Strict I/O, monitor urine output every shift, daily weight, afterload reduction, blood pressure control, echocardiogram reviewed. Cardiology team consulted. (5) Nicotine dependence Current Visit: Yes Status: Acute Qualifiers: Nicotine product type: cigarettes Substance use status: in withdrawal Qualified Code(s): F17.213 - Nicotine dependence, cigarettes, with withdrawal Plan to address problem: Smoking cessation counseling, supportive care, behavior change counseling, +15 minutes. (6) Malignant hypertension Current Visit: Yes Status: Acute Plan to address problem: Monitor blood pressure every shift, continue medical management. Diuresis, supportive care. (7) Pulmonary emboli Current Visit: Yes Status: Acute Qualifiers: Chronicity: acute Plan to address problem: Patient initiated on oral therapeutic anticoagulation. Supportive care, discharge planning in a.m. (8) DVT prophylaxis Current Visit: Yes Status: Acute Plan to address problem: SCD to bilateral lower extremities while in bed, prophylactic anticoagulation (9) Advance care planning Current Visit: Yes Status: Acute Plan to address problem: Disease education conducted, care plan discussed, diagnosis discussed, prognosis discussed, patient is full code. Patient acknowledges understanding and agreement with care plan, +30 minutes. History Interval history: 66 YO Male HD #4 with CHF, Pneumonia, Acute Respiratory Failure, Malignant Hypertension. Patient convalesced well overnight with mild improvement of s ymptoms. No reported nursing events. Patient denies pain. Patient coronavirus PCR negative. CTA chest suggestive of subsegmental pulmonary emboli. Pt initiated on therapeutic anticoagulation with Eliquis. Patient medically optimized. Patient denies pain.. Hospitalist Physical - Constitutional Vitals: Temp Pulse Resp BP Pulse Ox 98.2 F 74 18 128/81 99 09/25/21 23:08 09/26/21 10:47 09/25/21 23:08 09/26/21 10:47 09/25/21 23:08 General appearance: Present: no acute distress - EENT Eyes: Present: PERRL ENT: hearing intact - Neck Neck: Present: supple - Respiratory Respiratory effort: normal Respiratory: bilateral: diminished - Cardiovascular Rhythm: regular Heart Sounds: Present: S1 & S2 - Extremities Extremity abnormal: edema Peripheral Pulses: within normal limits - Abdominal General gastrointestinal: soft, non-tender, non-distended - Integumentary Integumentary: Present: clear, dry - Psychiatric Psychiatric: cooperative - Neurologic Neurologic: CNII-XII intact HEART Score - HEART Score Troponin: Troponin T < 0.010 ng/mL (0.00-0.029) 09/21/21 16:48 Results - Labs CBC & Chem 7: 09/25/21 09:59 09/25/21 09:59 Labs: Laboratory Last Values WBC 5.3 K/mm3 (4.5-11.0) 09/25/21 09:59 RBC 4.71 M/mm3 (3.65-5.03) 09/25/21 09:59 Hgb 10.6 gm/dl (11.8-15.2) L 09/25/21 09:59 Hct 34.9 % (35.5-45.6) L 09/25/21 09:59 MCV 74 fl (84-94) L 09/25/21 09:59 MCH 22 pg (28-32) L 09/25/21 09:59 MCHC 30 % (32-34) L 09/25/21 09:59 RDW 16.6 % (13.2-15.2) H 09/25/21 09:59 Plt Count 291 K/mm3 (140-440) 09/25/21 09:59 Lymph % (Auto) 21.8 % (13.4-35.0) 09/22/21 04:29 [place] % (Auto) 11.5 % (0.0-7.3) H 09/22/21 04:29 Eos % (Auto) 1.8 % (0.0-4.3) 09/22/21 04:29 Baso % (Auto) 0.9 % (0.0-1.8) 09/22/21 04:29 Lymph # (Auto) 2.3 K/mm3 (1.2-5.4) 09/22/21 04:29 [place] # (Auto) 1.2 K/mm3 (0.0-0.8) H 09/22/21 04:29 Eos # (Auto) 0.2 K/mm3 (0.0-0.4) 09/22/21 04:29 Baso # (Auto) 0.1 K/mm3 (0.0-0.1) 09/22/21 04:29 Seg Neutrophils % 64.0 % (40.0-70.0) 09/22/21 04:29 Seg Neutrophils # 6.8 K/mm3 (1.8-7.7) 09/22/21 04:29 PT 14.7 Sec. (12.2-14.9) 09/23/21 22:41 INR 1.04 (0.87-1.13) 09/23/21 22:41 APTT 34.5 Sec. (24.2-36.6) 09/23/21 22:41 D-Dimer 1088.67 ng/mlDDU (0-234) H 09/21/21 13:21 Sodium 138 mmol/L (137-145) 09/25/21 09:59 Potassium 3.6 mmol/L (3.6-5.0) 09/25/21 09:59 Chloride 96.0 mmol/L (98-107) L 09/25/21 09:59 Carbon Dioxide 32 mmol/L (22-30) H 09/25/21 09:59 Anion Gap 14 mmol/L 09/25/21 09:59 BUN 26 mg/dL (9-20) H 09/25/21 09:59 Creatinine 1.0 mg/dL (0.8-1.3) 09/25/21 09:59 Estimated GFR > 60 ml/min 09/25/21 09:59 BUN/Creatinine Ratio 26 % 09/25/21 09:59 Glucose 154 mg/dL (75-100) H 09/25/21 09:59 POC Glucose 83 mg/dL (70-105) 09/25/21 16:24 Calcium 8.6 mg/dL (8.4-10.2) 09/25/21 09:59 Total Bilirubin 0.40 mg/dL (0.1-1.2) 09/22/21 04:29 AST 22 units/L (5-40) 09/22/21 04:29 ALT 18 units/L (7-56) 09/22/21 04:29 Alkaline Phosphatase 135 units/L (35-129) H 09/22/21 04:29 Lactate Dehydrogenase 290 units/L (91-180) H 09/21/21 13:21 Troponin T < 0.010 ng/mL (0.00-0.029) 09/21/21 16:48 C-Reactive Protein 0.70 mg/dL (0.00-1.30) 09/21/21 13:21 NT-Pro-B Natriuret Pep 8323 pg/mL (0-900) H 09/21/21 10:14 Total Protein 7.2 g/dL (6.3-8.2) 09/22/21 04:29 Albumin 3.4 g/dL (3.9-5) L 09/22/21 04:29 Albumin/Globulin Ratio 0.9 % 09/22/21 04:29 Lipase 28 units/L (13-60) 09/21/21 10:14 Procalcitonin < 0.05 ng/mL (<0.15) 09/21/21 13:21 Coronavirus (PCR) Negative (Negative) 09/22/21 Unknown Microbiology: Microbiology 09/23/21 Unknown Stool Stool Occult Blood (KOJO) - Final Smith/IV: Voiding Method Toilet Active Medications - Current Medications Current Medications: Generic Name Dose Route Start Last Admin Trade Name Freq PRN Reason Stop Dose Admin Acetaminophen 650 mg 09/21/21 12:28 Acetaminophen 325 Mg Tab PO Q4H PRN Pain MILD(1-3)/Fever >100.5/PAEZ Albuterol 2.5 mg 09/21/21 12:28 Albuterol 2.5 Mg/3 Ml Nebu IH Q4HRT PRN Shortness Of Breath Apixaban 10 mg 09/23/21 22:00 09/26/21 10:47 Apixaban 5 Mg Tab PO 09/30/21 10:01 10 mg Q12HR JAMIN Administration Protocol Apixaban 5 mg 09/30/21 22:00 Apixaban 5 Mg Tab PO Q12HR JAMIN Protocol Aspirin 81 mg 09/22/21 10:00 09/26/21 10:47 Aspirin Ec 81 Mg Tab PO 81 mg QDAY JAMIN Administration Atorvastatin Calcium 20 mg 09/21/21 22:00 09/25/21 21:50 Atorvastatin 20 Mg Tab PO 20 mg QHS JAMIN Administration Famotidine 20 mg 09/21/21 22:00 09/26/21 10:47 Famotidine 20 Mg Tab PO 20 mg BID JAMIN Administration Furosemide 40 mg 09/26/21 10:00 09/26/21 10:47 Furosemide 40 Mg Tab PO 40 mg QDAY JAMIN Administration Guaifenesin 600 mg 09/21/21 22:00 09/26/21 10:46 Guaifenesin Er 600 Mg Tab PO 600 mg BID JAMIN Administration Hydromorphone HCl 0.5 mg 09/21/21 12:28 09/21/21 21:42 Hydromorphone 1 Mg/1 Ml Inj IV 0.5 mg Q23H PRN Administration Pain , Severe (7-10) Lisinopril 10 mg 09/22/21 10:00 09/26/21 10:47 Lisinopril 10 Mg Tab PO 10 mg QDAY JAMIN Administration Metoprolol Succinate 25 mg 09/22/21 10:00 09/26/21 10:46 Metoprolol Succinate Xl 25 Mg Tab PO 25 mg QDAY JAMIN Administration Ondansetron HCl 4 mg 09/21/21 12:28 Ondansetron 4 Mg/2 Ml Inj IV Q8H PRN Nausea And Vomiting Oxycodone/Acetaminophen 1 tab 09/21/21 12:28 09/22/21 23:33 Oxycodone /Acetaminophen 5-325mg Tab PO 1 tab Q16H PRN Administration Pain, Moderate (4-6) Potassium Chloride 20 meq 09/21/21 22:00 09/26/21 10:47 Potassium Chloride Er 20 Meq Tab PO 20 meq BID JAMIN Administration Sodium Chloride 10 ml 09/21/21 22:00 09/26/21 10:48 Sodium Chloride 0.9% 10 Ml Flush Syringe IV 10 ml BID JAMIN Administration Sodium Chloride 10 ml 09/21/21 12:28 Sodium Chloride 0.9% 10 Ml Flush Syringe IV PRN PRN LINE FLUSH Nutrition/Malnutrition Assess - Dietary Evaluation Nutrition/Malnutrition Findings: Nutrition Notes Start: 09/24/21 11:01 Freq: Status: Active Protocol: Document 09/24/21 11:01 MAGGY (Rec: 09/24/21 11:02 MAGGY [id number]) Nutrition Notes Need for Assessment generated from: office manager receptionist Initial or Follow up Brief Note Subjective/Other Information Pt screened for skin risk, however, Fred score is 22. Will assess upon further consult or LOS. Burn Absent Trauma Absent
--- NOTE | 2021-09-26 12:49 | Progress Note ---
Assessment and Plan - Patient Problems (1) Acute hypoxemic respiratory failure Current Visit: Yes Status: Acute Plan to address problem: Supplemental oxygen, pulse oximetry, nebulizer therapy, chest x-ray. DC planning in a.m. with supplemental oxygen. (2) Suspected 2019 novel coronavirus infection Current Visit: Yes Status: Acute Plan to address problem: Coronavirus PCR negative. (3) Pneumonia Current Visit: Yes Status: Acute Plan to address problem: Pneumonia protocol: Chest x-ray, CBC, CMP, supplemental oxygen, pulse oximetry, nebulizer therapy, IV antibiotic therapy, blood culture. (4) CHF (congestive heart failure) Current Visit: Yes Status: Acute Qualifiers: Heart failure type: systolic Heart failure chronicity: acute on chronic Qualified Code(s): I50.23 - Acute on chronic systolic (congestive) heart failure Plan to address problem: Strict I/O, monitor urine output every shift, daily weight, afterload reduction, blood pressure control, echocardiogram reviewed. Cardiology team consulted. (5) Nicotine dependence Current Visit: Yes Status: Acute Qualifiers: Nicotine product type: cigarettes Substance use status: in withdrawal Qualified Code(s): F17.213 - Nicotine dependence, cigarettes, with withdrawal Plan to address problem: Smoking cessation counseling, supportive care, behavior change counseling, +15 minutes. (6) Malignant hypertension Current Visit: Yes Status: Acute Plan to address problem: Monitor blood pressure every shift, continue medical management. Diuresis, supportive care. (7) Pulmonary emboli Current Visit: Yes Status: Acute Qualifiers: Chronicity: acute Plan to address problem: Patient initiated on oral therapeutic anticoagulation. Supportive care, discharge planning in a.m. (8) DVT prophylaxis Current Visit: Yes Status: Acute Plan to address problem: SCD to bilateral lower extremities while in bed, prophylactic anticoagulation (9) Advance care planning Current Visit: Yes Status: Acute Plan to address problem: Disease education conducted, care plan discussed, diagnosis discussed, prognosis discussed, patient is full code. Patient acknowledges understanding and agreement with care plan, +30 minutes. History Interval history: 66 YO Male HD #5 with Systolic CHF, Pneumonia, Acute Respiratory Failure, Malignant Hypertension. Patient convalesced well overnight with mild improvement of symptoms. No reported nursing events. Patient denies pain. Patient coronavirus PCR negative. CTA chest suggestive of subsegmental pulmonary emboli. Pt initiated on therapeutic anticoagulation with Eliquis. Patient medically optimized. Patient denies pain.. Hospitalist Physical - Constitutional Vitals: Temp Pulse Resp BP Pulse Ox 98.2 F 74 18 128/81 99 09/25/21 23:08 09/26/21 10:47 09/25/21 23:08 09/26/21 10:47 09/25/21 23:08 General appearance: Present: no acute distress - EENT Eyes: Present: PERRL ENT: hearing intact - Neck Neck: Present: supple - Respiratory Respiratory effort: normal Respiratory: bilateral: diminished, rales - Cardiovascular Rhythm: regular Heart Sounds: Present: S1 & S2 - Extremities Extremities: no ischemia Extremity abnormal: edema Peripheral Pulses: within normal limits - Abdominal General gastrointestinal: soft, non-tender, non-distended - Integumentary Integumentary: Present: clear, dry - Psychiatric Psychiatric: cooperative - Neurologic Neurologic: CNII-XII intact HEART Score - HEART Score Troponin: Troponin T < 0.010 ng/mL (0.00-0.029) 09/21/21 16:48 Results - Labs CBC & Chem 7: 09/25/21 09:59 09/25/21 09:59 Labs: Laboratory Last Values WBC 5.3 K/mm3 (4.5-11.0) 09/25/21 09:59 RBC 4.71 M/mm3 (3.65-5.03) 09/25/21 09:59 Hgb 10.6 gm/dl (11.8-15.2) L 09/25/21 09:59 Hct 34.9 % (35.5-45.6) L 09/25/21 09:59 MCV 74 fl (84-94) L 09/25/21 09:59 MCH 22 pg (28-32) L 09/25/21 09:59 MCHC 30 % (32-34) L 09/25/21 09:59 RDW 16.6 % (13.2-15.2) H 09/25/21 09:59 Plt Count 291 K/mm3 (140-440) 09/25/21 09:59 Lymph % (Auto) 21.8 % (13.4-35.0) 09/22/21 04:29 [place] % (Auto) 11.5 % (0.0-7.3) H 09/22/21 04:29 Eos % (Auto) 1.8 % (0.0-4.3) 09/22/21 04:29 Baso % (Auto) 0.9 % (0.0-1.8) 09/22/21 04:29 Lymph # (Auto) 2.3 K/mm3 (1.2-5.4) 09/22/21 04:29 [place] # (Auto) 1.2 K/mm3 (0.0-0.8) H 09/22/21 04:29 Eos # (Auto) 0.2 K/mm3 (0.0-0.4) 09/22/21 04:29 Baso # (Auto) 0.1 K/mm3 (0.0-0.1) 09/22/21 04:29 Seg Neutrophils % 64.0 % (40.0-70.0) 09/22/21 04:29 Seg Neutrophils # 6.8 K/mm3 (1.8-7.7) 09/22/21 04:29 PT 14.7 Sec. (12.2-14.9) 09/23/21 22:41 INR 1.04 (0.87-1.13) 09/23/21 22:41 APTT 34.5 Sec. (24.2-36.6) 09/23/21 22:41 D-Dimer 1088.67 ng/mlDDU (0-234) H 09/21/21 13:21 Sodium 138 mmol/L (137-145) 09/25/21 09:59 Potassium 3.6 mmol/L (3.6-5.0) 09/25/21 09:59 Chloride 96.0 mmol/L (98-107) L 09/25/21 09:59 Carbon Dioxide 32 mmol/L (22-30) H 09/25/21 09:59 Anion Gap 14 mmol/L 09/25/21 09:59 BUN 26 mg/dL (9-20) H 09/25/21 09:59 Creatinine 1.0 mg/dL (0.8-1.3) 09/25/21 09:59 Estimated GFR > 60 ml/min 09/25/21 09:59 BUN/Creatinine Ratio 26 % 09/25/21 09:59 Glucose 154 mg/dL (75-100) H 09/25/21 09:59 POC Glucose 83 mg/dL (70-105) 09/25/21 16:24 Calcium 8.6 mg/dL (8.4-10.2) 09/25/21 09:59 Total Bilirubin 0.40 mg/dL (0.1-1.2) 09/22/21 04:29 AST 22 units/L (5-40) 09/22/21 04:29 ALT 18 units/L (7-56) 09/22/21 04:29 Alkaline Phosphatase 135 units/L (35-129) H 09/22/21 04:29 Lactate Dehydrogenase 290 units/L (91-180) H 09/21/21 13:21 Troponin T < 0.010 ng/mL (0.00-0.029) 09/21/21 16:48 C-Reactive Protein 0.70 mg/dL (0.00-1.30) 09/21/21 13:21 NT-Pro-B Natriuret Pep 8323 pg/mL (0-900) H 09/21/21 10:14 Total Protein 7.2 g/dL (6.3-8.2) 09/22/21 04:29 Albumin 3.4 g/dL (3.9-5) L 09/22/21 04:29 Albumin/Globulin Ratio 0.9 % 09/22/21 04:29 Lipase 28 units/L (13-60) 09/21/21 10:14 Procalcitonin < 0.05 ng/mL (<0.15) 09/21/21 13:21 Coronavirus (PCR) Negative (Negative) 09/22/21 Unknown Microbiology: Microbiology 09/23/21 Unknown Stool Stool Occult Blood (KOJO) - Final Smith/IV: Voiding Method Toilet Active Medications - Current Medications Current Medications: Generic Name Dose Route Start Last Admin Trade Name Freq PRN Reason Stop Dose Admin Acetaminophen 650 mg 09/21/21 12:28 Acetaminophen 325 Mg Tab PO Q4H PRN Pain MILD(1-3)/Fever >100.5/PAEZ Albuterol 2.5 mg 09/21/21 12:28 Albuterol 2.5 Mg/3 Ml Nebu IH Q4HRT PRN Shortness Of Breath Apixaban 10 mg 09/23/21 22:00 09/26/21 10:47 Apixaban 5 Mg Tab PO 09/30/21 10:01 10 mg Q12HR JAMIN Administration Protocol Apixaban 5 mg 09/30/21 22:00 Apixaban 5 Mg Tab PO Q12HR JAMIN Protocol Aspirin 81 mg 09/22/21 10:00 09/26/21 10:47 Aspirin Ec 81 Mg Tab PO 81 mg QDAY JAMIN Administration Atorvastatin Calcium 20 mg 09/21/21 22:00 09/25/21 21:50 Atorvastatin 20 Mg Tab PO 20 mg QHS JAMIN Administration Famotidine 20 mg 09/21/21 22:00 09/26/21 10:47 Famotidine 20 Mg Tab PO 20 mg BID JAMIN Administration Furosemide 40 mg 09/26/21 10:00 09/26/21 10:47 Furosemide 40 Mg Tab PO 40 mg QDAY JAMIN Administration Guaifenesin 600 mg 09/21/21 22:00 09/26/21 10:46 Guaifenesin Er 600 Mg Tab PO 600 mg BID JAMIN Administration Hydromorphone HCl 0.5 mg 09/21/21 12:28 09/21/21 21:42 Hydromorphone 1 Mg/1 Ml Inj IV 0.5 mg Q23H PRN Administration Pain , Severe (7-10) Lisinopril 10 mg 09/22/21 10:00 09/26/21 10:47 Lisinopril 10 Mg Tab PO 10 mg QDAY JAMIN Administration Metoprolol Succinate 25 mg 09/22/21 10:00 09/26/21 10:46 Metoprolol Succinate Xl 25 Mg Tab PO 25 mg QDAY JAMIN Administration Ondansetron HCl 4 mg 09/21/21 12:28 Ondansetron 4 Mg/2 Ml Inj IV Q8H PRN Nausea And Vomiting Oxycodone/Acetaminophen 1 tab 09/21/21 12:28 09/22/21 23:33 Oxycodone /Acetaminophen 5-325mg Tab PO 1 tab Q16H PRN Administration Pain, Moderate (4-6) Potassium Chloride 20 meq 09/21/21 22:00 09/26/21 10:47 Potassium Chloride Er 20 Meq Tab PO 20 meq BID JAMIN Administration Sodium Chloride 10 ml 09/21/21 22:00 09/26/21 10:48 Sodium Chloride 0.9% 10 Ml Flush Syringe IV 10 ml BID JAMIN Administration Sodium Chloride 10 ml 09/21/21 12:28 Sodium Chloride 0.9% 10 Ml Flush Syringe IV PRN PRN LINE FLUSH Nutrition/Malnutrition Assess - Dietary Evaluation Nutrition/Malnutrition Findings: Nutrition Notes Start: 09/24/21 11:01 Freq: Status: Active Protocol: Document 09/24/21 11:01 MAGGY (Rec: 09/24/21 11:02 MAGGY [id number]) Nutrition Notes Need for Assessment generated from: healthcare consultant Initial or Follow up Brief Note Subjective/Other Information Pt screened for skin risk, however, Fred score is 22. Will assess upon further consult or LOS. Burn Absent Trauma Absent
--- NOTE | 2021-09-26 14:01 | Progress Note ---
Assessment and Plan Patient is a 66-year-old male with a past medical history of HFrEF (the EF 35 to 40%), nonischemic cardiomyopathy, hypertension, mitral regurgitation, COPD, history of hemorrhagic CVA in 2018, and nicotine dependence who presents today with a complaint of shortness of breath and epigastric abdominal pain Acute on chronic HFrEF Multiple PE Bilateral PNA PUI-COVID PCR negative Hypertensive urgency COPD BioProsthetic aortic valve in situ Hypertension Medical noncompliance Nicotene dependence Echo 09/21/2021-EF 30 to 35%. Grade 3 restrictive diastolic dysfunction. Left atrium severely dilated. Right atrium mildly dilated. Moderate to severe mitral regurgitation mild tricuspid regurgitation. Probably moderate aortic stenosis, mild aortic regurgitation. Right ventricular systolic function is mildly reduced. Moderate left pleural effusion Echocardiogram (01/13/2021): LVEF is 35 to 40%. LV SF is mild to moderately decreased. Mild to moderate concentric LVH. Grade 2 diastolic dysfunction. RV SF is normal. Right atrium is mildly dilated. Left atrium is severely dilated. No evidence for ASD. BioProsthetic aortic valve is present and poorly visualized, prosthetic aortic valve opening is decreased. Severe mitral regurg. Mild tricuspid regurg. Mild pulmonic regurg. TTE 08/20/2020 - mild concentric LVH, EF 30-35%, LV mildly dilated, impaired LV relaxation, LA severely dilated, mild AR, mild-mod MR. Lexiscan stress MPI 08/21/2020 - negative for ischemia, EF 40%. Plan: Continue lisinopril 10 mg p.o. daily, metoprolol XL 25 mg p.o. daily, aspirin, atorvastatin 20 mg p.o. nightly Continue Lasix 40 mg p.o. daily Continue anticoagulation for PE with Eliquis Cardiac status stable for discharge Patient follow-up with her primary final inspector shuttle 1 to 2 weeks after discharge Patient seen in conjunction with Dr. Allen who agrees with this plan of care - Patient Problems (1) Acute on chronic HFrEF (heart failure with reduced ejection fraction) Current Visit: Yes Status: Acute (2) Suspected 2019 novel coronavirus infection Current Visit: Yes Status: Acute (3) Abdominal pain Current Visit: No Status: Acute (4) Bilateral pneumonia Current Visit: No Status: Acute (5) COPD with acute exacerbation Current Visit: Yes Status: Acute (6) Epigastric pain Current Visit: No Status: Acute (7) Smoker Current Visit: No Status: Acute (8) H/O heart valve replacement with bioprosthetic valve Current Visit: No Status: Chronic (9) H/O: CVA (cerebrovascular accident) Current Visit: No Status: Chronic (10) Hypertension Current Visit: No Status: Chronic Qualifiers: Hypertension type: essential hypertension (11) Medical non-compliance Current Visit: No Status: Chronic (12) Mitral regurgitation Current Visit: No Status: Chronic (13) Non-ischemic cardiomyopathy Current Visit: No Status: Chronic Subjective Date of service: 09/26/21 Principal diagnosis: Acute on chronic HFrEF, Bilateral PNA Interval history: Patient resting in bed in no acute distress Currently not on monitor Objective Vital Signs Temp Pulse Resp BP Pulse Ox 09/26/21 12:32 97.9 F 70 18 129/82 98 09/26/21 10:47 74 128/81 09/26/21 10:46 74 128/81 09/26/21 04:42 98.3 F 60 18 128/87 100 09/25/21 23:08 98.2 F 63 18 117/80 99 09/25/21 22:00 20 96 09/25/21 15:21 97.9 F 70 18 129/72 100 - Physical Examination General: No Apparent Distress HEENT: Positive: EOMI, Normocephaly, Mucus Membranes Moist Neck: Positive: neck supple, trachea midline Cardiac: Positive: Reg Rate and Rhythm Lungs: Positive: Normal Breath Sounds Neuro: Positive: Grossly Intact Abdomen: Positive: Soft, Active Bowel Sounds, Tender Skin: Negative: Rash Musculoskeletal: Normal Range of Motion Extremities: Present: upper extr. pulses. Absent: edema - Imaging and Cardiology Echo: report reviewed - Telemetry EKG Rhythm: Sinus Rhythm - EKG Sinus rhythms and dysrhythmias: sinus rhythm Chamber hypertrophy or enlargement: left ventricular hypertro
[2021-09-27] MEDS: guaiFENesin ER 600 MG TAB PO SCH ×2 (09:37→21:49)
[2021-09-27] MEDS: FUROSEMIDE 40 MG TAB PO SCH (09:37)
[2021-09-27] MEDS: ASPIRIN EC 81 MG TAB PO SCH (09:37)
[2021-09-27] MEDS: APIXABAN 5 MG TAB PO SCH ×2 (09:37→21:48)
[2021-09-27] MEDS: POTASSIUM CHLORIDE ER 20 MEQ TAB PO SCH ×2 (09:37→21:48)
[2021-09-27] MEDS: FAMOTIDINE 20 MG TAB PO SCH ×2 (09:37→21:48)
[2021-09-27] MEDS: METOPROLOL SUCCINATE XL 25 MG TAB PO SCH (09:38)
[2021-09-27] MEDS: LISINOPRIL 10 MG TAB PO SCH (09:39)
--- NOTE | 2021-09-27 21:06 | Progress Note ---
Assessment and Plan - Patient Problems (1) Acute hypoxemic respiratory failure Current Visit: Yes Status: Acute Plan to address problem: Supplemental oxygen, pulse oximetry, nebulizer therapy, chest x-ray. DC planning in a.m. with supplemental oxygen. (2) Suspected 2019 novel coronavirus infection Current Visit: Yes Status: Acute Plan to address problem: Coronavirus PCR negative. (3) Pneumonia Current Visit: Yes Status: Acute Plan to address problem: Pneumonia protocol: Chest x-ray, CBC, CMP, supplemental oxygen, pulse oximetry, nebulizer therapy, IV antibiotic therapy, blood culture. (4) CHF (congestive heart failure) Current Visit: Yes Status: Acute Qualifiers: Heart failure type: systolic Heart failure chronicity: acute on chronic Qualified Code(s): I50.23 - Acute on chronic systolic (congestive) heart failure Plan to address problem: Strict I/O, monitor urine output every shift, daily weight, afterload reduction, blood pressure control, echocardiogram reviewed. Cardiology team consulted. (5) Nicotine dependence Current Visit: Yes Status: Acute Qualifiers: Nicotine product type: cigarettes Substance use status: in withdrawal Qualified Code(s): F17.213 - Nicotine dependence, cigarettes, with withdrawal Plan to address problem: Smoking cessation counseling, supportive care, behavior change counseling, +15 minutes. (6) Malignant hypertension Current Visit: Yes Status: Acute Plan to address problem: Monitor blood pressure every shift, continue medical management. Diuresis, supportive care. (7) Pulmonary emboli Current Visit: Yes Status: Acute Qualifiers: Chronicity: acute Plan to address problem: Patient initiated on oral therapeutic anticoagulation. Supportive care, discharge planning in a.m. (8) DVT prophylaxis Current Visit: Yes Status: Acute Plan to address problem: SCD to bilateral lower extremities while in bed, prophylactic anticoagulation (9) Advance care planning Current Visit: Yes Status: Acute Plan to address problem: Disease education conducted, care plan discussed, diagnosis discussed, prognosis discussed, patient is full code. Patient acknowledges understanding and agreement with care plan, +30 minutes. History Interval history: 66 YO Male HD #6 with Systolic CHF, Pneumonia, Acute Respiratory Failure, Malignant Hypertension. Patient convalesced well overnight with mild improvement of symptoms. No reported nursing events. Patient denies pain. Patient coronavirus PCR negative. CTA chest suggestive of subsegmental pulmonary emboli. Pt initiated on therapeutic anticoagulation with Eliquis. Patient medically optimized. Patient denies pain. D/C planning in AM with supplemental oxygen. Hospitalist Physical - Constitutional Vitals: Temp Pulse Resp BP Pulse Ox 98.8 F 76 18 139/93 100 09/27/21 12:11 09/27/21 12:11 09/27/21 12:11 09/27/21 12:11 09/27/21 12:11 General appearance: Present: no acute distress - EENT Eyes: Present: PERRL ENT: hearing intact - Neck Neck: Present: supple - Respiratory Respiratory effort: normal Respiratory: bilateral: diminished - Cardiovascular Rhythm: regular Heart Sounds: Present: S1 & S2 - Extremities Extremities: no ischemia Peripheral Pulses: within normal limits - Abdominal General gastrointestinal: soft, non-tender, non-distended - Integumentary Integumentary: Present: clear, dry - Psychiatric Psychiatric: cooperative - Neurologic Neurologic: CNII-XII intact HEART Score - HEART Score Troponin: Troponin T < 0.010 ng/mL (0.00-0.029) 09/21/21 16:48 Results - Labs CBC & Chem 7: 09/25/21 09:59 09/25/21 09:59 Labs: Laboratory Last Values WBC 5.3 K/mm3 (4.5-11.0) 09/25/21 09:59 RBC 4.71 M/mm3 (3.65-5.03) 09/25/21 09:59 Hgb 10.6 gm/dl (11.8-15.2) L 09/25/21 09:59 Hct 34.9 % (35.5-45.6) L 09/25/21 09:59 MCV 74 fl (84-94) L 09/25/21 09:59 MCH 22 pg (28-32) L 09/25/21 09:59 MCHC 30 % (32-34) L 09/25/21 09:59 RDW 16.6 % (13.2-15.2) H 09/25/21 09:59 Plt Count 291 K/mm3 (140-440) 09/25/21 09:59 Lymph % (Auto) 21.8 % (13.4-35.0) 09/22/21 04:29 [place] % (Auto) 11.5 % (0.0-7.3) H 09/22/21 04:29 Eos % (Auto) 1.8 % (0.0-4.3) 09/22/21 04:29 Baso % (Auto) 0.9 % (0.0-1.8) 09/22/21 04:29 Lymph # (Auto) 2.3 K/mm3 (1.2-5.4) 09/22/21 04:29 [place] # (Auto) 1.2 K/mm3 (0.0-0.8) H 09/22/21 04:29 Eos # (Auto) 0.2 K/mm3 (0.0-0.4) 09/22/21 04:29 Baso # (Auto) 0.1 K/mm3 (0.0-0.1) 09/22/21 04:29 Seg Neutrophils % 64.0 % (40.0-70.0) 09/22/21 04:29 Seg Neutrophils # 6.8 K/mm3 (1.8-7.7) 09/22/21 04:29 PT 14.7 Sec. (12.2-14.9) 09/23/21 22:41 INR 1.04 (0.87-1.13) 09/23/21 22:41 APTT 34.5 Sec. (24.2-36.6) 09/23/21 22:41 D-Dimer 1088.67 ng/mlDDU (0-234) H 09/21/21 13:21 Sodium 138 mmol/L (137-145) 09/25/21 09:59 Potassium 3.6 mmol/L (3.6-5.0) 09/25/21 09:59 Chloride 96.0 mmol/L (98-107) L 09/25/21 09:59 Carbon Dioxide 32 mmol/L (22-30) H 09/25/21 09:59 Anion Gap 14 mmol/L 09/25/21 09:59 BUN 26 mg/dL (9-20) H 09/25/21 09:59 Creatinine 1.0 mg/dL (0.8-1.3) 09/25/21 09:59 Estimated GFR > 60 ml/min 09/25/21 09:59 BUN/Creatinine Ratio 26 % 09/25/21 09:59 Glucose 154 mg/dL (75-100) H 09/25/21 09:59 POC Glucose 83 mg/dL (70-105) 09/25/21 16:24 Calcium 8.6 mg/dL (8.4-10.2) 09/25/21 09:59 Total Bilirubin 0.40 mg/dL (0.1-1.2) 09/22/21 04:29 AST 22 units/L (5-40) 09/22/21 04:29 ALT 18 units/L (7-56) 09/22/21 04:29 Alkaline Phosphatase 135 units/L (35-129) H 09/22/21 04:29 Lactate Dehydrogenase 290 units/L (91-180) H 09/21/21 13:21 Troponin T < 0.010 ng/mL (0.00-0.029) 09/21/21 16:48 C-Reactive Protein 0.70 mg/dL (0.00-1.30) 09/21/21 13:21 NT-Pro-B Natriuret Pep 8323 pg/mL (0-900) H 09/21/21 10:14 Total Protein 7.2 g/dL (6.3-8.2) 09/22/21 04:29 Albumin 3.4 g/dL (3.9-5) L 09/22/21 04:29 Albumin/Globulin Ratio 0.9 % 09/22/21 04:29 Lipase 28 units/L (13-60) 09/21/21 10:14 Procalcitonin < 0.05 ng/mL (<0.15) 09/21/21 13:21 Coronavirus (PCR) Negative (Negative) 09/22/21 Unknown Smith/IV: Voiding Method Toilet Active Medications - Current Medications Current Medications: Generic Name Dose Route Start Last Admin Trade Name Freq PRN Reason Stop Dose Admin Acetaminophen 650 mg 09/21/21 12:28 Acetaminophen 325 Mg Tab PO Q4H PRN Pain MILD(1-3)/Fever >100.5/PAEZ Albuterol 2.5 mg 09/21/21 12:28 Albuterol 2.5 Mg/3 Ml Nebu IH Q4HRT PRN Shortness Of Breath Apixaban 10 mg 09/23/21 22:00 09/27/21 09:37 Apixaban 5 Mg Tab PO 09/30/21 10:01 10 mg Q12HR JAMIN Administration Protocol Apixaban 5 mg 09/30/21 22:00 Apixaban 5 Mg Tab PO Q12HR [facility] Protocol Aspirin 81 mg 09/22/21 10:00 09/27/21 09:37 Aspirin Ec 81 Mg Tab PO 81 mg QDAY JAMIN Administration Atorvastatin Calcium 20 mg 09/21/21 22:00 09/26/21 23:30 Atorvastatin 20 Mg Tab PO 20 mg QHS JAMIN Administration Famotidine 20 mg 09/21/21 22:00 09/27/21 09:37 Famotidine 20 Mg Tab PO 20 mg BID JAMIN Administration Furosemide 40 mg 09/26/21 10:00 09/27/21 09:37 Furosemide 40 Mg Tab PO 40 mg QDAY [facility] Administration Guaifenesin 600 mg 09/21/21 22:00 09/27/21 09:37 Guaifenesin Er 600 Mg Tab PO 600 mg BID [facility] Administration Hydromorphone HCl 0.5 mg 09/21/21 12:28 09/21/21 21:42 Hydromorphone 1 Mg/1 Ml Inj IV 0.5 mg Q23H PRN Administration Pain , Severe (7-10) Lisinopril 10 mg 09/22/21 10:00 09/27/21 09:39 Lisinopril 10 Mg Tab PO 10 mg QDAY [facility] Administration Metoprolol Succinate 25 mg 09/22/21 10:00 09/27/21 09:38 Metoprolol Succinate Xl 25 Mg Tab PO Not Given QDAY [facility] Ondansetron HCl 4 mg 09/21/21 12:28 Ondansetron 4 Mg/2 Ml Inj IV Q8H PRN Nausea And Vomiting Oxycodone/Acetaminophen 1 tab 09/21/21 12:28 09/22/21 23:33 Oxycodone /Acetaminophen 5-325mg Tab PO 1 tab Q16H PRN Administration Pain, Moderate (4-6) Potassium Chloride 20 meq 09/21/21 22:00 09/27/21 09:37 Potassium Chloride Er 20 Meq Tab PO 20 meq BID JAMIN Administration Sodium Chloride 10 ml 09/21/21 22:00 09/27/21 09:39 Sodium Chloride 0.9% 10 Ml Flush Syringe IV 10 ml BID JAMIN Administration Sodium Chloride 10 ml 09/21/21 12:28 Sodium Chloride 0.9% 10 Ml Flush Syringe IV PRN PRN LINE FLUSH Nutrition/Malnutrition Assess - Dietary Evaluation Nutrition/Malnutrition Findings: Nutrition Notes Start: 09/24/21 11 :01 Freq: Status: Active Protocol: Document 09/24/21 11:01 MAGGY (Rec: 09/24/21 11:02 MAGGY [id number]) Nutrition Notes Need for Assessment generated from: jeeper operator Initial or Follow up Brief Note Subjective/Other Information Pt screened for skin risk, however, Fred score is 22. Will assess upon further consult or LOS. Burn Absent Trauma Absent
--- NOTE | 2021-09-27 21:08 | Progress Note ---
Assessment and Plan - Patient Problems (1) Acute hypoxemic respiratory failure Current Visit: Yes Status: Acute Plan to address problem: Supplemental oxygen, pulse oximetry, nebulizer therapy, chest x-ray. DC planning in a.m. with supplemental oxygen. (2) Suspected 2019 novel coronavirus infection Current Visit: Yes Status: Acute Plan to address problem: Coronavirus PCR negative. (3) Pneumonia Current Visit: Yes Status: Acute Plan to address problem: Pneumonia protocol: Chest x-ray, CBC, CMP, supplemental oxygen, pulse oximetry, nebulizer therapy, IV antibiotic therapy, blood culture. (4) CHF (congestive heart failure) Current Visit: Yes Status: Acute Qualifiers: Heart failure type: systolic Heart failure chronicity: acute on chronic Qualified Code(s): I50.23 - Acute on chronic systolic (congestive) heart failure Plan to address problem: Strict I/O, monitor urine output every shift, daily weight, afterload reduction, blood pressure control, echocardiogram reviewed. Cardiology team consulted. (5) Nicotine dependence Current Visit: Yes Status: Acute Qualifiers: Nicotine product type: cigarettes Substance use status: in withdrawal Qualified Code(s): F17.213 - Nicotine dependence, cigarettes, with withdrawal Plan to address problem: Smoking cessation counseling, supportive care, behavior change counseling, +15 minutes. (6) Malignant hypertension Current Visit: Yes Status: Acute Plan to address problem: Monitor blood pressure every shift, continue medical management. Diuresis, supportive care. (7) Pulmonary emboli Current Visit: Yes Status: Acute Qualifiers: Chronicity: acute Plan to address problem: Patient initiated on oral therapeutic anticoagulation. Supportive care, discharge planning in a.m. (8) DVT prophylaxis Current Visit: Yes Status: Acute Plan to address problem: SCD to bilateral lower extremities while in bed, prophylactic anticoagulation (9) Advance care planning Current Visit: Yes Status: Acute Plan to address problem: Disease education conducted, care plan discussed, diagnosis discussed, prognosis discussed, patient is full code. Patient acknowledges understanding and agreement with care plan, +30 minutes. History Interval history: 66 YO Male HD #7 with Systolic CHF, Pneumonia, Acute Respiratory Failure, Malignant Hypertension, Pulmoary emboli on therapeutic anticoagulation. Patient convalesced well overnight with mild improvement of symptoms. No reported nursing events. Patient denies pain. Patient coronavirus PCR negative. . Patient medically optimized. Patient denies pain. D/C planning in AM with supplemental oxygen. Hospitalist Physical - Constitutional Vitals: Temp Pulse Resp BP Pulse Ox 98.8 F 76 18 139/93 100 09/27/21 12:11 09/27/21 12:11 09/27/21 12:11 09/27/21 12:11 09/27/21 12:11 General appearance: Present: no acute distress - EENT Eyes: Present: PERRL, EOM intact ENT: hearing intact - Neck Neck: Present: supple, normal ROM - Respiratory Respiratory effort: normal Respiratory: bilateral: diminished - Cardiovascular Rhythm: regular Heart Sounds: Present: S1 & S2 - Extremities Extremities: no ischemia Peripheral Pulses: within normal limits - Abdominal General gastrointestinal: soft, non-tender, non-distended - Integumentary Integumentary: Present: clear, dry - Psychiatric Psychiatric: appropriate mood/affect, cooperative - Neurologic Neurologic: CNII-XII intact HEART Score - HEART Score Troponin: Troponin T < 0.010 ng/mL (0.00-0.029) 09/21/21 16:48 Results - Labs CBC & Chem 7: 09/25/21 09:59 09/25/21 09:59 Labs: Laboratory Last Values WBC 5.3 K/mm3 (4.5-11.0) 09/25/21 09:59 RBC 4.71 M/mm3 (3.65-5.03) 09/25/21 09:59 Hgb 10.6 gm/dl (11.8-15.2) L 09/25/21 09:59 Hct 34.9 % (35.5-45.6) L 09/25/21 09:59 MCV 74 fl (84-94) L 09/25/21 09:59 MCH 22 pg (28-32) L 09/25/21 09:59 MCHC 30 % (32-34) L 09/25/21 09:59 RDW 16.6 % (13.2-15.2) H 09/25/21 09:59 Plt Count 291 K/mm3 (140-440) 09/25/21 09:59 Lymph % (Auto) 21.8 % (13.4-35.0) 09/22/21 04:29 [place] % (Auto) 11.5 % (0.0-7.3) H 09/22/21 04:29 Eos % (Auto) 1.8 % (0.0-4.3) 09/22/21 04:29 Baso % (Auto) 0.9 % (0.0-1.8) 09/22/21 04:29 Lymph # (Auto) 2.3 K/mm3 (1.2-5.4) 09/22/21 04:29 [place] # (Auto) 1.2 K/mm3 (0.0-0.8) H 09/22/21 04:29 Eos # (Auto) 0.2 K/mm3 (0.0-0.4) 09/22/21 04:29 Baso # (Auto) 0.1 K/mm3 (0.0-0.1) 09/22/21 04:29 Seg Neutrophils % 64.0 % (40.0-70.0) 09/22/21 04:29 Seg Neutrophils # 6.8 K/mm3 (1.8-7.7) 09/22/21 04:29 PT 14.7 Sec. (12.2-14.9) 09/23/21 22:41 INR 1.04 (0.87-1.13) 09/23/21 22:41 APTT 34.5 Sec. (24.2-36.6) 09/23/21 22:41 D-Dimer 1088.67 ng/mlDDU (0-234) H 09/21/21 13:21 Sodium 138 mmol/L (137-145) 09/25/21 09:59 Potassium 3.6 mmol/L (3.6-5.0) 09/25/21 09:59 Chloride 96.0 mmol/L (98-107) L 09/25/21 09:59 Carbon Dioxide 32 mmol/L (22-30) H 09/25/21 09:59 Anion Gap 14 mmol/L 09/25/21 09:59 BUN 26 mg/dL (9-20) H 09/25/21 09:59 Creatinine 1.0 mg/dL (0.8-1.3) 09/25/21 09:59 Estimated GFR > 60 ml/min 09/25/21 09:59 BUN/Creatinine Ratio 26 % 09/25/21 09:59 Glucose 154 mg/dL (75-100) H 09/25/21 09:59 POC Glucose 83 mg/dL (70-105) 09/25/21 16:24 Calcium 8.6 mg/dL (8.4-10.2) 09/25/21 09:59 Total Bilirubin 0.40 mg/dL (0.1-1.2) 09/22/21 04:29 AST 22 units/L (5-40) 09/22/21 04:29 ALT 18 units/L (7-56) 09/22/21 04:29 Alkaline Phosphatase 135 units/L (35-129) H 09/22/21 04:29 Lactate Dehydrogenase 290 units/L (91-180) H 09/21/21 13:21 Troponin T < 0.010 ng/mL (0.00-0.029) 09/21/21 16:48 C-Reactive Protein 0.70 mg/dL (0.00-1.30) 09/21/21 13:21 NT-Pro-B Natriuret Pep 8323 pg/mL (0-900) H 09/21/21 10:14 Total Protein 7.2 g/dL (6.3-8.2) 09/22/21 04:29 Albumin 3.4 g/dL (3.9-5) L 09/22/21 04:29 Albumin/Globulin Ratio 0.9 % 09/22/21 04:29 Lipase 28 units/L (13-60) 09/21/21 10:14 Procalcitonin < 0.05 ng/mL (<0.15) 09/21/21 13:21 Coronavirus (PCR) Negative (Negative) 09/22/21 Unknown Smith/IV: Voiding Method Toilet Active Medications - Current Medications Current Medications: Generic Name Dose Route Start Last Admin Trade Name Freq PRN Reason Stop Dose Admin Acetaminophen 650 mg 09/21/21 12:28 Acetaminophen 325 Mg Tab PO Q4H PRN Pain MILD(1-3)/Fever >100.5/PAEZ Albuterol 2.5 mg 09/21/21 12:28 Albuterol 2.5 Mg/3 Ml Nebu IH Q4HRT PRN Shortness Of Breath Apixaban 10 mg 09/23/21 22:00 09/27/21 09:37 Apixaban 5 Mg Tab PO 09/30/21 10:01 10 mg Q12HR JAMIN Administration Protocol Apixaban 5 mg 09/30/21 22:00 Apixaban 5 Mg Tab PO Q12HR [facility] Protocol Aspirin 81 mg 09/22/21 10:00 09/27/21 09:37 Aspirin Ec 81 Mg Tab PO 81 mg QDAY [facility] Administration Atorvastatin Calcium 20 mg 09/21/21 22:00 09/26/21 23:30 Atorvastatin 20 Mg Tab PO 20 mg QHS JAMIN Administration Famotidine 20 mg 09/21/21 22:00 09/27/21 09:37 Famotidine 20 Mg Tab PO 20 mg BID JAMIN Administration Furosemide 40 mg 09/26/21 10:00 09/27/21 09:37 Furosemide 40 Mg Tab PO 40 mg QDAY [facility] Administration Guaifenesin 600 mg 09/21/21 22:00 09/27/21 09:37 Guaifenesin Er 600 Mg Tab PO 600 mg BID [facility] Administration Hydromorphone HCl 0.5 mg 09/21/21 12:28 09/21/21 21:42 Hydromorphone 1 Mg/1 Ml Inj IV 0.5 mg Q23H PRN Administration Pain , Severe (7-10) Lisinopril 10 mg 09/22/21 10:00 09/27/21 09:39 Lisinopril 10 Mg Tab PO 10 mg QDAY [facility] Administration Metoprolol Succinate 25 mg 09/22/21 10:00 09/27/21 09:38 Metoprolol Succinate Xl 25 Mg Tab PO Not Given QDAY [facility] Ondansetron HCl 4 mg 09/21/21 12:28 Ondansetron 4 Mg/2 Ml Inj IV Q8H PRN Nausea And Vomiting Oxycodone/Acetaminophen 1 tab 09/21/21 12:28 09/22/21 23:33 Oxycodone /Acetaminophen 5-325mg Tab PO 1 tab Q16H PRN Administration Pain, Moderate (4-6) Potassium Chloride 20 meq 09/21/21 22:00 09/27/21 09:37 Potassium Chloride Er 20 Meq Tab PO 20 meq BID JAMIN Administration Sodium Chloride 10 ml 09/21/21 22:00 09/27/21 09:39 Sodium Chloride 0.9% 10 Ml Flush Syringe IV 10 ml BID JAMIN Administration Sodium Chloride 10 ml 09/21/21 12:28 Sodium Chloride 0.9% 10 Ml Flush Syringe IV PRN PRN LINE FLUSH Nutrition/Malnutrition Assess - Dietary Evaluation Nutrition/Malnutrition Findings: Nutrition Notes Start: 09/24/21 11:01 Freq: Status: Active Protocol: Document 09/24/21 11:01 MAGGY (Rec: 09/24/21 11:02 MAGGY [id number]) Nutrition Notes Need for Assessment generated from: lithopress operator Initial or Follow up Brief Note Subjective/Other Information Pt screened for skin risk, however, Fred score is 22. Will assess upon further consult or LOS. Burn Absent Trauma Absent
[2021-09-28] MEDS: LISINOPRIL 10 MG TAB PO SCH (09:20)
[2021-09-28] MEDS: FUROSEMIDE 40 MG TAB PO SCH (09:20)
[2021-09-28] MEDS: guaiFENesin ER 600 MG TAB PO SCH ×2 (09:20→21:15)
[2021-09-28] MEDS: APIXABAN 5 MG TAB PO SCH ×2 (09:20→21:15)
[2021-09-28] MEDS: FAMOTIDINE 20 MG TAB PO SCH ×2 (09:20→21:16)
[2021-09-28] MEDS: METOPROLOL SUCCINATE XL 25 MG TAB PO SCH (09:21)
[2021-09-28] MEDS: POTASSIUM CHLORIDE ER 20 MEQ TAB PO SCH ×2 (09:25→21:15)
[2021-09-28] MEDS: ASPIRIN EC 81 MG TAB PO SCH (09:25)
[2021-09-29] MEDS: guaiFENesin ER 600 MG TAB PO SCH (09:29)
[2021-09-29] MEDS: POTASSIUM CHLORIDE ER 20 MEQ TAB PO SCH (09:29)
[2021-09-29] MEDS: FAMOTIDINE 20 MG TAB PO SCH (09:29)
[2021-09-29] MEDS: LISINOPRIL 10 MG TAB PO SCH (09:29)
[2021-09-29] MEDS: ASPIRIN EC 81 MG TAB PO SCH (09:29)
[2021-09-29] MEDS: METOPROLOL SUCCINATE XL 25 MG TAB PO SCH (09:30)
[2021-09-29] MEDS: APIXABAN 5 MG TAB PO SCH (09:30)
[2021-09-29] MEDS: FUROSEMIDE 40 MG TAB PO SCH (09:32)
--- NOTE | 2021-09-29 12:19 | Discharge Summary ---
Providers - Providers Date of Admission: 09/21/21 12:29 Attending physician: PAULY WELLS 09/21/21 12:27 Consult to Physician [CONS] Routine Comment: Consulting Provider: LINSEY CHURCHILL Physician Instructions: Reason For Exam: chf 09/22/21 19:42 Speech Therapy Evaluation and Treat [CONS] Routine Reason For Exam: dypsnea Primary care physician: RISK MANAGEMENT PROFESSIONAL Hospitalization Condition: Fair - Discharge Diagnoses (1) Acute hypoxemic respiratory failure Status: Acute (2) Suspected 2019 novel coronavirus infection Status: Acute (3) Pneumonia Status: Acute (4) CHF (congestive heart failure) Status: Acute Qualifiers: Heart failure type: systolic Heart failure chronicity: acute on chronic Qualified Code(s): I50.23 - Acute on chronic systolic (congestive) heart failure (5) Nicotine dependence Status: Acute Qualifiers: Nicotine product type: cigarettes Substance use status: in withdrawal Qualified Code(s): F17.213 - Nicotine dependence, cigarettes, with withdrawal (6) Malignant hypertension Status: Acute (7) Pulmonary emboli Status: Acute Qualifiers: Chronicity: acute (8) DVT prophylaxis Status: Acute (9) Advance care planning Status: Acute Exam - Constitutional Vitals: Temp Pulse Resp BP Pulse Ox 97.6 F 64 18 131/89 97 09/29/21 05:57 09/29/21 09:29 09/29/21 10:00 09/29/21 09:29 09/29/21 10:00 Plan Follow up with: PRIMARY CARE, [Primary Care Provider] - 3-5 Days Prescriptions: Aspirin [Aspirin BABY CHEW TAB] 81 mg PO QDAY #30 tab.chew Apixaban [Eliquis] 5 mg PO DAILY #75 Furosemide [Lasix TAB] 40 mg PO QDAY #30 tablet AtorvaSTATin [Lipitor] 20 mg PO QHS #30 tablet Metoprolol [Lopressor TAB] 25 mg PO DAILY #30 lisinopriL [Zestril TAB] 10 mg PO QDAY 60 Days #60 tablet Other Discharge Orders: Oxygen (Amb) Location: None Selected
--- NOTE | 2021-09-29 12:19 | Progress Note ---
Assessment and Plan - Patient Problems (1) Acute hypoxemic respiratory failure Current Visit: Yes Status: Acute Plan to address problem: resolved, nebulizer therapy, chest x-ray. DC planning in a.m on room air. (2) Suspected 2019 novel coronavirus infection Current Visit: Yes Status: Acute Plan to address problem: Coronavirus PCR negative. (3) Pneumonia Current Visit: Yes Status: Acute Plan to address problem: Pneumonia protocol: Chest x-ray, CBC, CMP, supplemental oxygen, pulse oximetry, nebulizer therapy, IV antibiotic therapy, blood culture. (4) CHF (congestive heart failure) Current Visit: Yes Status: Acute Qualifiers: Heart failure type: systolic Heart failure chronicity: acute on chronic Qualified Code(s): I50.23 - Acute on chronic systolic (congestive) heart failure Plan to address problem: Strict I/O, monitor urine output every shift, daily weight, afterload reduction, blood pressure control, echocardiogram reviewed. Cardiology team consulted. (5) Nicotine dependence Current Visit: Yes Status: Acute Qualifiers: Nicotine product type: cigarettes Substance use status: in withdrawal Qualified Code(s): F17.213 - Nicotine dependence, cigarettes, with withdrawal Plan to address problem: Smoking cessation counseling, supportive care, behavior change counseling, +15 minutes. (6) Malignant hypertension Current Visit: Yes Status: Acute Plan to address problem: Monitor blood pressure every shift, continue medical management. Diuresis, supportive care. (7) Pulmonary emboli Current Visit: Yes Status: Acute Qualifiers: Chronicity: acute Plan to address problem: Patient initiated on oral therapeutic anticoagulation. Supportive care, discharge planning in a.m. (8) DVT prophylaxis Current Visit: Yes Status: Acute Plan to address problem: SCD to bilateral lower extremities while in bed, prophylactic anticoagulation (9) Advance care planning Current Visit: Yes Status: Acute Plan to address problem: Disease education conducted, care plan discussed, diagnosis discussed, prognosis discussed, patient is full code. Patient acknowledges understanding and agr eement with care plan, +30 minutes. History Interval history: 66 YO Male HD #7 with Systolic CHF, Pneumonia, Acute Respiratory Failure, Malignant Hypertension, Pulmoary emboli on therapeutic anticoagulation. Patient convalesced well overnight with mild improvement of symptoms. No reported nursing events. Patient denies pain. Patient coronavirus PCR negative. . Patient medically optimized. Patient denies pain. D/C planning in AM on room air. Hospitalist Physical - Constitutional Vitals: Temp Pulse Resp BP Pulse Ox 97.6 F 64 18 131/89 97 09/29/21 05:57 09/29/21 09:29 09/29/21 10:00 09/29/21 09:29 09/29/21 10:00 General appearance: Present: no acute distress - EENT Eyes: Present: PERRL, EOM intact ENT: hearing intact - Neck Neck: Present: supple - Respiratory Respiratory effort: normal Respiratory: bilateral: CTA - Cardiovascular Rhythm: regular Heart Sounds: Present: S1 & S2 - Extremities Extremities: no ischemia Peripheral Pulses: within normal limits - Abdominal General gastrointestinal: soft, non-tender, non-distended - Integumentary Integumentary: Present: dry - Psychiatric Psychiatric: cooperative - Neurologic Neurologic: CNII-XII intact HEART Score - HEART Score Troponin: Troponin T < 0.010 ng/mL (0.00-0.029) 09/21/21 16:48 Results - Labs CBC & Chem 7: 09/25/21 09:59 09/25/21 09:59 Labs: Laboratory Last Values WBC 5.3 K/mm3 (4.5-11.0) 09/25/21 09:59 RBC 4.71 M/mm3 (3.65-5.03) 09/25/21 09:59 Hgb 10.6 gm/dl (11.8-15.2) L 09/25/21 09:59 Hct 34.9 % (35.5-45.6) L 09/25/21 09:59 MCV 74 fl (84-94) L 09/25/21 09:59 MCH 22 pg (28-32) L 09/25/21 09:59 MCHC 30 % (32-34) L 09/25/21 09:59 RDW 16.6 % (13.2-15.2) H 09/25/21 09:59 Plt Count 291 K/mm3 (140-440) 09/25/21 09:59 Lymph % (Auto) 21.8 % (13.4-35.0) 09/22/21 04:29 [place] % (Auto) 11.5 % (0.0-7.3) H 09/22/21 04:29 Eos % (Auto) 1.8 % (0.0-4.3) 09/22/21 04:29 Baso % (Auto) 0.9 % (0.0-1.8) 09/22/21 04:29 Lymph # (Auto) 2.3 K/mm3 (1.2-5.4) 09/22/21 04:29 [place] # (Auto) 1.2 K/mm3 (0.0-0.8) H 09/22/21 04:29 Eos # (Auto) 0.2 K/mm3 (0.0-0.4) 09/22/21 04:29 Baso # (Auto) 0.1 K/mm3 (0.0-0.1) 09/22/21 04:29 Seg Neutrophils % 64.0 % (40.0-70.0) 09/22/21 04:29 Seg Neutrophils # 6.8 K/mm3 (1.8-7.7) 09/22/21 04:29 PT 14.7 Sec. (12.2-14.9) 09/23/21 22:41 INR 1.04 (0.87-1.13) 09/23/21 22:41 APTT 34.5 Sec. (24.2-36.6) 09/23/21 22:41 D-Dimer 1088.67 ng/mlDDU (0-234) H 09/21/21 13:21 Sodium 138 mmol/L (137-145) 09/25/21 09:59 Potassium 3.6 mmol/L (3.6-5.0) 09/25/21 09:59 Chloride 96.0 mmol/L (98-107) L 09/25/21 09:59 Carbon Dioxide 32 mmol/L (22-30) H 09/25/21 09:59 Anion Gap 14 mmol/L 09/25/21 09:59 BUN 26 mg/dL (9-20) H 09/25/21 09:59 Creatinine 1.0 mg/dL (0.8-1.3) 09/25/21 09:59 Estimated GFR > 60 ml/min 09/25/21 09:59 BUN/Creatinine Ratio 26 % 09/25/21 09:59 Glucose 154 mg/dL (75-100) H 09/25/21 09:59 POC Glucose 83 mg/dL (70-105) 09/25/21 16:24 Calcium 8.6 mg/dL (8.4-10.2) 09/25/21 09:59 Total Bilirubin 0.40 mg/dL (0.1-1.2) 09/22/21 04:29 AST 22 units/L (5-40) 09/22/21 04:29 ALT 18 units/L (7-56) 09/22/21 04:29 Alkaline Phosphatase 135 units/L (35-129) H 09/22/21 04:29 Lactate Dehydrogenase 290 units/L (91-180) H 09/21/21 13:21 Troponin T < 0.010 ng/mL (0.00-0.029) 09/21/21 16:48 C-Reactive Protein 0.70 mg/dL (0.00-1.30) 09/21/21 13:21 NT-Pro-B Natriuret Pep 8323 pg/mL (0-900) H 09/21/21 10:14 Total Protein 7.2 g/dL (6.3-8.2) 09/22/21 04:29 Albumin 3.4 g/dL (3.9-5) L 09/22/21 04:29 Albumin/Globulin Ratio 0.9 % 09/22/21 04:29 Lipase 28 units/L (13-60) 09/21/21 10:14 Procalcitonin < 0.05 ng/mL (<0.15) 09/21/21 13:21 Coronavirus (PCR) Negative (Negative) 09/22/21 Unknown Smith/IV: Voiding Method Toilet Active Medications - Current Medications Current Medications: Generic Name Dose Route Start Last Admin Trade Name Freq PRN Reason Stop Dose Admin Acetaminophen 650 mg 09/21/21 12:28 Acetaminophen 325 Mg Tab PO Q4H PRN Pain MILD(1-3)/Fever >100.5/PAEZ Albuterol 2.5 mg 09/21/21 12:28 Albuterol 2.5 Mg/3 Ml Nebu IH Q4HRT PRN Shortness Of Breath Apixaban 10 mg 09/23/21 22:00 09/29/21 09:30 Apixaban 5 Mg Tab PO 09/30/21 10:01 10 mg Q12HR JAMIN Administration Protocol Apixaban 5 mg 09/30/21 22:00 Apixaban 5 Mg Tab PO Q12HR [facility] Protocol Aspirin 81 mg 09/22/21 10:00 09/29/21 09:29 Aspirin Ec 81 Mg Tab PO 81 mg QDAY JAMIN Administration Atorvastatin Calcium 20 mg 09/21/21 22:00 09/28/21 21:16 Atorvastatin 20 Mg Tab PO 20 mg QHS JAMIN Administration Famotidine 20 mg 09/21/21 22:00 09/29/21 09:29 Famotidine 20 Mg Tab PO 20 mg BID JAMIN Administration Furosemide 40 mg 09/26/21 10:00 09/29/21 09:32 Furosemide 40 Mg Tab PO 40 mg QDAY [facility] Administration Guaifenesin 600 mg 09/21/21 22:00 09/29/21 09:29 Guaifenesin Er 600 Mg Tab PO 600 mg BID JAMIN Administration Hydromorphone HCl 0.5 mg 09/21/21 12:28 09/21/21 21:42 Hydromorphone 1 Mg/1 Ml Inj IV 0.5 mg Q23H PRN Administration Pain , Severe (7-10) Lisinopril 10 mg 09/22/21 10:00 09/29/21 09:29 Lisinopril 10 Mg Tab PO 10 mg QDAY [facility] Administration Metoprolol Succinate 25 mg 09/22/21 10:00 09/29/21 09:30 Metoprolol Succinate Xl 25 Mg Tab PO 25 mg QDAY [facility] Administration Ondansetron HCl 4 mg 09/21/21 12:28 Ondansetron 4 Mg/2 Ml Inj IV Q8H PRN Nausea And Vomiting Oxycodone/Acetaminophen 1 tab 09/21/21 12:28 09/22/21 23:33 Oxycodone /Acetaminophen 5-325mg Tab PO 1 tab Q16H PRN Administration Pain, Moderate (4-6) Potassium Chloride 20 meq 09/21/21 22:00 09/29/21 09:29 Potassium Chloride Er 20 Meq Tab PO 20 meq BID JAMIN Administration Sodium Chloride 10 ml 09/21/21 22:00 09/29/21 09:31 Sodium Chloride 0.9% 10 Ml Flush Syringe IV 10 ml BID JAMIN Administration Sodium Chloride 10 ml 09/21/21 12:28 Sodium Chloride 0.9% 10 Ml Flush Syringe IV PRN PRN LINE FLUSH Nutrition/Malnutrition Assess - Dietary Evaluation Nutrition/Malnutrition Findings: Nutrition Notes Start: 09/24/21 11:01 Freq: Status: Active Protocol: Document 09/28/21 11:26 YAO (Rec: 09/28/21 11:42 YAO [id number]) Nutrition Notes Need for Assessment generated from: LOS Initial or Follow up Assessment Current Diagnosis Hypertension,Respiratory Failure Other Pertinent Diagnosis Pneumonia, Pulmonary embolism, CHF Current Diet Pureed Diet (since L 09/25). Labs/Tests 09/25: Cl 96.0, CO2 32, BUN 26 , Glu 154. Pertinent Medications 09/28: KCl 20 mEq BID, others nutritionally unremarkable. Height 5 ft 6 in Weight 64.5 kg [place] Body Weight (kg) 64.54 BMI 22.9 Intake Prior to Admission Good Weight change and time frame Pt states not having loss body weight recently. Weight Status Appropriate Subjective/Other Information RD consult for LOS assessment. Pt's PO intake of meals has been Good (100%), according to ADL notes. Pt shows no signs of concern for skin risk at the time, according to Physical Assessment History notes. Pt has missing teeth, issue addresses with prescribed diet . Pt has been tested for COVID- 19 (PCR negative). Pt is being prepared for discharge with supplemental O2 . Percent of energy/protein needs met: Prescribed Pureed Diet provides for energy/protein needs (1,804 Kcal/77 g) during LOS. Burn Absent Trauma Absent GI Symptoms None Difficulty In Chewing Food Allergy No Skin Integrity/Comment Clear, warm, dry. Current % PO Good (75-100%) Minimum of two criteria No Is patient on ventilator? No Is Patient Ambulatory and/or Out of Bed Yes REE-([facility]-ambulatory/OOB) [ 1778.075 [id number]] Calculation Used for Recommendations [facility] Additional Notes Protein: 1-1.2 g/Kg; 65-78 g/ day. Fluids: 1 ml/Kcal, or as per MD. Nutrition Intervention Revisit per MD consult or patient Sign Off request: Additional Comments Continue monitoring food tolerance, %PO intake of meals , and BM.
[2021-09-29 13:05] VITALS: BP 132/83
[2021-09-30] MEDS ORDERED: APIXABAN 5 MG TAB PO SCH (22:00)
== END 2021-09-29 15:02 | disposition home or self-care (01) | DRG 175 ==
LOC: ED 09:06 → 3A 12:29 → UNDODISIN 09-24 19:20
PROVIDERS: ADMIT Internal Medicine; ATTEND Internal Medicine
DX: I26.99 Other pulmonary embolism without acute cor pulmonale (principal); J18.9 Pneumonia, unspecified organism; J96.01 Acute respiratory failure with hypoxia; I50.23 Acute on chronic systolic (congestive) heart failure; J44.0 Chronic obstructive pulmonary disease with (acute) lower respiratory infection; F17.213 Nicotine dependence, cigarettes, with withdrawal; I42.8 Other cardiomyopathies; Z20.822 Contact with and (suspected) exposure to COVID-19; Z91.19 Patient's noncompliance with other medical treatment and regimen; I11.0 Hypertensive heart disease with heart failure; Z79.82 Long term (current) use of aspirin; Z79.899 Other long term (current) drug therapy; Z86.73 Personal history of transient ischemic attack (TIA), and cerebral infarction without residual deficits; I16.0 Hypertensive urgency; I35.0 Nonrheumatic aortic (valve) stenosis
CPT/HCPCS: 36415; 71045; 71275; 80048; 80053; 82270; 82565; 82962; 83615; 83690; 83880; 84145; 84484; 85025; 85027; 85379; 85610; 85730; 86140; 93005; 93306; 94640; 94760; G0378; J3490; Q0162; J0456; J0696; J1170; J1940; J7030; Q9967; U0003

== ENCOUNTER 2022-05-17 08:12 | Inpatient (IN) | payer SELFPAY ==
[2022-05-17] MEDS ORDERED: methylPREDNISolone Sod Succinate 125 MG/2 ML INJ IV ONE (08:50)
[2022-05-17] MEDS ORDERED: ALBUTEROL 2.5 MG/3 ML NEBU IH ONE (08:50)
--- NOTE | 2022-05-17 08:53 | Emergency Department Report ---
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 He also complains of pain on the left side of his abdomen for the past 3 days. He denies any nausea or vomiting. No fever or chills. Severity scale (0 -10): 5 - Related Data Previous Rx's Medication Instructions Recorded Last Taken Type Dextran 70/Hypromellose 1 each OD TID #15 ml 11/10/16 Unknown Rx [Artificial Tears] Azithromycin [Zithromax TAB] 500 mg PO QDAY #2 tablet 08/22/20 Unknown Rx Budesonide [Pulmicort Respules] 0.5 mg IH Q12HRT #60 nebu 08/22/20 Unknown Rx guaiFENesin ER [Mucinex ER] 600 mg PO BID #30 tablet 08/22/20 Unknown Rx predniSONE 30 mg PO QDAY #5 tablet 08/22/20 Unknown Rx Aspirin EC [Halfprin EC] 81 mg PO QDAY #100 tablet 01/17/21 Unknown Rx Famotidine [Pepcid] 20 mg PO BID #60 tablet 01/17/21 Unknown Rx Furosemide [Lasix TAB] 40 mg PO BID #60 tablet 01/17/21 Unknown Rx Ipratropium/Albuterol Sulfate 1 ampul IH TIDRT #50 ampul.neb 01/17/21 Unknown Rx [DUONEB *Not for PRN Use*] Metoprolol Xl [Metoprolol 25 mg PO QDAY #30 tablet 01/17/21 Unknown Rx SUCCINATE ER TAB] Nebulizer and Compressor [[place] 1 each MC BID #1 each 01/17/21 Unknown Rx Choice Nebulizer] Potassium Chloride [K-Dur] 20 meq PO BID #60 tablet 01/17/21 Unknown Rx Prednisone [predniSONE 10 mg 10 mg PO .TAPER #1 tab.ds.pk 01/17/21 Unknown Rx (6-Day Pack, 21 Tabs)] Apixaban [Eliquis] 5 mg PO DAILY #75 09/24/21 Unknown Rx Aspirin [Aspirin BABY CHEW TAB] 81 mg PO QDAY #30 tab.chew 09/26/21 Unknown Rx AtorvaSTATin [Lipitor] 20 mg PO QHS #30 tablet 09/26/21 Unknown Rx Furosemide [Lasix TAB] 40 mg PO QDAY #30 tablet 09/26/21 Unknown Rx Metoprolol [Lopressor TAB] 25 mg PO DAILY #30 09/26/21 Unknown Rx lisinopriL [Zestril TAB] 10 mg PO QDAY 60 Days #60 tablet 09/26/21 Unknown Rx Allergies Allergy/AdvReac Type Severity Reaction Status Date / Time No Known Allergies Allergy Unverified 05/17/22 08:30 Heart Score - HEART Score History: Slightly suspicious EKG: Non-specific Age: > 65 Risk factors: 1-2 risk factors Troponin: < normal limit HEART Score: 4 - EKG Read Time Time EKG Completed: 08:56 EKG Read Time: 09:03 - Critical Actions Critical Actions: 4-6 pts:12-16.6% risk of adverse cardiac event. Should be admitted ED Review of Systems ROS: Stated complaint: CHEST PAIN Other details as noted in HPI Constitutional: denies: chills, fever Respiratory: cough Cardiovascular: chest pain Gastrointestinal: denies: abdominal pain, nausea, diarrhea Genitourinary: denies: urgency, dysuria Musculoskeletal: denies: back pain, joint swelling, arthralgia Skin: denies: rash, lesions Neurological: denies: headache, weakness, paresthesias Psychiatric: denies: anxiety, depression ED Past Medical Hx - Past Medical History Hx Hypertension: Yes Hx CVA: Yes (Hemorrhagic CVA, left thalamic bleed 2017) Hx Congestive Heart Failure: Yes (EF 30-35%) Hx Diabetes: No Hx Asthma: No Hx COPD: No Hx Tuberculosis: No Hx HIV: No - Surgical History Additional Surgical History: unknown - Social History Smoking Status: Never Smoker - Medications Home Medications: Home Medications Medication Instructions Recorded Confirmed Last Taken Type Dextran 70/Hypromellose 1 each OD TID #15 ml 11/10/16 09/22/21 Unknown Rx [Artificial Tears] Azithromycin [Zithromax TAB] 500 mg PO QDAY #2 tablet 08/22/20 09/22/21 Unknown Rx Budesonide [Pulmicort Respules] 0.5 mg IH Q12HRT #60 nebu 08/22/20 09/22/21 Unknown Rx guaiFENesin ER [Mucinex ER] 600 mg PO BID #30 tablet 08/22/20 09/22/21 Unknown Rx predniSONE 30 mg PO QDAY #5 tablet 08/22/20 09/22/21 Unknown Rx Aspirin EC [Halfprin EC] 81 mg PO QDAY #100 tablet 01/17/21 09/22/21 Unknown Rx Famotidine [Pepcid] 20 mg PO BID #60 tablet 01/17/21 09/22/21 Unknown Rx Furosemide [Lasix TAB] 40 mg PO BID #60 tablet 01/17/21 09/22/21 Unknown Rx Ipratropium/Albuterol Sulfate 1 ampul IH TIDRT #50 ampul.neb 01/17/21 09/22/21 Unknown Rx [DUONEB *Not for PRN Use*] Metoprolol Xl [Metoprolol 25 mg PO QDAY #30 tablet 01/17/21 09/22/21 Unknown Rx SUCCINATE ER TAB] Nebulizer and Compressor [[place] 1 each MC BID #1 each 01/17/21 09/22/21 Unknown Rx Choice Nebulizer] Potassium Chloride [K-Dur] 20 meq PO BID #60 tablet 01/17/21 09/22/21 Unknown Rx Prednisone [predniSONE 10 mg 10 mg PO .TAPER #1 tab.ds.pk 01/17/21 09/22/21 Unknown Rx (6-Day Pack, 21 Tabs)] Apixaban [Eliquis] 5 mg PO DAILY #75 09/24/21 Unknown Rx Aspirin [Aspirin BABY CHEW TAB] 81 mg PO QDAY #30 tab.chew 09/26/21 Unknown Rx AtorvaSTATin [Lipitor] 20 mg PO QHS #30 tablet 09/26/21 Unknown Rx Furosemide [Lasix TAB] 40 mg PO QDAY #30 tablet 09/26/21 Unknown Rx Metoprolol [Lopressor TAB] 25 mg PO DAILY #30 09/26/21 Unknown Rx lisinopriL [Zestril TAB] 10 mg PO QDAY 60 Days #60 tablet 09/26/21 Unknown Rx ED Physical Exam - General Limitations: No Limitations General appearance: alert, in no apparent distress - Head Head exam: Present: atraumatic, normocephalic - Respiratory Respiratory exam: Present: decreased breath sounds. Absent: respiratory distress - Cardiovascular Cardiovascular Exam: Present: regular rate, normal rhythm, normal heart sounds - GI/Abdominal GI/Abdominal exam: Present: soft, tenderness (Mild tenderness in left upper and lower quadrant). Absent: distended - Rectal Rectal exam: Present: deferred - Neurological Exam Neurological exam: Present: alert, oriented X3 - Psychiatric Psychiatric exam: Present: normal affect, normal mood - Skin Skin exam: Present: warm, dry, intact, normal color ED Course Vital Signs 05/17/22 05/17/22 05/17/22 08:13 08:51 09:18 Temperature 98.1 F Pulse Rate 89 88 Pulse Rate [ 91 H Anterior] Pulse Rate [ 89 Posterior] Respiratory 18 24 Rate Respiratory 34 H Rate [Anterior] Respiratory 32 H Rate [Posterior ] Blood Pressure 138/94 143/103 [Left] O2 Sat by Pulse 99 98 Oximetry LEX score - Lex Score Age > 65: (0) No Aspirin use within the Past 7 Days: (0) No 3 or more CAD Risk Factors: (1) Yes 2 or more Angina events in past 24 hrs: (1) Yes Known CAD with more than 50% Stenosis: (0) No Elevated Cardiac Markers: (0) No ST Deviation Greater than 0.5mm: (0) No LEX Score: 2 ED Medical Decision Making - Lab Data Result diagrams: 05/17/22 08:41 05/17/22 08:41 - Medical Decision Making X-ray shows bilateral pleural effusions and likely pulmonary edema. CBC and CMP grossly unremarkable. Patient given IV Lasix along with albuterol neb. Will admit for likely CHF exacerbation Critical care attestation.: If time is entered above; I have spent that time in minutes in the direct care of this critically ill patient, excluding procedure time. ED Disposition Clinical Impression: Acute exacerbation of CHF (congestive heart failure) Disposition: ADMITTED INPATIENT Is pt being admited?: Yes Condition: Stable
[2022-05-17 08:54] LABS: Basophils # (Auto) 0.1 K/mm3 (0.0-0.1); Eosinophils # (Auto) 0.1 K/mm3 (0.0-0.4); Eosinophils % (Auto) 1.1 % (0.0-4.3); Hematocrit 36.7 % (35.5-45.6); Hemoglobin 12.3 gm/dl (11.8-15.2); Lymphocytes % (Auto) 13.6 % (13.4-35.0); Mean Corpuscular HGB Conc 34 % (32-34); Mean Corpuscular Volume 87 fl (84-94); Monocytes # (Auto) 0.6 K/mm3 (0.0-0.8); Monocytes % (Auto) 8.9 % (0.0-7.3); Platelet Count 222 K/mm3 (140-440); Red Blood Count 4.22 M/mm3 (3.65-5.03); Red Cell Distribution Width 14.5 % (13.2-15.2)
[2022-05-17 09:20] LABS: Alanine Aminotransferase 15 units/L (7-56); Albumin 3.5 g/dL (3.9-5); BUN/Creatinine Ratio 20; Blood Urea Nitrogen 20 mg/dL (9-20); Calcium 8.5 mg/dL (8.4-10.2); Hemolysis Index 3
--- NOTE | 2022-05-17 09:28 | XRay Report ---
CHEST 1 VIEW 05/17/2022 8:21 AM INDICATION / CLINICAL INFORMATION: Chest Pain. COMPARISON: 09/21/2021 FINDINGS: SUPPORT DEVICES: None. HEART / MEDIASTINUM: Cardiomegaly. LUNGS / PLEURA: Increased opacities within the right greater than left lung. There are small bilatera l pleural effusions. No pneumothorax. ADDITIONAL FINDINGS: No significant additional findings. IMPRESSION: 1. Increased opacities in the right greater than left lung. These may represent infectious process ve rsus pulmonary edema versus loculated pleural effusion. There are bilateral pleural effusions. Signer Name: Jorge Luis Wang DO Signed: 05/17/2022 9:24 AM Workstation Name: [email or web address]
[2022-05-17] MEDS ORDERED: FUROSEMIDE 40 MG/4 ML INJ IV ONE (11:02)
--- NOTE | 2022-05-17 12:32 | History and Physical Report ---
History of Present Illness Date of examination: 05/17/22 Date of admission: 05/17/2022 Chief complaint: Chest pain and shortness of breath for 8 days History of present illness: 36-year-old Bulgarian-speaking male history of congestive heart failure and previous CVA and hypertension comes in for increasing shortness of breath and chest pain for the past 3 days. Chest pain is intermittent. Reports 6 on a scale of 1-10. Shortness of breath on minimal exertion. Orthopnea present. No fever or chills. Patient states that he has ejection fraction of 30 to 35%. Exertion is an exacerbating factor and rest is relieving factor. No fever or chills. - Past Medical History --Hypertension: Yes --CVA: Yes (Hemorrhagic CVA, left thalamic bleed 2017) --Congestive Heart Failure: Yes (EF 30-35%) - Surgical History --Additional Surgical History: unknown - Social History --Smoking Status: Never Smoker --Family history --Htn Review of Systems ROS: Stated complaint: CHEST PAIN Other details as noted in HPI Constitutional: denies: chills, fever Respiratory: cough Cardiovascular: chest pain Gastrointestinal: denies: abdominal pain, nausea, diarrhea Genitourinary: denies: urgency, dysuria Musculoskeletal: denies: back pain, joint swelling, arthralgia Skin: denies: rash, lesions Neurological: denies: headache, weakness, paresthesias Psychiatric: denies: anxiety, depression Medications and Allergies Allergies Allergy/AdvReac Type Severity Reaction Status Date / Time No Known Allergies Allergy Unverified 05/17/22 08:30 Home Medications Medication Instructions Recorded Confirmed Last Taken Type Dextran 70/Hypromellose 1 each OD TID #15 ml 11/10/16 05/17/22 Unknown Rx [Artificial Tears] Budesonide [Pulmicort Respules] 0.5 mg IH Q12HRT #60 nebu 08/22/20 05/17/22 Unknown Rx guaiFENesin ER [Mucinex ER] 600 mg PO BID #30 tablet 08/22/20 05/17/22 Unknown Rx predniSONE 30 mg PO QDAY #5 tablet 08/22/20 05/17/22 Unknown Rx Famotidine [Pepcid] 20 mg PO BID #60 tablet 01/17/21 05/17/22 Unknown Rx Ipratropium/Albuterol Sulfate 1 ampul IH TIDRT #50 ampul.neb 01/17/21 05/17/22 Unknown Rx [DUONEB *Not for PRN Use*] Nebulizer and Compressor [[place] 1 each MC BID #1 each 01/17/21 05/17/22 Unknown Rx Choice Nebulizer] Potassium Chloride [K-Dur] 20 meq PO BID #60 tablet 01/17/21 05/17/22 Unknown Rx Aspirin [Aspirin BABY CHEW TAB] 81 mg PO QDAY #30 tab.chew 09/26/21 05/17/22 Unk nown Rx AtorvaSTATin [Lipitor] 20 mg PO QHS #30 tablet 09/26/21 05/17/22 Unknown Rx Furosemide [Lasix TAB] 40 mg PO QDAY #30 tablet 09/26/21 05/17/22 Unknown Rx Metoprolol [Lopressor TAB] 25 mg PO DAILY #30 09/26/21 05/17/22 Unknown Rx lisinopriL [Zestril TAB] 10 mg PO QDAY 60 Days #60 tablet 09/26/21 05/17/22 Unknown Rx Exam - Constitutional Vitals: Temp Pulse Resp BP Pulse Ox 98.1 F 91 H 34 H 143/103 98 05/17/22 08:13 05/17/22 09:18 05/17/22 09:18 05/17/22 08:51 05/17/22 08:51 General appearance: Present: mild distress, well-nourished - EENT Eyes: Present: PERRL ENT: hearing intact, clear oral mucosa - Neck Neck: Present: supple, normal ROM - Respiratory Respiratory effort: normal Respiratory: bilateral: CTA, rales (Scattered) - Cardiovascular Heart rate: 73 Rhythm: regular Heart Sounds: Present: S1 & S2. Absent: rub, click - Extremities Extremities: pulses symmetrical, No edema Peripheral Pulses: within normal limits - Abdominal General gastrointestinal: Present: soft, non-tender, non-distended, normal bowel sounds Male genitourinary: Present: normal - Integumentary Integumentary: Present: clear, warm, dry - Musculoskeletal Musculoskeletal: gait normal, strength equal bilaterally - Psychiatric Psychiatric: appropriate mood/affect, intact judgment & insight - Neurologic Neurologic: CNII-XII intact, moves all extremities HEART Score - HEART Score EKG: Non-specific Age: > 65 Risk factors: 1-2 risk factors Troponin: Troponin T < 0.010 ng/mL (0.00-0.029) 05/17/22 08:41 Troponin: < normal limit - Critical Actions Critical Actions: 4-6 pts:12-16.6% risk of adverse cardiac event. Should be admitted Results - Labs CBC & Chem 7: 05/18/22 05:25 05/18/22 05:25 Labs: Laboratory Last Values WBC 7.2 K/mm3 (4.5-11.0) 05/17/22 08:41 RBC 4.22 M/mm3 (3.65-5.03) 05/17/22 08:41 Hgb 12.3 gm/dl (11.8-15.2) 05/17/22 08:41 Hct 36.7 % (35.5-45.6) 05/17/22 08:41 MCV 87 fl (84-94) 05/17/22 08:41 MCH 29 pg (28-32) 05/17/22 08:41 MCHC 34 % (32-34) 05/17/22 08:41 RDW 14.5 % (13.2-15.2) 05/17/22 08:41 Plt Count 222 K/mm3 (140-440) 05/17/22 08:41 Lymph % (Auto) 13.6 % (13.4-35.0) 05/17/22 08:41 [place] % (Auto) 8.9 % (0.0-7.3) H 05/17/22 08:41 Eos % (Auto) 1.1 % (0.0-4.3) 05/17/22 08:41 Baso % (Auto) 1.0 % (0.0-1.8) 05/17/22 08:41 Lymph # (Auto) 1.0 K/mm3 (1.2-5.4) L 05/17/22 08:41 [place] # (Auto) 0.6 K/mm3 (0.0-0.8) 05/17/22 08:41 Eos # (Auto) 0.1 K/mm3 (0.0-0.4) 05/17/22 08:41 Baso # (Auto) 0.1 K/mm3 (0.0-0.1) 05/17/22 08:41 Seg Neutrophils % 75.4 % (40.0-70.0) H 05/17/22 08:41 Seg Neutrophils # 5.5 K/mm3 (1.8-7.7) 05/17/22 08:41 Sodium 137 mmol/L (137-145) 05/17/22 08:41 Potassium 4.0 mmol/L (3.6-5.0) 05/17/22 08:41 Chloride 101.8 mmol/L (98-107) 05/17/22 08:41 Carbon Dioxide 29 mmol/L (22-30) 05/17/22 08:41 Anion Gap 10 mmol/L 05/17/22 08:41 BUN 20 mg/dL (9-20) 05/17/22 08:41 Creatinine 1.0 mg/dL (0.8-1.3) 05/17/22 08:41 Estimated GFR > 60 ml/min 05/17/22 08:41 BUN/Creatinine Ratio 20 % 05/17/22 08:41 Glucose 119 mg/dL (75-100) H 05/17/22 08:41 Calcium 8.5 mg/dL (8.4-10.2) 05/17/22 08:41 Total Bilirubin 0.90 mg/dL (0.1-1.2) 05/17/22 08:41 AST 20 units/L (5-40) 05/17/22 08:41 ALT 15 units/L (7-56) 05/17/22 08:41 Alkaline Phosphatase 94 units/L (35-129) 05/17/22 08:41 Troponin T < 0.010 ng/mL (0.00-0.029) 05/17/22 08:41 Total Protein 6.4 g/dL (6.3-8.2) 05/17/22 08:41 Albumin 3.5 g/dL (3.9-5) L 05/17/22 08:41 Albumin/Globulin Ratio 1.2 % 05/17/22 08:41 Lipase 22 units/L (13-60) 05/17/22 09:20 Short CBC 05/17/22 05/18/22 Range/Units 08:41 05:25 WBC 7.2 9.6 (4.5-11.0) K/mm3 Hgb 12.3 12.9 (11.8-15.2) gm/dl Hct 36.7 38.6 (35.5-45.6) % Plt Count 222 222 (140-440) K/mm3 BMP 05/17/22 05/18/22 08:41 05:25 Sodium 137 141 Potassium 4.0 4.4 Chloride 101.8 104.1 Carbon Dioxide 29 25 BUN 20 31 H Creatinine 1.0 1.0 Glucose 119 H 108 H Calcium 8.5 8.7 Cardiac Enzymes 05/17/22 05/17/22 Range/Units 08:41 13:21 Troponin T < 0.010 < 0.010 (0.00-0.029) ng/mL Liver Function 05/17/22 05/18/22 Range/Units 08:41 05:25 Total Bilirubin 0.90 0.70 (0.1-1.2) mg/dL AST 20 17 (5-40) units/L ALT 15 13 (7-56) units/L Alkaline Phosphatase 94 107 (35-129) units/L Albumin 3.5 L 3.7 L (3.9-5) g/dL - Imaging and Cardiology EKG: report reviewed (Sinus rhythm no acute ST-T wave changes) Chest x-ray: report reviewed Imaging and Cardiology: Chest x-ray Increased opacities in the right greater than left lung. There may be representing infectious process versus pulmonary edema versus loculated pleural effusion. There are bilateral pleural effusions Assessment and Plan Advance Directives: Yes (Full code) VTE prophylaxis?: Chemical Plan of care discussed with patient/family: Yes - Patient Problems (1) Acute hypoxemic respiratory failure Current Visit: No Status: Acute Plan to address problem: Patient was hypoxic in the emergency room Oxygen supplementation as necessary (2) Acute coronary syndrome Current Visit: Yes Status: Acute Plan to address problem: Serial troponins and Lexiscan if possible (3) Acute HFrEF (heart failure with reduced ejection fraction) Current Visit: No Status: Acute Plan to address problem: Echocardiogram for ejection fraction IV Lasix and will maintain Cardiology consult requested (4) Hypertension Current Visit: Yes Status: Chronic Qualifiers: Hypertension type: primary hypertension Qualified Code(s): I10 - Essential (primary) hypertension Plan to address problem: Continue antihypertensives and adjust medications as necessary (5) Hyperlipidemia Current Visit: Yes Status: Chronic Qualifiers: Hyperlipidemia type: mixed hyperlipidemia Qualified Code(s): E78.2 - Mixed hyperlipidemia Plan to address problem: Continue statins (6) DVT prophylaxis Current Visit: Yes Status: Acute Plan to address problem: On anticoagulation GI prophylaxis (7) Advance care planning Current Visit: Yes Status: Acute Plan to address problem: Disease education conducted, care plan discussed, diagnosis and prognosis discussed. Patient is full code.
[2022-05-17] MEDS ORDERED: SPIRONOLACTONE 25 MG TAB PO NR (12:37)
[2022-05-17] MEDS ORDERED: ACETAMINOPHEN 325 MG TAB PO PRN (13:00)
[2022-05-17] MEDS ORDERED: ONDANSETRON 4 MG/2 ML INJ IV PRN (13:00)
[2022-05-17] MEDS: HEPARIN 5,000 UNIT/1 ML VIAL SUB-Q SCH ×2 (14:20→22:40)
[2022-05-17] MEDS: FUROSEMIDE 40 MG/4 ML INJ IV SCH (18:27)
[2022-05-17] MEDS ORDERED: DEXTROSE 50% IN WATER (25GM) 50 ML SYRINGE IV PRN (18:28)
[2022-05-17] MEDS: INSULIN LISPRO 100 UNIT/ML SUB-Q SCH (23:05)
[2022-05-17] MEDS: MORPHINE 2 MG/1 ML INJ IV PRN (23:16)
[2022-05-18 06:09] LABS: Basophils % (Auto) 0.3 % (0.0-1.8); Hematocrit 38.6 % (35.5-45.6); Hemoglobin 12.9 gm/dl (11.8-15.2); Lymphocytes # (Auto) 0.9 K/mm3 (1.2-5.4); Lymphocytes % (Auto) 9.7 % (13.4-35.0); Mean Corpuscular HGB Conc 33 % (32-34); Mean Corpuscular Volume 87 fl (84-94); Monocytes # (Auto) 0.9 K/mm3 (0.0-0.8); Monocytes % (Auto) 9.5 % (0.0-7.3); Platelet Count 222 K/mm3 (140-440); Red Blood Count 4.46 M/mm3 (3.65-5.03); Red Cell Distribution Width 14.5 % (13.2-15.2)
[2022-05-18 06:22] LABS: Alanine Aminotransferase 13 units/L (7-56); Albumin 3.7 g/dL (3.9-5); BUN/Creatinine Ratio 31; Blood Urea Nitrogen 31 mg/dL (9-20); Calcium 8.7 mg/dL (8.4-10.2); Hemolysis Index 6
[2022-05-18] MEDS: FUROSEMIDE 40 MG/4 ML INJ IV SCH ×2 (06:26→17:49)
--- NOTE | 2022-05-18 09:18 | Progress Note ---
Assessment and Plan Assessment and plan: CXR:Increased opacities in the right greater than left lung. There may be representing infectious process versus pulmonary edema versus loculated pleural effusion. There are bilateral pleural effusions Assessment and Plan Advance Directives: Yes (Full code) VTE prophylaxis?: Chemical Plan of care discussed with patient/family: Yes - Patient Problems (1) Acute hypoxemic respiratory failure Patient was hypoxic in the emergency room Oxygen supplementation as necessary (2) Acute coronary syndrome Serial troponins and Lexiscan if possible Cardiology following (3) Acute HFrEF (heart failure with reduced ejection fraction) Echo; September 2021 EF 30 to 35% Continue antifailure medications Input output monitoring Daily weights, fluid restriction Low-sodium diet Cardiology evaluation noted and appreciated (4) Hypertension Continue current antihypertensives and As needed medications (5) Hyperlipidemia Continue statins, low-cholesterol diet (6) DVT prophylaxis On anticoagulation GI prophylaxis (7) Advance care planning +35 minutes Disease education conducted, care plan discussed, diagnosis and prognosis discussed. Patient is full code. Patient does not reports discussed, consultants recommendations reviewed with patient, he had some questions Answered all of them, patient verbalized understanding and agreed with the treatment plan We will closely monitor the patient and adjust management as needed Plan of care reviewed with patient and his nurse I discussed confidential investigator Dr. Pena. History Interval history: I have seen and examined the patient at the bedside Patient's chart and medications reviewed Patient was admitted with worsening shortness of breath And intermittent chest pain Patient feels slightly better still has some shortness of breath Vital signs reviewed Hospitalist Physical - Constitutional Vitals: Temp Pulse Resp BP Pulse Ox 98.4 F 73 18 137/94 96 05/18/22 07:22 05/18/22 07:22 05/18/22 07:22 05/18/22 07:22 05/18/22 07:22 General appearance: Present: mild distress, well-nourished, other (Mild shortness of breath) - EENT Eyes: Present: PERRL, EOM intact - Neck Neck: Present: supple, normal ROM - Respiratory Respiratory effort: normal Respiratory: bilateral: diminished, rales, negative: rhonchi, wheezing - Cardiovascular Rhythm: regular Heart Sounds: Present: S1 & S2 - Extremities Extremities: no ischemia, No edema - Abdominal General gastrointestinal: soft, non-tender, non-distended, normal bowel sounds - Integumentary Integumentary: Present: clear, warm - Psychiatric Psychiatric: appropriate mood/affect, cooperative - Neurologic Neurologic: moves all extremities HEART Score - HEART Score EKG: Non-specific Age: > 65 Risk factors: 1-2 risk factors Troponin: Troponin T < 0.010 ng/mL (0.00-0.029) 05/17/22 13:21 Troponin: < normal limit - Critical Actions Critical Actions: 4-6 pts:12-16.6% risk of adverse cardiac event. Should be admitted Results - Labs CBC & Chem 7: 05/18/22 05:25 05/18/22 05:25 Labs: Laboratory Last Values WBC 9.6 K/mm3 (4.5-11.0) 05/18/22 05:25 RBC 4.46 M/mm3 (3.65-5.03) 05/18/22 05:25 Hgb 12.9 gm/dl (11.8-15.2) 05/18/22 05:25 Hct 38.6 % (35.5-45.6) 05/18/22 05:25 MCV 87 fl (84-94) 05/18/22 05:25 MCH 29 pg (28-32) 05/18/22 05:25 MCHC 33 % (32-34) 05/18/22 05:25 RDW 14.5 % (13.2-15.2) 05/18/22 05:25 Plt Count 222 K/mm3 (140-440) 05/18/22 05:25 Lymph % (Auto) 9.7 % (13.4-35.0) L 05/18/22 05:25 [place] % (Auto) 9.5 % (0.0-7.3) H 05/18/22 05:25 Eos % (Auto) 0.0 % (0.0-4.3) 05/18/22 05:25 Baso % (Auto) 0.3 % (0.0-1.8) 05/18/22 05:25 Lymph # (Auto) 0.9 K/mm3 (1.2-5.4) L 05/18/22 05:25 [place] # (Auto) 0.9 K/mm3 (0.0-0.8) H 05/18/22 05:25 Eos # (Auto) 0.0 K/mm3 (0.0-0.4) 05/18/22 05:25 Baso # (Auto) 0.0 K/mm3 (0.0-0.1) 05/18/22 05:25 Seg Neutrophils % 80.5 % (40.0-70.0) H 05/18/22 05:25 Seg Neutrophils # 7.7 K/mm3 (1.8-7.7) 05/18/22 05:25 Sodium 141 mmol/L (137-145) 05/18/22 05:25 Potassium 4.4 mmol/L (3.6-5.0) 05/18/22 05:25 Chloride 104.1 mmol/L (98-107) 05/18/22 05:25 Carbon Dioxide 25 mmol/L (22-30) 05/18/22 05:25 Anion Gap 16 mmol/L 05/18/22 05:25 BUN 31 mg/dL (9-20) H 05/18/22 05:25 Creatinine 1.0 mg/dL (0.8-1.3) 05/18/22 05:25 Estimated GFR > 60 ml/min 05/18/22 05:25 BUN/Creatinine Ratio 31 % 05/18/22 05:25 Glucose 108 mg/dL (75-100) H 05/18/22 05:25 POC Glucose 177 mg/dL (70-105) H 05/17/22 20:25 Calcium 8.7 mg/dL (8.4-10.2) 05/18/22 05:25 Total Bilirubin 0.70 mg/dL (0.1-1.2) 05/18/22 05:25 AST 17 units/L (5-40) 05/18/22 05:25 ALT 13 units/L (7-56) 05/18/22 05:25 Alkaline Phosphatase 107 units/L (35-129) 05/18/22 05:25 Troponin T < 0.010 ng/mL (0.00-0.029) 05/17/22 13:21 NT-Pro-B Natriuret Pep 98614 pg/mL (0-900) H 05/17/22 13:21 Total Protein 6.7 g/dL (6.3-8.2) 05/18/22 05:25 Albumin 3.7 g/dL (3.9-5) L 05/18/22 05:25 Albumin/Globulin Ratio 1.2 % 05/18/22 05:25 Lipase 22 units/L (13-60) 05/17/22 09:20 Smith/IV: Voiding Method Toilet Active Medications - Current Medications Current Medications: Generic Name Dose Route Start Last Admin Trade Name Freq PRN Reason Stop Dose Admin Acetaminophen 650 mg 05/17/22 13:00 Acetaminophen 325 Mg Tab PO Q4H PRN Pain MILD(1-3)/Fever >100.5/PAEZ Dextrose 50 ml 05/17/22 18:28 Dextrose 50% In Water (25gm) 50 Ml Syringe IV Q30MIN PRN Hypoglycemia Protocol Furosemide 40 mg 05/17/22 18:00 05/18/22 06:26 Furosemide 40 Mg/4 Ml Inj IV 40 mg 0600,1800 JAMIN Administration Heparin Sodium (Porcine) 5,000 unit 05/17/22 13:00 05/17/22 22:40 Heparin 5,000 Unit/1 Ml Vial SUB-Q 5,000 unit Q12HR JAMIN Administration Insulin Human Lispro 0 unit 05/17/22 19:00 05/17/22 23:05 Insulin Lispro 100 Unit/Ml SUB-Q 3 unit ACHS JAMIN Administration Protocol Morphine Sulfate 2 mg 05/17/22 13:00 05/17/22 23:16 Morphine 2 Mg/1 Ml Inj IV 2 mg Q4H PRN Administration Pain, Moderate (4-6) Ondansetron HCl 4 mg 05/17/22 13:00 Ondansetron 4 Mg/2 Ml Inj IV Q8H PRN Nausea And Vomiting Oxycodone/Acetaminophen 1 tab 05/17/22 13:00 Oxycodone /Acetaminophen 5-325mg Tab PO Q6H PRN Pain, Moderate (4-6) Sodium Chloride 10 ml 05/17/22 22:00 05/17/22 22:27 Sodium Chloride 0.9% 10 Ml Flush Syringe IV 10 ml BID JAMIN Administration Sodium Chloride 10 ml 05/17/22 12:33 Sodium Chloride 0.9% 10 Ml Flush Syringe IV PRN PRN LINE FLUSH
--- NOTE | 2022-05-18 10:03 | Consultation ---
History of Present Illness Consult date: 05/18/22 Consult reason: congestive heart failure History of present illness: 66-year-old male with history of stroke hypertension congestive heart failure with a EF of 30 to 25% per history was admitted with increased shortness of breath for the past 3 days which is worse on exertion. He also has been complaining of intermittent chest pain. He denies any PND fever chills. He was admitted for CHF exacerbation and got IV Lasix. His symptoms have gotten better but still has some shortness of breath. Past History Past Medical History: heart failure, hypertension, stroke Past Surgical History: Other (Unknown) Social history: denies: smoking Family history: hypertension Medications and Allergies Allergies Allergy/AdvReac Type Severity Reaction Status Date / Time No Known Allergies Allergy Unverified 05/17/22 08:30 Home Medications Medication Instructions Recorded Confirmed Last Taken Type Dextran 70/Hypromellose 1 each OD TID #15 ml 11/10/16 05/17/22 Unknown Rx [Artificial Tears] Budesonide [Pulmicort Respules] 0.5 mg IH Q12HRT #60 nebu 08/22/20 05/17/22 Unknown Rx guaiFENesin ER [Mucinex ER] 600 mg PO BID #30 tablet 08/22/20 05/17/22 Unknown Rx predniSONE 30 mg PO QDAY #5 tablet 08/22/20 05/17/22 Unknown Rx Famotidine [Pepcid] 20 mg PO BID #60 tablet 01/17/21 05/17/22 Unknown Rx Ipratropium/Albuterol Sulfate 1 ampul IH TIDRT #50 ampul.neb 01/17/21 05/17/22 Unknown Rx [DUONEB *Not for PRN Use*] Nebulizer and Compressor [[place] 1 each MC BID #1 each 01/17/21 05/17/22 Unknown Rx Choice Nebulizer] Potassium Chloride [K-Dur] 20 meq PO BID #60 tablet 01/17/21 05/17/22 Unknown Rx Aspirin [Aspirin BABY CHEW TAB] 81 mg PO QDAY #30 tab.chew 09/26/21 05/17/22 Unknown Rx AtorvaSTATin [Lipitor] 20 mg PO QHS #30 tablet 09/26/21 05/17/22 Unknown Rx Furosemide [Lasix TAB] 40 mg PO QDAY #30 tablet 09/26/21 05/17/22 Unknown Rx Metoprolol [Lopressor TAB] 25 mg PO DAILY #30 09/26/21 05/17/22 Unknown Rx lisinopriL [Zestril TAB] 10 mg PO QDAY 60 Days #60 tablet 09/26/21 05/17/22 Unknown Rx Active Meds: Active Medications Acetaminophen (Acetaminophen 325 Mg Tab) 650 mg PO Q4H PRN PRN Reason: Pain MILD(1-3)/Fever >100.5/PAEZ Dextrose (Dextrose 50% In Water (25gm) 50 Ml Syringe) 50 ml IV Q30MIN PRN; Protocol PRN Reason: Hypoglycemia Furosemide (Furosemide 40 Mg/4 Ml Inj) 40 mg IV 0600,1800 [facility] Last Admin: 05/18/22 06:26 Dose: 40 mg Heparin Sodium (Porcine) (Heparin 5,000 Unit/1 Ml Vial) 5,000 unit SUB-Q Q12HR [facility] Last Admin: 05/17/22 22:40 Dose: 5,000 unit Insulin Human Lispro (Insulin Lispro 100 Unit/Ml) 0 unit SUB-Q ACHS [facility]; Protocol Last Admin: 05/17/22 23:05 Dose: 3 unit Morphine Sulfate (Morphine 2 Mg/1 Ml Inj) 2 mg IV Q4H PRN PRN Reason: Pain, Moderate (4-6) Last Admin: 05/17/22 23:16 Dose: 2 mg Ondansetron HCl (Ondansetron 4 Mg/2 Ml Inj) 4 mg IV Q8H PRN PRN Reason: Nausea And Vomiting Oxycodone/Acetaminophen (Oxycodone /Acetaminophen 5-325mg Tab) 1 tab PO Q6H PRN PRN Reason: Pain, Moderate (4-6) Sodium Chloride (Sodium Chloride 0.9% 10 Ml Flush Syringe) 10 ml IV BID [facility] Last Admin: 05/17/22 22:27 Dose: 10 ml Sodium Chloride (Sodium Chloride 0.9% 10 Ml Flush Syringe) 10 ml IV PRN PRN PRN Reason: LINE FLUSH Review of Systems Constitutional: no fever, no chills, no sweats Ears, nose, mouth and throat: no ear pain Cardiovascular: dyspnea on exertion, no chest pain, no orthopnea, no palpitations Respiratory: cough, shortness of breath Gastrointestinal: no nausea, no vomiting Musculoskeletal: no neck pain Integumentary: no rash Neurological: no head injury, no weakness, no headaches Endocrine: no palpatations Hematologic/Lymphatic: no easy bruising Physical Examination Vital Signs Temp Pulse Resp BP Pulse Ox 98.1 F 89 18 138/94 99 05/17/22 08:13 05/17/22 08:13 05/17/22 08:13 05/17/22 08:13 05/17/22 08:13 General appearance: no acute distress HEENT: Positive: EOMI Neck: Positive: neck supple. Negative: JVD/HJR Cardiac: Positive: Reg Rate and Rhythm, S1/S2 Lungs: Positive: Normal Breath Sounds (Faint crackles left worse than the right) Neuro: Positive: Grossly Intact Skin: Negative: Rash Extremities: Absent: edema Results 05/18/22 05:25 05/18/22 05:25 Cardiac Enzymes 05/18/22 Range/Units 05:25 AST 17 (5-40) units/L CBC 05/18/22 Range/Units 05:25 WBC 9.6 (4.5-11.0) K/mm3 RBC 4.46 (3.65-5.03) M/mm3 Hgb 12.9 (11.8-15.2) gm/dl Hct 38.6 (35.5-45.6) % Plt Count 222 (140-440) K/mm3 Lymph # (Auto) 0.9 L (1.2-5.4) K/mm3 [place] # (Auto) 0.9 H (0.0-0.8) K/mm3 Eos # (Auto) 0.0 (0.0-0.4) K/mm3 Baso # (Auto) 0.0 (0.0-0.1) K/mm3 Comprehensive Metabolic Panel 05/18/22 Range/Units 05:25 Sodium 141 (137-145) mmol/L Potassium 4.4 (3.6-5.0) mmol/L Chloride 104.1 (98-107) mmol/L Carbon Dioxide 25 (22-30) mmol/L BUN 31 H (9-20) mg/dL Creatinine 1.0 (0.8-1.3) mg/dL Glucose 108 H (75-100) mg/dL Calcium 8.7 (8.4-10.2) mg/dL AST 17 (5-40) units/L ALT 13 (7-56) units/L Alkaline Phosphatase 107 (35-129) units/L Total Protein 6.7 (6.3-8.2) g/dL Albumin 3.7 L (3.9-5) g/dL EKG interpretations - Telemetry EKG Rhythm: Sinus Rhythm - EKG Sinus rhythms and dysrhythmias: sinus rhythm Chamber hypertrophy or enlargement: left atrial enlargement, left ventricular hypertro Myocardial infarction: septal [place] (old age or ind Assessment and Plan - Patient Problems (1) Chest pain Current Visit: Yes Status: Acute Plan to address problem: Patient chest pain resolved. Likely from his volume overload troponins are negative x2. Will obtain echocardiogram. He will probably need a stress test which can be done as an outpatient once the CHF resolves. (2) CHF exacerbation Current Visit: Yes Status: Acute Plan to address problem: Patient appears to have acute on chronic congestive heart failure based on his exam and chest x-ray. He is responding responding to Lasix. Continue IV Lasix twice daily. Can restart his home medications of BHANU and beta-juan pablo. Obtain an echocardiogram to assess EF.
[2022-05-18] MEDS: HEPARIN 5,000 UNIT/1 ML VIAL SUB-Q SCH ×2 (10:35→21:46)
[2022-05-18] MEDS: INSULIN LISPRO 100 UNIT/ML SUB-Q SCH ×4 (10:38→21:48)
[2022-05-18] MEDS: oxyCODONE /ACETAMINOPHEN 5-325MG TAB PO PRN (17:49)
[2022-05-18] MEDS: MORPHINE 2 MG/1 ML INJ IV PRN (21:45)
[2022-05-19] MEDS: FUROSEMIDE 40 MG/4 ML INJ IV SCH ×2 (06:03→17:06)
[2022-05-19] MEDS: oxyCODONE /ACETAMINOPHEN 5-325MG TAB PO PRN (06:07)
[2022-05-19] MEDS: INSULIN LISPRO 100 UNIT/ML SUB-Q SCH ×5 (07:12→22:38)
[2022-05-19] MEDS: MORPHINE 2 MG/1 ML INJ IV PRN ×3 (08:16→20:47)
[2022-05-19] MEDS: HEPARIN 5,000 UNIT/1 ML VIAL SUB-Q SCH ×2 (11:09→22:37)
--- NOTE | 2022-05-19 13:02 | Progress Note ---
Assessment and Plan - Patient Problems (1) Chest pain Current Visit: Yes Status: Acute Plan to address problem: Patient chest pain resolved. Likely from his volume overload troponins are negative x2. Echocardiogram done shows a EF of 35% approximately. It also shows severe MR we will get a DAIANA. (2) CHF exacerbation Current Visit: Yes Status: Acute Plan to address problem: Patient appears to have acute on chronic congestive heart failure based on his exam and chest x-ray. He is responding responding to Lasix. Continue IV Lasix twice daily. Can restart his home medications of BHANU and beta-juan pablo. Obtain an echocardiogram to assess EF. (3) Mitral regurgitation Current Visit: No Status: Chronic Qualifiers: Cardiac valve disease etiology: nonrheumatic Qualified Code(s): I34.0 - Nonrheumatic mitral (valve) insufficiency Plan to address problem: Patient has possible severe eccentric mitral regurgitation. We will do of a mitral valve flail cannot be excluded based on the transthoracic echo. He will need a DAIANA to further evaluate the mitral valve. Subjective Interval history: Patient doing well. He still has some shortness of breath. No chest pain orthopnea or PND. Objective Vital Signs Temp Pulse Pulse Resp BP Pulse Ox 05/19/22 11:36 98.5 F 69 18 128/96 99 05/19/22 07:34 98.2 F 80 18 137/93 96 05/19/22 07:15 69 98 05/19/22 04:59 97.8 F 20 113/81 05/19/22 00:00 86 05/18/22 22:15 20 05/18/22 22:00 69 98 05/18/22 21:45 20 05/18/22 20:06 97.9 F 69 18 133/90 98 05/18/22 16:14 98.4 F 76 18 128/83 95 05/18/22 16:00 70 - Physical Examination HEENT: Positive: EOMI Neck: Positive: neck supple. Negative: JVD/HJR Cardiac: Positive: Reg Rate and Rhythm, S1/S2 Lungs: Positive: Decreased Breath Sounds (With faint crackles on the bilateral lungs left greater than right) Neuro: Positive: Grossly Intact Skin: Negative: Rash Extremities: Absent: edema - Imaging and Cardiology EKG: report reviewed (Sinus rhythm no acute ST-T wave changes) - EKG Sinus rhythms and dysrhythmias: sinus rhythm Chamber hypertrophy or enlargement: left atrial enlargement, left ventricular hypertro Myocardial infarction: septal [place] (old age or ind
--- NOTE | 2022-05-19 13:46 | Electrocardiograph Report ---
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 Electronically Signed On 05-19-2022 13:46:02 EDT by Thuan Posey
--- NOTE | 2022-05-19 15:35 | Progress Note ---
Assessment and Plan Assessment and plan: CXR:Increased opacities in the right greater than left lung. There may be representing infectious process versus pulmonary edema versus loculated pleural effusion. There are bilateral pleural effusions Assessment and Plan - Patient Problems -- Acute hypoxemic respiratory failure; present on admission Patient was hypoxic in the emergency room requiring oxygen Oxygen supplementation as necessary --Acute coronary syndrome Serial troponins and Lexiscan if possible Cardiology following -- Acute on chronic systolic CHF congestive heart failure Echo; September 2021 EF 30 to 35% Continue antifailure medications, Input output monitoring Daily weights, fluid restriction. Low-sodium diet Cardiology evaluation noted and appreciated --Hypertension Continue current antihypertensives and As needed medications -- Hyperlipidemia Continue statins, low-cholesterol diet -- DVT prophylaxis Subcu heparin Plan of care discussed with patient and his nurse Cardiology recommendations noted and appreciated --Advance care planning +35 minutes Disease education conducted, care plan discussed, diagnosis and prognosis discussed. Patient is full code. Patient does not reports discussed, consultants recommendations reviewed with patient, he had some questions Answered all of them, patient verbalized understanding and agreed with the treatment plan We will closely monitor the patient and adjust management as needed Plan of care reviewed with patient and his nurse I discussed regulatory compliance manager Dr. Pena. 05/18: Continue NT failure medications, cardiology evaluation recommendation noted and appreciated 05/19; patient continues to have shortness of breath, medications optimized, cardiology planning DAIANA tomorrow N.p.o. from midnight History Interval history: I have seen and examined the patient at the bedside Patient's chart and medications reviewed Patient complains of shortness of breath Denies chest pain, vital signs noted Hospitalist Physical - Constitutional Vitals: Temp Pulse Resp BP Pulse Ox 98.5 F 69 18 128/96 99 05/19/22 11:36 05/19/22 11:36 05/19/22 11:36 05/19/22 11:36 05/19/22 11:36 General appearance: Present: mild distress, well-nourished, other (Mild shortness of breath) - EENT Eyes: Present: PERRL, EOM intact - Neck Neck: Present: supple, normal ROM - Respiratory Respiratory effort: normal Respiratory: bilateral: diminished, rales, negative: rhonchi, wheezing - Cardiovascular Rhythm: regular Heart Sounds: Present: S1 & S2 - Extremities Extremities: no ischemia Extremity abnormal: edema (Trace) - Abdominal General gastrointestinal: soft, non-tender, non-distended, normal bowel sounds - Integumentary Integumentary: Present: clear, warm - Psychiatric Psychiatric: appropriate mood/affect, cooperative - Neurologic Neurologic: CNII-XII intact, moves all extremities HEART Score - HEART Score EKG: Non-specific Age: > 65 Risk factors: 1-2 risk factors Troponin: Troponin T < 0.010 ng/mL (0.00-0.029) 05/17/22 13:21 Troponin: < normal limit - Critical Actions Critical Actions: 4-6 pts:12-16.6% risk of adverse cardiac event. Should be admitted Results - Labs CBC & Chem 7: 05/18/22 05:25 05/18/22 05:25 Labs: Laboratory Last Values WBC 9.6 K/mm3 (4.5-11.0) 05/18/22 05:25 RBC 4.46 M/mm3 (3.65-5.03) 05/18/22 05:25 Hgb 12.9 gm/dl (11.8-15.2) 05/18/22 05:25 Hct 38.6 % (35.5-45.6) 05/18/22 05:25 MCV 87 fl (84-94) 05/18/22 05:25 MCH 29 pg (28-32) 05/18/22 05:25 MCHC 33 % (32-34) 05/18/22 05:25 RDW 14.5 % (13.2-15.2) 05/18/22 05:25 Plt Count 222 K/mm3 (140-440) 05/18/22 05:25 Lymph % (Auto) 9.7 % (13.4-35.0) L 05/18/22 05:25 Gordon % (Auto) 9.5 % (0.0-7.3) H 05/18/22 05:25 Eos % (Auto) 0.0 % (0.0-4.3) 05/18/22 05:25 Baso % (Auto) 0.3 % (0.0-1.8) 05/18/22 05:25 Lymph # (Auto) 0.9 K/mm3 (1.2-5.4) L 05/18/22 05:25 Gordon # (Auto) 0.9 K/mm3 (0.0-0.8) H 05/18/22 05:25 Eos # (Auto) 0.0 K/mm3 (0.0-0.4) 05/18/22 05:25 Baso # (Auto) 0.0 K/mm3 (0.0-0.1) 05/18/22 05:25 Seg Neutrophils % 80.5 % (40.0-70.0) H 05/18/22 05:25 Seg Neutrophils # 7.7 K/mm3 (1.8-7.7) 05/18/22 05:25 Sodium 141 mmol/L (137-145) 05/18/22 05:25 Potassium 4.4 mmol/L (3.6-5.0) 05/18/22 05:25 Chloride 104.1 mmol/L (98-107) 05/18/22 05:25 Carbon Dioxide 25 mmol/L (22-30) 05/18/22 05:25 Anion Gap 16 mmol/L 05/18/22 05:25 BUN 31 mg/dL (9-20) H 05/18/22 05:25 Creatinine 1.0 mg/dL (0.8-1.3) 05/18/22 05:25 Estimated GFR > 60 ml/min 05/18/22 05:25 BUN/Creatinine Ratio 31 % 05/18/22 05:25 Glucose 108 mg/dL (75-100) H 05/18/22 05:25 POC Glucose 94 mg/dL (70-105) 05/19/22 11:34 Calcium 8.7 mg/dL (8.4-10.2) 05/18/22 05:25 Total Bilirubin 0.70 mg/dL (0.1-1.2) 05/18/22 05:25 AST 17 units/L (5-40) 05/18/22 05:25 ALT 13 units/L (7-56) 05/18/22 05:25 Alkaline Phosphatase 107 units/L (35-129) 05/18/22 05:25 Troponin T < 0.010 ng/mL (0.00-0.029) 05/17/22 13:21 NT-Pro-B Natriuret Pep 22793 pg/mL (0-900) H 05/17/22 13:21 Total Protein 6.7 g/dL (6.3-8.2) 05/18/22 05:25 Albumin 3.7 g/dL (3.9-5) L 05/18/22 05:25 Albumin/Globulin Ratio 1.2 % 05/18/22 05:25 Lipase 22 units/L (13-60) 05/17/22 09:20 Smith/IV: Voiding Method Toilet Active Medications - Current Medications Current Medications: Generic Name Dose Route Start Last Admin Trade Name Freq PRN Reason Stop Dose Admin Acetaminophen 650 mg 05/17/22 13:00 Acetaminophen 325 Mg Tab PO Q4H PRN Pain MILD(1-3)/Fever >100.5/PAEZ Dextrose 50 ml 05/17/22 18:28 Dextrose 50% In Water (25gm) 50 Ml Syringe IV Q30MIN PRN Hypoglycemia Protocol Furosemide 40 mg 05/17/22 18:00 05/19/22 06:03 Furosemide 40 Mg/4 Ml Inj IV 40 mg 0600,1800 JAMIN Administration Heparin Sodium (Porcine) 5,000 unit 05/17/22 13:00 05/19/22 11:09 Heparin 5,000 Unit/1 Ml Vial SUB-Q 5,000 unit Q12HR JAMIN Administration Insulin Human Lispro 0 unit 05/17/22 19:00 05/19/22 12:50 Insulin Lispro 100 Unit/Ml SUB-Q Not Given ACHS [facility] Protocol Morphine Sulfate 2 mg 05/17/22 13:00 05/19/22 13:15 Morphine 2 Mg/1 Ml Inj IV 2 mg Q4H PRN Administration Pain, Moderate (4-6) Ondansetron HCl 4 mg 05/17/22 13:00 Ondansetron 4 Mg/2 Ml Inj IV Q8H PRN Nausea And Vomiting Oxycodone/Acetaminophen 1 tab 05/17/22 13:00 05/19/22 06:07 Oxycodone /Acetaminophen 5-325mg Tab PO 1 tab Q6H PRN Administration Pain, Moderate (4-6) Sodium Chloride 10 ml 05/17/22 22:00 05/19/22 11:09 Sodium Chloride 0.9% 10 Ml Flush Syringe IV 10 ml BID JAMIN Administration Sodium Chloride 10 ml 05/17/22 12:33 05/18/22 17:49 Sodium Chloride 0.9% 10 Ml Flush Syringe IV 10 ml PRN PRN Administration LINE FLUSH
[2022-05-19] MEDS: BUDESONIDE 0.5 MG/2 ML NEBU IH SCH (20:05)
[2022-05-19] MEDS: IPRATROPIUM/ALBUTEROL SULFATE 3 ML AMPUL.NEB IH SCH (20:05)
[2022-05-19] MEDS: guaiFENesin ER 600 MG TAB PO SCH (22:37)
[2022-05-19] MEDS: FAMOTIDINE 20 MG TAB PO SCH (22:37)
[2022-05-20] MEDS: FUROSEMIDE 40 MG/4 ML INJ IV SCH (05:02)
[2022-05-20] MEDS: MORPHINE 2 MG/1 ML INJ IV PRN (05:03)
[2022-05-20] MEDS: INSULIN LISPRO 100 UNIT/ML SUB-Q SCH ×4 (07:30→22:00)
[2022-05-20] MEDS ORDERED: ASPIRIN 81 MG TAB CHEW PO SCH (10:00)
[2022-05-20] MEDS ORDERED: METOPROLOL TARTRATE 25 MG TAB PO SCH (10:00)
[2022-05-20] MEDS ORDERED: LISINOPRIL 10 MG TAB PO SCH (10:00)
[2022-05-20] MEDS ORDERED: predniSONE 10 MG TAB PO SCH (10:00)
[2022-05-20] MEDS: BUDESONIDE 0.5 MG/2 ML NEBU IH SCH ×2 (10:04→22:30)
[2022-05-20] MEDS: IPRATROPIUM/ALBUTEROL SULFATE 3 ML AMPUL.NEB IH SCH ×3 (10:04→22:31)
--- NOTE | 2022-05-20 11:25 | Progress Note ---
Assessment and Plan - Patient Problems (1) Chest pain Current Visit: Yes Status: Acute Plan to address problem: Patient chest pain resolved. Likely from his volume overload troponins are negative x2. Echocardiogram done shows a EF of 35% approximately. It also shows severe MR, DAIANA today. (2) CHF exacerbation Current Visit: Yes Status: Acute (3) Mitral regurgitation Current Visit: No Status: Chronic Qualifiers: Cardiac valve disease etiology: nonrheumatic Qualified Code(s): I34.0 - Nonrheumatic mitral (valve) insufficiency Plan to address problem: Patient has possible severe eccentric mitral regurgitation. We will do of a mitral valve flail cannot be excluded based on the transthoracic echo. He will need a DAIANA today to further evaluate the mitral valve. Subjective Interval history: Patient doing well. He still has some shortness of breath. No chest pain Objective Vital Signs Temp Pulse Pulse Pulse Resp Resp Resp 05/20/22 10:36 75 18 05/20/22 07:58 98.6 F 79 16 05/20/22 04:47 97.4 F L 69 18 05/20/22 01:11 97.4 F L 18 05/19/22 22:00 76 05/19/22 20:09 93 H 89 20 18 05/19/22 19:29 97.8 F 77 20 05/19/22 15:46 98.5 F 78 18 05/19/22 11:36 98.5 F 69 18 BP Pulse Ox 05/20/22 10:36 05/20/22 07:58 131/92 96 05/20/22 04:47 124/89 96 05/20/22 01:11 119/88 79 L 05/19/22 22:00 97 05/19/22 20:09 05/19/22 19:29 128/81 98 05/19/22 15:46 128/90 97 05/19/22 11:36 128/96 99 - Physical Examination HEENT: Positive: EOMI Neck: Positive: neck supple. Negative: JVD/HJR Cardiac: Positive: Reg Rate and Rhythm, S1/S2 Neuro: Positive: Grossly Intact Skin: Negative: Rash Extremities: Absent: edema - Imaging and Cardiology EKG: report reviewed (Sinus rhythm no acute ST-T wave changes) - Telemetry EKG Rhythm: Sinus Rhythm (Nonsustained VT 1 episode 3 beat run yesterday morning) - EKG Sinus rhythms and dysrhythmias: sinus rhythm Chamber hypertrophy or enlargement: left atrial enlargement, left ventricular hypertro Myocardial infarction: septal PR (old age or ind
[2022-05-20] MEDS ORDERED: SODIUM CHLORIDE 0.9% 1000 ML 1,000 ML ONE (11:39)
[2022-05-20] MEDS ORDERED: BENZOCAINE 20% TOP SPRAY 0.5 ML UNIT DOSE MM NR (12:00)
[2022-05-20] MEDS ORDERED: propofoL 200 MG/20 ML VIAL IV ONE ×2 (12:06)
[2022-05-20] MEDS: FAMOTIDINE 20 MG TAB PO SCH ×2 (12:48→21:46)
[2022-05-20] MEDS: guaiFENesin ER 600 MG TAB PO SCH ×2 (12:48→21:46)
[2022-05-20] MEDS: HEPARIN 5,000 UNIT/1 ML VIAL SUB-Q SCH ×2 (12:48→21:46)
--- NOTE | 2022-05-20 12:55 | Anesthesia Consultation ---
Anesthesia Consult and Med Hx Date of service: 05/20/22 - Airway Anesthetic Teeth Evaluation: Poor (some missing teeth) ROM Head & Neck: Adequate Mental/Hyoid Distance: Adequate Mallampati Class: Class II Intubation Access Assessment: Probably Good - Pre-Operative Health Status ASA Pre-Surgery Classification: ASA3 Proposed Anesthetic Plan: MAC - Pulmonary Hx Smoking: Yes (Former) Hx Asthma: Yes COPD: No Hx Pneumonia: Yes Hx Sleep Apnea: Yes - Cardiovascular System Hx Hypertension: Yes Hx Coronary Artery Disease: No (CHF with EF 30-35%) Hx Valvular Heart Disease: Yes (severe mitral valve regurgitation) Hx Heart Murmur: Yes - Central Nervous System CVA: Yes (2018, hemorrhagic) Hx Psychiatric Problems: No - Endocrine Hx End Stage Renal Disease: No
--- NOTE | 2022-05-20 12:56 | Anesthesia Day of Surgery ---
Anesthesia Day of Surgery - Day of Surgery Patient Examined: Yes Patient H&P Reviewed: Yes Patient is NPO: Yes Beta Blockers: Yes
[2022-05-20] MEDS ORDERED: SODIUM CHLORIDE 0.9% 500 ML 500 ML IV SCH (13:00)
--- NOTE | 2022-05-20 14:25 | Post Anesthesia Evaluation ---
- Post Anesthesia Evaluation Patient Participated: Yes Airway Patent: Yes Stable Respiratory Function: Yes Nausea/Vomiting: No Temp > 96.8F: Yes Pain Manageable: Yes Adequeate Hydration: Yes Anesthesia Complications: No
--- NOTE | 2022-05-20 17:00 | Discharge Summary ---
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 [employer] Hospitalization Reason for admission: Shortness of breath/acute hypoxic respiratory failure requiring oxygen Condition: Stable Pertinent studies: Chest x-ray Echocardiogram DAIANA Procedures: DAIANA: 05/20/2022; Mitral valve mildly thickened mitral valve with prolapse of posterior leaflet likely P2 segment No obvious flail but a small flail cannot be excluded severe concentric mitral regurgitation with evidence of systolic flow reversal in the right pulmonary vein Hospital course: Brief history and Hospital course 36-year-old Polish-speaking male patient with significant past medical history of congestive heart failure, CVA and hypertension was admitted through emergency room with worsening shortness of breath and patient was in acute hypoxic respiratory failure found to have acute on chronic systolic congestive heart failure admitted to the hospital evaluated by hazardous waste management specialist patient subsequently underwent DAIANA which revealed severe mitral valve regurgitation and prolapse hazardous waste management specialist recommended patient to be transferred to [facility] to be evaluated by cardiothoracic surgeon Dr. Corral for further evaluation and management. Assessment and plan: -- 05/20/2022 s/p DAIANA ;Severe mitral regurgitation with prolapse of leaflet Mitral valve; mildly thickened mitral valve prolapse of posterior leaflet likely P2 segment no obvious flail but a small flail cannot be excluded severe concentric mitral regurgitation with evidence of systolic flow reversal in the right pulmonary vein- Direct Support Worker Dr. Pena recommends transfer to [place] to be evaluated by cardiothoracic surgeon -- Acute hypoxic respiratory failure; present on admission Requiring supplemental oxygen, oxygen titrate O2 sats more than 90% Wean as tolerated. Home O2 evaluation prior to discharge if needed --CXR:Increased opacities in the right greater than left lung. There may be representing infectious process versus pulmonary edema versus loculated pleural effusion. There are bilateral pleural effusions --Acute coronary syndrome Serial troponins and Lexiscan/heart cath if needed Cardiology following -- Acute on chronic systolic CHF congestive heart failure Echo; September 2021 EF 30 to 35% Continue antifailure medications, Input output monitoring Daily weights, fluid restriction. Low-sodium diet Cardiology following, optimize medications --Hypertension; moderate control Continue current antihypertensives and As needed medications -- Hyperlipidemia Continue statins, low-cholesterol diet -- DVT prophylaxis Subcu heparin Plan of care discussed with patient and his nurse Cardiology recommendations noted and appreciated --Advance care planning +35 minutes Disease education conducted, care plan discussed, diagnosis and prognosis discus sed. Patient is full code. Patient does not reports discussed, consultants recommendations reviewed with patient, he had some questions Answered all of them, patient verbalized understanding and agreed with the treatment plan I also discussed with the patient that he will be transferred to [facility] for further evaluation by cardiothoracic surgeon Regarding his heart valve, Patient may be discharged and transferred to [place] when the bed is available Severe mitral regurgitation with prolapse of mitral leaflet Acute hypoxic respiratory failure present on admission Acute coronary syndrome Acute on chronic systolic congestive heart failure Hypertension Hyperlipidemia Disposition: 02 [facility] Final Discharge Diagnosis (Prints w/discharge instructions): Severe mitral regurgitation with prolapse of mitral leaflet. Acute hypoxic respiratory failure present on admission. Acute coronary syndrome. Acute on chronic systolic congestive heart failure. Hypertension. Hyperlipidemia Time spent for discharge: 35 minutes Core Measure Documentation - Palliative Care Palliative Care/ Comfort Measures: Not Applicable - Core Measures Any of the following diagnoses?: heart failure - Heart Failure Discharge Requirements BHANU/ARB for LVSD if EF <40%: Yes Beta juan pablo at discharge: Yes Exam - Constitutional Vitals: Temp Pulse Resp BP Pulse Ox 98.6 F 81 21 121/83 96 05/20/22 12:45 05/20/22 13:30 05/20/22 13:30 05/20/22 13:30 05/20/22 13:30 General appearance: Present: mild distress, well-nourished - EENT Eyes: Present: PERRL, EOM intact - Neck Neck: Present: supple, normal ROM - Respiratory Respiratory effort: normal Respiratory: bilateral: diminished, negative: rales, rhonchi, wheezing - Cardiovascular Rhythm: regular Heart Sounds: Present: S1 & S2 - Extremities Extremities: no ischemia, No edema - Abdominal General gastrointestinal: Present: soft, non-tender, non-distended, normal bowel sounds - Integumentary Integumentary: Present: clear, warm - Musculoskeletal Musculoskeletal: strength equal bilaterally, generalized weakness - Psychiatric Psychiatric: appropriate mood/affect, cooperative - Neurologic Neurologic: moves all extremities Plan Activity: other Diet: other (N.p.o. status) Additional Instructions: Patient is being discharged to [facility] to see cardiothoracic surgeon Dr. Corral for further evaluation and management of severe mitral regurgitation with prolapse of the leaflet, for possible surgical procedure Follow up with: PRIMARY CARE, [Primary Care Provider] - 7 Days
--- NOTE | 2022-05-20 17:40 | Progress Note ---
Assessment and Plan Assessment and plan: -- 05/20/2022 s/p DAIANA ;Severe mitral regurgitation with prolapse of leaflet Mitral valve; mildly thickened mitral valve prolapse of posterior leaflet likely P2 segment no obvious flail but a small flail cannot be excluded severe concentric mitral regurgitation with evidence of systolic flow reversal in the right pulmonary vein- Maintenance Chief Dr. Pena recommends transfer to [place] to be evaluated by cardiothoracic surgeon -- Acute hypoxic respiratory failure; present on admission Requiring supplemental oxygen, oxygen titrate O2 sats more than 90% Wean as tolerated. Home O2 evaluation prior to discharge if needed --CXR:Increased opacities in the right greater than left lung. There may be representing infectious process versus pulmonary edema versus loculated pleural effusion. There are bilateral pleural effusions --Acute coronary syndrome Serial troponins and Lexiscan/heart cath if needed Cardiology following -- Acute on chronic systolic CHF congestive heart failure Echo; September 2021 EF 30 to 35% Continue antifailure medications, Input output monitoring Daily weights, fluid restriction. Low-sodium diet Cardiology following, optimize medications --Hypertension; moderate control Continue current antihypertensives and As needed medications -- Hyperlipidemia Continue statins, low-cholesterol diet -- DVT prophylaxis Subcu heparin Plan of care discussed with patient and his nurse Cardiology recommendations noted and appreciated --Advance care planning +35 minutes Disease education conducted, care plan discussed, diagnosis and prognosis discussed. Patient is full code. Patient does not reports discussed, consultants recommendations reviewed with patient, he had some questions Answered all of them, patient verbalized understanding and agreed with the treatment plan I also discussed with the patient that he will be transferred to [facility] for further evaluation by cardiothoracic surgeon Regarding his heart valve, Patient may be discharged and transferred to [place] when the bed is available Brief history and Hospital course patient was admitted with acute hypoxic respiratory failure and acute on chronic congestive heart failure on antiplatelet medication, evaluated by student success advisor, patient underwent transesophageal echocardiogram which revealed severe mitral regurgitation with leaflet prolapse with student success advisor feels that patient should be transferred to [facility] to be seen by cardiothoracic surgeon for further evaluation management. Patient needs to be transferred when bed is available Disposition. Follow clinically, if patient is not transferred for any reason Patient may go for left heart catheterization N.p.o. status from midnight ,, . History Interval history: I have seen and examined the patient at the bedside Patient's chart and medications reviewed. No new events reported by the nursing Patient continues to have shortness of breath Scheduled for DAIANA Vital signs reviewed Hospitalist Physical - Constitutional Vitals: Temp Pulse Resp BP Pulse Ox 98.0 F 77 18 126/80 99 05/20/22 15:05 05/20/22 15:50 05/20/22 15:50 05/20/22 15:05 05/20/22 15:05 General appearance: Present: mild distress, well-nourished - EENT Eyes: Present: PERRL, EOM intact ENT: hearing intact, clear oral mucosa - Neck Neck: Present: supple, normal ROM - Respiratory Respiratory effort: normal Respiratory: bilateral: diminished, rales, negative: rhonchi, wheezing - Cardiovascular Rhythm: regular Heart Sounds: Present: S1 & S2 - Extremities Extremities: no ischemia Extremity abnormal: edema - Abdominal General gastrointestinal: soft, non-tender, non-distended, normal bowel sounds - Integumentary Integumentary: Present: clear, warm - Psychiatric Psychiatric: appropriate mood/affect, cooperative - Neurologic Neurologic: no focal deficits, moves all extremities HEART Score - HEART Score EKG: Non-specific Age: > 65 Risk factors: 1-2 risk factors Troponin: Troponin T < 0.010 ng/mL (0.00-0.029) 05/17/22 13:21 Troponin: < normal limit - Critical Actions Critical Actions: 4-6 pts:12-16.6% risk of adverse cardiac event. Should be admitted Results - Labs CBC & Chem 7: 05/18/22 05:25 05/18/22 05:25 Labs: Laboratory Last Values WBC 9.6 K/mm3 (4.5-11.0) 05/18/22 05:25 RBC 4.46 M/mm3 (3.65-5.03) 05/18/22 05:25 Hgb 12.9 gm/dl (11.8-15.2) 05/18/22 05:25 Hct 38.6 % (35.5-45.6) 05/18/22 05:25 MCV 87 fl (84-94) 05/18/22 05:25 MCH 29 pg (28-32) 05/18/22 05:25 MCHC 33 % (32-34) 05/18/22 05:25 RDW 14.5 % (13.2-15.2) 05/18/22 05:25 Plt Count 222 K/mm3 (140-440) 05/18/22 05:25 Lymph % (Auto) 9.7 % (13.4-35.0) L 05/18/22 05:25 [place] % (Auto) 9.5 % (0.0-7.3) H 05/18/22 05:25 Eos % (Auto) 0.0 % (0.0-4.3) 05/18/22 05:25 Baso % (Auto) 0.3 % (0.0-1.8) 05/18/22 05:25 Lymph # (Auto) 0.9 K/mm3 (1.2-5.4) L 05/18/22 05:25 [place] # (Auto) 0.9 K/mm3 (0.0-0.8) H 05/18/22 05:25 Eos # (Auto) 0.0 K/mm3 (0.0-0.4) 05/18/22 05:25 Baso # (Auto) 0.0 K/mm3 (0.0-0.1) 05/18/22 05:25 Seg Neutrophils % 80.5 % (40.0-70.0) H 05/18/22 05:25 Seg Neutrophils # 7.7 K/mm3 (1.8-7.7) 05/18/22 05:25 Sodium 141 mmol/L (137-145) 05/18/22 05:25 Potassium 4.4 mmol/L (3.6-5.0) 05/18/22 05:25 Chloride 104.1 mmol/L (98-107) 05/18/22 05:25 Carbon Dioxide 25 mmol/L (22-30) 05/18/22 05:25 Anion Gap 16 mmol/L 05/18/22 05:25 BUN 31 mg/dL (9-20) H 05/18/22 05:25 Creatinine 1.0 mg/dL (0.8-1.3) 05/18/22 05:25 Estimated GFR > 60 ml/min 05/18/22 05:25 BUN/Creatinine Ratio 31 % 05/18/22 05:25 Glucose 108 mg/dL (75-100) H 05/18/22 05:25 POC Glucose 99 mg/dL (70-105) 05/19/22 20:51 Calcium 8.7 mg/dL (8.4-10.2) 05/18/22 05:25 Total Bilirubin 0.70 mg/dL (0.1-1.2) 05/18/22 05:25 AST 17 units/L (5-40) 05/18/22 05:25 ALT 13 units/L (7-56) 05/18/22 05:25 Alkaline Phosphatase 107 units/L (35-129) 05/18/22 05:25 Troponin T < 0.010 ng/mL (0.00-0.029) 05/17/22 13:21 NT-Pro-B Natriuret Pep 99149 pg/mL (0-900) H 05/17/22 13:21 Total Protein 6.7 g/dL (6.3-8.2) 05/18/22 05:25 Albumin 3.7 g/dL (3.9-5) L 05/18/22 05:25 Albumin/Globulin Ratio 1.2 % 05/18/22 05:25 Lipase 22 units/L (13-60) 05/17/22 09:20 Smith/IV: Voiding Method Toilet Active Medications - Current Medications Current Medications: Generic Name Dose Route Start Last Admin Trade Name Freq PRN Reason Stop Dose Admin Acetaminophen 650 mg 05/17/22 13:00 Acetaminophen 325 Mg Tab PO Q4H PRN Pain MILD(1-3)/Fever >100.5/PAEZ Albuterol/Ipratropium 1 ampul 05/19/22 20:00 05/20/22 15:37 Ipratropium/Albuterol Sulfate 3 Ml Ampul.Neb IH 1 ampul TIDRT JAMIN Administration Aspirin 81 mg 05/20/22 10:00 05/20/22 12:47 Aspirin 81 Mg Tab Chew PO Not Given QDAY JAMIN Atorvastatin Calcium 20 mg 05/19/22 22:00 05/19/22 22:37 Atorvastatin 20 Mg Tab PO 20 mg QHS JAMIN Administration Benzocaine 3 spray 05/20/22 12:00 05/20/22 12:22 Benzocaine 20% Top Michie 0.5 Ml Unit Dose MM 05/20/22 19:00 3 spray PREOP NR Administration Budesonide 0.5 mg 05/19/22 20:00 05/20/22 10:04 Budesonide 0.5 Mg/2 Ml Nebu IH 0.5 mg Q12HRT [facility] Administration Dextrose 50 ml 05/17/22 18:28 Dextrose 50% In Water (25gm) 50 Ml Syringe IV Q30MIN PRN Hypoglycemia Protocol Famotidine 20 mg 05/19/22 22:00 05/20/22 12:48 Famotidine 20 Mg Tab PO Not Given BID [facility] Furosemide 40 mg 05/17/22 18:00 05/20/22 05:02 Furosemide 40 Mg/4 Ml Inj IV 40 mg 0600,1800 [facility] Administration Guaifenesin 600 mg 05/19/22 22:00 05/20/22 12:48 Guaifenesin Er 600 Mg Tab PO Not Given BID [facility] Heparin Sodium (Porcine) 5,000 unit 05/17/22 13:00 05/20/22 12:48 Heparin 5,000 Unit/1 Ml Vial SUB-Q Not Given Q12HR [facility] Sodium Chloride 500 mls @ 50 mls/hr 05/20/22 13:00 Nacl 0.9% 500 Ml IV 05/20/22 22:59 DIRECT [facility] Insulin Human Lispro 0 unit 05/17/22 19:00 05/20/22 12:47 Insulin Lispro 100 Unit/Ml SUB-Q Not Given ACHS [facility] Protocol Lisinopril 10 mg 05/20/22 10:00 05/20/22 12:48 Lisinopril 10 Mg Tab PO Not Given QDAY [facility] Metoprolol Tartrate 25 mg 05/20/22 10:00 05/20/22 12:48 Metoprolol Tartrate 25 Mg Tab PO Not Given DAILY [facility] Morphine Sulfate 2 mg 05/17/22 13:00 05/20/22 05:03 Morphine 2 Mg/1 Ml Inj IV 2 mg Q4H PRN Administration Pain, Moderate (4-6) Ondansetron HCl 4 mg 05/17/22 13:00 Ondansetron 4 Mg/2 Ml Inj IV Q8H PRN Nausea And Vomiting Oxycodone/Acetaminophen 1 tab 05/17/22 13:00 05/19/22 06:07 Oxycodone /Acetaminophen 5-325mg Tab PO 1 tab Q6H PRN Administration Pain, Moderate (4-6) Sodium Chloride 10 ml 05/17/22 22:00 05/20/22 12:49 Sodium Chloride 0.9% 10 Ml Flush Syringe IV Not Given BID JAMIN Sodium Chloride 10 ml 05/17/22 12:33 05/18/22 17:49 Sodium Chloride 0.9% 10 Ml Flush Syringe IV 10 ml PRN PRN Administration LINE FLUSH
[2022-05-21 05:13] LABS: BUN/Creatinine Ratio 28; Blood Urea Nitrogen 28 mg/dL (9-20); Calcium 8.4 mg/dL (8.4-10.2); Chol/HDL Ratio 2.05 %; HDL Cholesterol 69 mg/dL (40-59); Hemolysis Index 9; LDL Cholesterol,Direct 72 mg/dL (50-130)
[2022-05-21] MEDS: FUROSEMIDE 40 MG/4 ML INJ IV SCH (06:09)
[2022-05-21 08:35] VITALS: BP 132/88
[2022-05-21] MEDS: BUDESONIDE 0.5 MG/2 ML NEBU IH SCH (09:33)
[2022-05-21] MEDS: IPRATROPIUM/ALBUTEROL SULFATE 3 ML AMPUL.NEB IH SCH (09:33)
--- NOTE | 2022-05-22 09:38 | Electrocardiograph Report ---
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
== END 2022-05-21 10:54 | disposition short-term general hospital (02) | DRG 291 ==
LOC: ED 08:12 → 4A 12:33
PROVIDERS: ADMIT Internal Medicine; ATTEND Hospitalist
DX: I11.0 Hypertensive heart disease with heart failure (principal); I50.23 Acute on chronic systolic (congestive) heart failure; J96.01 Acute respiratory failure with hypoxia; I24.9 Acute ischemic heart disease, unspecified; J45.909 Unspecified asthma, uncomplicated; Z86.73 Personal history of transient ischemic attack (TIA), and cerebral infarction without residual deficits; Z79.82 Long term (current) use of aspirin; Z79.899 Other long term (current) drug therapy; Z82.49 Family history of ischemic heart disease and other diseases of the circulatory system; E78.2 Mixed hyperlipidemia; I34.0 Nonrheumatic mitral (valve) insufficiency; Z87.891 Personal history of nicotine dependence
CPT/HCPCS: 36415; 71045; 80048; 80053; 80061; 82962; 83690; 83735; 83880; 84484; 85025; 93005; 93306; 93312; 93320; 93325; 94640; 94644; 96374; 96375; 99285; G0378; Q9967; C8929; J1644; J1815; J1940; J2270; J2704; J2930; J7030